=== PATIENT | male | born 1955 | race African-American/Black ===

== ENCOUNTER 2020-10-28 18:05 | Inpatient (IN) | payer OTHER, SELFPAY ==
[2020-10-28 18:32] LABS: Absolute Lymphocytes (CBC) 1.6 K/uL (0.7-4.9); Basophils % 0.9 % (0-1.3); Hematocrit 38.6 % (39.6-49.0); Lymphocytes % 17.8 % (15.3-44.8); MPV 8.3 fL (7.6-11.3); RBC Red Blood Cell Count 4.16 M/uL (4.33-5.43)
[2020-10-28 18:33] LABS: Protime INR 1.08
[2020-10-28] MEDS ORDERED: MAGNESIUM SULFATE 1 gm IVPB 1 GM/100 ML BAG IV ONE (18:36)
[2020-10-28] MEDS ORDERED: NA CHLORIDE 0.9% 1,000 ML ONE (18:36)
[2020-10-28 18:44] LABS: ALT/SGPT 106 U/L (12-78); Alkaline Phosphatase 58 U/L (45-117); BUN Blood Urea Nitrogen 14 mg/dL (7-18); Bicarbonate 26 mmol/L (21-32); Bilirubin Direct < 0.1 mg/dL (0-0.2); Bilirubin Total 0.7 mg/dL (0.2-1.0); Glucose Level 92 mg/dL (74-106); Lipase 80 U/L (73-393); Protein, Total 8.8 g/dL (6.4-8.2); Sodium Level 137 mmol/L (136-145); Troponin (Emerg Dept Use Only) 0.02 ng/mL (0.0-0.045)
[2020-10-28 18:45] LABS: Potassium 3.9 mmol/L (3.5-5.1)
[2020-10-28 18:47] LABS: AST/SGOT 406 U/L (15-37)
[2020-10-28] MEDS ORDERED: METOPROLOL TAR 25 MG TAB ONE (18:55)
--- NOTE | 2020-10-28 19:16 | RAD REPORT ---
EXAM DESCRIPTION: CT - Abdomen Pelvis W Contrast - 10/28/2020 7:00 pm CLINICAL HISTORY: LLQ abd pain COMPARISON: No comparisons TECHNIQUE: Biphasic, helical CT imaging of the abdomen and pelvis was performed following 100 ml non -ionic IV contrast. No oral contrast administered. All CT scans are performed using dose optimization technique as appropriate and may include automated exposure control or mA/KV adjustment according to patient size. FINDINGS: No suspicious findings in the lung bases. The liver, pancreas, gallbladder and biliary tree show no suspicious findings. Spleen is abnormal. There is a wedge-shaped area of diminished attenuation and absent enhancement th at extends from the anterior superior aspect to the posteroinferior aspect neck configuration typical for splenic infarction. Remaining splenic tissue shows normal enhancement with no focal mass lesion. No splenic artery thrombus identifiable. Patient shows only mild for age atherosclerotic calcificati on in the aorta. No mesenteric or renal artery atherosclerotic calcifications seen. Symmetric renal function is seen with no hydronephrosis or suspicious renal mass. No pyelonephritis o r acute parenchymal process. Urinary bladder is only partially filled. No bladder calculi. Base the b ladder near the prostate gland appears thickened. This could be artifact of incomplete distention. Fo llow-up outpatient ultrasound could be obtained with a bladder fully filled. No adrenal abnormalities . Prostate gland is prominent. No dilated bowel loops or bowel wall thickening. No free air, free fluid or inflammatory stranding. No hernia, mass or bulky lymphadenopathy. No suspicious bony findings. IMPRESSION: A wedge-shaped area of absent or diminished enhancement in the spleen extends from the a nterior superior margin to the posteroinferior margin, an appearance typical for acute to subacute sp lenic infarction. No hemorrhagic component. Remaining splenic parenchyma enhances normally. No splenic artery thrombus identifiable. Base the bladder near the prostate gland appears thickened but may be an artifact of incomplete diste ntion. Follow-up outpatient bladder sonography could be performed with urinary bladder fully distende d.
--- NOTE | 2020-10-28 19:16 | RAD REPORT ---
EXAM DESCRIPTION: RAD - Chest Single View - 10/28/2020 6:40 pm CLINICAL HISTORY: PALPITATIONS COMPARISON: None TECHNIQUE: AP portable chest image was obtained 10/28/2020 6:40 pm . FINDINGS: Scarring or linear atelectasis changes present in the left base. No mass or consolidation suspected. Heart and vasculature are normal. No measurable pleural effusion and no pneumothorax. No a cute bony abnormality seen. No acute aortic findings suspected. IMPRESSION: Scarring and/or atelectasis changes at each lung base. No acute finding.
--- NOTE | 2020-10-28 19:58 | EDPHYS ---
Physician Documentation [facility] Name: Cory Mcclure Jr Age: 65 yrs Sex: Male : 1955 Arrival Date: 10/28/2020 Time: 18:07 Bed 2 Private MD: ED Physician Javi Munoz HPI: 10/28 18:16 This 65 yrs old Black Male presents to ER via Unassigned with complaints of LLQ abd rn pain. 18:16 The patient presents with abdominal pain in the left lower quadrant. Onset: The rn symptoms/episode began/occurred 3 day(s) ago. The symptoms do not radiate. Associated signs and symptoms: Pertinent positives: anorexia, nausea, Pertinent negatives: blood in stools, chest pain, constipation, diarrhea, dysuria, fever, shortness of breath, testicular pain. The symptoms are described as sharp. Modifying factors: The symptoms are alleviated by remaining still, the symptoms are aggravated by movement, touching the area. Severity of pain: At its worst the pain was moderate in the emergency department the pain is unchanged. The patient has not experienced similar symptoms in the past. The patient has not recently seen a physician. Historical: - Allergies: 18:48 No Known Allergies; tr6 - Home Meds: 18:48 None [Active]; tr6 - PMHx: 18:48 None; tr6 - Immunization history:: Adult Immunizations unknown. - Social history:: Smoking status: Patient reports the use of cigarette tobacco products, smokes one pack cigarettes per day. Patient uses alcohol, admits to "couple of beers" a day. on weekends. street drugs, marijuana. - Family history:: not pertinent. - Hospitalizations: : No recent hospitalization is reported. ROS: 18:16 Constitutional: Negative for fever, chills, and weight loss, Eyes: Negative for injury, rn pain, redness, and discharge, Neck: Negative for injury, pain, and swelling, Cardiovascular: Negative for chest pain, palpitations, and edema, Respiratory: Negative for shortness of breath, cough, wheezing, and pleuritic chest pain, Abdomen/GI: Negative for vomiting, diarrhea, and constipation, Back: Negative for injury and pain, : Negative for injury, bleeding, discharge, and swelling, MS/Extremity: Negative for injury and deformity, Skin: Negative for injury, rash, and discoloration, Neuro: Negative for headache, weakness, numbness, tingling, and seizure. Exam: 18:16 Constitutional: Thin male, no acute distress Head/Face: Normocephalic, atraumatic. rn Eyes: Periorbital areas with no swelling, redness, or edema. ENT: dry MM Cardiovascular: Tachycardic, regular Respiratory: Mild tachypnea, no retractions Abdomen/GI: soft, + tender LLQ with guarding, no rebound, no masses Skin: Warm, dry MS/ Extremity: Pulses equal, no cyanosis. Neuro: Awake and alert, GCS 15, oriented to person, place, time, and situation. Cranial nerves II-XII grossly intact. Motor strength 5/5 in all extremities. Sensory grossly intact. Vital Signs: 18:15 BP 112 / 78; Pulse 162; Resp 18; Temp 98.3(O); Pulse Ox 99% on R/A; tr6 18:33 BP 116 / 80; Pulse 103; Resp 18; Pulse Ox 99% on R/A; Pain 0/10; tr6 20:02 BP 134 / 92; Pulse 86; Resp 16 S; Pulse Ox 99% on R/A; ad5 21:01 BP 128 / 84; Pulse 85; Resp 16 S; Pulse Ox 99% on R/A; ad5 21:52 BP 115 / 81; Pulse 89; Resp 16 S; Pulse Ox 99% on R/A; ad5 MDM: 18:07 Patient medically screened. rn 18:22 ED course: Pt with episodes that appears to be either SVT or Aflutter with buried rn waves, HR in 150s, goes back to sinus tachycardia after a few minutes. Pt denies sob/palpitations/chest pain. . 19:02 Transition of care: After a detail discussion of the patient's case, care is rn transferred to James Jacobo MD. 19:56 Differential diagnosis: appendicitis, gastritis, Hepatitis, Irritable bowel syndrome. ma2 Data reviewed: vital signs, nurses notes. Counseling: I had a detailed discussion with the patient and/or guardian regarding: the historical points, exam findings, and any diagnostic results supporting the discharge/admit diagnosis, the presence of at least one elevated blood pressure reading (>120/80) during this emergency department visit, the need for outpatient follow up. Response to treatment: the patient's symptoms have markedly improved after treatment. 10/28 18:09 Order name: Basic Metabolic Panel 10/28 18:09 Order name: CBC with Diff 10/28 18:09 Order name: Hepatic Function 10/28 18:09 Order name: Lipase 10/28 18:09 Order name: Urine Microscopic Only 10/28 18:09 Order name: Troponin (emerg Dept Use Only) 10/28 18:10 Order name: Basic Metabolic Panel [facility] 10/28 18:10 Order name: CBC with Automated Diff; Complete Time: 18:41 [facility] 10/28 18:16 Order name: PT-INR; Complete Time: 18:41 10/28 18:16 Order name: Ptt, Activated; Complete Time: 18:41 10/28 20:13 Order name: COVID-19 : Document "Date of Symptom Onset" if Symptomatic. [facility] 10/28 18:09 Order name: IV Saline Lock; Complete Time: 18:23 10/28 18:09 Order name: Labs collected and sent; Complete Time: 18:23 10/28 18:09 Order name: CT Abd/Pelvis - IV Contrast Only; Complete Time: 19:29 10/28 18:09 Order name: EKG; Complete Time: 18:10 10/28 18:09 Order name: XRAY Chest (1 view); Complete Time: 19:29 10/28 20:24 Order name: ESR [facility] 10/28 20:24 Order name: CRP [facility] 10/28 20:24 Order name: Blood Culture Adult (2) [facility] 10/28 20:25 Order name: Sedimentation Rate, [place] [facility] 10/28 20:26 Order name: UDS [facility] 10/28 20:59 Order name: C-Reactive Protein [facility] 10/28 21:31 Order name: SARS-COV-2 RT PCR [facility] 10/28 18:09 Order name: EKG - Nurse/Tech; Complete Time: 18:23 rn Administered Medications: 18:23 Drug: NS 0.9% 1000 ml Route: IV; Rate: 1000 ml; Site: left antecubital; tr6 18:23 Drug: Magnesium Sulfate 1 grams Route: IVPB; Infused Over: 1 hrs; Site: left tr6 antecubital; 19:30 Follow up: IV Status: Completed infusion jm8 18:42 Drug: Metoprolol 25 mg Route: PO; tr6 20:03 Follow up: Response: No adverse reaction ad5 20:21 Drug: Lovenox (enoxaparin) 80 mg Route: Sub-Q; Site: left lower abdomen; ad5 21:02 Follow up: Response: No adverse reaction ad5 Disposition: 10/28/20 19:58 Hospitalization ordered by Artie Chnadra for Inpatient Admission. Preliminary diagnosis are Infarction of spleen, Tachycardia, unspecified, Unspecified abdominal pain. - Bed requested for Telemetry/MedSurg (Inpatient). - Status is Inpatient Admission. jm8 - Condition is Stable. - Problem is new. - Symptoms are unchanged. Signatures: Dispatcher [employer] EDTN Kim Toribio RN RN Javi Munoz MD MD rn Attema, Lee, HERPETOLOGY TEACHER-C HERPETOLOGY TEACHER-Cla1 James Jacobo MD MD mi2 Everett Craig RN RN jm8 Kathy Gorman RN RN tr6 Noel Velasco ad5 Corrections: (The following items were deleted from the chart) 20:27 20:13 [facility] 19:58 Hospitalization Ordered by Artie Chandra DO for Inpatient Admission. Preliminary diagnosis is Infarction of spleen; Tachycardia, unspecified; Unspecified abdominal pain. Bed requested for Telemetry/MedSurg (Inpatient). Status is Inpatient Admission. Condition is Stable. Problem is new. Symptoms are unchanged. mi2 23:05 21:43 10/28/2020 19:58 Hospitalization Ordered by Artie Chandra DO for Inpatient [facility] Admission. Preliminary diagnosis is Infarction of spleen; Tachycardia, unspecified; Unspecified abdominal pain. Bed requested for Telemetry/MedSurg (Inpatient). Status is Inpatient Admission. Condition is Stable. Problem is new. Symptoms are unchanged. dw
--- NOTE | 2020-10-28 19:58 | ER ---
Nurse's Notes [facility] Name: Cory Mcclure Jr Age: 65 yrs Sex: Male : 1955 Arrival Date: 10/28/2020 Time: 18:07 Bed 2 Private MD: Diagnosis: Infarction of spleen;Tachycardia, unspecified;Unspecified abdominal pain Presentation: 10/28 18:25 Chief complaint: EMS states: pt brought to ED for left lower quadrant pain/left hip tr6 pain since Tuesday. pt found to have HR of 150s. Coronavirus screen: At this time, unable to obtain information related to travel outside the [place] Ebola Screen: Patient negative for fever greater than or equal to 101.5 degrees Fahrenheit, and additional compatible Ebola Virus Disease symptoms Patient denies exposure to infectious person. Patient denies travel to an Ebola-affected area in the 21 days before illness onset. Initial Sepsis Screen: Does the patient meet any 2 criteria? HR > 90 bpm. Does the patient have a suspected source of infection? No. Patient's initial sepsis screen is negative. Risk Assessment: Do you want to hurt yourself or someone else? Patient reports no desire to harm self or others. Onset of symptoms was October 26, 2020. 18:25 Method Of Arrival: EMS: [facility] tr6 18:25 Acuity: ANITA 2 tr6 Triage Assessment: 18:25 General: Appears in no apparent distress. comfortable, slender, Behavior is calm, tr6 cooperative, appropriate for age. Pain: Complains of pain in LLQ/ left hip pain. EENT: No deficits noted. Neuro: No deficits noted. Cardiovascular: Denies chest pain, lightheadedness, nausea, palpitations, shortness of breath, vomiting, Rhythm is pt alternates from NSR to SVT as high as 160s. Respiratory: No deficits noted. Denies cough, shortness of breath labored breathing, pain with respiration, pain with cough, pain with movement. GI: No deficits noted. Abdomen is flat, non-distended, Abd is soft and non tender. : No deficits noted. Denies burning with urination, inability to void, pain. Derm: No deficits noted. Musculoskeletal: No deficits noted. Historical: - Allergies: 18:48 No Known Allergies; tr6 - Home Meds: 18:48 None [Active]; tr6 - PMHx: 18:48 None; tr6 - Immunization history:: Adult Immunizations unknown. - Social history:: Smoking status: Patient reports the use of cigarette tobacco products, smokes one pack cigarettes per day. Patient uses alcohol, admits to "couple of beers" a day. on weekends. street drugs, marijuana. - Family history:: not pertinent. - Hospitalizations: : No recent hospitalization is reported. Screenin:34 Abuse screen: Denies threats or abuse. Denies injuries from another. Nutritional tr6 screening: No deficits noted. Tuberculosis screening: No symptoms or risk factors identified. Fall Risk None identified. Assessment: 18:30 Reassessment: see triage assessment. tr6 18:46 Reassessment: pt states that the pain began on Tuesday when he was lifting a heavy bag tr6 of garbage. pt states the pain increases when he turns a certain way. 18:52 Reassessment: pt transported to CT via stretcher. tr6 19:49 Reassessment: Patient and/or family updated on plan of care and expected duration. Pain ad5 level reassessed. Patient is alert, oriented x 3, equal unlabored respirations, skin warm/dry/pink. Pt resting comfortably in stretcher, resp with ease. Denies new or worsening c/o. Reports pain to LLQ improved. NAD noted, will continue to monitor. Patient states feeling better. 21:01 Reassessment: Patient appears in no apparent distress at this time. No changes from ad5 previously documented assessment. Patient and/or family updated on plan of care and expected duration. Pain level reassessed. Patient is alert, oriented x 3, equal unlabored respirations, skin warm/dry/pink. 21:52 Reassessment: Patient appears in no apparent distress at this time. No changes from ad5 previously documented assessment. Patient and/or family updated on plan of care and expected duration. Pain level reassessed. Patient is alert, oriented x 3, equal unlabored respirations, skin warm/dry/pink. 22:07 Reassessment: Pt report to receiving RNCierra. Questions/concerns addressed. NAD ad5 noted upon transfer of care. Vital Signs: 18:15 BP 112 / 78; Pulse 162; Resp 18; Temp 98.3(O); Pulse Ox 99% on R/A; tr6 18:33 BP 116 / 80; Pulse 103; Resp 18; Pulse Ox 99% on R/A; Pain 0/10; tr6 20:02 BP 134 / 92; Pulse 86; Resp 16 S; Pulse Ox 99% on R/A; ad5 21:01 BP 128 / 84; Pulse 85; Resp 16 S; Pulse Ox 99% on R/A; ad5 21:52 BP 115 / 81; Pulse 89; Resp 16 S; Pulse Ox 99% on R/A; ad5 Vitals: 18:15 Cardiac Rhythm Assessment Sinus tach SVT Other pt asymptomatic. pt states he does not tr6 feel his heart racing. ED Course: 18:07 Patient arrived in ED. rn 18:07 Javi Munoz MD is Attending Physician. rn 18:23 Kathy Gorman RN is Primary Nurse. tr6 18:27 Triage completed. tr6 18:30 No apparent distress. tr6 18:30 Inserted saline lock: 20 gauge in right antecubital area, using aseptic technique. tr6 Blood collected. 18:31 Maintain EMS IV. Dressing intact. Good blood return noted. Site clean \\T\\ dry. Gauge \\T\\ tr 6 site: left AC 20. 18:34 Patient has correct armband on for positive identification. Placed in gown. Bed in low tr6 position. Call light in reach. Side rails up X2. data processing mechanic on. Pulse ox on. NIBP on. Door closed. Noise minimized. Visitors limited. Lights dimmed. Warm blanket given. 18:38 XRAY Chest (1 view) In Process Unspecified. EDMS 18:44 No provider procedures requiring assistance completed. tr6 18:44 Patient placed in an exam room, on a stretcher, on wash plant operator, on pulse oximetry. tr6 19:00 CT Abd/Pelvis - IV Contrast Only In Process Unspecified. EDMS 19:16 Primary Nurse role handed off by Kathy Gorman, ROSA mw2 19:46 Noel Velasco is Primary Nurse. ad5 19:58 Artie Chandra DO is Hospitalizing Provider. ma2 20:21 COVID-19 : Document "Date of Symptom Onset" if Symptomatic. Sent. ad5 22:07 Patient admitted, IV remains in place. ad5 Administered Medications: 18:23 Drug: NS 0.9% 1000 ml Route: IV; Rate: 1000 ml; Site: left antecubital; tr6 18:23 Drug: Magnesium Sulfate 1 grams Route: IVPB; Infused Over: 1 hrs; Site: left tr6 antecubital; 19:30 Follow up: IV Status: Completed infusion jm8 18:42 Drug: Metoprolol 25 mg Route: PO; tr6 20:03 Follow up: Response: No adverse reaction ad5 20:21 Drug: Lovenox (enoxaparin) 80 mg Route: Sub-Q; Site: left lower abdomen; ad5 21:02 Follow up: Response: No adverse reaction ad5 Outcome: 19:58 Decision to Hospitalize by Provider. ma2 22:06 Admitted to Med/surg accompanied by tech, via stretcher, with chart. ad5 22:06 Condition: stable 22:06 Instructed on the need for admit, Demonstrated understanding of instructions. 23:05 Patient left the ED. jm8 Signatures: Dispatcher [employer] EDMS Javi Munoz MD MD rn Alzahri, Mohammad, MD MD ca2 Ralph Palacios 2 Everett Craig RN RN 8 Kathy Gorman RN RN tr6 Noel Velasco ad5 Corrections: (The following items were deleted from the chart) 20:27 20:21 CORONAVIRUS drawn and sent. ad5 EDMS
[2020-10-28] MEDS ORDERED: ENOXAPARIN 80 MG/0.8 ML SQ ONE (20:27)
--- NOTE | 2020-10-28 20:57 | P.HP ---
Certification for Inpatient Patient admitted to: Inpatient With expected LOS: >2 Midnights Patient will require the following post-hospital care: None Practitioner: I am a practitioner with admitting privileges, knowledge of patient current condition, hospital course, and medical plan of care. Services: Services provided to patient in accordance with Admission requirements found in Title 42 Section 412.3 of the Code of Federal Regulations Patient History Date of Service: 10/28/20 Reason for admission: Splenic infarction History of Present Illness: 65-year-old male with history of alcohol abuse presents emergency department for left-sided abdominal pain and tachycardia. Patient reports ongoing abdominal pain since Tuesday. Labs in the emergency department remarkable for hemoglobin 12.9 hematocrit 38.6 80 S. T4 0 6 ALT 106 troponin 0.02 patient was initially tachycardic with a rate around 160 appeared to be SVT, patient was given 25 of Lopressor p.o. and has been rate controlled since that time. Chest x-ray unremarkable, CT abdomen pelvis demonstrates a wedge- shaped area of abscess or diminished enhancement in the spleen extending from the anterior superior margin to the posterior inferior margin within appearance typical for acute to subacute splenic infarction. No hemorrhagic component or splenic artery thrombus is identifiable. Patient denies any IV drug use were recent dental infection/problem, does report drinking approximately 8-10 beers per day for a number of years, last beer was on Tuesday afternoon. ED provider wishes to admit for further evaluation and management. - Past Medical/Surgical History -: Alcohol abuse -: none Psychosocial/ Personal History: Unemployed, lives with a friend - Family History Mother -: Cancer - Social History Smoking Status: Never smoker Alcohol use: Yes CD- Drugs: No Caffeine use: Yes Place of Residence: Home Review of Systems 10-point ROS is otherwise unremarkable Gastrointestinal: Nausea, Abdominal Pain Physical Examination - Physical Exam General: Alert, In no apparent distress, Oriented x3 HEENT: Atraumatic, PERRLA, Mucous membr. moist/pink, EOMI, Sclerae nonicteric Neck: Supple, 2+ carotid pulse no bruit, No LAD, Without JVD or thyroid abnormality Respiratory: Clear to auscultation bilaterally, Normal air movement Cardiovascular: Regular rate/rhythm, Normal S1 S2 Gastrointestinal: Normal bowel sounds, Tenderness (Left-sided abdominal tenderness noted) Musculoskeletal: No tenderness Integumentary: No rashes Neurological: Normal gait, Normal speech, Normal strength at 5/5 x4 extr, Normal tone, Normal affect - Studies Laboratory Data (last 24 hrs) 10/28/20 18:10: PT 12.4, INR 1.08, APTT 27.7 10/28/20 18:10: WBC 8.90, Hgb 12.9 L, Hct 38.6 L, Plt Count 285 10/28/20 18:10: Sodium 137, Potassium 3.9, BUN 14, Creatinine 1.09, Glucose 92, Total Bilirubin 0.7, AST 406 H*, ALT 106 H, Alkaline Phosphatase 58, Lipase 80 Assessment and Plan - Plan Assessment SVT, splenic infarction ETOH abuse Plan SVT, splenic infarction: Will monitor on tele, patient given metoprolol 25 mg p.o. in the emergency department, will continue this medication. Given new a rrhythmia and splenic infarction endocarditis is a consideration, will obtain blood cultures, CRP, ESR, echocardiogram. No audible significant murmur at this time, no additional lesions to suggest endocarditis. Patient denies any IV drug use, UDS pending, dentition is overall poor but no significant infection present. Cardiology consulted. Will continue with full-dose Lovenox for splenic infarction of unknown etiology. ETOH abuse: Patient reports drinking 8-10 beers per day for the last few years, last drink was on Tuesday the in the afternoon. Will monitor with alcohol withdrawal assessments provide p.r.n. medications. Discharge Plan: Home Plan to discharge in: 48 Hours - Advance Directives Does patient have a Living Will: No Does patient have a Durable POA for Healthcare: No - Code Status/Comfort Care Code Status Assessed: Yes (Full code) Critical Care: No Time Spent Managing Pts Care (In Minutes): 55
[2020-10-28 22:56] VITALS: BMI 22.4
[2020-10-28] MEDS ORDERED: HYDROCODONE/APAP 7.5/325 MG TAB PO PRN (22:57)
[2020-10-28] MEDS ORDERED: ONDANSETRON 4 MG/2 ML VIAL IV PRN (22:57)
[2020-10-28] MEDS: NA CHLORIDE 0.9% 1,000 ML IV SCH (23:39)
[2020-10-29] MEDS ORDERED: ENOXAPARIN 80 MG/0.8 ML SQ SCH
[2020-10-29 04:05] LABS: Absolute Lymphocytes (CBC) 1.5 K/uL (0.7-4.9); Basophils % 0.9 % (0-1.3); Hematocrit 36.4 % (39.6-49.0); Lymphocytes % 18.7 % (15.3-44.8); MPV 8.7 fL (7.6-11.3); RBC Red Blood Cell Count 3.92 M/uL (4.33-5.43)
[2020-10-29 04:30] LABS: ALT/SGPT 120 U/L (12-78); Albumin 2.7 g/dL (3.4-5.0); Alkaline Phosphatase 53 U/L (45-117); BUN Blood Urea Nitrogen 15 mg/dL (7-18); Bicarbonate 25 mmol/L (21-32); Bilirubin Total 0.6 mg/dL (0.2-1.0); Glucose Level 95 mg/dL (74-106); HDL Cholesterol 47 mg/dL (40-60); LDL Cholesterol, Calculated 72 (<130); Magnesium 2.3 mg/dL (1.8-2.4); Potassium 3.6 mmol/L (3.5-5.1); Protein, Total 7.9 g/dL (6.4-8.2); Sodium Level 137 mmol/L (136-145)
[2020-10-29 04:36] LABS: AST/SGOT 508 U/L (15-37)
[2020-10-29 06:40] LABS: Urine Appearance CLOUDY (Clear); Urine Blood 3+ (Negative); Urine Color DK YELLOW (Yellow); Urine Glucose NEGATIVE (Negative); Urine Protein 2+ (Negative); Urine Specific Gravity 1.025 (1.005-1.030)
[2020-10-29 06:45] LABS: Urine Bilirubin 1+ (Negative)
[2020-10-29 06:54] LABS: Urine RBC NONE SEEN /HPF (NONE SEEN)
[2020-10-29 06:55] LABS: Urine Amorphous Sediment 2+ /HPF (NONE SEEN); Urine Bacteria NONE SEEN /HPF (NONE SEEN)
[2020-10-29 06:58] LABS: Barbiturates NEGATIVE (NEGATIVE); Benzodiazepines NEGATIVE (NEGATIVE); Cocaine NEGATIVE (NEGATIVE); METHAMPHETAM NEGATIVE (NEGATIVE); Methadone NEGATIVE (NEGATIVE); Opiates NEGATIVE (NEGATIVE); Phencyclidine NEGATIVE (NEGATIVE); THC Cannibis POSITIVE (NEGATIVE)
[2020-10-29] MEDS ORDERED: KCL 20 MEQ/100 mL IVPB 20 MEQ/100 ML BAG IV SCH (07:30)
[2020-10-29] MEDS: METOPROLOL TAR 25 MG TAB PO SCH (09:51)
[2020-10-29] MEDS: ENOXAPARIN 80 MG/0.8 ML SQ SCH ×2 (09:51→20:41)
[2020-10-29] MEDS: NA CHLORIDE 0.9% 1,000 ML IV SCH ×2 (09:58→18:57)
--- NOTE | 2020-10-29 11:56 | RAD REPORT ---
EXAM DESCRIPTION: US - Liver Only - 10/29/2020 10:41 am CLINICAL HISTORY: Abdominal pain. SPlenic infarct, Elevated Liver func, Alcohol COMPARISON: No comparisons FINDINGS: Mild diffuse fatty liver. No focal liver lesions or intrahepatic biliary dilatation is see n. Vascular flow to the liver is normal. The gallbladder demonstrates no gallstones, pericholecystic fluid or gallbladder wall thickening. Co mmon bile duct is normal in caliber measuring 4 mm. The spleen is normal in size measuring 9.5 cm. Trace free fluid is suspected along the anterior ankit n the spleen. IMPRESSION: Mild fatty liver noted. Trace amount of fluid anterior to the spleen.
--- NOTE | 2020-10-29 11:58 | EKG ---
Test Date: 2020-10-28 Test Time: 18:15:26 Order Desk Caller: TTR MEASUREMENT RESULTS: Intervals: Rate: 100 VA: 168 QRSD: 82 QT: 334 QTc: 430 [place]: P: 76 VA: 168 QRS: 1 T: 73 INTERPRETIVE STATEMENTS: Normal sinus rhythm Inferior infarct, age undetermined Abnormal ECG Compared to ECG 10/28/2020 18:11:51 Sinus tachycardia no longer present Myocardial infarct finding still present Electronically Signed On 10-29-20 11:56:56 CDT by Mariusz Gunter
--- NOTE | 2020-10-29 11:58 | EKG ---
Test Date: 2020-10-28 Test Time: 18:11:51 Crisis Clinician: TTR MEASUREMENT RESULTS: Intervals: Rate: 163 ID: [id number] QRSD: 68 QT: 286 QTc: 470 [place]: P: ID: [id number] QRS: 18 T: 79 INTERPRETIVE STATEMENTS: Sinus tachycardia Inferior-posterior infarct, age undetermined Abnormal ECG No previous ECG available for comparison Electronically Signed On 10-29-20 11:56:58 CDT by Mariusz Gunter
--- NOTE | 2020-10-29 12:47 | ECHO ---
HEIGHT: 6 ft 3 in WEIGHT: 179 lb 6.4 oz DATE OF STUDY: 10/29/[address]: Juan Carlos Soto NP 2-DIMENSIONAL: YES M.MODE: YES DOPPLER: YES COLOR FLOW: YES TDS: PORTABLE: DEFINITY: BUBBLE STUDY: DIAGNOSIS: RULE OUT ENDOCARDITIS, SPLENTIC INFARCT CARDIAC HISTORY: CATHERIZATION: NO SURGERY: NO PROSTHETIC VALVE: NO PACEMAKER: NO MEASUREMENTS (cm) DIASTOLIC (NORMALS) SYSTOLIC (NORMALS) IVSd 1.0 (0.6-1.2) LA Diam 2.6 (1.9-4.0) LVEF 84% LVIDd 4.3 (3.5-5.7) LVIDs 2.0 (2.0-3.5) %FS 53% LVPWd 1.0 (0.6-1.2) Ao Diam 3.2 (2.0-3.7) 2 DIMENSIONAL ASSESSMENT: RIGHT ATRIUM: LEFT ATRIUM: RIGHT VENTRICLE: LEFT VENTRICLE: TRICUSPID VALVE: MITRAL VALVE: PULMONIC VALVE: AORTIC VALVE: PERICARDIAL EFFUSION: AORTIC ROOT: LEFT VENTRICULAR WALL MOTION: DOPPLER/COLOR FLOW: COMMENTS: NORMAL 2-DIMENSIONAL ECHOCARDIOGRAM. NO VEGETATION. NO EFFUSION. TECHNOLOGIST: ZAC CAR
--- NOTE | 2020-10-29 13:57 | P.PN ---
Subjective Date of Service: 10/29/20 Chief Complaint: Splenic infarction Subjective: Improving, Doing well Physical Examination - Vital Signs Temperature: 98.3 F Blood Pressure: 119/73 Pulse: 82 Respirations: 18 Pulse Ox (%): 98 - Studies Laboratory Data (last 24 hrs) 10/28/20 18:10: PT 12.4, INR 1.08, APTT 27.7 10/28/20 18:10: WBC 8.90, Hgb 12.9 L, Hct 38.6 L, Plt Count 285 10/28/20 18:10: Sodium 137, Potassium 3.9, BUN 14, Creatinine 1.09, Glucose 92, Total Bilirubin 0.7, AST 406 H*, ALT 106 H, Alkaline Phosphatase 58, Lipase 80 Assessment & Plan Discharge Plan: Home Plan to discharge in: 48 Hours Physician Review Additional Text: Physical Exam: GENERAL: The patient is a well-developed, well-nourished, in no apparent distress. Alert and oriented x3. VITAL SIGNS: Reviewed HEENT: Head is normocephalic and atraumatic. Extraocular muscles are intact. Pupils are equal, round, and reactive to light and accommodation. Nares appeared normal. Mouth is well hydrated and without lesions. Mucous membranes are moist. NECK: Supple. No carotid bruits. No lymphadenopathy or thyromegaly. LUNGS: Clear to auscultation. No crackles or wheezes are heard. HEART: Regular rate and rhythm, no appreciable gallops, rubs, murmurs or extra heart sounds ABDOMEN: Soft, nontender, and nondistended. Positive bowel sounds. No hepato splenomegaly was noted. EXTREMITIES: Without any cyanosis, clubbing, rash, lesions or peripheral edema. NEUROLOGIC: The patient is oriented to person, place and time. Strength and sensation are grossly intact. Face is symmetric. SKIN: Normal color, turgor and temperature. No ulcerations or rashes noted. Impression: SVT Splenic infarct etiology unknown ETOH abuse Elevated liver function likely related to alcohol abuse Plan SVT: Continue with metoprolol. Await echocardiogram. Blood cultures obtained. Will discuss with cardiology for further recommendation. Splenic infarct etiology unknown: We will obtain abdominal ultrasound to further evaluate. Echocardiogram also to be obtained. Continue Lovenox. Will discuss with cardiology for plan of care. ETOH abuse: Patient reports drinking 8-10 beers per day for the last few years, last drink was on Tuesday the in the afternoon. Will monitor with alcohol withdrawal assessments provide p.r.n. medications. Elevated liver function likely related to alcohol abuse: We will check liver ultrasound. Will send lab for HIV and hepatitis panel. Code Status: Full Code DVT prophylaxis: Lovenox Advanced Care Planning-30 minutes: Plan of care for the patient's discharge was discussed in detail with the patient. Patient plans to go home at discharge.. Time Spent Managing Pts Care (In Minutes): 55
[2020-10-29] MEDS ORDERED: METOPROLOL TARTRATE 5 MG/5 ML INJ IV STA (23:21)
[2020-10-29] MEDS ORDERED: METOPROLOL TARTRATE 5 MG/5 ML INJ IV ONE (23:43)
[2020-10-30] MEDS: METOPROLOL TAR 25 MG TAB PO SCH ×3 (05:00→20:41)
[2020-10-30] MEDS ORDERED: METOPROLOL TARTRATE 5 MG/5 ML INJ IV STA (05:31)
[2020-10-30 07:11] LABS: Absolute Lymphocytes (CBC) 1.4 K/uL (0.7-4.9); Basophils % 0.9 % (0-1.3); Hematocrit 32.8 % (39.6-49.0); Lymphocytes % 17.8 % (15.3-44.8); MPV 7.8 fL (7.6-11.3); RBC Red Blood Cell Count 3.56 M/uL (4.33-5.43)
[2020-10-30 07:45] LABS: ALT/SGPT 226 U/L (12-78); Albumin 2.5 g/dL (3.4-5.0); Alkaline Phosphatase 51 U/L (45-117); BUN Blood Urea Nitrogen 12 mg/dL (7-18); Bicarbonate 26 mmol/L (21-32); Bilirubin Total 0.7 mg/dL (0.2-1.0); Glucose Level 104 mg/dL (74-106); Magnesium 2.4 mg/dL (1.8-2.4); Potassium 3.9 mmol/L (3.5-5.1); Protein, Total 7.7 g/dL (6.4-8.2); Sodium Level 136 mmol/L (136-145)
[2020-10-30 07:49] LABS: AST/SGOT 1105 U/L (15-37)
[2020-10-30] MEDS: ENOXAPARIN 80 MG/0.8 ML SQ SCH ×2 (09:00→20:41)
[2020-10-30] MEDS: NA CHLORIDE 0.9% 1,000 ML IV SCH (11:10)
--- NOTE | 2020-10-30 12:23 | RAD REPORT ---
EXAM DESCRIPTION: CT - CT ANGIO ABD/PELVIS W CONTRAST - 10/30/2020 11:54 am CLINICAL HISTORY: Abdominal pain, splenic infarction. COMPARISON: None. TECHNIQUE: Dynamically enhanced 3 mm thick images of the abdomen and pelvis were obtained during adm inistration of approximately 150mL Isovue 370 IV contrast. Sagittal and coronal reconstruction images were generated and reviewed. All CT scans are performed using dose optimization technique as appropriate and may include automated exposure control or mA/KV adjustment according to patient size. FINDINGS: Small bilateral pleural effusions are present with atelectasis/ infiltrate both bases. The abdominal aorta is normal in caliber without dissection or aneurysm. Celiac axis SMA, both renal arteries and NARCISA are widely patent and normal. Wedge-shaped infarct in th e spleen is again seen. However, the visualized main splenic artery is normal. Additional solid organ finding of concern. No bowel obstruction, free fluid, abscess or free air. No fracture or aggressive marrow lesion. IMPRESSION: No significant arterial flow abnormality is seen of the abdominal aorta or visceral iza yobani.
--- NOTE | 2020-10-30 16:05 | P.PN ---
Subjective Date of Service: 10/30/20 Chief Complaint: Splenic infarction Subjective: Improving, Doing well Physical Examination - Vital Signs Temperature: 98.1 F Blood Pressure: 112/66 Pulse: 82 Respirations: 18 Pulse Ox (%): 98 Assessment & Plan Discharge Plan: Home Plan to discharge in: 48 Hours Physician Review Additional Text: Physical Exam: GENERAL: The patient is a well-developed, well-nourished, in no apparent distress. Alert and oriented x3. VITAL SIGNS: Reviewed HEENT: Head is normocephalic and atraumatic. Extraocular muscles are intact. Pupils are equal, round, and reactive to light and accommodation. Nares appeared normal. Mouth is well hydrated and without lesions. Mucous membranes are moist. NECK: Supple. No carotid bruits. No lymphadenopathy or thyromegaly. LUNGS: Clear to auscultation. No crackles or wheezes are heard. HEART: Regular rate and rhythm, no appreciable gallops, rubs, murmurs or extra heart sounds ABDOMEN: Soft, nontender, and nondistended. Positive bowel sounds. No hepat osplenomegaly was noted. EXTREMITIES: Without any cyanosis, clubbing, rash, lesions or peripheral edema. NEUROLOGIC: The patient is oriented to person, place and time. Strength and sensation are grossly intact. Face is symmetric. SKIN: Normal color, turgor and temperature. No ulcerations or rashes noted. Impression: SVT Splenic infarct etiology unknown ETOH abuse Elevated liver function likely related to alcohol abuse Plan SVT: Patient had another episode of SVT. Will increase Metoprolol to BID. Will discuss with Cardiology. Echo unremarkable. Splenic infarct etiology unknown: Repeat CT scan shows no arterial abnormality. Continue Lovenox. Will discuss with cardiology. ETOH abuse: Patient reports drinking 8-10 beers per day for the last few years, last drink was on Tuesday the in the afternoon. Will monitor with alcohol withdrawal assessments provide p.r.n. medications. Elevated liver function likely related to alcohol abuse: We will monitor liver function test. Hepatitis and HIV panel pending. Case discussed with GI. Await further recommendations. Code Status: Full Code DVT prophylaxis: Lovenox Advanced Care Planning-30 minutes: Plan of care for the patient's discharge was discussed in detail with the patient. Patient plans to go home at discharge.. Time Spent Managing Pts Care (In Minutes): 55
[2020-10-31] MEDS: NA CHLORIDE 0.9% 1,000 ML IV SCH (00:46)
[2020-10-31 07:52] LABS: ALT/SGPT 252 U/L (12-78); AST/SGOT 967 U/L (15-37); Albumin 2.3 g/dL (3.4-5.0); Alkaline Phosphatase 47 U/L (45-117); BUN Blood Urea Nitrogen 14 mg/dL (7-18); Bicarbonate 26 mmol/L (21-32); Bilirubin Total 0.5 mg/dL (0.2-1.0); Glucose Level 107 mg/dL (74-106); Potassium 3.7 mmol/L (3.5-5.1); Protein, Total 7.4 g/dL (6.4-8.2); Sodium Level 138 mmol/L (136-145)
[2020-10-31] MEDS: ENOXAPARIN 80 MG/0.8 ML SQ SCH (08:31)
[2020-10-31] MEDS: METOPROLOL TAR 25 MG TAB PO SCH (08:32)
[2020-10-31 08:37] VITALS: O2SAT 98
--- NOTE | 2020-10-31 10:37 | P.DS ---
Admission Date: 10/28/20 Discharge Date: 10/31/20 Primary Care Provider: none Disposition: ROUTINE DISCHARGE Discharge Condition: GOOD Reason for Admission: Splenic infarction Consultations: Cardiology-Dr. Gunter GI-Dr. Fagan Procedures: COVID: Negative CT Scan: COMPARISON: No comparisons TECHNIQUE: Biphasic, helical CT imaging of the abdomen and pelvis was performed following 100 ml non-ionic IV contrast. No oral contrast administered. All CT scans are performed using dose optimization technique as appropriate and may include automated exposure control or mA/KV adjustment according to patient size. FINDINGS: No suspicious findings in the lung bases. The liver, pancreas, gallbladder and biliary tree show no suspicious findings. Spleen is abnormal. There is a wedge-shaped area of diminished attenuation and absent enhancement that extends from the anterior superior aspect to the posteroinferior aspect neck configuration typical for splenic infarction. Remaining splenic tissue shows normal enhancement with no focal mass lesion. No splenic artery thrombus identifiable. Patient shows only mild for age atherosclerotic calcification in the aorta. No mesenteric or renal artery atherosclerotic calcifications seen. Symmetric renal function is seen with no hydronephrosis or suspicious renal mass. No pyelonephritis or acute parenchymal process. Urinary bladder is only partially filled. No bladder calculi. Base the bladder near the prostate gland appears thickened. This could be artifact of incomplete distention. Follow-up outpatient ultrasound could be obtained with a bladder fully filled. No adrenal abnormalities. Prostate gland is prominent. No dilated bowel loops or bowel wall thickening. No free air, free fluid or inflammatory stranding. No hernia, mass or bulky lymphadenopathy. No suspicious bony findings. IMPRESSION: A wedge-shaped area of absent or diminished enhancement in the spleen extends from the anterior superior margin to the posteroinferior margin, an appearance typical for acute to subacute splenic infarction. No hemorrhagic component. Remaining splenic parenchyma enhances normally. No splenic artery thrombus identifiable. Base the bladder near the prostate gland appears thickened but may be an artifact of incomplete distention. Follow-up outpatient bladder sonography could be performed with urinary bladder fully distended. ECHO: CARDIAC HISTORY: CATHERIZATION: NO SURGERY: NO PROSTHETIC VALVE: NO PACEMAKER: NO MEASUREMENTS (cm) DIASTOLIC (NORMALS) SYSTOLIC (NORMALS) IVSd 1.0 (0.6-1.2) LA Diam 2.6 (1.9-4.0) LVEF 84% LVIDd 4.3 (3.5-5.7) LVIDs 2.0 (2.0-3.5) %FS 53% LVPWd 1.0 (0.6-1.2) Ao Diam 3.2 (2.0-3.7) 2 DIMENSIONAL ASSESSMENT: RIGHT ATRIUM: LEFT ATRIUM: RIGHT VENTRICLE: LEFT VENTRICLE: TRICUSPID VALVE: MITRAL VALVE: PULMONIC VALVE: AORTIC VALVE: PERICARDIAL EFFUSION: AORTIC ROOT: LEFT VENTRICULAR WALL MOTION: DOPPLER/COLOR FLOW: COMMENTS: NORMAL 2-DIMENSIONAL ECHOCARDIOGRAM. NO VEGETATION. NO EFFUSION. CT Angio of Ab/Pelvis: FINDINGS: Small bilateral pleural effusions are present with atelectasis/ infiltrate both bases. The abdominal aorta is normal in caliber without dissection or aneurysm. Celiac axis SMA, both renal arteries and NARCISA are widely patent and normal. Wedge-shaped infarct in the spleen is again seen. However, the visualized main splenic artery is normal. Additional solid organ finding of concern. No bowel obstruction, free fluid, abscess or free air. No fracture or aggressive marrow lesion. IMPRESSION: No significant arterial flow abnormality is seen of the abdominal aorta or visceral arteries. Liver US: COMPARISON: No comparisons FINDINGS: Mild diffuse fatty liver. No focal liver lesions or intrahepatic biliary dilatation is seen. Vascular flow to the liver is normal. The gallbladder demonstrates no gallstones, pericholecystic fluid or gallbladder wall thickening. Common bile duct is normal in caliber measuring 4 mm. The spleen is normal in size measuring 9.5 cm. Trace free fluid is suspected along the anterior margin the spleen. IMPRESSION: Mild fatty liver noted. Trace amount of fluid anterior to the spleen. Medical Problem List: SVT, resolved Acute to subacute splenic infarct from the anterior superior margin to the p osterior inferior margin ETOH abuse Elevated liver function likely related to alcohol abuse THC use Brief History of Present Illness: 65-year-old male with history of alcohol abuse presents emergency department for left-sided abdominal pain and tachycardia. Patient reports ongoing abdominal pain since Tuesday. Labs in the emergency department remarkable for hemoglobin 12.9 hematocrit 38.6. AST and ALT were elevated. Troponin 0.02. Patient was initially tachycardic with rate in the 160s appearing to be SVT. Patient given Lopressor with improvement. CT scan revealed wedge-shaped area indicative of acute to subacute splenic infarct. Patient was admitted for further evaluation and treatment. Hospital Course: Patient presented with left lower quadrant abdominal pain. Patient found to have acute to subacute splenic infarct. CT scan showed infarct to the anterior superior margin to the posterior inferior margin. Patient was observed. Patient initially placed on anticoagulation therapy. Patient seen and evaluated by cardiology. Echocardiogram unremarkable. Pain improved. CT angiogram showe d no arterial thrombus or etiology. Etiology of infarct unknown. Patient stable at this time. At discharge cardiology recommends to continue aspirin 81 mg daily. Recommend follow-up with a PCP to establish care and follow-up this hospitalization. Patient plans to see in follow-up with Dr. Mandujano. Patient also had elevated heart rate suspicious for SVT. Patient was given Lopressor with improvement. Patient continued to have multiple episodes but resolved. At discharge patient will continue with metoprolol 12.5 mg 1 pill twice daily. Hold metoprolol if blood pressure less than 110 systolic or heart rate less than 60. Recommend follow-up with cardiology in 1 to 2 weeks to follow-up hospitalization and continue his care. Patient with elevated liver function. Patient with alcohol abuse. Alcohol cessation addressed in detail. Case discussed with GI. GI recommended CT scan to further evaluate. CT angiogram unremarkable. Liver function test slowly improving. HIV and hepatitis panel pending. At discharge continue to recommend alcohol cessation education. Will provide folic acid 1 mg daily and thiamine 100 mg daily. Recommend follow-up with PCP in 1 week to [place] hospitalization. Recommend to follow-up on HIV and hepatitis panel. Recommend to recheck labCBC, CMP in 1 week to monitor resolution. Recommend follow-up with GI as an outpatient to further monitor and address. THC use. Recommend to continue cessation education. Vital Signs/Physical Exam: Temp Pulse Resp BP Pulse Ox 97 F 81 16 112/74 98 10/31/20 08:00 10/31/20 08:00 10/31/20 08:00 10/31/20 08:00 10/31/20 08:00 General: Alert, In no apparent distress, Oriented x3, Cooperative HEENT: Atraumatic Neck: Supple Respiratory: Clear to auscultation bilaterally, Normal air movement Cardiovascular: Normal pulses, Regular rate/rhythm Gastrointestinal: Normal bowel sounds, No ascites, No tenderness, No masses, No rebound, No guarding Musculoskeletal: No erythema, No tenderness, No warmth Integumentary: No tenderness/swelling Neurological: Normal speech, Normal strength at 5/5 x4 extr, Normal tone, Normal affect Laboratory Data at Discharge: WBC 8.00 K/uL (4.3-10.9) 10/30/20 07:00 Hgb 11.5 g/dL (13.6-17.9) L 10/30/20 07:00 Hct 32.8 % (39.6-49.0) L 10/30/20 07:00 Plt Count 262 K/uL (152-406) 10/30/20 07:00 PT 12.4 SECONDS (9.5-12.5) 10/28/20 18:10 INR 1.08 10/28/20 18:10 APTT 27.7 SECONDS (24.3-36.9) 10/28/20 18:10 Sodium 138 mmol/L (136-145) 10/31/20 06:59 Potassium 3.7 mmol/L (3.5-5.1) 10/31/20 06:59 BUN 14 mg/dL (7-18) 10/31/20 06:59 Creatinine 0.98 mg/dL (0.55-1.3) 10/31/20 06:59 Glucose 107 mg/dL (74-106) H 10/31/20 06:59 Magnesium 2.4 mg/dL (1.8-2.4) 10/30/20 07:00 Total Bilirubin 0.5 mg/dL (0.2-1.0) 10/31/20 06:59 AST 967 U/L (15-37) H* D 10/31/20 06:59 ALT 252 U/L (12-78) H 10/31/20 06:59 Alkaline Phosphatase 47 U/L (45-117) 10/31/20 06:59 Triglycerides 130 mg/dL (<150) 10/29/20 02:53 Cholesterol 145 mg/dL (<200) 10/29/20 02:53 HDL Cholesterol 47 mg/dL (40-60) 10/29/20 02:53 Cholesterol/HDL Ratio 3.09 10/29/20 02:53 Lipase 80 U/L (73-393) 10/28/20 18:10 Home Medications: Aspirin [Aspirin EC 81 MG] 81 mg PO DAILY #90 tablet. 10/31/20 Folic Acid 1 mg PO DAILY #90 tablet 10/31/20 Metoprolol Tartrate [Lopressor*] 12.5 mg PO BID #60 tab 10/31/20 Thiamine HCl 100 mg PO DAILY #90 tablet 10/31/20 New Medications: Aspirin [Aspirin EC 81 MG] 81 mg PO DAILY #90 tablet. Folic Acid 1 mg PO DAILY #90 tablet Metoprolol Tartrate [Lopressor*] 12.5 mg PO BID #60 tab Thiamine HCl 100 mg PO DAILY #90 tablet Physician Discharge Instructions: Patient presented with left lower quadrant abdominal pain. Patient found to have acute to subacute splenic infarct. CT scan showed infarct to the anterior superior margin to the posterior inferior margin. Patient was observed. Patient initially placed on anticoagulation therapy. Patient seen and evaluated by cardiology. Echocardiogram unremarkable. Pain improved. CT angiogram showed no arterial thrombus or etiology. Etiology of infarct unknown. Patient stable at this time. At discharge cardiology recommends to continue aspirin 81 mg daily. Recommend follow-up with a PCP to establish care and follow-up this hospitalization. Patient plans to see in follow-up with Dr. Mandujano. Patient also had elevated heart rate suspicious for SVT. Patient was given Lopressor with improvement. Patient continued to have multiple episodes but resolved. At discharge patient will continue with metoprolol 12.5 mg 1 pill twice daily. Hold metoprolol if blood pressure less than 110 systolic or heart rate less than 60. Recommend follow-up with cardiology in 1 to 2 weeks to follow-up hospitalization and continue his care. Patient with elevated liver function. Patient with alcohol abuse. Alcohol cessation addressed in detail. Case discussed with GI. GI recommended CT scan to further evaluate. CT angiogram unremarkable. Liver function test slowly improving. HIV and hepatitis panel pending. At discharge continue to recommend alcohol cessation education. Will provide folic acid 1 mg daily and thiamine 100 mg daily. Recommend follow-up with PCP in 1 week to [place] hospitalization. Recommend to follow-up on HIV and hepatitis panel. Recommend to recheck labCBC, CMP in 1 week to monitor resolution. Recommend follow-up with GI as an outpatient to further monitor and address. THC use. Recommend to continue cessation education. Diet: AHA Activity: Ad juanita Followup: NONE,NONE [Primary Care Provider] - Time spent managing pt's care (in minutes): 55
[2020-10-31 11:30] LABS: HIV AG/AB 4TH GEN Non-reactive (Non-reactive)
[2020-10-31 12:07] VITALS: BP 112/70; TEMP 97.7
[2020-11-01] MEDS ORDERED: ASPIRIN EC 81 MG TAB PO SCH (09:00)
[2020-11-01 13:45] LABS: HBsAG Nonreactive (Nonreactive)
--- NOTE | 2020-11-03 10:40 | PN ---
Date of Progress Note: 10/30/2020 Mr. Mcclure had come in with splenic infarct as well as elevated liver function tests. We are suspicio us of possible atrial fibrillation; however, he had not shown any atrial fibrillation overnight. His echocardiogram was perfectly normal. He has elevated liver enzymes and a CT of the abdomen did not show any liver issues, just a splenic infarct. I still think he needs to be placed on anticoagulants for 3 to 6 months. I think it would be reasonable to have him do an event monitor as an outpatient as well. Ultrasound of the liver showed only fatty liver. I will sign off his case for now. RADHA/PILY Voice ID: [id number] Report ID: [id number]
--- NOTE | 2020-11-03 11:55 | CON ---
Date of Consultation: 10/29/2020 Reason For Consultation: Splenic infarct. History Of Present Illness: Mr. Mcclure is a 65-year-old black male with no past medical history, does not take any medication. He does not have any allergies. He came in with abdominal pain in the lef t lower quadrant. Has not had symptoms like this in the past. Abdominal ultrasound, liver ultrasoun d, abdominal and pelvis CT scan showed that he had splenic infarct. He denied any atrial fibrillatio n history. Denied any palpitation. Denied any chest pain, nausea, vomiting, diaphoresis, PND, ortho pnea, pedal edema, palpitations, or syncope. By the time I saw him, echocardiogram was done showing no vegetation, no thrombus, and normal ejection fraction. Review of Systems: Negative. Social History: Negative. Family History: Noncontributory. Physical Examination: Vital Signs: When I saw him; his vital signs were stable. He was afebrile. HEENT: Negative. Neck: Supple with no bruit. Chest: Clear to auscultation and percussion. Cardiac: Revealed a regular rhythm and rate. No murmurs, gallops, or rubs. Abdomen: Benign. Extremities: Revealed no clubbing, cyanosis, or edema. Diagnostic Data: Diagnostic data of importance were mentioned earlier. Also, his AST was 1105. His ALT was 226. Chest x-ray was negative. Impression And Plan: Splenic infarct of unknown etiology. Atrial fibrillation must be ruled out nabila n the road, so we will keep him on telemetry. I think he needs to be on anticoagulants. He needs to be on metoprolol. He needs to have hepatitis profile sent. No further cardiac workup at this point . I will discuss the case further with Dr. Chandra. RADHA/PILY Voice ID: [id number] Report ID: [id number]
== END 2020-10-31 13:06 | disposition home or self-care (01) | DRG 815 ==
LOC: ER 18:05 → ERHOLD 20:26 → 4TH 22:05
PROVIDERS: ADMIT Family Medicine; ATTEND Family Medicine
DX: D73.5 Infarction of spleen (principal); I47.1 Supraventricular tachycardia; F10.10 Alcohol abuse, uncomplicated; K76.0 Fatty (change of) liver, not elsewhere classified; F17.210 Nicotine dependence, cigarettes, uncomplicated; R79.89 Other specified abnormal findings of blood chemistry; Z56.0 Unemployment, unspecified; Z79.82 Long term (current) use of aspirin; Z79.899 Other long term (current) drug therapy; Z20.822 Contact with and (suspected) exposure to COVID-19
CPT/HCPCS: 36415; 71045; 74174; 74177; 76705; 80048; 80053; 80061; 80074; 80076; 80307; 81001; 83690; 83735; 84439; 84443; 84484; 85025; 85610; 85652; 85730; 86140; 87040; 87086; 87088; 87389; 93005; 93306; 96365; 96372; 99285; J3475; J3480; J7030; Q9967; U0003

== ENCOUNTER 2020-12-09 19:24 | Emergency (ER) | payer SELFPAY ==
[2020-12-09 23:14] LABS: Absolute Lymphocytes (CBC) 1.8 K/uL (0.7-4.9); Basophils % 1.2 % (0-1.3); Hematocrit 37.1 % (39.6-49.0); Lymphocytes % 36.7 % (15.3-44.8); MPV 8.1 fL (7.6-11.3)
[2020-12-09 23:15] LABS: Protime INR 0.94
[2020-12-09 23:24] LABS: ALT/SGPT 37 U/L (12-78); AST/SGOT 60 U/L (15-37); Albumin 3.7 g/dL (3.4-5.0); Alkaline Phosphatase 68 U/L (45-117); BUN Blood Urea Nitrogen 15 mg/dL (7-18); Bicarbonate 26 mmol/L (21-32); Bilirubin Direct < 0.1 mg/dL (0-0.2); Bilirubin Total 0.3 mg/dL (0.2-1.0); Glucose Level 97 mg/dL (74-106); Protein, Total 9.2 g/dL (6.4-8.2); Sodium Level 136 mmol/L (136-145)
[2020-12-10 00:16] LABS: Blood Morphology Comment NOT SEEN (NOT SEEN); Platelet Estimate ADEQ
--- NOTE | 2020-12-10 00:59 | ER ---
Nurse's Notes [facility] Name: Cory Mcclure Jr Age: 65 yrs Sex: Male : 1955 Arrival Date: 12/09/2020 Time: 19:26 Bed 24 Private MD: Diagnosis: Hemorrhoids Presentation: 12/09 19:37 Chief complaint: Patient states: Pt states has hemorrhoids and noticed blood in bed; vg1 has been like this for a couple of days now. Coronavirus screen: Client denies travel out of the [place] in the last 14 days. Ebola Screen: Patient negative for fever greater than or equal to 101.5 degrees Fahrenheit, and additional compatible Ebola Virus Disease symptoms. Initial Sepsis Screen: Does the patient meet any 2 criteria? No. Patient's initial sepsis screen is negative. Does the patient have a suspected source of infection? No. Patient's initial sepsis screen is negative. Risk Assessment: Do you want to hurt yourself or someone else? Patient reports no desire to harm self or others. Onset of symptoms was December 07, 2020. 19:37 Method Of Arrival: Ambulatory vg1 19:37 Acuity: ANITA 3 vg1 Triage Assessment: 19:42 General: Appears in no apparent distress. uncomfortable, Behavior is calm, cooperative. vg1 Pain: Complains of pain in buttocks Pain currently is 8 out of 10 on a pain scale. Historical: - Allergies: 19:42 No Known Allergies; vg1 - Home Meds: 19:42 Aspirin Oral [Active]; Metoprolol Tartrate Oral [Active]; vg1 - PMHx: 19:42 Hypertensive disorder; vg1 - Immunization history:: Adult Immunizations up to date. - Social history:: Smoking status: Patient reports the use of cigarette tobacco products, smokes one-half pack cigarettes per day. Screenin:51 Abuse screen: Denies threats or abuse. Denies injuries from another. Nutritional ld1 screening: No deficits noted. Tuberculosis screening: No symptoms or risk factors identified. Fall Risk None identified. Assessment: 21:51 General: Appears in no apparent distress. uncomfortable, Behavior is calm, cooperative, ld1 appropriate for age. Pain: Complains of pain in gluteal cleft Pain does not radiate. Pain currently is 9 out of 10 on a pain scale. Quality of pain is described as Pain began 3 weeks Is continuous. Neuro: Level of Consciousness is awake, alert, obeys commands, Oriented to person, place, time, situation. Cardiovascular: Capillary refill < 3 seconds Patient's skin is warm and dry. Respiratory: Airway is patent Respiratory effort is even, unlabored, Respiratory pattern is regular, symmetrical. GI: Abdomen is flat, non-distended. : No signs and/or symptoms were reported regarding the genitourinary system. EENT: No signs and/or symptoms were reported regarding the EENT system. Derm: No signs and/or symptoms reported regarding the dermatologic system. Musculoskeletal: No signs and/or symptoms reported regarding the musculoskeletal system. 22:57 Reassessment: Patient appears in no apparent distress at this time. No changes from ld1 previously documented assessment. Patient and/or family updated on plan of care and expected duration. Pain level reassessed. Patient is alert, oriented x 3, equal unlabored respirations, skin warm/dry/pink. 23:44 Reassessment: Patient appears in no apparent distress at this time. No changes from ld1 previously documented assessment. Patient and/or family updated on plan of care and expected duration. Pain level reassessed. Patient is alert, oriented x 3, equal unlabored respirations, skin warm/dry/pink. 12/10 00:47 Reassessment: Patient appears in no apparent distress at this time. No changes from ad1 previously documented assessment. Patient and/or family updated on plan of care and expected duration. Pain level reassessed. Patient is alert, oriented x 3, equal unlabored respirations, skin warm/dry/pink. Vital Signs: 12/09 19:37 BP 106 / 94; Pulse 99; Resp 16; Temp 98.9; Pulse Ox 100% ; Weight 79.38 kg; Height 6 vg1 ft. 3 in. (190.50 cm); Pain 8/10; 22:57 BP 134 / 77; Pulse 86; Resp 18; Pulse Ox 98% on R/A; ld1 23:44 BP 123 / 83; Pulse 76; Resp 18; Pulse Ox 98% on R/A; ld1 12/10 00:47 BP 137 / 78; Pulse 92; Resp 18; Pulse Ox 97% ; ad1 12/09 19:37 Body Mass Index 21.87 (79.38 kg, 190.50 cm) vg1 ED Course: 12/09 19:26 Patient arrived in ED. ag3 19:42 Triage completed. vg1 19:42 Arm band placed on. vg1 21:23 Uriel Pittman MD is Attending Physician. 7 21:51 Tammy Abebe, RN is Primary Nurse. ld1 21:51 Patient has correct armband on for positive identification. ld1 12/10 01:24 No provider procedures requiring assistance completed. IV discontinued. ad1 Administered Medications: No medications were administered Outcome: 00:57 Discharge ordered by . mh7 01:24 Discharged to home ad1 01:24 Condition: good 01:24 Discharge instructions given to patient, Instructed on discharge instructions, follow up and referral plans. medication usage, Demonstrated understanding of instructions, follow-up care, medications, Prescriptions given X 3. 01:25 Patient left the ED. ad1 Signatures: Regina Curry RN RN ad1 Ellen Pruitt3 Lisa Angelo RN RN 1 Uriel Pittman MD MD [facility] Tammy Abebe, RN RN 1
--- NOTE | 2020-12-10 00:59 | EDPHYS ---
Physician Documentation [facility] Name: Cory Mcclure Jr Age: 65 yrs Sex: Male : 1955 Arrival Date: 12/09/2020 Time: 19:26 Bed 24 Private MD: ED Physician Uriel Pittman HPI: 12/09 23:30 This 65 yrs old Black Male presents to ER via Ambulatory with complaints of Hemorrhoids.mh7 23:30 The patient presents to the emergency department with bleeding from the rectum/anus, mh7 that is mild, hemorrhoids. Onset: The symptoms/episode began/occurred 2 week(s) ago. Context: the patient has a known history of hemorrhoids. Modifying factors: The symptoms are alleviated by nothing, The symptoms are aggravated by bowel movement, sitting position. Associate signs and symptoms: Pertinent negatives: abdominal pain, constipation, diarrhea, dysuria, fever, lower GI bleeding, vomiting. Historical: - Allergies: 19:42 No Known Allergies; vg1 - Home Meds: 19:42 Aspirin Oral [Active]; Metoprolol Tartrate Oral [Active]; vg1 - PMHx: 19:42 Hypertensive disorder; vg1 - Immunization history:: Adult Immunizations up to date. - Social history:: Smoking status: Patient reports the use of cigarette tobacco products, smokes one-half pack cigarettes per day. ROS: 23:30 Constitutional: Negative for fever, chills, and weight loss, Eyes: Negative for injury, mh7 pain, redness, and discharge, ENT: Negative for injury, pain, and discharge, Neck: Negative for injury, pain, and swelling, Cardiovascular: Negative for chest pain, palpitations, and edema, Respiratory: Negative for shortness of breath, cough, wheezing, and pleuritic chest pain, Abdomen/GI: Negative for abdominal pain, nausea, vomiting, diarrhea, and constipation, Back: Negative for injury and pain, : Negative for injury, bleeding, discharge, and swelling, MS/Extremity: Negative for injury and deformity, Skin: Negative for injury, rash, and discoloration, Neuro: Negative for headache, weakness, numbness, tingling, and seizure, Psych: Negative for depression, anxiety, suicide ideation, homicidal ideation, and hallucinations, Allergy/Immunology: Negative for hives, rash, and allergies, Endocrine: Negative for neck swelling, polydipsia, polyuria, polyphagia, and marked weight changes, Hematologic/Lymphatic: Negative for swollen nodes, abnormal bleeding, and unusual bruising. Exam: 23:30 Constitutional: This is a well developed, well nourished patient who is awake, alert, mh7 and in no acute distress. Head/Face: Normocephalic, atraumatic. Eyes: Pupils equal round and reactive to light, extra-ocular motions intact. Lids and lashes normal. Conjunctiva and sclera are non-icteric and not injected. Cornea within normal limits. Periorbital areas with no swelling, redness, or edema. Neck: Trachea midline, no thyromegaly or masses palpated, and no cervical lymphadenopathy. Supple, full range of motion without nuchal rigidity, or vertebral point tenderness. No Meningismus. Chest/axilla: Normal chest wall appearance and motion. Nontender with no deformity. No lesions are appreciated. Cardiovascular: Regular rate and rhythm with a normal S1 and S2. No gallops, murmurs, or rubs. Normal PMI, no JVD. No pulse deficits. Respiratory: Lungs have equal breath sounds bilaterally, clear to auscultation and percussion. No rales, rhonchi or wheezes noted. No increased work of breathing, no retractions or nasal flaring. Back: No spinal tenderness. No costovertebral tenderness. Full range of motion. Skin: Warm, dry with normal turgor. Normal color with no rashes, no lesions, and no evidence of cellulitis. MS/ Extremity: Pulses equal, no cyanosis. Neurovascular intact. Full, normal range of motion. Neuro: Awake and alert, GCS 15, oriented to person, place, time, and situation. Cranial nerves II-XII grossly intact. Motor strength 5/5 in all extremities. Sensory grossly intact. Cerebellar exam normal. Normal gait. Psych: Awake, alert, with orientation to person, place and time. Behavior, mood, and affect are within normal limits. 23:30 Abdomen/GI: Inspection: abdomen appears normal, Bowel sounds: normal, in all quadrants, Palpation: abdomen is soft and non-tender, in all quadrants, Rectal exam: rectal tone normal, Stool: brown, guaiac negative, hemorrhoid(s), external, with inflammation, without bleeding, without thrombosis, without pain, mass, is not appreciated, swelling, is not appreciated, tenderness, is not appreciated, fecal impaction, is not appreciated, the exam is chaperoned by the nurse, Indicators: McBurney's point is not tender, Bojorquez's sign is negative, Rovsing's sign is negative, Obturator sign is negative, Psoas sign is negative, Liver: no appreciated palpable abnormalities, Hernia: not appreciated. Vital Signs: 19:37 BP 106 / 94; Pulse 99; Resp 16; Temp 98.9; Pulse Ox 100% ; Weight 79.38 kg; Height 6 vg1 ft. 3 in. (190.50 cm); Pain 8/10; 22:57 BP 134 / 77; Pulse 86; Resp 18; Pulse Ox 98% on R/A; ld1 23:44 BP 123 / 83; Pulse 76; Resp 18; Pulse Ox 98% on R/A; ld1 12/10 00:47 BP 137 / 78; Pulse 92; Resp 18; Pulse Ox 97% ; ad1 12/09 19:37 Body Mass Index 21.87 (79.38 kg, 190.50 cm) vg1 MDM: 00:54 Differential diagnosis: hemorrhoids, fissure, abscess, pilonidal cyst, condyloma. Data [facility] reviewed: vital signs, nurses notes, lab test result(s), CBC, electrolytes, urinalysis. Counseling: I had a detailed discussion with the patient and/or guardian regarding: the historical points, exam findings, and any diagnostic results supporting the discharge/admit diagnosis, the presence of at least one elevated blood pressure reading (>120/80) during this emergency department visit, lab results, the need for outpatient follow up, a colorectal specialist, to return to the emergency department if symptoms worsen or persist or if there are any questions or concerns that arise at home. Response to treatment: the patient's symptoms have markedly improved after treatment. 00:57 Patient medically screened. [facility] 12/09 22:16 Order name: CBC with Diff [facility] 12/09 22:16 Order name: Basic Metabolic Panel [facility] 12/09 22:16 Order name: LFT's; Complete Time: 23:55 [facility] 12/09 22:16 Order name: Protime (+inr); Complete Time: 23:55 [facility] 12/09 22:16 Order name: Ptt, Activated; Complete Time: 23:55 7 12/09 22:16 Order name: CBC with Automated Diff; Complete Time: 00:47 EDMS 12/09 22:16 Order name: Saline Lock; Complete Time: 22:53 [facility] 12/09 22:16 Order name: Basic Metabolic Panel; Complete Time: 23:55 EDMS 12/09 23:17 Order name: Manual Differential; Complete Time: 00:47 EDMS Administered Medications: No medications were administered Disposition Summary: 12/10/20 00:57 Discharge Ordered Location: Home [facility] Problem: an ongoing problem [facility] Symptoms: have improved [facility] Condition: Stable [facility] Diagnosis - Hemorrhoids [facility] Followup: [facility] - With: Private Physician - When: 1 - 2 days - Reason: Worsening of condition, Recheck today's complaints, Continuance of care, Re-evaluation by your physician Discharge Instructions: - Discharge Summary Sheet [facility] - Hemorrhoids, [id number] [facility] Forms: - Medication Reconciliation Form [facility] - Thank You Letter [facility] - Antibiotic Education [facility] - Prescription Opioid Use [facility] Prescriptions: - tramadol 50 mg Oral tablet - take 1 tablet by ORAL route every 8 hours As needed as needed; 12 tablet; [facility] Refills: 0, Product Selection Permitted - Colace 100 mg Oral Tablet - take 1 tablet by ORAL route every 12 hours; 14 tablet; Refills: 0, Product [facility] Selection Permitted - Anusol-HC 25 mg Rectal Suppository - insert 1 suppository by RECTAL route every 12 hours As needed; 20 suppository; [facility] Refills: 0, Product Selection Permitted Signatures: Dispatcher [employer] Juan Carlos Urias, PERINATAL BREASTFEEDING ASSISTANT-C PERINATAL BREASTFEEDING ASSISTANT-Cla1 Lisa Angelo, RN RN vg1 Uriel Pittman MD MD [facility]
[2020-12-10 01:30] VITALS: TEMP 98.9
[2020-12-10 01:34] VITALS: BP 137/78; O2SAT 97
== END 2020-12-10 01:25 | disposition home or self-care (01) ==
LOC: ER 19:24
DX: K64.9 Unspecified hemorrhoids (principal); I10 Essential (primary) hypertension; F17.210 Nicotine dependence, cigarettes, uncomplicated; Z79.82 Long term (current) use of aspirin
CPT/HCPCS: 36415; 80048; 80076; 85025; 85610; 85730; 99282

== ENCOUNTER 2021-01-07 16:30 | Inpatient (IN) | payer SELFPAY ==
--- NOTE | 2021-01-07 17:33 | RAD REPORT ---
EXAM DESCRIPTION: RAD - Chest Single View - 01/07/2021 5:21 pm CLINICAL HISTORY: COUGH COMPARISON: Chest Single View dated 10/28/2020 FINDINGS: No evidence of edema or pneumonia. The heart size is within normal limits.No acute osseous abnormality. No significant pleural effusions or pneumothorax. IMPRESSION: No acute cardiopulmonary disease.
[2021-01-07 18:19] LABS: Protime INR 1.13
[2021-01-07] MEDS ORDERED: NA CHLORIDE 0.9% 1,000 ML ONE ×2 (18:36→20:17)
[2021-01-07 18:42] LABS: Albumin 2.8 g/dL (3.4-5.0); Bilirubin Direct 0.2 mg/dL (0-0.2); Bilirubin Total 0.4 mg/dL (0.2-1.0); Potassium 4.1 mmol/L (3.5-5.1); Protein, Total 8.4 g/dL (6.4-8.2); Troponin (Emerg Dept Use Only) 0.05 ng/mL (0.0-0.045)
[2021-01-07 18:45] LABS: Magnesium 1.3 mg/dL (1.8-2.4)
[2021-01-07 18:47] LABS: Absolute Lymphocytes (CBC) 0.4 K/uL (0.7-4.9); Basophils % 0.2 % (0-1.3); Hematocrit 31.9 % (39.6-49.0); Lymphocytes % 2.3 % (15.3-44.8); MPV 7.8 fL (7.6-11.3); RBC Red Blood Cell Count 3.57 M/uL (4.33-5.43)
--- NOTE | 2021-01-07 19:30 | EDPHYS ---
Physician Documentation [facility] Name: Cory Mcclure Jr Age: 65 yrs Sex: Male : 1955 Arrival Date: 01/07/2021 Time: 16:35 Bed 28 Private MD: ED Physician Rich Brown HPI: 01/07 19:24 This 65 yrs old Black Male presents to ER via EMS with complaints of General Weakness. joselyn 19:24 weakness, low pressure , aspirin and lopressor. Onset: The symptoms/episode joselyn began/occurred today, yesterday. Severity of symptoms: At their worst the symptoms were moderate in the emergency department the symptoms are unchanged. The patient has not experienced similar symptoms in the past. Historical: - Allergies: 16:41 No Known Allergies; ph - Home Meds: 16:41 Aspirin Oral [Active]; Metoprolol Tartrate Oral [Active]; ph - PMHx: 16:41 Hypertensive disorder; ph - Immunization history:: Client reports having NOT received the Covid vaccine. - Social history:: Smoking status: Patient reports the use of cigarette tobacco products, 1 pack per week. ROS: 19:25 Constitutional: Negative for fever, chills, and weight loss, Eyes: Negative for injury, joselyn pain, redness, and discharge, ENT: Negative for injury, pain, and discharge, Neck: Negative for injury, pain, and swelling, Cardiovascular: Negative for chest pain, palpitations, and edema, Respiratory: Negative for shortness of breath, cough, wheezing, and pleuritic chest pain, Abdomen/GI: Negative for abdominal pain, nausea, vomiting, diarrhea, and constipation, Back: Negative for injury and pain, : Negative for injury, bleeding, discharge, and swelling, MS/Extremity: Negative for injury and deformity, Skin: Negative for injury, rash, and discoloration, Psych: Negative for depression, anxiety, suicide ideation, homicidal ideation, and hallucinations, Allergy/Immunology: Negative for hives, rash, and allergies, Endocrine: Negative for neck swelling, polydipsia, polyuria, polyphagia, and marked weight changes, Hematologic/Lymphatic: Negative for swollen nodes, abnormal bleeding, and unusual bruising. 19:25 Neuro: Positive for dizziness, weakness. Exam: 19:25 Constitutional: This is a well developed, well nourished patient who is awake, alert, joselyn and in no acute distress. Head/Face: Normocephalic, atraumatic. Eyes: Pupils equal round and reactive to light, extra-ocular motions intact. Lids and lashes normal. Conjunctiva and sclera are non-icteric and not injected. Cornea within normal limits. Periorbital areas with no swelling, redness, or edema. ENT: Nares patent. No nasal discharge, no septal abnormalities noted. Tympanic membranes are normal and external auditory canals are clear. Oropharynx with no redness, swelling, or masses, exudates, or evidence of obstruction, uvula midline. Mucous membranes moist. Neck: Trachea midline, no thyromegaly or masses palpated, and no cervical lymphadenopathy. Supple, full range of motion without nuchal rigidity, or vertebral point tenderness. No Meningismus. Chest/axilla: Normal chest wall appearance and motion. Nontender with no deformity. No lesions are appreciated. Cardiovascular: Regular rate and rhythm with a normal S1 and S2. No gallops, murmurs, or rubs. Normal PMI, no JVD. No pulse deficits. Respiratory: Lungs have equal breath sounds bilaterally, clear to auscultation and percussion. No rales, rhonchi or wheezes noted. No increased work of breathing, no retractions or nasal flaring. Back: No spinal tenderness. No costovertebral tenderness. Full range of motion. Male : Normal genitalia with no discharge or lesions. Skin: Warm, dry with normal turgor. Normal color with no rashes, no lesions, and no evidence of cellulitis. MS/ Extremity: Pulses equal, no cyanosis. Neurovascular intact. Full, normal range of motion. Neuro: Awake and alert, GCS 15, oriented to person, place, time, and situation. Cranial nerves II-XII grossly intact. Motor strength 5/5 in all extremities. Sensory grossly intact. Cerebellar exam normal. Normal gait. Psych: Awake, alert, with orientation to person, place and time. Behavior, mood, and affect are within normal limits. 19:25 ECG was reviewed by the Attending Physician. 19:25 Abdomen/GI: Rectal exam: Prostate: normal, rectal tone normal, Stool: guaiac negative, hemorrhoid(s), external, with associated bleeding, mass, is not appreciated, swelling, is not appreciated, tenderness, is not appreciated, Liver: no appreciated palpable abnormalities, Hernia: not appreciated. Vital Signs: 16:36 BP 130 / 95; Pulse 102; Resp 20; Temp 99.2; Pulse Ox 100% on R/A; Weight 88.45 kg; ph Height 6 ft. 1 in. (185.42 cm); 17:00 BP 90 / 62; Pulse 101; Resp 18; Pulse Ox 100% on R/A; ph 17:30 BP 80 / 60; Pulse 100; Resp 18; Pulse Ox 100% on R/A; ph 18:00 BP 82 / 58; Pulse 98; Resp 16; Pulse Ox 100% on R/A; ph 20:48 BP 102 / 54; Pulse 105; Resp 18; Pulse Ox 100% ; ea 21:54 BP 95 / 63; Pulse 106; Resp 18; Pulse Ox 100% on R/A; ea 16:36 Body Mass Index 25.73 (88.45 kg, 185.42 cm) ph MDM: 16:47 Patient medically screened. joselyn 19:30 Differential diagnosis: Anemia asthma, pneumonia, pulmonary edema, Pulmonary Embolism joselyn reactive airway disease, Sepsis Unstable Angina. Antibiotic administration: merrem. Differential Diagnosis altered mental status, sepsis. The patient's Wells Deep Vein Thrombosis Score was calculated as follows: Total Score: 0-2 Pts- Low Risk. The patient's pulmonary embolism risk score was calculated as follows: Total Score: 0-2 points. This patient was found to be at low risk for a pulmonary embolism by using the Well's assessment criteria. Immunization status: Influenza vaccine: Data reviewed: vital signs, nurses notes, lab test result(s), EKG, radiologic studies, CT scan, plain films. Data interpreted: mid level business analyst: rate is 98 beats/min, rhythm is regular, Pulse oximetry: on room air is 100 %. Test interpretation: by ED physician or midlevel provider: ECG, plain radiologic studies. Counseling: I had a detailed discussion with the patient and/or guardian regarding: the historical points, exam findings, and any diagnostic results supporting the discharge/admit diagnosis, lab results, radiology results, the need for further work-up and treatment in the hospital. 01/07 16:51 Order name: Basic Metabolic Panel [facility] 01/07 16:51 Order name: CBC with Diff [facility] 01/07 16:51 Order name: LFT's [facility] 01/07 16:51 Order name: Magnesium [facility] 01/07 16:51 Order name: NT PRO-BNP [facility] 01/07 16:51 Order name: PT-INR [facility] 01/07 16:51 Order name: Troponin (emerg Dept Use Only); Complete Time: 19:18 [facility] 01/07 16:51 Order name: Lipase; Complete Time: 19:18 [facility] 01/07 16:51 Order name: Blood Culture Adult (2) [facility] 01/07 16:51 Order name: Urine Culture [facility] 01/07 16:51 Order name: Procalcitonin; Complete Time: 19:18 [facility] 01/07 16:51 Order name: Lactate; Complete Time: 19:18 [facility] 01/07 16:51 Order name: Flu; Complete Time: 19:18 [facility] 01/07 16:51 Order name: Basic Metabolic Panel; Complete Time: 19:18 [facility] 01/07 16:51 Order name: CBC with Automated Diff; Complete Time: 20:22 [facility] 01/07 16:51 Order name: Liver (Hepatic) Function; Complete Time: 19:18 [facility] 01/07 16:51 Order name: Magnesium; Complete Time: 19:18 [facility] 01/07 16:51 Order name: NT PRO-BNP; Complete Time: 19:18 [facility] 01/07 16:51 Order name: Protime (+INR); Complete Time: 18:29 [facility] 01/07 20:01 Order name: SARS-COV-2 RT PCR; Complete Time: 20:09 [facility] 01/07 20:21 Order name: CBC Smear Scan; Complete Time: 20:22 [facility] 01/08 00:46 Order name: Lactate Sepsis 2 HR Follow-up [facility] 01/08 06:09 Order name: Lactate [facility] 01/08 06:11 Order name: Comprehensive Metabolic Panel [facility] 01/08 06:11 Order name: Uric Acid [facility] 01/08 06:11 Order name: Creatine Phosphokinase [facility] 01/08 06:11 Order name: Lipid Profile [facility] 01/08 06:11 Order name: T4 Free [facility] 01/08 06:11 Order name: Magnesium [facility] 01/07 16:51 Order name: XRAY Chest (1 view); Complete Time: 18:29 [facility] 01/07 19:20 Order name: CT Chest Abdomen Pelvis W/O Contrast; Complete Time: 20:09 joselyn 01/07 20:09 Order name: US Abdomen Limited: eval spleelic lesion; Complete Time: 22:15 la1 / 06:11 Order name: Thyroid Stimulating Hormone ED[facility] 08/ 06:15 Order name: CBC with Automated Diff [facility] 08/ 06:31 Order name: Troponin I [facility] 08/ 09:40 Order name: Lactate Sepsis 2 HR Follow-up EDMS 08/ 09:52 Order name: US; Complete Time: 19:24 [facility] 08/ 10:23 Order name: Manual Differential [facility] 01/09 05:38 Order name: CBC with Automated Diff ED[facility] 08/ 06:29 Order name: Comprehensive Metabolic Panel [facility] 01/09 06:29 Order name: Renal Panel EDMS / 06:29 Order name: Creatine Phosphokinase EDMS / 06:29 Order name: Magnesium EDMS 08/ 06:29 Order name: Transferrin Sat/Iron Binding EDMS 08/ 06:29 Order name: Ferritin EDMS 08/ 06:29 Order name: Folic Acid, (Folate) EDMS / 06:29 Order name: Vitamin B12 Level EDMS 01/09 06:48 Order name: PTH Intact EDMS 08/ 09:34 Order name: ABG Arterial Blood Gas EDMS / 13:03 Order name: Ur Protein EDMS / 14:02 Order name: Urinalysis W/Microscopic EDMS / 14:41 Order name: Cortisol EDMS / 17:31 Order name: Vancomycin Level Trough EDMS / 16:51 Order name: EKG; Complete Time: 16:52 [facility] 01/07 16:51 Order name: Cardiac monitoring; Complete Time: 18:14 joselyn 01/07 16:51 Order name: EKG - Nurse/Tech; Complete Time: 18:14 joselyn 01/07 16:51 Order name: IV Saline Lock; Complete Time: 18:14 joselyn 01/07 16:51 Order name: Labs collected and sent; Complete Time: 18:14 joselyn 01/07 16:51 Order name: O2 Per Protocol; Complete Time: 18:14 joselyn 01/07 16:51 Order name: O2 Sat Monitoring; Complete Time: 18:14 joselyn 01/07 19:23 Order name: Ram: viscus lidocaine; Complete Time: 21:47 [facility] 01/07 20:18 Order name: Misc. Order: Please make sure pt recieves full 30cc/kg IVF Bolus for severe la1 sepsis; Complete Time: 21:47 EC:25 Rate is 97 beats/min. Rhythm is regular. QRS [place] is Normal. HI interval is normal. QRS joselyn interval is normal. QT interval is normal. No Q waves. T waves are Normal. No ST changes noted. Clinical impression: NSR w/ Non-specific ST/T Changes and No evidence of ischemia. Interpreted by me. Reviewed by me. Administered Medications: 18:29 Drug: NS 0.9% 1000 ml Route: IV; Rate: 1 bolus; Site: left forearm; ph 19:32 Follow up: Response: No adverse reaction; IV Status: Completed infusion ea 20:00 Drug: Pepcid (famotidine) 20 mg Route: IVP; Site: left antecubital; ea 21:47 Follow up: Response: No adverse reaction ea 20:00 Drug: Meropenem 1 grams Route: IV; Rate: per protocol; Site: left antecubital; ea 21:00 Follow up: Response: No adverse reaction; IV Status: Completed infusion; IV Intake: ea 100ml 20:00 Drug: NS 0.9% 500 ml Route: IV; Rate: bolus; Site: left antecubital; ea 23:09 Follow up: IV Status: Completed infusion jb4 20:00 Drug: NS 0.9% 1000 ml Route: IV; Rate: 125 ml/hr; Site: left antecubital; ea 23:08 Follow up: IV Status: Completed infusion jb4 20:09 Drug: Tylenol 650 mg Route: PO; ea 21:47 Follow up: Response: No adverse reaction ea 20: Drug: NS 0.9% 1000 ml Route: IV; Rate: 1 bolus; Site: left antecubital; ea 21:47 Follow up: Response: No adverse reaction; IV Status: Completed infusion; IV Intake: ea 1000ml 21:20 Drug: vancoMYCIN 1 grams Route: IVPB; Infused Over: 2 hrs; Site: left antecubital; ea 23:08 Follow up: IV Status: Completed infusion jb4 21:54 Drug: fentaNYL (PF) 25 mcg Route: IVP; Site: left antecubital; ea 23:09 Follow up: Response: No adverse reaction; Pain is unchanged, physician notified jb4 23:54 Drug: Magnesium Sulfate 2 grams Route: IVPB; Infused Over: 2 hrs; Site: left bs2 antecubital; 01/08 00:42 Follow up: IV Intake: 50ml ms4 00:44 Follow up: Response: No adverse reaction ms4 Disposition Summary: 01/07/21 22:15 Hospitalization Ordered Hospitalization Status: Inpatient Admission(01/07/21 22:15) la1 Provider: Artie Chandra(01/07/21 22:15) la1 Condition: Fair(01/07/21 22:15) la1 Problem: new(01/07/21 22:15) la1 Symptoms: have improved(01/07/21 22:15) la1 Bed/Room Type: Standard(01/07/21 22:15) la1 Location: Telemetry/MedSurg (Inpatient)(01/09/21 19:53) cg Room Assignment: [facility](01/09/21 19:53) cg Diagnosis - Severe sepsis without septic shock la1 - Acute kidney failure, unspecified(01/07/21 22:15) la1 - Suspected splenic abscess la1 Forms: - Medication Reconciliation Form la1 - SBAR form la1 Signatures: Dispatcher [employer] EDMS Rich Brown MD MD cha Attema, Lee, MARKET DEVELOPMENT SPECIALIST-C MARKET DEVELOPMENT SPECIALIST-Cla1 Airam Devi, RN RN Hina Reyes RN RN cg Deanne Reid RN Brit Almanza ea, RN RN bs2 Skyler Parsons RN jb4 Kimberly Teixeira RN ms4 Corrections: (The following items were deleted from the chart) 01/07 18:35 16:51 CORONAVIRUS+MR.LAB.BRZ ordered. EDKS EDMS 20:17 19:29 Inpatient Admission joselyn la1 20:17 19:29 Artie Chandra joselyn la1 20:17 19:29 Telemetry/MedSurg (Inpatient) joselyn la1 20:17 19:29 Fair joselyn la1 20:17 19:29 new joselyn la1 20:17 19:29 have improved joselyn la1 20:17 19:29 Standard joselyn la1 20:17 19:29 joselyn la1 20:17 19:29 Acute kidney failure, unspecified joselyn la1 20:17 19:29 Dehydration joselyn la1 20:17 19:29 Weakness joselyn la1 :17 19:29 Hypotension, unspecified joselyn la1 01/08 00:16 01/07 22:15 Intensive Care Unit la cg 01/08 00:16 01/07 22:15 la1 01/09 19:53 [id number] 00:16 [facility] ER HOLD cg cg 01/09 19:53 01/08 00:16 ERHOLD- cg
--- NOTE | 2021-01-07 19:30 | ER ---
Nurse's Notes [facility] Name: Cory Mcclure Jr Age: 65 yrs Sex: Male : 1955 Arrival Date: 01/07/2021 Time: 16:35 Bed 28 Private MD: Diagnosis: Severe sepsis without septic shock;Acute kidney failure, unspecified;Suspected splenic abscess Presentation: 01/07 16:36 Chief complaint: EMS states: Pt from home, reports not feeling well for a few days, ph initial BP 50/30, IV initiated and 500 NS bolus given, BP improved to 80/50, pt c/o weakness, chills, fever, nausea, pt states that he took metoprolol this morning. Coronavirus screen: Client denies travel out of the [place] in the last 14 days. chills, diarrhea, fatigue, nausea, Client presents with at least one sign or symptom that may indicate coronavirus-19. Standard/surgical mask placed on the client. Provider contacted for isolation considerations. Ebola Screen: No symptoms or risks identified at this time. Initial Sepsis Screen: Does the patient meet any 2 criteria? No. Patient's initial sepsis screen is negative. Does the patient have a suspected source of infection? No. Patient's initial sepsis screen is negative. Risk Assessment: Do you want to hurt yourself or someone else? Patient reports no desire to harm self or others. Onset of symptoms was January 07, 2021. 16:36 Method Of Arrival: EMS: [facility] 16:36 Acuity: ANITA 2 ph Historical: - Allergies: 16:41 No Known Allergies; ph - Home Meds: 16:41 Aspirin Oral [Active]; Metoprolol Tartrate Oral [Active]; ph - PMHx: 16:41 Hypertensive disorder; ph - Immunization history:: Client reports having NOT received the Covid vaccine. - Social history:: Smoking status: Patient reports the use of cigarette tobacco products, 1 pack per week. Screenin:42 Abuse screen: Denies threats or abuse. Denies injuries from another. Nutritional ph screening: No deficits noted. Tuberculosis screening: No symptoms or risk factors identified. Fall Risk None identified. Assessment: 18:32 General: Appears in no apparent distress. comfortable, slender, well groomed, Behavior ph is calm, cooperative, appropriate for age, Reports chills for fever for 1-2 days. Pain: Denies pain. Neuro: Level of Consciousness is awake, alert, obeys commands, Oriented to person, place, time, situation, Reports weakness. Cardiovascular: Reports fatigue, lightheadedness, nausea, Denies chest pain, shortness of breath, Capillary refill < 3 seconds in bilateral fingers Patient's skin is warm and dry. Rhythm is sinus rhythm. Respiratory: Airway is patent Respiratory effort is even, unlabored, Respiratory pattern is regular, symmetrical, Denies cough, shortness of breath. GI: Abdomen is flat, non-distended, Reports diarrhea, nausea. : No signs and/or symptoms were reported regarding the genitourinary system. Derm: Skin is intact, Skin is pink, warm \T\ dry. Musculoskeletal: Circulation, motion, and sensation intact. Range of motion: intact in all extremities. 19:00 General: Appears uncomfortable, Behavior is appropriate for age. Pain: Complains of ea pain in abdomen. Neuro: Level of Consciousness is awake, alert, obeys commands, Oriented to person, place, time. Cardiovascular: Patient's skin is warm and dry. Respiratory: Airway is patent Respiratory effort is even, unlabored, Respiratory pattern is regular, symmetrical. Derm: Skin is normal, Skin temperature is warm. 21:56 Reassessment: Patient and/or family updated on plan of care and expected duration. Pain ea level reassessed. Patient is alert, oriented x 3, equal unlabored respirations, skin warm/dry/pink. Vital Signs: 16:36 BP 130 / 95; Pulse 102; Resp 20; Temp 99.2; Pulse Ox 100% on R/A; Weight 88.45 kg; ph Height 6 ft. 1 in. (185.42 cm); 17:00 BP 90 / 62; Pulse 101; Resp 18; Pulse Ox 100% on R/A; ph 17:30 BP 80 / 60; Pulse 100; Resp 18; Pulse Ox 100% on R/A; ph 18:00 BP 82 / 58; Pulse 98; Resp 16; Pulse Ox 100% on R/A; ph 20:48 BP 102 / 54; Pulse 105; Resp 18; Pulse Ox 100% ; ea 21:54 BP 95 / 63; Pulse 106; Resp 18; Pulse Ox 100% on R/A; ea 16:36 Body Mass Index 25.73 (88.45 kg, 185.42 cm) ph Vitals: 18:00 Cardiac Rhythm Assessment Sinus rhythm. ph ED Course: 16:35 Patient arrived in ED. ph 16:41 Triage completed. ph 16:42 Arm band placed on Patient placed in an exam room, on a stretcher, on pulse oximetry. ph 16:43 Patient has correct armband on for positive identification. Bed in low position. Call ph light in reach. Side rails up X 1. Pulse ox on. NIBP on. 16:47 Rich Brown MD is Attending Physician. joselyn 17:08 Brittany Mancuso, RN is Primary Nurse. ss 17:21 XRAY Chest (1 view) In Process Unspecified. EDMS 17:55 No provider procedures requiring assistance completed. EKG done, by ED staff, reviewed ph by Rich Brown MD. Maintain EMS IV. Dressing intact. Good blood return noted. Site clean \T\ dry. Gauge \T\ site: 20 LFA. IV is patent, with fluids infusing freely, with good blood return, Flushed left forearm with 5 ml normal saline. 18:35 Primary Nurse role handed off by Brittany Mancuso, ROSA ph 18:35 Airam Devi, ROSA is Primary Nurse. ph 19:11 Primary Nurse role handed off by Airam Devi RN ss 19:28 Artie Chandra DO is Hospitalizing Provider. joselyn 19:45 CT Chest Abdomen Pelvis W/O Contrast In Process Unspecified. EDMS 19:51 Deanne Reid, ROSA is Primary Nurse. ea 20:00 Ram cath inserted, using sterile technique, 18 Fr., by nc, balloon inflated, to ea gravity drainage. 20:22 initiated a transfer with Meme Jonny from [facility]. mw2 20:42 all [facility] denied due to capacity. mw2 20:42 initiated a transfer with Ruth from [facility]. mw2 20:55 US Abdomen Limited: eval spleelic lesion In Process Unspecified. EDMS 21:21 all [facility] denied due to capacity. mw2 21:22 initiated a transfer with Alexys from [facility] Transfer [place]. mw2 21:27 All [facility] denied due to capacity. mw2 21:31 initiated a transfer with Coby from [facility] Transfer [facility]. mw2 21:40 All [facility] campuses denied due to capacity. mw2 21:46 Patient admitted, IV remains in place. ea 22:12 Artie Chandra DO is Hospitalizing Provider. la1 23:09 Basic Metabolic Panel Sent. jb4 23: CBC with Diff Sent. jb4 23:09 LFT's Sent. jb4 23:09 Magnesium Sent. jb4 23:09 NT PRO-BNP Sent. jb4 23:09 PT-INR Sent. jb4 Administered Medications: 18:29 Drug: NS 0.9% 1000 ml Route: IV; Rate: 1 bolus; Site: left forearm; ph 19:32 Follow up: Response: No adverse reaction; IV Status: Completed infusion ea 20:00 Drug: Pepcid (famotidine) 20 mg Route: IVP; Site: left antecubital; ea 21:47 Follow up: Response: No adverse reaction ea 20:00 Drug: Meropenem 1 grams Route: IV; Rate: per protocol; Site: left antecubital; ea 21:00 Follow up: Response: No adverse reaction; IV Status: Completed infusion; IV Intake: ea 100ml 20:00 Drug: NS 0.9% 500 ml Route: IV; Rate: bolus; Site: left antecubital; ea 23:09 Follow up: IV Status: Completed infusion jb4 20:00 Drug: NS 0.9% 1000 ml Route: IV; Rate: 125 ml/hr; Site: left antecubital; ea 23:08 Follow up: IV Status: Completed infusion jb4 20:09 Drug: Tylenol 650 mg Route: PO; ea 21:47 Follow up: Response: No adverse reaction ea 20:09 Drug: NS 0.9% 1000 ml Route: IV; Rate: 1 bolus; Site: left antecubital; ea 21:47 Follow up: Response: No adverse reaction; IV Status: Completed infusion; IV Intake: ea 1000ml 21:20 Drug: vancoMYCIN 1 grams Route: IVPB; Infused Over: 2 hrs; Site: left antecubital; ea 23:08 Follow up: IV Status: Completed infusion jb4 21:54 Drug: fentaNYL (PF) 25 mcg Route: IVP; Site: left antecubital; ea 23:09 Follow up: Response: No adverse reaction; Pain is unchanged, physician notified jb4 23:54 Drug: Magnesium Sulfate 2 grams Route: IVPB; Infused Over: 2 hrs; Site: left bs2 antecubital; 01/08 00:42 Follow up: IV Intake: 50ml ms4 00:44 Follow up: Response: No adverse reaction ms4 Intake: 01/07 21:00 IV: 100ml; Total: 100ml. ea 21:47 IV: 1000ml; Total: 1100ml. ea 01/08 00:42 IV: 50ml; Total: 1150ml. ms4 Outcome: 01/07 19:29 Decision to Hospitalize by Provider. joselyn 20:48 Instructed on the need for admit, Demonstrated understanding of instructions. ea 22:15 Decision to Hospitalize by Provider. la1 01/09 22:18 Patient left the ED. ca1 Signatures: Dispatcher [employer] EDMS Rich Brown MD MD cha Smirch, Shelby, RN RN ss Juan Carlos Soto, PONY CYLINDER PRESS OPERATOR-C PONY CYLINDER PRESS OPERATOR-Cla1 Airam Devi RN Skyler Ford ph RN RN jb4 Deanne Reid RN RN ea [place], [facility] Rhea Rubi RN RN ca1 Brit Mcclure RN RN bs2 Kimberly Teixeira RN RN ms4
--- NOTE | 2021-01-07 20:00 | RAD REPORT ---
EXAM DESCRIPTION: CT - Chest Abd Pelvis Wo Con - 01/07/2021 7:45 pm CLINICAL HISTORY: Chest and abdomen pain. Abdominal distention;Cough COMPARISON: No comparisonsCT ANGIO ABD/PELVIS W CONTRAST dated 10/30/2020 TECHNIQUE: Approximately 100 mL nonionic IV contrast was administered to the patient. All CT scans are performed using dose optimization technique as appropriate and may include automated exposure control or mA/KV adjustment according to patient size. FINDINGS: The lungs are clear.No pleural or pericardial effusion.No intrathoracic adenopathy.Circumf erential thickening of the esophagus may reflect esophagitis. The liver, adrenal glands, pancreas, and gallbladder are within normal limits. There is a new low-den sity lesion in the spleen measuring 5.8 centimeters. On the prior CT, there was an area of splenic in farct. No bowel obstruction, free air, free fluid or abscess. No pathologic lymphadenopathy in the abdomen o r pelvis. No worrisome osseous finding. IMPRESSION: No acute findings within the chest, abdomen, or pelvis. . 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 The sterility of this fluid is indeterminate by CT.
[2021-01-07] MEDS ORDERED: Meropenem 1000 MG/VIAL IV ONE (20:16)
[2021-01-07] MEDS ORDERED: FAMOTIDINE 20 MG/2 ML VIAL IV ONE (20:17)
[2021-01-07] MEDS ORDERED: NA CHLORIDE 0.9% 200 ML ONE (20:17)
[2021-01-07] MEDS ORDERED: ACETAMINOPHEN 325 MG TABLET ONE (20:17)
[2021-01-07 20:21] LABS: Blood Morphology Comment NOT SEEN (NOT SEEN); Platelet Estimate ADEQ; White Blood Cell Scan OK (OK)
[2021-01-07] MEDS ORDERED: LIDOCAINE VISCOUS 2% SOLN 15 ML UDC ONE (20:35)
[2021-01-07] MEDS ORDERED: VANCOMYCIN 1 GM/VIAL ONE (21:19)
[2021-01-07] MEDS ORDERED: NA CHLORIDE 0.9% 250 ML ONE (21:19)
--- NOTE | 2021-01-07 21:54 | RAD REPORT ---
EXAM DESCRIPTION: US - Abdomen Exam Limited - 01/07/2021 8:55 pm CLINICAL HISTORY: ABD PAIN COMPARISON: CT ANGIO ABD/PELVIS W CONTRAST dated 10/30/2020; Abdomen Pelvis W Contrast dated 021 FINDINGS: Two intra splenic masses are present, the largest measuring 5.6 centimeters. The smaller l esion measures 3.3 centimeters. Both are hypoechoic. No definite flow is present within either collec tion. IMPRESSION: Two splenic collections identified without demonstrable vascular flow that could represe nt subacute hematomas but which are of indeterminate sterility.
[2021-01-07] MEDS ORDERED: FENTANYL CITR 100 MCG/2 ML ONE ×2 (22:11→23:36)
[2021-01-07] MEDS ORDERED: VANCOMYCIN/NS 1 gm 1 GM/250 ML BAG IVPB SCH (23:05)
[2021-01-07] MEDS ORDERED: D5 0.45 NS 1,000 ML IV SCH (23:05)
[2021-01-07] MEDS ORDERED: ONDANSETRON 4 MG/2 ML VIAL IV PRN (23:05)
[2021-01-07] MEDS: FENTANYL CITR 100 MCG/2 ML IV PRN (23:20)
[2021-01-07] MEDS ORDERED: VANCOMYCIN 500 MG in NA CHLORIDE 0.9% 100 ML IVPB ONE (23:30)
[2021-01-07] MEDS ORDERED: Magnesium Sulfate 2gm IVPB 2 G/50 ML BAG IV ONE (23:36)
[2021-01-07] MEDS ORDERED: D5 0.45 NS 1,000 ML IV ONE (23:39)
--- NOTE | 2021-01-07 23:48 | P.HP ---
Certification for Inpatient Patient admitted to: Inpatient With expected LOS: >2 Midnights Patient will require the following post-hospital care: None Practitioner: I am a practitioner with admitting privileges, knowledge of patient current condition, hospital course, and medical plan of care. 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 Patient was hypotensive with blood pressure in the 80s systolic in the emergency department. Further evaluation revealed labs significant for white blood cell count 18,000 hemoglobin 10.8 had a crit 31.9 CO2 18 BUN 43 creatinine 4.43 GFR 16 magnesium 1.3 lactic acid 3.6 procalcitonin greater than 200 BNP 3997 troponin [address] demonstrates new splenic lesion/collection likely sequela of prior splenic infarct stability of the fluid is intermediate by CT. Case was discussed with radiologist given the clinical setting of severe sepsis it is possible that this is an abscess. Ultrasound was also obtained which cannot differentiate between hematoma/abscess. Case was discussed with general surgery, recommendation for transfer for IR/CT-guided percutaneous drainage was made, transfer was attempted to tertiary centers in [place] area but declined due to capacity. Patient was started on Merrem/vank, will be admitted to the ICU. Patient received 30 cc/kg fluid bolus in the emergency department, patient's blood pressure currently around 100 systolic. Will admit for further evaluation and management. Patient with severe sepsis without septic shock at this time. Allergies No Known Allergies Allergy (Verified 10/28/20 22:57) Home Medications: Aspirin [Aspirin EC 81 MG] 81 mg PO DAILY #90 tablet. 10/31/20 Folic Acid 1 mg PO DAILY #90 tablet 10/31/20 Metoprolol Tartrate [Lopressor*] 12.5 mg PO BID #60 tab 10/31/20 Thiamine HCl 100 mg PO DAILY #90 tablet 10/31/20 - Past Medical/Surgical History Diabetic: No -: Alcohol abuse -: Splenic infarction -: Hypertension -: THC abuse -: right ankle sx Psychosocial/ Personal History: Unemployed, lives with a friend - Family History Mother -: Cancer - Social History Smoking Status: Former smoker Alcohol use: Yes CD- Drugs: No Caffeine use: Yes Place of Residence: Home Review of Systems 10-point ROS is otherwise unremarkable General: Fever, Weakness, Malaise Gastrointestinal: Nausea, Abdominal Pain Physical Examination - Physical Exam General: Alert, In no apparent distress, Oriented x3 HEENT: Atraumatic, PERRLA, Mucous membr. moist/pink, EOMI, Sclerae nonicteric Neck: Supple, 2+ carotid pulse no bruit, No LAD, Without JVD or thyroid abnormality Respiratory: Clear to auscultation bilaterally, Normal air movement Cardiovascular: Regular rate/rhythm, Normal S1 S2 Gastrointestinal: Normal bowel sounds, Non-distended, No rebound, No guarding, Tenderness (Mild left-sided abdominal tenderness on exam) Musculoskeletal: No contractures, No tenderness Integumentary: No rashes Neurological: Normal speech, Normal strength at 5/5 x4 extr, Normal tone, Normal affect - Studies Laboratory Data (last 24 hrs) 01/07/21 17:55: PT 13.0 H, INR 1.13 01/07/21 17:55: WBC 18.00 H, Hgb 10.8 L, Hct 31.9 L, Plt Count 206 01/07/21 17:55: Sodium 139, Potassium 4.1, BUN 43 H, Creatinine 4.43 H, Glucose 98, Magnesium 1.3 L* D, Total Bilirubin 0.4, AST 98 H, ALT 82 H, Alkaline Phosphatase 122 H, Lipase 35 L Microbiology Data (last 24 hrs): 01/07/21 18:20 Nasopharnyx Influenza Type A Antigen Screen - Final 01/07/21 18:20 Nasopharnyx Influenza Type B Antigen Screen - Final Assessment and Plan - Plan Assessment: Severe sepsis without septic shockunknown etiology, possibly 2/2 splenic abscess with history of splenic infarction Acute renal failure secondary to above Hypomagnesemia Hypertension currently with hypotension Plan: Severe sepsis without septic shockunknown etiology, possibly 2/2 splenic abscess with history of splenic infarction: Continue with IV vancomycin/meropenem, infectious disease/general surgery consulted. Radiology unable to differentiate completely between hematoma versus abscess, no other source of infection has been identified at this time. Patient has received 30 cc/kg fluid bolus, blood pressure around 100 systolic, patient may require vasopressor therapy. Admit to ICU for further management. Appreciate further input from general surgery/infectious disease. Acute renal failure secondary to above: Nephrology consulted continue with IV fluids, renal ultrasound, additional labs. Appreciate further input from nephrology. Hypomagnesemia: Given magnesium replacement in the emergency department recheck with morning lab. Hypertension currently with hypotension: Hold blood pressure medications at this time. DVT PPX: SCDs Code status: Full Discharge Plan: Home Plan to discharge in: Greater than 2 days - Advance Directives Does patient have a Living Will: No Does patient have a Durable POA for Healthcare: Yes - Code Status/Comfort Care Code Status Assessed: Yes (Full code) Critical Care: No Time Spent Managing Pts Care (In Minutes): 55
[2021-01-08] MEDS ORDERED: FENTANYL CITR 100 MCG/2 ML ONE ×4 (02:44→18:43)
[2021-01-08] MEDS ORDERED: VANCOMYCIN 1 GM/VIAL ONE ×2 (02:47→21:18)
[2021-01-08] MEDS ORDERED: NA CHLORIDE 0.9% 100 ML ONE ×2 (02:49→21:18)
[2021-01-08] MEDS: FENTANYL CITR 100 MCG/2 ML IV PRN ×4 (03:00→18:26)
--- NOTE | 2021-01-08 05:32 | P.INFCA ---
Sepsis Focused Assessment - Focused Assessment Complete? Sepsis Focused Assessment Completed?: Yes - Sepsis Screen Result Severe Sepsis: Positive Septic Shock: Negative - Evaluation Current stage of sepsis: Severe sepsis - Vital Signs Reviewed: Yes Temperature: 97.8 F Heart rate: 110 Blood Pressure: 108/69 Respiratory Rate: 21 O2 Sat by Pulse Oximetry: 97 - Examination Date exam was performed: 01/08/21 Time exam was performed: 02:00 Heart: Regular rate/rhythm Lungs: Clear bilaterally Peripheral pulses: 3+ Normal Peripheral pulse location: Radial Capillary refill: <2 Seconds Skin examination: Normal turgor
[2021-01-08 05:52] LABS: Absolute Lymphocytes (CBC) 0.9 K/uL (0.7-4.9); Basophils % 0.2 % (0-1.3); Hematocrit 31.2 % (39.6-49.0); Lymphocytes % 3.5 % (15.3-44.8); MPV 8.1 fL (7.6-11.3); RBC Red Blood Cell Count 3.53 M/uL (4.33-5.43)
[2021-01-08 06:10] LABS: Albumin 2.6 g/dL (3.4-5.0); Bilirubin Total 0.3 mg/dL (0.2-1.0); Magnesium 1.7 mg/dL (1.8-2.4); Potassium 4.2 mmol/L (3.5-5.1); Protein, Total 7.9 g/dL (6.4-8.2); Uric Acid 8.9 mg/dL (3.5-7.2)
[2021-01-08 06:11] LABS: Thyroid Stimulating Hormone 4.39 uIU/mL (0.360-3.740)
--- NOTE | 2021-01-08 06:26 | P.PN ---
Subjective Date of Service: 01/08/21 Chief Complaint: Severe sepsis Subjective: Other (BP still low. Pain still present.) Physical Examination - Vital Signs Temperature: 97.8 F Blood Pressure: 108/69 Pulse: 110 Respirations: 21 Pulse Ox (%): 97 - Studies Laboratory Data (last 24 hrs) 01/07/21 17:55: PT 13.0 H, INR 1.13 01/07/21 17:55: WBC 18.00 H, Hgb 10.8 L, Hct 31.9 L, Plt Count 206 01/07/21 17:55: Sodium 139, Potassium 4.1, BUN 43 H, Creatinine 4.43 H, Glucose 98, Magnesium 1.3 L* D, Total Bilirubin 0.4, AST 98 H, ALT 82 H, Alkaline Phosphatase 122 H, Lipase 35 L Microbiology Data (last 24 hrs): 01/07/21 18:20 Nasopharnyx Influenza Type A Antigen Screen - Final 01/07/21 18:20 Nasopharnyx Influenza Type B Antigen Screen - Final Assessment & Plan Discharge Plan: Home Plan to discharge in: Greater than 2 days Physician Review Additional Text: COVID: Negative CT scan: COMPARISON: No comparisonsCT ANGIO ABD/PELVIS W CONTRAST dated 10/30/2020 TECHNIQUE: Approximately 100 mL nonionic IV contrast was administered to the patient. All CT scans are performed using dose optimization technique as appropriate and may include automated exposure control or mA/KV adjustment according to patient size. FINDINGS: The lungs are clear.No pleural or pericardial effusion.No intrathoracic adenopathy.Circumferential thickening of the esophagus may reflect esophagitis. The liver, adrenal glands, pancreas, and gallbladder are within normal limits. There is a new low-density lesion in the spleen measuring 5.8 centimeters. On the prior CT, there was an area of splenic infarct. No bowel obstruction, free air, free fluid or abscess. No pathologic lymphade nopathy in the abdomen or pelvis. No worrisome osseous finding. IMPRESSION: No acute findings within the chest, abdomen, or pelvis. . 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 The sterility of this fluid is indeterminate by CT. ABUS: COMPARISON: CT ANGIO ABD/PELVIS W CONTRAST dated 10/30/2020; Abdomen Pelvis W Contrast dated 10/28/2020 FINDINGS: Two intra splenic masses are present, the largest measuring 5.6 centimeters. The smaller lesion measures 3.3 centimeters. Both are hypoechoic. No definite flow is present within either collection. IMPRESSION: Two splenic collections identified without demonstrable vascular flow that could represent subacute hematomas but which are of indeterminate sterility. Physical exam: General: Alert, In no apparent distress, Oriented x3 HEENT: Atraumatic, PERRLA, Mucous membr. moist/pink, EOMI, Sclerae nonicteric Neck: Supple, 2+ carotid pulse no bruit, No LAD, Without JVD or thyroid abnormality Respiratory: Clear to auscultation bilaterally, Normal air movement Cardiovascular: Regular rate/rhythm, Normal S1 S2 Gastrointestinal: Normal bowel sounds, Non-distended, No rebound, No guarding, Tenderness (Mild left-sided abdominal tenderness on exam) Musculoskeletal: No contractures, No tenderness Integumentary: No rashes Neurological: Normal speech, Normal strength at 5/5 x4 extr, Normal tone, Normal affect Impression: Severe sepsis without septic shockunknown etiology, possibly 2/2 splenic abscess with history of splenic infarction Acute renal failure secondary to above Hypomagnesemia Hypertension currently with hypotension Plan: Severe sepsis without septic shockunknown etiology, possibly 2/2 splenic abscess with history of splenic infarction: Patient given IV fluid bolus this morning. Increase fluid intake noted. IV fluids adjusted. Case discussed with nephrology. Nephrology to add bicarbonate as well. Case discussed with surgery. Possible intervention needed. Continue to monitor patient closely. Await recommendations by infectious disease. Patient may require intervention if he continues to decline. Acute renal failure secondary to above: Continue with nephrology recommendations Hypomagnesemia: Given magnesium replacement in the emergency department recheck with morning lab. Hypertension currently with hypotension: Hold blood pressure medications at this time. DVT PPX: SCDs Code status: Full Discharge Plan: Home Time Spent Managing Pts Care (In Minutes): 55
[2021-01-08] MEDS ORDERED: D5 0.45 NS 1,000 ML IV SCH (06:58)
[2021-01-08] MEDS ORDERED: NA CHLORIDE 0.9% 500 ML IV ONE (06:58)
[2021-01-08 08:36] VITALS: BMI 25.7
[2021-01-08] MEDS ORDERED: D5 0.45 NS 1,000 ML IV ONE (08:49)
[2021-01-08] MEDS ORDERED: NA CHLORIDE 0.9% 500 ML ONE (08:49)
[2021-01-08] MEDS ORDERED: Meropenem 500 MG/100 ML BAG IV SCH (09:00)
--- NOTE | 2021-01-08 09:52 | RAD REPORT ---
EXAM DESCRIPTION: US - Renal Ultrasound-Complete - 01/08/2021 7:38 am CLINICAL HISTORY: ARF Flank pain COMPARISON: Abdomen Exam Limited dated 01/07/2021 FINDINGS: Both kidneys are mildly echogenic. The right kidney measures 11.9 x 6.3 x 4.7 cm. No hydronephrosis, focal mass or perinephric fluid. The left kidney measures 11.8 x 6.1 x 4.9 cm. No hydronephrosis, focal mass or perinephric fluid. The urinary bladder is incompletely distended without gross abnormality seen. Ram catheter is in pl rony. IMPRESSION: Mildly echogenic kidneys are seen bilaterally compatible with underlying medical renal d isease.
[2021-01-08] MEDS ORDERED: NA CHLORIDE 0.9% 1,000 ML IV ONE ×2 (10:01→12:37)
[2021-01-08] MEDS ORDERED: NA CHLORIDE 0.9% 1,000 ML ONE ×3 (10:10→21:18)
[2021-01-08 10:19] LABS: Blood Morphology Comment NOT SEEN (NOT SEEN); Platelet Estimate ADEQ
[2021-01-08] MEDS: Meropenem 500 MG/100 ML BAG IV SCH ×2 (10:30→21:00)
--- NOTE | 2021-01-08 10:47 | P.CNS ---
Date of Consult: 01/08/21 Chief Complaint: Severe sepsis History of Present Illness: Patient is a 65-year-old male with a past medical history of hypertension, and splenic infarct which occurred 2-3 months ago after sustaining a mechanical fall at home who presented to the emergency department due to left-sided abdominal pain and hypotension. In the ED patient's systolic blood pressure was in the 80s. [place] [address], hemoglobin 10.8, BUN 43, creatinine 4.43, GFR 16, lactic acid 3.6, procalcitonin greater than 200, BNP 3 997. COVID screening was negative. CT abdomen pelvis and abdominal ultrasound performed on 01/07 showed splenic lesions with fluid collection, concerning for hematoma versus abscess formation. Dr. Maurice consulted. Blood and urine cultures pending. Patient received a single dose of vancomycin in the emergency department, and is currently on meropenem. Patient denies nausea, vomiting, diarrhea, shortness breath, chest pain. Patient reports left-sided abdominal pain. Patient currently NPO awaiting surgery consultation. Allergies No Known Allergies Allergy (Verified 10/28/20 22:57) Home Medications: Aspirin [Aspirin EC 81 MG] 81 mg PO DAILY #90 tablet. 10/31/20 Folic Acid 1 mg PO DAILY #90 tablet 10/31/20 Metoprolol Tartrate [Lopressor*] 12.5 mg PO BID #60 tab 10/31/20 Thiamine HCl 100 mg PO DAILY #90 tablet 10/31/20 - Past Medical/Surgical History Diabetic: No -: Alcohol abuse -: Splenic infarction -: Hypertension -: THC abuse -: right ankle sx Psychosocial/ Personal History: Unemployed, lives with a friend - Family History Mother Medical History: Cancer - Social History Smoking Status: Current every day smoker Alcohol use: Yes CD- Drugs: No Caffeine use: Yes Place of Residence: Home Review of Systems 10-point ROS is otherwise unremarkable Physical Examination Temp Pulse Resp BP Pulse Ox 98.7 F 101 H 24 H 87/63 L 96 01/08/21 08:00 01/08/21 09:33 01/08/21 09:50 01/08/21 09:33 01/08/21 09:50 General: Alert, In no apparent distress, Oriented x3 HEENT: Atraumatic, Normocephalic Neck: Supple, 2+ carotid pulse no bruit Respiratory: Clear to auscultation bilaterally, Normal air movement, Diminished Cardiovascular: No edema, Normal pulses, Regular rate/rhythm Capillary refill: <2 Seconds Gastrointestinal: Normal bowel sounds, Non-distended Musculoskeletal: No clubbing, No swelling, No contractures, No erythema Integumentary: No rashes, No breakdown Neurological: Normal gait, Normal speech Laboratory Data (last 24 hrs) 01/07/21 17:55: PT 13.0 H, INR 1.13 01/07/21 17:55: WBC 18.00 H, Hgb 10.8 L, Hct 31.9 L, Plt Count 206 01/07/21 17:55: Sodium 139, Potassium 4.1, BUN 43 H, Creatinine 4.43 H, Glucose 98, Magnesium 1.3 L* D, Total Bilirubin 0.4, AST 98 H, ALT 82 H, Alkaline Phosphatase 122 H, Lipase 35 L Conclusions/Impression: Antibiotics: Received a single dose of vancomycin in the ED -meropenem Start:01/07 stop: -- Doxycycline Start: 01/08 sop: -- Assessment: -sepsis likely secondary to his splenic abscess versus hematoma -renal insufficiency -anemia -protein caloric malnutrition Plan: -Blood and urine cultures pending. CT abdomen and pelvis performed on 01/07 showed splenic lesion with fluid collection, unspecified if hematoma versus abscess formation. Chest x-ray showed no acute cardiopulmonary disease. Skin exam negative. Source of infection likely possible splenic abscess, no other source of infection identified. Patient received a single dose of vancomycin in the ED, and now on meropenem. Increase in leukocytosis noted on today's labs. Afebrile. IV doxycycline added to antibiotic regimen. -Dr. Maurice on case, patient NPO awaiting surgery consultation -medical management per primary team -continue monitor CBC and BMP -continue monitor for signs infection Plan of care discussed with Dr. Whipple Thank you for consultation.
[2021-01-08] MEDS: NA CHLORIDE 0.9% 1,000 ML IV SCH ×2 (13:00→23:00)
--- NOTE | 2021-01-08 13:03 | CON ---
Date of Consultation: 01/08/2021 Reason For Consultation: Elevated BUN and creatinine. History Of Present Illness: This is a pleasant 65-year-old gentleman with significant past medical history of hypertension, splenic infarction, the patient came to the hospital complaining from abdominal pain, found to have in shock with acute kidney injury, creatinine 4.4. For that reason, we have been consulted. The patient denied taking any nonsteroidal, no IV contrast. Primary workup showed questionable of collection in the spleen, questionable between residual of the infarction/abscess. The patient was started on fluid resuscitation. Primary workup did not show any obstructive uropathy. The patient had CT abdomen and pelvis without contrast. The patient had CT with contrast back in October. The patient's home medication did not include any ERIKA inhibitor or ARB. No nonsteroidal. Past Medical History: Includes hypertension. Past medical history includes alcohol abuse, splenic infarction, hypertension, THC abuse. Home Medications: Include; 1. Aspirin. 2. Folic acid. 3. Metoprolol. 4. Thiamin. Allergies: NO KNOWN DRUGS ALLERGY. Past Surgical History: Includes ankle surgery. Family History: Positive for cancer. Social History: Ex-smoker, drug user, alcohol user. Review of Systems: Head and Neck: No red eye. No ear pain. GI: No nausea, no vomiting. Abdominal pain : No polyuria. Has occasional hematuria. Investment Strategist: Not applicable. Respiratory: No shortness of breath. Cardiovascular: No chest pain. Endocrine: No polydipsia. Skin: No rash. Neuro: No neuropathy. Musculoskeletal: Low back pain. Physical Examination: General: When I saw the patient, the patient lying in bed. Vital Signs: Blood pressure 87/63, pulse of 101, afebrile. Chest: Clear to auscultation. Heart: S1, S2. Regular. Abdomen: Soft. Tenderness on the left upper quadrant. No guarding or rebound. Dullness on the suprapubic area. The patient has Ram. Extremities: No edema. Neurological: Alert, oriented x3. No focal. Laboratory Data: WBC 24.2, H and H 10.5/31.2, platelet 218. Sodium 140, potassium 4.2, bicarb 17, chloride 112, BUN 47, creatinine 4.2, GFR of 17, calcium 7.6, uric acid 8.9, magnesium 1.7. TSH 4.3. Reviewing the record for the patient back in December; hemoglobin 12.7, creatinine 1 with GFR of 87. Renal ultrasound, 11.9/11.8, echogenic. Assessment And Plan: 1. Acute kidney injury secondary to prerenal, poor perfusion, ATN, superimposed with toxic ATN, secondary to sepsis. Nonoliguric, no hyperkalemia, mild acidosis. The patient still looks to me on the dry side. I am going to go ahead and bolus the patient with another liter of normal saline and we will maintain the patient on IV fluid. 2. Obstructive uropathy has been ruled out. 3. Given the presence of proteinuria and splenic infarction with anemia, I am going to rule out any hypercoagulopathy including light chain disease. I am going to send for serum protein electrophoresis. 4. Acidosis, non-anion gap metabolic acidosis secondary to renal failure. We will start oral bicarb. 5. Hypertension with the presence of low blood pressure. Hold all blood pressure medications. 6. Septic shock. Continue current antibiotic. We will follow up with primary and ID. Thank you Dr. Chandra for allowing us to participate in the care of your patient. Time spent discussing with the patient, examining the patient [id number], explaining pathology of the disease, placing orders, discussing the case with family and discussing the case with other endless steamer tender including hospitalist and nurse is 75 minutes. time spend exam the patient face to face placing order , reviewing data , discussed the case with nursing staff, other team care including ugo 65 min SAMINA Voice ID: [id number] Report ID: [id number]
[2021-01-08] MEDS: DOXYCYCLINE 100 MG in NA CHLORIDE 0.9% 100 ML IVPB SCH (21:00)
[2021-01-08] MEDS: SODIUM BICARB 325 MG TAB PO SCH (21:00)
[2021-01-08] MEDS ORDERED: Meropenem 1000 MG/VIAL IV ONE (21:17)
[2021-01-08] MEDS ORDERED: NA CHLORIDE 0.9% 250 ML ONE (21:18)
[2021-01-09] MEDS ORDERED: NA CHLORIDE 0.9% 1,000 ML ONE ×2 (02:06→11:01)
[2021-01-09] MEDS ORDERED: BENZONATATE 100 MG CAP PO ONE (02:06)
[2021-01-09] MEDS ORDERED: METHYLPREDNISOLONE 125 MG INJ ONE (02:06)
[2021-01-09] MEDS ORDERED: ONDANSETRON 4 MG/2 ML VIAL ONE (02:06)
[2021-01-09 05:19] LABS: Absolute Lymphocytes (CBC) 1.3 K/uL (0.7-4.9); Basophils % 0.4 % (0-1.3); Lymphocytes % 6.4 % (15.3-44.8); MPV 8.2 fL (7.6-11.3); RBC Red Blood Cell Count 2.84 M/uL (4.33-5.43)
[2021-01-09 06:10] LABS: Albumin 2.2 g/dL (3.4-5.0); Bilirubin Total 0.3 mg/dL (0.2-1.0); Ferritin 1257.6 ng/mL (26-388); Folic Acid, (Folate) 14.3 ng/mL (3.1-17.5); Magnesium 1.6 mg/dL (1.8-2.4); Phosphorus 3.1 mg/dL (2.5-4.9); Potassium 3.5 mmol/L (3.5-5.1); Protein, Total 7.2 g/dL (6.4-8.2)
--- NOTE | 2021-01-09 06:27 | P.PN ---
Subjective Date of Service: 01/09/21 Chief Complaint: Severe sepsis he denies having any urinary complaints. Physical Examination - Vital Signs Temperature: 98.9 F Blood Pressure: 109/77 Pulse: 96 Respirations: 17 Pulse Ox (%): 97 - Physical Exam General: In no apparent distress HEENT: Atraumatic, Normocephalic Neck: Supple, JVD not distended Respiratory: Normal air movement Cardiovascular: No rubs, No murmurs Gastrointestinal: Soft and benign, Non-distended Musculoskeletal: No swelling Integumentary: No warmth Neurological: Normal speech, Normal tone Urinary: Other (no bladder distention) External genitalia: Deferred Rectal: Deferred Assessment And Plan - Plan # [place] secondary to prerenal, poor perfusion, ATN, superimposed with toxic ATN, secondary to sepsis improving Baseline serum creatinine 1.0 as of 12/19/2020 [place] by mouth fluid intake Monitor renal panel # ? Severe sepsis, ? Splenic abscess/mass Has relative hypotension History of significant blunt trauma on left rib cage area due to fall in October 2020 No history of hematologic disease, no history of pancreatitis TTE in October 2020 was negative for infective endocarditis BNP significantly elevated at 4000;troponin negative; chest x-ray unremarkable Ferritin elevated at 1300 but may just be acute phase reaction Chest on CT scan is unremarkable without evidence of pulmonary hypertension or interstitial lung disease empiric antibiotics blood cultures +Serum protein gap, +mild urine protein gap, f/u workup for plasma cell dyscrasia - SPEP, K:L SFLC, serum ISE, random UPEP # Relative hypotension 8 AM serum cortisol normal level Follow-up 8 AM ACTH level # Hypocalcemia Mild, corrected serum calcium 8.6, serum intact PTH elevated to 68 Follow-up 25 hydroxyvitamin D level monitor, correct hypomagnesemia prn # Hypomagnesemia Mild Monitor for now # Non-gap metabolic acidosis + mild respi alkalosis ABG pH on 01/09 wnl No need for bicarbonate repletion/therapy
--- NOTE | 2021-01-09 06:29 | P.PN ---
Subjective Date of Service: 01/09/21 Chief Complaint: Severe sepsis Subjective: Improving Physical Examination - Vital Signs Temperature: 98.9 F Blood Pressure: 109/77 Pulse: 96 Respirations: 17 Pulse Ox (%): 97 Assessment & Plan Discharge Plan: Home Plan to discharge in: Greater than 2 days Physician Review Additional Text: COVID: Negative CT scan: COMPARISON: No comparisonsCT ANGIO ABD/PELVIS W CONTRAST dated 10/30/2020 TECHNIQUE: Approximately 100 mL nonionic IV contrast was administered to the patient. All CT scans are performed using dose optimization technique as appropriate and may include automated exposure control or mA/KV adjustment according to patient size. FINDINGS: The lungs are clear.No pleural or pericardial effusion.No intrathoracic adenopathy.Circumferential thickening of the esophagus may reflect esophagitis. The liver, adrenal glands, pancreas, and gallbladder are within normal limits. There is a new low-density lesion in the spleen measuring 5.8 centimeters. On the prior CT, there was an area of splenic infarct. No bowel obstruction, free air, free fluid or abscess. No pathologic lymphadenopathy in the abdomen or pelvis. No worrisome osseous finding. IMPRESSION: No acute findings within the chest, abdomen, or pelvis. . 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 The sterility of this fluid is indeterminate by CT. ABUS: COMPARISON: CT ANGIO ABD/PELVIS W CONTRAST dated 10/30/2020; Abdomen Pelvis W Contrast dated 10/28/2020 FINDINGS: Two intra splenic masses are present, the largest measuring 5.6 centimeters. The smaller lesion measures 3.3 centimeters. Both are hypoechoic. No definite flow is present within either collection. IMPRESSION: Two splenic collections identified without demonstrable vascular flow that could represent subacute hematomas but which are of indeterminate sterility. Physical exam: General: Alert, In no apparent distress, Oriented x3 HEENT: Atraumatic, PERRLA, Mucous membr. moist/pink, EOMI, Sclerae nonicteric Neck: Supple, 2+ carotid pulse no bruit, No LAD, Without JVD or thyroid abnormality Respiratory: Clear to auscultation bilaterally, Normal air movement Cardiovascular: Regular rate/rhythm, Normal S1 S2 Gastrointestinal: Normal bowel sounds, Non-distended, No rebound, No guarding, Tenderness (Mild left-sided abdominal tenderness on exam) Musculoskeletal: No contractures, No tenderness Integumentary: No rashes Neurological: Normal speech, Normal strength at 5/5 x4 extr, Normal tone, Normal affect Impression: Severe sepsis without septic shockunknown etiology, possibly 2/2 splenic abscess with history of splenic infarction Acute renal failure secondary to above Hypomagnesemia Hypertension currently with hypotension Plan: Severe sepsis without septic shockunknown etiology, possibly 2/2 splenic abscess with history of splenic infarction: Will adjust IV fluids. Case discussed with nephrology. Patient with suspected protein gap. Patient may have underlying plasma cell dysplasia. Await further lab. Nephrology to order CT scan of the chest. Patient on bicarbonate. Will discuss with surgery. Likely no need for surgical intervention. Patient may not have underlying abscess. Antibiotics adjusted by infectious disease. Will discuss with infectious disease as well. Acute renal failure secondary to above: Continue with nephrology recommendations Hypomagnesemia: Given magnesium replacement in the emergency department recheck with morning lab. Hypertension currently with hypotension: Hold blood pressure medications at this time. DVT PPX: SCDs Code status: Full Discharge Plan: Home Time Spent Managing Pts Care (In Minutes): 55
[2021-01-09] MEDS: SODIUM BICARB 325 MG TAB PO SCH ×2 (09:00→21:45)
[2021-01-09 09:32] LABS: Arterial Blood Carboxyhemoglob 1.1 % (0-1.5); Blood Gas Oxyhemoglobin 94.5 % (94-97); Blood O2 Saturation 96.7 % (92-98.5)
[2021-01-09] MEDS: FENTANYL CITR 100 MCG/2 ML IV PRN (10:39)
[2021-01-09] MEDS: Meropenem 500 MG/100 ML BAG IV SCH ×2 (10:39→23:00)
[2021-01-09] MEDS: NA CHLORIDE 0.9% 1,000 ML IV SCH (10:40)
[2021-01-09] MEDS: DOXYCYCLINE 100 MG in NA CHLORIDE 0.9% 100 ML IVPB SCH ×2 (10:40→21:40)
[2021-01-09] MEDS ORDERED: FENTANYL CITR 100 MCG/2 ML ONE (11:01)
--- NOTE | 2021-01-09 12:31 | P.PN ---
Subjective Date of Service: 01/09/21 Chief Complaint: Severe sepsis Patient seen examined at bedside. Remains NPO. Review of Systems 10-point ROS is otherwise unremarkable Physical Examination - Vital Signs Temperature: 98.9 F Blood Pressure: 109/77 Pulse: 96 Respirations: 17 Pulse Ox (%): 97 Assessment And Plan - Plan Physical Exam: General: Alert, In no apparent distress, Oriented x3 HEENT: Atraumatic, Normocephalic Neck: Supple, 2+ carotid pulse no bruit Respiratory: Clear to auscultation bilaterally, Normal air movement, Diminished Cardiovascular: No edema, Normal pulses, Regular rate/rhythm Capillary refill: <2 Seconds Gastrointestinal: Normal bowel sounds, Non-distended Musculoskeletal: No clubbing, No swelling, No contractures, No erythema Integumentary: No rashes, No breakdown Neurological: Normal gait, Normal speech Laboratory Data (last 24 hrs) 01/07/21 17:55: PT 13.0 H, INR 1.13 01/07/21 17:55: WBC 18.00 H, Hgb 10.8 L, Hct 31.9 L, Plt Count 206 01/07/21 17:55: Sodium 139, Potassium 4.1, BUN 43 H, Creatinine 4.43 H, Glucose 98, Magnesium 1.3 L* D, Total Bilirubin 0.4, AST 98 H, ALT 82 H, Alkaline Phosphatase 122 H, Lipase 35 L Conclusions/Impression: Antibiotics: Received a single dose of vancomycin in the ED -meropenem Start:01/07 stop: -- Doxycycline Start: 01/08 sop: -- Assessment: -sepsis likely secondary to his splenic abscess versus hematoma -renal insufficiency -anemia -protein caloric malnutrition Plan: -Blood cultures: No growth @24 hr. Urine culture showed no growth. CT abdomen and pelvis performed on 01/07 showed splenic lesion with fluid collection, unspecified if hematoma versus abscess formation. Chest x-ray showed no acute cardiopulmonary disease. Skin exam negative. Source of infection likely possible splenic abscess, no other source of infection identified. Patient received a single dose of vancomycin in the ED, and now on meropenem. Increase in leukocytosis noted on today's labs. Afebrile. IV doxycycline added to antibiotic regimen. -Dr. Maurice on case, patient NPO awaiting surgery consultation -medical management per primary team -continue monitor CBC and BMP -continue monitor for signs infection Plan of care discussed with Dr. Whipple Thank you for consultation. Physician Review Additional Text: COVID: Negative CT scan: COMPARISON: No comparisonsCT ANGIO ABD/PELVIS W CONTRAST dated 10/30/2020 TECHNIQUE: Approximately 100 mL nonionic IV contrast was administered to the patient. All CT scans are performed using dose optimization technique as appropriate and may include automated exposure control or mA/KV adjustment according to patient size. FINDINGS: The lungs are clear.No pleural or pericardial effusion.No intrathoracic adenopathy.Circumferential thickening of the esophagus may reflect esophagitis. The liver, adrenal glands, pancreas, and gallbladder are within normal limits. There is a new low-density lesion in the spleen measuring 5.8 centimeters. On the prior CT, there was an area of splenic infarct. No bowel obstruction, free air, free fluid or abscess. No pathologic lymphadenopathy in the abdomen or pelvis. No worrisome osseous finding. IMPRESSION: No acute findings within the chest, abdomen, or pelvis. . 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 The sterility of this fluid is indeterminate by CT. ABUS: COMPARISON: CT ANGIO ABD/PELVIS W CONTRAST dated 10/30/2020; Abdomen Pelvis W Contrast dated 10/28/2020 FINDINGS: Two intra splenic masses are present, the largest measuring 5.6 centimeters. The smaller lesion measures 3.3 centimeters. Both are hypoechoic. No definite flow is present within either collection. IMPRESSION: Two splenic collections identified without demonstrable vascular flow that could represent subacute hematomas but which are of indeterminate sterility. Physical exam: General: Alert, In no apparent distress, Oriented x3 HEENT: Atraumatic, PERRLA, Mucous membr. moist/pink, EOMI, Sclerae nonicteric Neck: Supple, 2+ carotid pulse no bruit, No LAD, Without JVD or thyroid abnormality Respiratory: Clear to auscultation bilaterally, Normal air movement Cardiovascular: Regular rate/rhythm, Normal S1 S2 Gastrointestinal: Normal bowel sounds, Non-distended, No rebound, No guarding, Tenderness (Mild left-sided abdominal tenderness on exam) Musculoskeletal: No contractures, No tenderness Integumentary: No rashes Neurological: Normal speech, Normal strength at 5/5 x4 extr, Normal tone, Normal affect Impression: Severe sepsis without septic shockunknown etiology, possibly 2/2 splenic abscess with history of splenic infarction Acute renal failure secondary to above Hypomagnesemia Hypertension currently with hypotension Plan: Severe sepsis without septic shockunknown etiology, possibly 2/2 splenic abscess with history of splenic infarction: Patient given IV fluid bolus this morning. Increase fluid intake noted. IV fluids adjusted. Case discussed with nephrology. Nephrology to add bicarbonate as well. Case discussed with surgery. Possible intervention needed. Continue to monitor patient closely. Await recommendations by infectious disease. Patient may require intervention if he continues to decline. Acute renal failure secondary to above: Continue with nephrology recommendations Hypomagnesemia: Given magnesium replacement in the emergency department recheck with morning lab. Hypertension currently with hypotension: Hold blood pressure medications at this time. DVT PPX: SCDs Code status: Full Discharge Plan: Home
[2021-01-09 13:00] LABS: Urine Appearance TURBID (Clear); Urine Bilirubin NEGATIVE (Negative); Urine Blood 3+ (Negative); Urine Color YELLOW (Yellow); Urine Glucose NEGATIVE (Negative); Urine Protein TRACE (Negative); Urine Urobilinogen 0.2 mg/dL (0.2-1.0); Urine pH 5.5 (5.0-7.0)
[2021-01-09 13:03] LABS: Urine Protein/Creatinine Ratio 0.98 ratio (<0.15)
[2021-01-09 14:16] LABS: Urine Amorphous Sediment 3+ /HPF (NONE SEEN); Urine Bacteria >50 /HPF (NONE SEEN); Urine Coarse Granular Casts 0-5 /LPF (NONE SEEN); Urine RBC <5 /HPF (NONE SEEN)
--- NOTE | 2021-01-09 17:09 | CON ---
Date of Consultation: 01/08/2021 This patient was seen in the ER on 01/08/2021. Reason For Service: Splenic infarction. History Of Present Illness: This is a case of a 65-year-old patient. Since October of this year, he has been having problems with the spleen. When he came in October of 2020, he had a CAT scan done at that [facility] and they noticed to have a wedge shaped area of absent or diminished enhancement of the spleen that extends from the superior margin to the posterior inferior margin and at that moment has the remigio earance of subacute splenic infarction. Now, several months later, the patient came to the ER with l eukocytosis. They have been trying to find etiology of what looked like sepsis and once again, they did a CAT scan of the abdomen and they saw the findings on the spleen. Surgical consult was obtained for evaluation and options. The patient also come this time with some urinary proper problems. Fou nd to have some acute kidney injury present. The renal doctor is working on the present hypercoagulo silviano disease. The patient is awake, alert. He says he has some pain in the abdomen, although he west s no peritonitis. He does not remember any fall or any trauma, although he believe that when he came here in October the first time, he was told he has a splenic laceration from a fall that happened at rafiq t moment, but not at this time. He denies any dysuria, hematuria, hematochezia, melena. Denies any recent traveling out of the country. Denies any family member sick at home. Medication: Aspirin, folic acid, metoprolol, thiamine. Medical History: Includes alcohol abuse, hypertension, splenic infarction. Past Surgical History: Include ankle surgery. Family History: Include mother with cancer. He does not remember exactly which one. Social Habits: Once again, he drinks alcohol and smoked in the past. Review of Systems: See H and P. Ten points otherwise unremarkable. History Of Present Illness: GENERAL: The patient is awake, alert, in no distress. Oriented x3. HEENT: Pupils are equal, reactive, anicteric. Neck: Supple. Chest: Clear. Abdomen: Soft and depressible. No guarding or rebound. No peritoneal signs. Mild right-sided tend erness with no peritonitis. Laboratory Data: Blood work; WBC count of 24, coming from 18. Hemoglobin of 10.5, platelets of 218. INR is 1.13, GFR 30, creatinine is 2.6. CAT scan of abdomen and pelvis, we reviewed this CAT scan from October and also from now on January 07. The CAT scan was interpreted by Dr. Burden as no acute findin g within the chest, abdomen, and pelvis. New splenic lesion collection, likely the sequela of spleni c infarct in the past, but they cannot determine the stability of his fluid because it is just a CAT scan. They don't see any free fluid, any abscess in any other place and once again, they are not vonnie e about this fluid collection. This is could be just a sequela of the previous infarct. Assessment: A 65-year-old patient with a diagnosis of sepsis of unknown etiology. The patient has i nfarct of the spleen in the past. It has been treated conservatively. He has no peritonitis at this moment. He has been on antibiotics for the treatment of sepsis. Looking at the entire body, we are looking for a source of it. The spleen has this affects of infarction before, the etiology of that is unknown. That fluid collection, there may be a sequela of the previous infarct. No rupture at th is time. We understand and he understand that if clinically he deteriorated, there is sometimes renee cation for splenectomy, though most of the time it is not the case. He understands the benefits, alt ernatives, and risks of that. Obviously, he does not want to go for that option if possible unless o bviously the area of rupture or clinically he gets worse, so we are going to follow the patient with you and see how clinically he develops in the next few days. JOSE/PILY Voice ID: [id number] Report ID: [id number]
[2021-01-09] MEDS: D5 0.45 NS 1,000 ML IV SCH (18:23)
[2021-01-09] MEDS ORDERED: D5 0.45 NS 1,000 ML IV ONE (18:45)
--- NOTE | 2021-01-09 19:39 | PN ---
Diagnosis: History of a splenic infarction. Subjective: The patient feels better. Objective: Chest: Clear. Abdomen: Soft and depressible. No guarding or rebound. Vital Signs: Afebrile. Blood Work: WBC count down to 19 from 24. Plan: Continue antibiotics per ID. No peritonitis at this moment. We will follow the patient with you. JOSE/PILY Voice ID: [id number] Report ID: [id number]
[2021-01-09] MEDS ORDERED: Meropenem 500 MG VIAL IV ONE (22:16)
[2021-01-09] MEDS ORDERED: NA CHLORIDE 0.9% 100 ML ONE (22:16)
[2021-01-10] MEDS: D5 0.45 NS 1,000 ML IV SCH ×2 (03:00→04:52)
--- NOTE | 2021-01-10 06:00 | P.PN ---
Subjective Date of Service: 01/10/21 Chief Complaint: Severe sepsis Subjective: Improving (Patient desires to eat. No significant abdominal pain. No significant nausea or vomiting.) Physical Examination - Vital Signs Temperature: 98.8 F Blood Pressure: 112/65 Pulse: 97 Respirations: 26 Pulse Ox (%): 98 Assessment & Plan Discharge Plan: Home Plan to discharge in: Greater than 2 days Physician Review Additional Text: COVID: Negative CT scan: COMPARISON: No comparisonsCT ANGIO ABD/PELVIS W CONTRAST dated 10/30/2020 TECHNIQUE: Approximately 100 mL nonionic IV contrast was administered to the patient. All CT scans are performed using dose optimization technique as appropriate and may include automated exposure control or mA/KV adjustment according to patient size. FINDINGS: The lungs are clear.No pleural or pericardial effusion.No intrathoracic adenopathy.Circumferential thickening of the esophagus may reflect esophagitis. The liver, adrenal glands, pancreas, and gallbladder are within normal limits. There is a new low-density lesion in the spleen measuring 5.8 centimeters. On the prior CT, there was an area of splenic infarct. No bowel obstruction, free air, free fluid or abscess. No pathologic lymphadenopathy in the abdomen or pelvis. No worrisome osseous finding. IMPRESSION: No acute findings within the chest, abdomen, or pelvis. . 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 The sterility of this fluid is indeterminate by CT. ABUS: COMPARISON: CT ANGIO ABD/PELVIS W CONTRAST dated 10/30/2020; Abdomen Pelvis W Contrast dated 10/28/2020 FINDINGS: Two intra splenic masses are present, the largest measuring 5.6 centimeters. The smaller lesion measures 3.3 centimeters. Both are hypoechoic. No definite flow is present within either collection. IMPRESSION: Two splenic collections identified without demonstrable vascular flow that could represent subacute hematomas but which are of indeterminate sterility. Physical exam: General: Alert, In no apparent distress, Oriented x3 HEENT: Atraumatic, PERRLA, Mucous membr. moist/pink, EOMI, Sclerae nonicteric Neck: Supple, 2+ carotid pulse no bruit, No LAD, Without JVD or thyroid abnormality Respiratory: Clear to auscultation bilaterally, Normal air movement Cardiovascular: Regular rate/rhythm, Normal S1 S2 Gastrointestinal: Normal bowel sounds, Non-distended, No rebound, No guarding, no significant abdominal tenderness Musculoskeletal: No contractures, No tenderness Integumentary: No rashes Neurological: Normal speech, Normal strength at 5/5 x4 extr, Normal tone, Normal affect Impression: Severe sepsis without septic shockunknown etiology, possibly 2/2 splenic abscess/pseudocyst with history of splenic infarction with CT scan showing new low-density lesion in the spleen measuring 5.8 cm Acute renal failure secondary to above Hypomagnesemia Hypertension currently with hypotension Plan: Severe sepsis without septic shockunknown etiology, possibly 2/2 splenic abscess/pseudocyst with history of splenic infarction with CT scan showing new low-density lesion in the spleen measuring 5.8 cm: We will adjust fluids to D5W. Patient on bicarbonate orally continue IV meropenem and doxycycline. Continue to replace electrolytes. Etiology of sepsis unknown but may be related to splenic abscess. New low-density lesion in the spleen measuring 5.8 cm may be related to infected pseudocyst. Need to consider aspiration versus drainage with placement of percutaneous tube. After speaking to surgery this may be difficult. Will discuss with radiology about the possibility of aspiration versus drainage. Need to consider the risk and benefit for this. If this is not an abscess and hematoma this may present some difficulty. Other consideration is underlying plasma cell dysplasia. Nephrology currently working up abnormality. Continue to monitor closely. Continue antibiotic therapy as suggested by infectious disease. Surgery plans to start a full liquid diet. Continue to monitor closely. Acute renal failure secondary to above: Continue with nephrology recommendations. Continue with IV fluids. IV fluids adjusted today. Hypomagnesemia: Continue to monitor. Replacement protocol in place. Hypertension currently with hypotension: Hold blood pressure medications at this time. DVT PPX: SCDs Code status: Full Discharge Plan: Home Time Spent Managing Pts Care (In Minutes): 55
[2021-01-10 06:11] LABS: Absolute Lymphocytes (CBC) 1.2 K/uL (0.7-4.9); Basophils % 0.4 % (0-1.3); Lymphocytes % 7.8 % (15.3-44.8); MPV 8.1 fL (7.6-11.3); RBC Red Blood Cell Count 3.45 M/uL (4.33-5.43)
--- NOTE | 2021-01-10 06:25 | P.PN ---
Subjective Date of Service: 01/10/21 Chief Complaint: Severe sepsis He denies having any urinary complaints. He denies having abdominal pain. Physical Examination - Vital Signs Temperature: 98.8 F Blood Pressure: 112/65 Pulse: 97 Respirations: 26 Pulse Ox (%): 98 - Physical Exam General: In no apparent distress HEENT: Atraumatic, Normocephalic Neck: Supple, JVD not distended Respiratory: Normal air movement Cardiovascular: No rubs, No murmurs Gastrointestinal: Soft and benign, Non-distended Musculoskeletal: No clubbing Integumentary: No warmth Neurological: Normal speech, Normal tone Urinary: Other (No bladder distention) External genitalia: Deferred Rectal: Deferred Assessment And Plan - Plan # [place] secondary to prerenal, poor perfusion, ATN, superimposed with toxic ATN, secondary to sepsis Improving, serum creatinine down to 1.7 today Baseline serum creatinine 1.0 as of 12/19/2020 Has mild proteinuria, random UPCR 1 g [place] by mouth fluid intake Monitor renal panel # ? Severe sepsis, ? Splenic abscess/mass History of significant blunt trauma on left rib cage area due to fall in October 2020 his blood pressure significantly improved and his leukocytosis significantly decreased with antibiotics. Therefore, the splenic mass may possibly be an infected splenic pseudocyst, which can occur uncommonly after splenic infarct He will need to undergo percutaneous drainage of the splenic ? infected psseudocyst No history of hematologic disease, no history of pancreatitis TTE in October 2020 was negative for infective endocarditis BNP significantly elevated at 4000;troponin negative; chest x-ray unremarkable Ferritin elevated at 1300 but may just be acute phase reaction Chest on CT scan is unremarkable without evidence of pulmonary hypertension or interstitial lung disease empiric antibiotics F/u blood cultures +Serum protein gap, +mild urine protein gap, f/u workup for plasma cell dyscrasia - SPEP, K:L SFLC, serum ISE, random UPEP # Relative hypotension Likely secondary to sepsis as above 8 AM serum cortisol normal level Follow-up 8 AM ACTH level # Hypokalemia Replete per protocol # Hypocalcemia Mild, corrected serum calcium 8.6, serum intact PTH elevated at 268 Follow-up 25 hydroxyvitamin D level Monitor, correct hypomagnesemia prn # Hypomagnesemia Replete per protocol # Non-gap metabolic acidosis + mild respi alkalosis ABG pH on 01/09 wnl No need for bicarbonate repletion/therapy
[2021-01-10 06:33] LABS: Albumin 2.2 g/dL (3.4-5.0); Bilirubin Total 0.4 mg/dL (0.2-1.0); Phosphorus 3.1 mg/dL (2.5-4.9); Protein, Total 7.4 g/dL (6.4-8.2)
[2021-01-10 06:35] LABS: Magnesium 1.2 mg/dL (1.8-2.4)
[2021-01-10] MEDS ORDERED: Magnesium Sulfate 2gm IVPB 2 G/50 ML BAG IV ONE (06:39)
[2021-01-10] MEDS: Meropenem 500 MG/100 ML BAG IV SCH ×3 (09:00→20:20)
[2021-01-10] MEDS: DOXYCYCLINE 100 MG in NA CHLORIDE 0.9% 100 ML IVPB SCH ×3 (09:00→20:20)
[2021-01-10] MEDS ORDERED: D5W 1,000 ML IV SCH ×2 (09:00→11:00)
[2021-01-10] MEDS: SODIUM BICARB 325 MG TAB PO SCH ×2 (10:17→20:20)
[2021-01-10] MEDS: KCL 20 MEQ/100 mL IVPB 20 MEQ/100 ML BAG IV SCH ×3 (10:17→12:07)
--- NOTE | 2021-01-10 17:56 | PN ---
Date of Progress Note: 01/10/2021 Diagnoses: Sepsis, splenic ischemia. Subjective: The patient is doing better. No nausea, no vomiting. Abdomen is softer. Physical Examination: Abdomen: Soft and depressible. No guarding or rebound. Laboratory Data: WBC count is decreased, and the patient is afebrile. Plan: Continue medical treatment. We will follow the patient with you. JOSE/PILY Voice ID: [id number] Report ID: [id number]
[2021-01-10] MEDS ORDERED: MAGNESIUM SULFATE 1 gm IVPB 1 GM/100 ML BAG IV ONE (18:00)
[2021-01-10] MEDS ORDERED: POTASSIUM CL SA 10 MEQ TAB PO ONE (21:23)
--- NOTE | 2021-01-11 05:59 | P.PN ---
Subjective Date of Service: 01/11/21 Chief Complaint: Severe sepsis Subjective: Improving, Doing well Physical Examination - Vital Signs Temperature: 98.7 F Blood Pressure: 119/79 Pulse: 100 Respirations: 16 Pulse Ox (%): 99 Assessment & Plan Discharge Plan: Home Plan to discharge in: 72 Hours Physician Review Additional Text: COVID: Negative CT scan: COMPARISON: No comparisonsCT ANGIO ABD/PELVIS W CONTRAST dated 10/30/2020 TECHNIQUE: Approximately 100 mL nonionic IV contrast was administered to the patient. All CT scans are performed using dose optimization technique as appropriate and may include automated exposure control or mA/KV adjustment according to patient size. FINDINGS: The lungs are clear.No pleural or pericardial effusion.No intrathoracic adenopathy.Circumferential thickening of the esophagus may reflect esophagitis. The liver, adrenal glands, pancreas, and gallbladder are within normal limits. There is a new low-density lesion in the spleen measuring 5.8 centimeters. On the prior CT, there was an area of splenic infarct. No bowel obstruction, free air, free fluid or abscess. No pathologic lymphadenopathy in the abdomen or pelvis. No worrisome osseous finding. IMPRESSION: No acute findings within the chest, abdomen, or pelvis. . 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 The sterility of this fluid is indeterminate by CT. ABUS: COMPARISON: CT ANGIO ABD/PELVIS W CONTRAST dated 10/30/2020; Abdomen Pelvis W Contrast dated 10/28/2020 FINDINGS: Two intra splenic masses are present, the largest measuring 5.6 centimeters. The smaller lesion measures 3.3 centimeters. Both are hypoechoic. No definite flow is present within either collection. IMPRESSION: Two splenic collections identified without demonstrable vascular flow that could represent subacute hematomas but which are of indeterminate sterility. Physical exam: General: Alert, In no apparent distress, Oriented x3 HEENT: Atraumatic, PERRLA, Mucous membr. moist/pink, EOMI, Sclerae nonicteric Neck: Supple, 2+ carotid pulse no bruit, No LAD, Without JVD or thyroid abnormality Respiratory: Clear to auscultation bilaterally, Normal air movement Cardiovascular: Regular rate/rhythm, Normal S1 S2 Gastrointestinal: Normal bowel sounds, Non-distended, No rebound, No guarding, no significant abdominal tenderness Musculoskeletal: No contractures, No tenderness Integumentary: No rashes Neurological: Normal speech, Normal strength at 5/5 x4 extr, Normal tone, Normal affect Impression: Severe sepsis without septic shockunknown etiology, possibly 2/2 splenic abscess/pseudocyst with history of splenic infarction with CT scan showing new low-density lesion in the spleen measuring 5.8 cm Acute renal failure secondary to above Hypomagnesemia Hypertension currently with hypotension Plan: Severe sepsis without septic shockunknown etiology, possibly 2/2 splenic abscess/pseudocyst with history of splenic infarction with CT scan showing new low-density lesion in the spleen measuring 5.8 cm: Patient tolerating full liquid diet. No significant abdominal pain. Continue IV antibiotic therapy meropenem and doxycycline. Continue with IV fluids. Etiology of sepsis unknown but may be related to splenic abscess. New low-density lesion in the spleen measuring 5.8 cm may be related to infected pseudocyst. Need to consider aspiration versus drainage with placement of percutaneous tube. After speaking to surgery this may be difficult. As this area may be hematoma versus abscess. Need to determine risk-benefit ratio. Will discuss with radiology about the possibility of aspiration versus drainage. If this is not an abscess and hematoma this may present some difficulty. Blood work-up continues. Evaluation for by nephrology being pursued. Continue to monitor closely. Continue antibiotic therapy as suggested by infectious disease. Await recommendations by radiology. Will discuss with nephrology and surgery today. Anticipate continued improvement. I will turn the service over to the hospitalist team tomorrow. I will go plan of care with him. Acute renal failure secondary to above: Continue with nephrology recommendations. IV fluids to be adjusted by nephrology Hypomagnesemia: Continue to monitor. Replacement protocol in place. Hypertension currently with hypotension: Hold blood pressure medications at this time. DVT PPX: SCDs Code status: Full Discharge Plan: Home Time Spent Managing Pts Care (In Minutes): 55
[2021-01-11 06:52] LABS: Absolute Lymphocytes (CBC) 1.8 K/uL (0.7-4.9); Basophils % 0.6 % (0-1.3); Hematocrit 31.6 % (39.6-49.0); Lymphocytes % 14.8 % (15.3-44.8); MPV 8.5 fL (7.6-11.3); RBC Red Blood Cell Count 3.63 M/uL (4.33-5.43)
[2021-01-11 06:58] LABS: Albumin 2.3 g/dL (3.4-5.0); Bilirubin Total 0.6 mg/dL (0.2-1.0); Magnesium 1.6 mg/dL (1.8-2.4); Phosphorus 2.5 mg/dL (2.5-4.9); Potassium 3.7 mmol/L (3.5-5.1); Protein, Total 7.7 g/dL (6.4-8.2)
--- NOTE | 2021-01-11 07:04 | P.PN ---
Subjective Date of Service: 01/11/21 Chief Complaint: Severe sepsis He denies having any urinary complaints. He denies having abdominal pain or SOB. Physical Examination - Vital Signs Temperature: 98.7 F Blood Pressure: 119/79 Pulse: 100 Respirations: 16 Pulse Ox (%): 99 - Physical Exam General: In no apparent distress HEENT: Atraumatic, Normocephalic Neck: Supple, JVD not distended Respiratory: Normal air movement Cardiovascular: No rubs, No murmurs Gastrointestinal: Soft and benign Musculoskeletal: No clubbing Integumentary: No warmth Neurological: Normal speech, Normal tone Urinary: Other (no bladder distention) External genitalia: Deferred Rectal: Deferred Assessment And Plan - Plan # [place] secondary to prerenal, poor perfusion, ATN, superimposed with toxic ATN, s econdary to sepsis Improving, serum creatinine down to 1.5 today Baseline serum creatinine 1.0 as of 12/19/2020 Has mild proteinuria, random UPCR 1g [place] po fluid intake Monitor renal panel # ? Severe sepsis, ? Splenic abscess/infected pseudocyst History of significant blunt trauma on left rib cage area due to fall in October 2020 His blood pressures are significantly improved and his leukocytosis is significantly decreased with antibiotics. Therefore, the splenic mass may possibly be an infected splenic pseudocyst, which can occur uncommonly after splenic infarct, vs hematoma BCx NGTD Recommend percutaneous drainage of ? infected splenic pseudocyst, vs stopping abx now & see if he develops SIRS again No history of hematologic disease, no history of pancreatitis TTE in October 2020 was negative for infective endocarditis BNP significantly elevated at 4000; troponin negative; chest x-ray unremarkable Ferritin elevated at 1300 but may just be acute phase reaction Chest on CT scan is unremarkable without evidence of pulmonary hypertension or interstitial lung disease empiric antibiotics +Serum protein gap, +mild urine protein gap, r/o plasma cell dyscrasia - f/u SPEP, K:L SFLC, serum SHRAON, random UPEP # Relative hypotension Likely secondary to sepsis as above 8 AM serum cortisol normal level Follow-up 8 AM ACTH level # Hypernatremia Serum sodium 146 Weight 72.7 kg Total body water 36.3 L Free water deficit 1.5 L plus ongoing free water losses Ordered D5 water IV gtt 1.5 L total Encouraged to increase by mouth fluid intake # Hypokalemia Improved Monitor/replete prn # Hypocalcemia Improved Corrected serum calcium 9.1 Serum intact PTH elevated at 268 25OHD level low at 22 Start D3 2000 IU po daily Monitor, correct hypomagnesemia prn F/u 1,25 OH2D level # Hypomagnesemia Improved Monitor/replete prn # Non-gap metabolic acidosis + mild respi alkalosis ABG pH on 01/09 wnl Improved Monitor
[2021-01-11] MEDS ORDERED: POTASSIUM CL SA 10 MEQ TAB PO ONE (08:00)
[2021-01-11] MEDS ORDERED: MAGNESIUM SULFATE 1 gm IVPB 1 GM/100 ML BAG IV ONE (08:00)
--- NOTE | 2021-01-11 08:02 | EKG ---
Test Date: 2021-01-09 Test Time: 23:14:42 Hospice Patient Care Secretary: SREG MEASUREMENT RESULTS: Intervals: Rate: 97 [place]: 172 QRSD: 80 QT: 368 QTc: 467 [place]: P: 64 [place]: 172 QRS: 5 T: 63 INTERPRETIVE STATEMENTS: Sinus rhythm with premature atrial complexes Otherwise normal ECG Compared to ECG 01/07/2021 18:19:56 Atrial premature complex(es) now present Electronically Signed On 01-11-21 08:00:30 CDT by Mariusz Gunter
[2021-01-11] MEDS: ACETAMINOPHEN 500 MG TAB PO PRN (09:15)
[2021-01-11] MEDS: SODIUM BICARB 325 MG TAB PO SCH ×3 (09:18→21:51)
[2021-01-11] MEDS: Meropenem 500 MG/100 ML BAG IV SCH ×2 (09:18→21:50)
[2021-01-11] MEDS: D5W 1,000 ML IV SCH ×3 (09:18→22:53)
[2021-01-11] MEDS: DOXYCYCLINE 100 MG in NA CHLORIDE 0.9% 100 ML IVPB SCH ×2 (09:19→21:50)
[2021-01-11] MEDS: FENTANYL CITR 100 MCG/2 ML IV PRN (18:21)
[2021-01-12] MEDS: FENTANYL CITR 100 MCG/2 ML IV PRN (04:35)
[2021-01-12 06:42] LABS: Albumin 2.3 g/dL (3.4-5.0); Magnesium 1.5 mg/dL (1.8-2.4); Phosphorus 2.9 mg/dL (2.5-4.9); Potassium 3.3 mmol/L (3.5-5.1)
[2021-01-12] MEDS: VITAMIN D 1000 UNIT TAB PO SCH ×2 (09:00→10:34)
[2021-01-12] MEDS ORDERED: POTASSIUM CL SA 10 MEQ TAB PO ONE (09:00)
[2021-01-12] MEDS: SODIUM BICARB 325 MG TAB PO SCH ×3 (09:00→22:24)
[2021-01-12] MEDS ORDERED: Magnesium Sulfate 2gm IVPB 2 G/50 ML BAG IV ONE (10:00)
--- NOTE | 2021-01-12 10:26 | P.PN ---
Subjective Date of Service: 01/12/21 Chief Complaint: Severe sepsis Patient seen examined at bedside. Doing well with no acute complaints, on clear liquid diet advancing. Tolerating antibiotics well. WBC down trending. Review of Systems 10-point ROS is otherwise unremarkable Physical Examination - Vital Signs Temperature: 100.2 F Blood Pressure: 105/69 Pulse: 97 Respirations: 16 Pulse Ox (%): 96 - Studies Microbiology 01/07/21 18:15 Blood - Blood Aerobic Blood Culture - Preliminary No growth in 24 hours. 01/07/21 18:15 Blood - Blood Anaerobic Blood Culture - Preliminary No growth in 24 hours. 01/07/21 17:55 Blood - Blood Aerobic Blood Culture - Preliminary No growth in 24 hours. 01/07/21 17:55 Blood - Blood Anaerobic Blood Culture - Preliminary No growth in 24 hours. 01/07/21 18:20 Nasopharnyx Influenza Type A Antigen Screen - Final 01/07/21 18:20 Nasopharnyx Influenza Type B Antigen Screen - Final Assessment And Plan - Plan Physical Exam: General: Alert, In no apparent distress, Oriented x3 HEENT: Atraumatic, Normocephalic Neck: Supple, 2+ carotid pulse no bruit Respiratory: Clear to auscultation bilaterally, Normal air movement, Diminished Cardiovascular: No edema, Normal pulses, Regular rate/rhythm Capillary refill: <2 Seconds Gastrointestinal: Normal bowel sounds, Non-distended Musculoskeletal: No clubbing, No swelling, No contractures, No erythema Integumentary: No rashes, No breakdown Neurological: Normal gait, Normal speech Laboratory Data (last 24 hrs) 01/07/21 17:55: PT 13.0 H, INR 1.13 01/07/21 17:55: WBC 18.00 H, Hgb 10.8 L, Hct 31.9 L, Plt Count 206 01/07/21 17:55: Sodium 139, Potassium 4.1, BUN 43 H, Creatinine 4.43 H, Glucose 98, Magnesium 1.3 L* D, Total Bilirubin 0.4, AST 98 H, ALT 82 H, Alkaline Phosphatase 122 H, Lipase 35 L Conclusions/Impression: Antibiotics: Received a single dose of vancomycin in the ED -meropenem Start:01/07 stop: -- Doxycycline Start: 01/08 sop: -- Assessment: -sepsis likely secondary to his splenic abscess versus hematoma -renal insufficiency -anemia -protein caloric malnutrition Plan: -Blood cultures: No growth @24 hr. Urine culture showed no growth. CT abdomen and pelvis performed on 01/07 showed splenic lesion with fluid collection, unspecified if hematoma versus abscess formation vs infected pseudocyst. Chest x-ray showed no acute cardiopulmonary disease. Skin exam negative. Source of infection likely possible splenic abscess, no other source of infection identified. Patient received a single dose of vancomycin in the ED, and now on meropenem. Increase in leukocytosis noted on today's labs. Afebrile. IV doxycycline added to antibiotic regimen. -Dr. Maurice on case, patient NPO awaiting surgery consultation -medical management per primary team -continue monitor CBC and BMP -continue monitor for signs infection Plan of care discussed with Dr. Whipple Thank you for consultation.
[2021-01-12] MEDS: Meropenem 500 MG/100 ML BAG IV SCH ×2 (10:34→21:42)
[2021-01-12] MEDS: DOXYCYCLINE 100 MG in NA CHLORIDE 0.9% 100 ML IVPB SCH ×2 (10:35→22:23)
--- NOTE | 2021-01-12 14:18 | ECHO ---
HEIGHT: 6 ft 1 in WEIGHT: 160 lb 0 oz DATE OF STUDY: 01/12/[address]: Artie Chandra DO 2-DIMENSIONAL: YES M.MODE: YES DOPPLER: YES COLOR FLOW: YES TDS: NO PORTABLE: NO DEFINITY: NO BUBBLE STUDY: NO DIAGNOSIS: CARDIAC HISTORY: CATHERIZATION: SURGERY: PROSTHETIC VALVE: PACEMAKER: MEASUREMENTS (cm) DIASTOLIC (NORMALS) SYSTOLIC (NORMALS) IVSd 1.0 (0.6-1.2) LA Diam 2.8 (1.9-4.0) LVEF 60% LVIDd 4.1 (3.5-5.7) LVIDs 2.8 (2.0-3.5) %FS 32% LVPWd 1.2 (0.6-1.2) Ao Diam 3.3 (2.0-3.7) 2 DIMENSIONAL ASSESSMENT: RIGHT ATRIUM: NORMAL LEFT ATRIUM: NORMAL RIGHT VENTRICLE: NORMAL LEFT VENTRICLE: NORMAL TRICUSPID VALVE: MITRAL VALVE: PULMONIC VALVE: NORMAL AORTIC VALVE: NORMAL PERICARDIAL EFFUSION: NONE AORTIC ROOT: NORMAL LEFT VENTRICULAR WALL MOTION: NORMAL DOPPLER/COLOR FLOW: SEE BELOW COMMENTS: NORMAL LEFT VENTRICULAR EJECTION FRACTION 55-60%. NORMAL WALL MOTION ABNORMALITY. MILD MITRAL AND TRICUSPID REGURGITATION. RIGHT VENTRICULAR SYSTOLIC PRESSURE OF 35-40 mmHg. TECHNOLOGIST: Stephania CHEATHAM
[2021-01-12] MEDS: POTASSIUM CL 40 MEQ in NA CHLORIDE 0.9% 500 ML IV SCH ×2 (14:47→14:51)
[2021-01-12] MEDS: ACETAMINOPHEN 500 MG TAB PO PRN (14:51)
[2021-01-12] MEDS ORDERED: LABETALOL 20 MG/4ML SYRINGE IV PRN (17:14)
--- NOTE | 2021-01-12 17:19 | P.PN ---
Subjective Date of Service: 01/12/21 Chief Complaint: Severe sepsis Subjective: No new changes, Improving <Ang Pretty - Last Filed: 01/12/21 17:16> Date of Service: 01/17/21 <James Zhong - Last Filed: 01/17/21 06:28> Review of Systems General: Fever, Weakness Eyes: Unremarkable ENT: Unremarkable Respiratory: Unremarkable Cardiovascular: Unremarkable Gastrointestinal: Unremarkable Genitourinary: Unremarkable Musculoskeletal: Unremarkable Integumentary: Unremarkable Neurological: Unremarkable <Ang Pretty - Last Filed: 01/12/21 17:16> Physical Examination - Vital Signs Temperature: 100.6 F Blood Pressure: 126/71 Pulse: 91 Respirations: 18 Pulse Ox (%): 95 - Physical Exam General: Alert, In no apparent distress, Oriented x3 HEENT: Atraumatic, PERRLA, EOMI Neck: Supple, JVD not distended Respiratory: Clear to auscultation bilaterally, Normal air movement Cardiovascular: No edema, Regular rate/rhythm, Normal S1 S2 Capillary refill: <2 Seconds Gastrointestinal: Normal bowel sounds, No tenderness Musculoskeletal: No clubbing, No tenderness Integumentary: No rashes Neurological: Normal speech, Normal tone, Normal affect Lymphatics: No axilla or inguinal lymphadenopathy External genitalia: Deferred Rectal: Deferred <Ang Pretty - Last Filed: 01/12/21 17:16> Assessment And Plan - Plan --Severe sepsis without septic shockunknown etiology, possibly 2/2 splenic abscess/pseudocyst with history of splenic infarction with CT scan showing new low-density lesion in the spleen measuring 5.8 cm: Patient tolerating full liqui d diet. No significant abdominal pain. Continue IV antibiotic therapy meropenem and doxycycline. Continue with IV fluids. Etiology of sepsis unknown but may be related to splenic abscess. New low-density lesion in the spleen measuring 5.8 cm may be related to infected pseudocyst. Need to consider aspiration versus drainage with placement of percutaneous tube. After speaking to surgery this may be difficult. As this area may be hematoma versus abscess. Need to determine risk-benefit ratio. Radiology and surgeon on board. Continue to monitor closely. Continue antibiotic therapy as suggested by infectious disease. Await recommendations by radiology Acute renal failure secondary to above: Continue with nephrology recommendations. IV fluids to be adjusted by nephrology --Leukocytosis. Levels trending down. Continue antibiotics --Hypomagnesemia: Continue to monitor. Replacement protocol in place. --Hypertension. Stable. Labetalol prn DVT PPX: SCDs Code status: Full Discharge Plan: Home Discharge Plan: Home Plan to discharge in: 48 Hours - Code Status/Comfort Care Code Status Assessed: Yes Code Status: Full Code Physician Review: Patient Assessed, Agree with Above Assessment and Plan Critical Care: No <StewartsherylPillojuliannabor Sheryl - Last Filed: 01/12/21 17:16> - Current Problems (Diagnosis) (1) Splenic lesion Current Visit: Yes Status: Acute (2) Left upper quadrant abdominal tenderness Current Visit: Yes Status: Acute (3) Alcohol abuse Current Visit: Yes Status: Acute (4) Hypertension Current Visit: Yes Status: Acute (5) History of cannabis abuse Current Visit: Yes Status: Acute <James Zhong - Last Filed: 01/17/21 06:28> Date of Service: 01/12/21 Subjective Agree with plan of care as mentioned above Review of Systems 10-point ROS is otherwise unremarkable Physical Examination - Vital Signs Reviewed - Physical Exam General: Alert, In no apparent distress, Oriented x3 Respiratory: Diminished Cardiovascular: Regular rate/rhythm, Normal S1 S2, No murmurs Gastrointestinal: Normal bowel sounds, Soft and benign, Non-distended, No tenderness Musculoskeletal: No clubbing, No swelling, No tenderness Neurological: Sensation intact, Cranial nerves 3-12 intact Assessment & Plan - Problems (Diagnosis) (1) Splenic lesion Current Visit: Yes Status: Acute (2) Left upper quadrant abdominal tenderness Current Visit: Yes Status: Acute (3) Alcohol abuse Current Visit: Yes Status: Acute (4) Hypertension Current Visit: Yes Status: Acute (5) History of cannabis abuse Current Visit: Yes Status: Acute - Plan Continue with plan of care as mentioned below: 1. Continue with gentle hydration 2. Continue with antibiotic therapy 3. Interventional Radiology this place splenic catheter in a.m. 4. Monitor labs and H&H and CBC closely 5. Strict blood pressure control 6. GI and DVT prophylaxis <James Zhong - Last Filed: 01/17/21 06:28>
[2021-01-12] MEDS ORDERED: MAGNESIUM SULFATE 1 gm IVPB 1 GM/100 ML BAG IV ONE ×2 (21:00→22:00)
--- NOTE | 2021-01-12 22:58 | PN ---
Date of Progress Note: 01/12/2021 Subjective: The patient was admitted to the hospital for severe sepsis. He was found to have acute kidney injury secondary to prerenal azotemia and nonoliguric ATN secondary to renal hypoperfusion in setting of septic shock. The patient developed superimposed acute tubular necrosis as a complication of sepsis. Serum creatinine level has gradually improved. Baseline creatinine level back in 2020 i n December was 1. The patient has mild proteinuria, less than 1 g. Review of Systems: Denies PND or orthopnea. Physical Examination: Lungs: Clear to auscultation bilaterally. Heart: S1, S2. Abdomen: Soft, benign. Extremities: No edema. Impression And Plan: 1.Acute kidney injury secondary to septic shock with complicated renal hypoperfusion due to sepsis. Continue to advance p.o. fluid intake and plan IV fluid as needed. 2.Severe sepsis. The patient was found to have splenic abscess and infected pseudocyst. Continue a ntibiotics. Monitor blood pressure. Adjust medication for adequate blood pressure control. The pat ient may need to follow up with Infectious Disease and he will require additional radiology imaging f or possible splenic abscess. 3.Hypotension. Blood pressure is trending down. The patient has history of sepsis. Continue to mo nitor cortisol level in a.m. 4.Hypernatremia. Continue p.o. hydration and the patient was started on IV D5W. 5.Hypokalemia, improved. Monitor magnesium. 6.Hypocalcemia. Calcium corrected is 9.1 and PTH was elevated, although 25-hydroxy vitamin D level was low. The patient has secondary hyperparathyroidism. Monitor and correct hypomagnesemia as well, which may be contributory to elevated intact PTH. Continue replacement for vitamin D deficiency. 7.Hypomagnesemia. Monitor magnesium and continue replacement. EB/MODL Voice ID: [id number] Report ID: [id number]
[2021-01-13 03:29] LABS: HBsAG Nonreactive (Nonreactive)
[2021-01-13] MEDS: SODIUM BICARB 325 MG TAB PO SCH (09:00)
[2021-01-13] MEDS: VITAMIN D 1000 UNIT TAB PO SCH (09:00)
[2021-01-13] MEDS: Meropenem 500 MG/100 ML BAG IV SCH ×2 (09:19→22:05)
[2021-01-13] MEDS: DOXYCYCLINE 100 MG in NA CHLORIDE 0.9% 100 ML IVPB SCH ×2 (09:19→22:06)
[2021-01-13 09:50] LABS: Hematocrit 31.9 % (39.6-49.0); MPV 8.4 fL (7.6-11.3)
[2021-01-13 09:56] LABS: Albumin 2.1 g/dL (3.4-5.0); Magnesium 1.7 mg/dL (1.8-2.4); Phosphorus 3.3 mg/dL (2.5-4.9); Potassium 3.7 mmol/L (3.5-5.1)
[2021-01-13 10:17] LABS: Blood Morphology Comment NOT SEEN (NOT SEEN); Platelet Estimate ADEQ
[2021-01-13 10:23] LABS: Protime INR 1.32
[2021-01-13] MEDS ORDERED: KCL 20 MEQ/100 mL IVPB 20 MEQ/100 ML BAG IV SCH (11:00)
[2021-01-13] MEDS ORDERED: MAGNESIUM SULFATE 1 gm IVPB 1 GM/100 ML BAG IV ONE (11:00)
--- NOTE | 2021-01-13 11:08 | P.PN ---
Subjective Date of Service: 01/13/21 Chief Complaint: Severe sepsis Patient seen examined at bedside. WBC continues to downtrend, patient is still having significant tenderness to his left flank. Review of Systems 10-point ROS is otherwise unremarkable Physical Examination - Vital Signs Temperature: 98.8 F Blood Pressure: 103/62 Pulse: 94 Respirations: 17 Pulse Ox (%): 95 - Studies Laboratory Last Values WBC 18.00 K/uL (4.3-10.9) H 01/07/21 17:55 RBC 3.57 M/uL (4.33-5.43) L 01/07/21 17:55 Hgb 10.8 g/dL (13.6-17.9) L 01/07/21 17:55 Hct 31.9 % (39.6-49.0) L 01/07/21 17:55 MCV 89.5 fL (80-100) 01/07/21 17:55 MCH 30.2 pg (27.0-35.0) 01/07/21 17:55 MCHC 33.7 g/dL (32.0-36.0) 01/07/21 17:55 RDW 14.8 % (12.1-15.2) 01/07/21 17:55 Plt Count 206 K/uL (152-406) 01/07/21 17:55 MPV 7.8 fL (7.6-11.3) 01/07/21 17:55 Neutrophils % 96.0 % (41.7-73.7) H 01/07/21 17:55 Lymphocytes % 2.3 % (15.3-44.8) L 01/07/21 17:55 Monocytes % 1.5 % (3.3-12.3) L 01/07/21 17:55 Eosinophils % 0.0 % (0-4.4) 01/07/21 17:55 Basophils % 0.2 % (0-1.3) 01/07/21 17:55 Absolute Neutrophils 17.2 K/uL (1.8-8.0) H 01/07/21 17:55 Absolute Lymphocytes 0.4 K/uL (0.7-4.9) L 01/07/21 17:55 Absolute Monocytes 0.3 K/uL (0.1-1.3) 01/07/21 17:55 Absolute Eosinophils 0.0 K/uL (0-0.5) 01/07/21 17:55 Absolute Basophils 0.0 K/uL (0-0.5) 01/07/21 17:55 Platelet Estimate Adeq 01/07/21 17:55 Morphology Comment Not seen (NOT SEEN) 01/07/21 17:55 PT 13.0 SECONDS (9.5-12.5) H 01/07/21 17:55 INR 1.13 01/07/21 17:55 Sodium 139 mmol/L (136-145) 01/07/21 17:55 Potassium 4.1 mmol/L (3.5-5.1) 01/07/21 17:55 Chloride 109 mmol/L (98-107) H 01/07/21 17:55 Carbon Dioxide 18 mmol/L (21-32) L 01/07/21 17:55 BUN 43 mg/dL (7-18) H 01/07/21 17:55 Creatinine 4.43 mg/dL (0.55-1.3) H 01/07/21 17:55 Estimated GFR 16 mL/min (=/>90) L 01/07/21 17:55 Glucose 98 mg/dL (74-106) 01/07/21 17:55 Lactic Acid 3.6 mmol/L (0.4-2.0) H 01/07/21 17:55 Calcium 8.3 mg/dL (8.5-10.1) L 01/07/21 17:55 Magnesium 1.3 mg/dL (1.8-2.4) L* D 01/07/21 17:55 Total Bilirubin 0.4 mg/dL (0.2-1.0) 01/07/21 17:55 Direct Bilirubin 0.2 mg/dL (0-0.2) 01/07/21 17:55 AST 98 U/L (15-37) H 01/07/21 17:55 ALT 82 U/L (12-78) H 01/07/21 17:55 Alkaline Phosphatase 122 U/L (45-117) H 01/07/21 17:55 Rapid Troponin I 0.05 ng/mL (0.0-0.045) H 01/07/21 17:55 NT-Pro-B Natriuret Pep 3997 pg/mL (<125) H 01/07/21 17:55 Serum Total Protein 8.4 g/dL (6.4-8.2) H 01/07/21 17:55 Albumin 2.8 g/dL (3.4-5.0) L 01/07/21 17:55 Globulin 5.6 g/dL (2.3-3.5) H 01/07/21 17:55 Albumin/Globulin Ratio 0.5 (1.1-1.8) L 01/07/21 17:55 Lipase 35 U/L (73-393) L 01/07/21 17:55 Procalcitonin > 200.00 ng/mL (<0.050) H 01/07/21 17:55 SARS-CoV-2 RNA (RT-PCR) Negative (NEGATIVE) 01/07/21 18:20 Smear Scan Ok (OK) 01/07/21 17:55 Microbiology Data (last 24 hrs): 01/07/21 18:15 Blood - Blood Aerobic Blood Culture - Final No growth in 5 days. 01/07/21 18:15 Blood - Blood Anaerobic Blood Culture - Final No growth in 5 days. 01/07/21 17:55 Blood - Blood Aerobic Blood Culture - Final No growth in 5 days. 01/07/21 17:55 Blood - Blood Anaerobic Blood Culture - Final No growth in 5 days. Assessment And Plan - Plan Physical Exam: General: Alert, In no apparent distress, Oriented x3 HEENT: Atraumatic, Normocephalic Neck: Supple, 2+ carotid pulse no bruit Respiratory: Clear to auscultation bilaterally, Normal air movement, Diminished Cardiovascular: No edema, Normal pulses, Regular rate/rhythm Capillary refill: <2 Seconds Gastrointestinal: Normal bowel sounds, Non-distended Musculoskeletal: No clubbing, No swelling, No contractures, No erythema Integumentary: No rashes, No breakdown Neurological: Normal gait, Normal speech Laboratory Data (last 24 hrs) 01/07/21 17:55: PT 13.0 H, INR 1.13 01/07/21 17:55: WBC 18.00 H, Hgb 10.8 L, Hct 31.9 L, Plt Count 206 01/07/21 17:55: Sodium 139, Potassium 4.1, BUN 43 H, Creatinine 4.43 H, Glucose 98, Magnesium 1.3 L* D, Total Bilirubin 0.4, AST 98 H, ALT 82 H, Alkaline Phosphatase 122 H, Lipase 35 L Conclusions/Impression: Antibiotics: Received a single dose of vancomycin in the ED -meropenem Start:01/07 stop: 01/14 Doxycycline Start: 01/08 sop: 01/15 Assessment: -sepsis likely secondary to his splenic abscess versus hematoma -renal insufficiency -anemia -protein caloric malnutrition Plan: -Blood cultures: No growth @24 hr. Urine culture showed no growth. CT abdomen and pelvis performed on 01/07 showed splenic lesion with fluid collection, unspecified if hematoma versus abscess formation vs infected pseudocyst. Chest x-ray showed no acute cardiopulmonary disease. Skin exam negative. Source of infection likely possible splenic abscess, no other source of infection identified. Patient received a single dose of vancomycin in the ED, and now on meropenem and doxycycline. After completing 7 day course of dual IV antibiotic therapy will deescalate based off of clinical condition. Afebrile. -Dr. Maurice on case. Patient may need drain placement. -medical management per primary team -continue monitor CBC and BMP -continue monitor for signs infection Plan of care discussed with Dr. Whipple Thank you for consultation. Physician Review: Patient Assessed, Agree with Above Assessment and Plan
[2021-01-13] MEDS ORDERED: ACETAMINOPHEN 500 MG TAB PO ONE (12:56)
[2021-01-13] MEDS ORDERED: NA CHLORIDE 0.9% 1,000 ML IV ONE (12:56)
[2021-01-13] MEDS ORDERED: DIGOXIN 0.25 MG/ML AMP IV ONE (12:57)
[2021-01-13 13:20] LABS: Scleroderma Antibody (Scl-70) <1.0
[2021-01-13] MEDS ORDERED: NA CHLORIDE 0.9% 500 ML IV ONE (15:09)
[2021-01-13] MEDS ORDERED: METOPROLOL TARTRATE 5 MG/5 ML INJ IV STA (15:09)
--- NOTE | 2021-01-13 15:26 | PN ---
Date of Progress Note: 01/11/2021 Subjective: The patient was admitted with acute kidney injury, multifactorial, secondary to poor per fusion, ATN, toxic ATN secondary to sepsis. The patient's after hydration and treating the infection kidney function has been improved significantly. Currently, creatinine down to 1, GFR of 88. The p atient feeling very well. Physical Examination: Vital Signs: When I saw the patient; blood pressure 98/53, T-max 101.3. Chest: Clear to auscultation. Heart: S1, S2. Regular. Abdomen: Soft, nontender. Extremity: No edema. Laboratory Data: WBC 11.9, H and H 31.9. Sodium 138, potassium 3.7, bicarb 26, BUN 11, creatinin e 1, GFR of 88, calcium 8.3, phosphorus 3.3, magnesium 1.7. Assessment And Plan: 1.Acute kidney injury secondary to prerenal poor perfusion, ATN, toxic ATN secondary to sepsis, wallace cristine, resolved. We will keep holding any IV fluid for the time being. 2.Hypertension, currently hypotension. Keep holding all blood pressure medications. 3.Acidosis, resolved. I am going to go ahead and discontinue sodium bicarb. 4.Urosepsis. Continue current antibiotic. 5.Septic shock secondary to urosepsis as above. 6.Hypomagnesemia. We will supplement. Time spent examining the patient, [id number], placing orders, discussing the case with the family and the patient by bedside, and discussing with other consulting including hospitalist 45 minutes. JORGE/PILY Voice ID: [id number] Report ID: [id number]
[2021-01-13] MEDS: FENTANYL CITR 100 MCG/2 ML IV PRN (22:04)
[2021-01-14 00:26] LABS: Hepatitis C Virus RNA (PCR)log <1.18 log IU/mL
[2021-01-14] MEDS ORDERED: NA CHLORIDE 0.9% 1,000 ML IV ONE (01:29)
[2021-01-14] MEDS ORDERED: ACETAMINOPHEN 500 MG TAB PO ONE (01:32)
[2021-01-14] MEDS ORDERED: NA CHLORIDE 0.9% 1,000 ML ONE (01:50)
[2021-01-14] MEDS ORDERED: ACETAMINOPHEN 500 MG TAB ONE (01:58)
[2021-01-14] MEDS ORDERED: NA CHLORIDE 0.9% 500 ML IV ONE (03:00)
[2021-01-14] MEDS ORDERED: NA CHLORIDE 0.9% 500 ML ONE (03:15)
[2021-01-14] MEDS ORDERED: DIGOXIN 0.25 MG/ML AMP IV ONE (03:35)
[2021-01-14] MEDS ORDERED: DIGOXIN 0.25 MG/ML AMP ONE (03:59)
[2021-01-14 05:11] LABS: Albumin, (SPE) 2.5 g/dL (3.8-4.8); Alpha-1-Globulins 0.5 g/dL (0.2-0.3); Alpha-2-Globulins 1.1 g/dL (0.5-0.9); Gamma Globulins 1.6 g/dL (0.8-1.7); INTERPRETATION REPORT
[2021-01-14] MEDS ORDERED: FENTANYL CITR 100 MCG/2 ML IV ONE (05:18)
[2021-01-14 07:05] LABS: Absolute Lymphocytes (CBC) 1.6 K/uL (0.7-4.9); Basophils % 0.6 % (0-1.3); Hematocrit 30.3 % (39.6-49.0); Lymphocytes % 14.8 % (15.3-44.8); MPV 8.4 fL (7.6-11.3); RBC Red Blood Cell Count 3.51 M/uL (4.33-5.43)
[2021-01-14 07:10] LABS: ALT/SGPT 36 U/L (12-78); AST/SGOT 27 U/L (15-37); Albumin 1.9 g/dL (3.4-5.0); Alkaline Phosphatase 94 U/L (45-117); BUN Blood Urea Nitrogen 11 mg/dL (7-18); Bicarbonate 25 mmol/L (21-32); Bilirubin Total 0.5 mg/dL (0.2-1.0); Glucose Level 94 mg/dL (74-106); Potassium 3.7 mmol/L (3.5-5.1); Protein, Total 7.1 g/dL (6.4-8.2); Sodium Level 139 mmol/L (136-145)
--- NOTE | 2021-01-14 07:31 | EKG ---
Test Date: 2021-01-14 Test Time: 01:06:07 College And Career Counselor: EMILE MEASUREMENT RESULTS: Intervals: Rate: 158 MT: 144 QRSD: 64 QT: 258 QTc: 418 [place]: P: MT: 144 QRS: 6 T: 40 INTERPRETIVE STATEMENTS: Sinus tachycardia Cannot rule out Inferior infarct, age undetermined Abnormal ECG Compared to ECG 01/13/2021 14:27:54 Atrial fibrillation no longer present Myocardial infarct finding still present Electronically Signed On 01-14-21 07:30:55 CDT by Mariusz Gunter
--- NOTE | 2021-01-14 07:31 | EKG ---
Test Date: 2021-01-14 Test Time: 03:29:12 Dance Entertainer: EMILE MEASUREMENT RESULTS: Intervals: Rate: 140 [place]: QRSD: 80 QT: 300 QTc: 458 [place]: P: [place]: QRS: 6 T: 49 INTERPRETIVE STATEMENTS: Atrial fibrillation with rapid ventricular response Abnormal ECG Compared to ECG 01/14/2021 01:06:07 Sinus tachycardia no longer present Myocardial infarct finding no longer present Electronically Signed On 01-14-21 07:30:03 CDT by Mariusz Gunter
--- NOTE | 2021-01-14 07:33 | EKG ---
Test Date: 2021-01-13 Test Time: 14:27:54 Mining And Quarrying Machinery Repairer: TAHMINA MEASUREMENT RESULTS: Intervals: Rate: 141 [place]: QRSD: 70 QT: 312 QTc: 477 [place]: P: [place]: QRS: -3 T: 21 INTERPRETIVE STATEMENTS: Atrial fibrillation with rapid ventricular response Possible Inferior infarct, age undetermined Abnormal ECG Compared to ECG 01/09/2021 23:14:42 Myocardial infarct finding now present Sinus rhythm no longer present Atrial premature complex(es) no longer present Electronically Signed On 01-14-21 07:31:09 CDT by Mariusz Gunter
[2021-01-14] MEDS ORDERED: NALOXONE 0.4 MG/ML VIAL ONE (09:02)
[2021-01-14] MEDS ORDERED: FENTANYL CITR 100 MCG/2 ML ONE (09:02)
[2021-01-14] MEDS ORDERED: MIDAZOLAM HCL 2 MG/2 ML INJ ONE (09:02)
[2021-01-14] MEDS ORDERED: POTASSIUM CL SA 10 MEQ TAB PO ONE (09:29)
[2021-01-14] MEDS: VITAMIN D 1000 UNIT TAB PO SCH (10:12)
[2021-01-14] MEDS: Meropenem 500 MG/100 ML BAG IV SCH ×2 (10:13→20:50)
[2021-01-14] MEDS: DOXYCYCLINE 100 MG in NA CHLORIDE 0.9% 100 ML IVPB SCH ×2 (10:13→20:51)
--- NOTE | 2021-01-14 13:34 | RAD REPORT ---
EXAM DESCRIPTION: CT - Aspiration Guidance - 01/14/2021 10:02 am CLINICAL HISTORY: splenic hematoma vs. abscess COMPARISON: No comparisons FINDINGS: Informed consent was obtained. The patient was placed in the supine position. Next, CT sca n was performed of the chest again demonstrating the fluid collection at the spleen which have increa sed in size. The patient was prepped and draped in sterile fashion. A time-out was performed. The sub jacent extensor 19 were administered for local anesthesia. An 8.5 Tajik pigtail drainage catheter wa s trocar into the collection. The catheter was deployed. Approximately 120 cc of purulent foul-smelli ng material was aspirated. A sample was sent to lab for Gram stain and culture. The catheter was zohaib ched to a bulb suction drain. The patient tolerated procedure well. No immediate complications IMPRESSION: Technically successful CT-guided placement of a drainage catheter into a splenic fluid c ollection favored to represent an abscess. A sample was sent to the lab for analysis.
--- NOTE | 2021-01-14 13:48 | P.PN ---
Subjective Date of Service: 01/14/21 Chief Complaint: Severe sepsis Patient seen examined at bedside, status post splenic drain placed in this morning. Procedure went well with no complications. Patient states pain to the left side has improved. WBC within normal range, afebrile. Collection of fluid sent off to the lab. Review of Systems 10-point ROS is otherwise unremarkable Physical Examination - Vital Signs Temperature: 99.6 F Blood Pressure: 117/62 Pulse: 96 Respirations: 20 Pulse Ox (%): 95 - Studies Laboratory Last Values WBC 18.00 K/uL (4.3-10.9) H 01/07/21 17:55 RBC 3.57 M/uL (4.33-5.43) L 01/07/21 17:55 Hgb 10.8 g/dL (13.6-17.9) L 01/07/21 17:55 Hct 31.9 % (39.6-49.0) L 01/07/21 17:55 MCV 89.5 fL (80-100) 01/07/21 17:55 MCH 30.2 pg (27.0-35.0) 01/07/21 17:55 MCHC 33.7 g/dL (32.0-36.0) 01/07/21 17:55 RDW 14.8 % (12.1-15.2) 01/07/21 17:55 Plt Count 206 K/uL (152-406) 01/07/21 17:55 MPV 7.8 fL (7.6-11.3) 01/07/21 17:55 Neutrophils % 96.0 % (41.7-73.7) H 01/07/21 17:55 Lymphocytes % 2.3 % (15.3-44.8) L 01/07/21 17:55 Monocytes % 1.5 % (3.3-12.3) L 01/07/21 17:55 Eosinophils % 0.0 % (0-4.4) 01/07/21 17:55 Basophils % 0.2 % (0-1.3) 01/07/21 17:55 Absolute Neutrophils 17.2 K/uL (1.8-8.0) H 01/07/21 17:55 Absolute Lymphocytes 0.4 K/uL (0.7-4.9) L 01/07/21 17:55 Absolute Monocytes 0.3 K/uL (0.1-1.3) 01/07/21 17:55 Absolute Eosinophils 0.0 K/uL (0-0.5) 01/07/21 17:55 Absolute Basophils 0.0 K/uL (0-0.5) 01/07/21 17:55 Platelet Estimate Adeq 01/07/21 17:55 Morphology Comment Not seen (NOT SEEN) 01/07/21 17:55 PT 13.0 SECONDS (9.5-12.5) H 01/07/21 17:55 INR 1.13 01/07/21 17:55 Sodium 139 mmol/L (136-145) 01/07/21 17:55 Potassium 4.1 mmol/L (3.5-5.1) 01/07/21 17:55 Chloride 109 mmol/L (98-107) H 01/07/21 17:55 Carbon Dioxide 18 mmol/L (21-32) L 01/07/21 17:55 BUN 43 mg/dL (7-18) H 01/07/21 17:55 Creatinine 4.43 mg/dL (0.55-1.3) H 01/07/21 17:55 Estimated GFR 16 mL/min (=/>90) L 01/07/21 17:55 Glucose 98 mg/dL (74-106) 01/07/21 17:55 Lactic Acid 3.6 mmol/L (0.4-2.0) H 01/07/21 17:55 Calcium 8.3 mg/dL (8.5-10.1) L 01/07/21 17:55 Magnesium 1.3 mg/dL (1.8-2.4) L* D 01/07/21 17:55 Total Bilirubin 0.4 mg/dL (0.2-1.0) 01/07/21 17:55 Direct Bilirubin 0.2 mg/dL (0-0.2) 01/07/21 17:55 AST 98 U/L (15-37) H 01/07/21 17:55 ALT 82 U/L (12-78) H 01/07/21 17:55 Alkaline Phosphatase 122 U/L (45-117) H 01/07/21 17:55 Rapid Troponin I 0.05 ng/mL (0.0-0.045) H 01/07/21 17:55 NT-Pro-B Natriuret Pep 3997 pg/mL (<125) H 01/07/21 17:55 Serum Total Protein 8.4 g/dL (6.4-8.2) H 01/07/21 17:55 Albumin 2.8 g/dL (3.4-5.0) L 01/07/21 17:55 Globulin 5.6 g/dL (2.3-3.5) H 01/07/21 17:55 Albumin/Globulin Ratio 0.5 (1.1-1.8) L 01/07/21 17:55 Lipase 35 U/L (73-393) L 01/07/21 17:55 Procalcitonin > 200.00 ng/mL (<0.050) H 01/07/21 17:55 SARS-CoV-2 RNA (RT-PCR) Negative (NEGATIVE) 01/07/21 18:20 Smear Scan Ok (OK) 01/07/21 17:55 Assessment And Plan - Plan Physical Exam: General: Alert, In no apparent distress, Oriented x3 HEENT: Atraumatic, Normocephalic Neck: Supple, 2+ carotid pulse no bruit Respiratory: Clear to auscultation bilaterally, Normal air movement, Diminished Cardiovascular: No edema, Normal pulses, Regular rate/rhythm Capillary refill: <2 Seconds Gastrointestinal: Normal bowel sounds, Non-distended Musculoskeletal: No clubbing, No swelling, No contractures, No erythema Integumentary: No rashes, No breakdown Neurological: Normal gait, Normal speech Laboratory Data (last 24 hrs) 01/07/21 17:55: PT 13.0 H, INR 1.13 01/07/21 17:55: WBC 18.00 H, Hgb 10.8 L, Hct 31.9 L, Plt Count 206 01/07/21 17:55: Sodium 139, Potassium 4.1, BUN 43 H, Creatinine 4.43 H, Glucose 98, Magnesium 1.3 L* D, Total Bilirubin 0.4, AST 98 H, ALT 82 H, Alkaline Phosphatase 122 H, Lipase 35 L Conclusions/Impression: Antibiotics: Received a single dose of vancomycin in the ED -meropenem Start:01/07 stop: 01/14 Doxycycline Start: 01/08 stop: 01/15 antibiotics continued, awaiting results from splenic fluid collection culture. Assessment: -sepsis likely secondary to his splenic abscess versus hematoma -renal insufficiency -anemia -protein caloric malnutrition Plan: -Blood cultures: No growth @24 hr. Urine culture showed no growth. CT abdomen and pelvis performed on 01/07 showed splenic lesion with fluid collection, unspecified if hematoma versus abscess formation vs infected pseudocyst. Splenic and drainage catheter was placed on 01/14, fluid collected was sent to lab. Patient received a single dose of vancomycin in the ED, and now on meropenem and doxycycline. Tailor antibiotics based off of splenic fluid collection sent to lab. -medical management per primary team -continue monitor CBC and BMP -continue monitor for signs infection Plan of care discussed with Dr. Whipple Thank you for consultation. Physician Review: Patient Assessed, Agree with Above Assessment and Plan
--- NOTE | 2021-01-14 14:36 | PN ---
Date of Progress Note: 01/14/2021 Subjective: The patient was admitted with septic shock secondary to questionable spleen abscess afte r infarction. The patient had acute kidney injury secondary to poor perfusion, ATN, toxic ATN, recov ered, resolved. It was complicated with acidosis, which resolved. The patient today was planned for a CT-guided aspiration of the spleen collection. Physical Examination: Vital Signs: Blood pressure 116/67, pulse of 91, afebrile. The patient had good urine output of 260 0. Chest: Clear to auscultation. Heart: S1, S2. Regular. Abdomen: Soft, nontender. Extremity: No edema. Neuro: Alert, no focality. Laboratory Data: WBC 10.9, H and H 10.6/30.3, platelets 252. Sodium 139, potassium 3.7, bicarb 25, BUN 11, creatinine 0.9, calcium 8.2, albumin 1.9, corrected calcium is 9.8. Current Medications: The patient on, include: 1.Doxycycline. 2.Meropenem. 3.Digoxin. 4.Metoprolol. 5.Zofran. 6.Fentanyl. Assessment And Plan: 1.Acute kidney injury secondary to prerenal/toxic acute tubular necrosis, recovered, resolved. Disc ontinue IV fluid. 2.Acidosis secondary to renal failure and sepsis resolved status post discontinued bicarb. Bicarb l evel is still stable. We will keep holding. 3.Hypertension, controlled, optimal. 4.Hypokalemia, hypomagnesemia. We will supplement. 5.Splenic collection. Plan for aspiration today. We will follow up. SAMINA Voice ID: [id number] Report ID: [id number]
[2021-01-14] MEDS ORDERED: MAGNESIUM SULFATE 1 gm IVPB 1 GM/100 ML BAG IV ONE (22:00)
--- NOTE | 2021-01-15 03:21 | P.PN ---
Subjective Date of Service: 01/13/21 Patient clinically doing well. Having some mild tenderness but otherwise no new complaints. Review of Systems 10-point ROS is otherwise unremarkable Physical Examination - Vital Signs Temperature: 99.2 F Blood Pressure: 117/69 Pulse: 91 Respirations: 18 Pulse Ox (%): 95 - Physical Exam General: Alert, In no apparent distress, Oriented x3 Respiratory: Diminished Cardiovascular: Regular rate/rhythm, Normal S1 S2, No murmurs Gastrointestinal: Normal bowel sounds, Soft and benign, Non-distended, No tenderness Musculoskeletal: No clubbing, No swelling, No tenderness Neurological: Sensation intact, Cranial nerves 3-12 intact - Studies Medications List Reviewed: Yes Assessment & Plan - Problems (Diagnosis) (1) Splenic lesion Current Visit: Yes Status: Acute (2) Left upper quadrant abdominal tenderness Current Visit: Yes Status: Acute (3) Alcohol abuse Current Visit: Yes Status: Acute (4) Hypertension Current Visit: Yes Status: Acute (5) History of cannabis abuse Current Visit: Yes Status: Acute - Plan Plan: 1. Continue with IV fluids 2. Continue with antibiotic therapy 3. Interventional Radiology consultation for splenic lesion drainage 4. Monitor labs and H&H and CBC closely 5. Strict blood pressure control 6. GI and DVT prophylaxis Discharge Plan: Home Plan to discharge in: Greater than 2 days - Advance Directives Does patient have a Living Will: No Does patient have a Durable POA for Healthcare: No - Code Status/Comfort Care Code Status: Full Code Physician Review: Patient Assessed, Agree with Above Assessment and Plan Critical Care: No Time Spent Managing PTS Care (In Minutes): 35
--- NOTE | 2021-01-15 03:23 | P.PN ---
Date of Service: 01/14/21 Subjective Patient is doing well with no new complaints. Patient was seen by Radiology and drain placed in splenic lesion. Review of Systems 10-point ROS is otherwise unremarkable Physical Examination - Vital Signs Reviewed - Physical Exam General: Alert, In no apparent distress, Oriented x3 Respiratory: Diminished Cardiovascular: Regular rate/rhythm, Normal S1 S2, No murmurs Gastrointestinal: Normal bowel sounds, Soft and benign, Non-distended, No tenderness Musculoskeletal: No clubbing, No swelling, No tenderness Neurological: Sensation intact, Cranial nerves 3-12 intact Assessment & Plan - Problems (Diagnosis) (1) Splenic lesion Current Visit: Yes Status: Acute (2) Left upper quadrant abdominal tenderness Current Visit: Yes Status: Acute (3) Alcohol abuse Current Visit: Yes Status: Acute (4) Hypertension Current Visit: Yes Status: Acute (5) History of cannabis abuse Current Visit: Yes Status: Acute - Plan Plan: 1. Continue with gentle hydration 2. Continue with antibiotic therapy 3. Interventional Radiology consultation for splenic lesion drainage 4. Monitor labs and H&H and CBC closely 5. Strict blood pressure control 6. GI and DVT prophylaxis
[2021-01-15 06:35] LABS: BUN Blood Urea Nitrogen 11 mg/dL (7-18); Bicarbonate 24 mmol/L (21-32); Glucose Level 90 mg/dL (74-106); Magnesium 1.7 mg/dL (1.8-2.4); Potassium 3.7 mmol/L (3.5-5.1); Sodium Level 138 mmol/L (136-145)
[2021-01-15] MEDS ORDERED: POTASSIUM CL SA 10 MEQ TAB PO ONE ×2 (09:00→12:25)
[2021-01-15] MEDS ORDERED: MAGNESIUM SULFATE 1 gm IVPB 1 GM/100 ML BAG IV ONE ×2 (09:00→12:25)
[2021-01-15] MEDS: VITAMIN D 1000 UNIT TAB PO SCH (09:00)
[2021-01-15] MEDS: DOXYCYCLINE 100 MG in NA CHLORIDE 0.9% 100 ML IVPB SCH ×2 (09:00→21:17)
--- NOTE | 2021-01-15 10:24 | P.PN ---
Subjective Date of Service: 01/15/21 Chief Complaint: Severe sepsis Patient seen examined at bedside, states he is feeling warm and has intermittent sweating. Temperature slightly elevated at 99.4. Continue broad-spectrum antibiotics. The escalates win splenic fluid collection the culture comes back and temperature decreases. Review of Systems 10-point ROS is otherwise unremarkable Physical Examination - Vital Signs Temperature: 99.4 F Blood Pressure: 118/65 Pulse: 83 Respirations: 14 Pulse Ox (%): 95 - Studies Laboratory Last Values WBC 18.00 K/uL (4.3-10.9) H 01/07/21 17:55 RBC 3.57 M/uL (4.33-5.43) L 01/07/21 17:55 Hgb 10.8 g/dL (13.6-17.9) L 01/07/21 17:55 Hct 31.9 % (39.6-49.0) L 01/07/21 17:55 MCV 89.5 fL (80-100) 01/07/21 17:55 MCH 30.2 pg (27.0-35.0) 01/07/21 17:55 MCHC 33.7 g/dL (32.0-36.0) 01/07/21 17:55 RDW 14.8 % (12.1-15.2) 01/07/21 17:55 Plt Count 206 K/uL (152-406) 01/07/21 17:55 MPV 7.8 fL (7.6-11.3) 01/07/21 17:55 Neutrophils % 96.0 % (41.7-73.7) H 01/07/21 17:55 Lymphocytes % 2.3 % (15.3-44.8) L 01/07/21 17:55 Monocytes % 1.5 % (3.3-12.3) L 01/07/21 17:55 Eosinophils % 0.0 % (0-4.4) 01/07/21 17:55 Basophils % 0.2 % (0-1.3) 01/07/21 17:55 Absolute Neutrophils 17.2 K/uL (1.8-8.0) H 01/07/21 17:55 Absolute Lymphocytes 0.4 K/uL (0.7-4.9) L 01/07/21 17:55 Absolute Monocytes 0.3 K/uL (0.1-1.3) 01/07/21 17:55 Absolute Eosinophils 0.0 K/uL (0-0.5) 01/07/21 17:55 Absolute Basophils 0.0 K/uL (0-0.5) 01/07/21 17:55 Platelet Estimate Adeq 01/07/21 17:55 Morphology Comment Not seen (NOT SEEN) 01/07/21 17:55 PT 13.0 SECONDS (9.5-12.5) H 01/07/21 17:55 INR 1.13 01/07/21 17:55 Sodium 139 mmol/L (136-145) 01/07/21 17:55 Potassium 4.1 mmol/L (3.5-5.1) 01/07/21 17:55 Chloride 109 mmol/L (98-107) H 01/07/21 17:55 Carbon Dioxide 18 mmol/L (21-32) L 01/07/21 17:55 BUN 43 mg/dL (7-18) H 01/07/21 17:55 Creatinine 4.43 mg/dL (0.55-1.3) H 01/07/21 17:55 Estimated GFR 16 mL/min (=/>90) L 01/07/21 17:55 Glucose 98 mg/dL (74-106) 01/07/21 17:55 Lactic Acid 3.6 mmol/L (0.4-2.0) H 01/07/21 17:55 Calcium 8.3 mg/dL (8.5-10.1) L 01/07/21 17:55 Magnesium 1.3 mg/dL (1.8-2.4) L* D 01/07/21 17:55 Total Bilirubin 0.4 mg/dL (0.2-1.0) 01/07/21 17:55 Direct Bilirubin 0.2 mg/dL (0-0.2) 01/07/21 17:55 AST 98 U/L (15-37) H 01/07/21 17:55 ALT 82 U/L (12-78) H 01/07/21 17:55 Alkaline Phosphatase 122 U/L (45-117) H 01/07/21 17:55 Rapid Troponin I 0.05 ng/mL (0.0-0.045) H 01/07/21 17:55 NT-Pro-B Natriuret Pep 3997 pg/mL (<125) H 01/07/21 17:55 Serum Total Protein 8.4 g/dL (6.4-8.2) H 01/07/21 17:55 Albumin 2.8 g/dL (3.4-5.0) L 01/07/21 17:55 Globulin 5.6 g/dL (2.3-3.5) H 01/07/21 17:55 Albumin/Globulin Ratio 0.5 (1.1-1.8) L 01/07/21 17:55 Lipase 35 U/L (73-393) L 01/07/21 17:55 Procalcitonin > 200.00 ng/mL (<0.050) H 01/07/21 17:55 SARS-CoV-2 RNA (RT-PCR) Negative (NEGATIVE) 01/07/21 18:20 Smear Scan Ok (OK) 01/07/21 17:55 Medications List Reviewed: Yes Assessment And Plan - Plan Physical Exam: General: Alert, In no apparent distress, Oriented x3 HEENT: Atraumatic, Normocephalic Neck: Supple, 2+ carotid pulse no bruit Respiratory: Clear to auscultation bilaterally, Normal air movement, Diminished Cardiovascular: No edema, Normal pulses, Regular rate/rhythm Capillary refill: <2 Seconds Gastrointestinal: Normal bowel sounds, Non-distended Musculoskeletal: No clubbing, No swelling, No contractures, No erythema Integumentary: No rashes, No breakdown Neurological: Normal gait, Normal speech Laboratory Data (last 24 hrs) 01/07/21 17:55: PT 13.0 H, INR 1.13 01/07/21 17:55: WBC 18.00 H, Hgb 10.8 L, Hct 31.9 L, Plt Count 206 01/07/21 17:55: Sodium 139, Potassium 4.1, BUN 43 H, Creatinine 4.43 H, Glucose 98, Magnesium 1.3 L* D, Total Bilirubin 0.4, AST 98 H, ALT 82 H, Alkaline Phosphatase 122 H, Lipase 35 L Conclusions/Impression: Antibiotics: Received a single dose of vancomycin in the ED -meropenem Start:01/07 stop: 01/14 Doxycycline Start: 01/08 stop: 01/15 antibiotics continued, awaiting results from splenic fluid collection culture. Assessment: -sepsis likely secondary to his splenic abscess versus hematoma -renal insufficiency -anemia -protein caloric malnutrition Plan: -Blood cultures: No growth @24 hr. Urine culture showed no growth. CT abdomen and pelvis performed on 01/07 showed splenic lesion with fluid collection, unspecified if hematoma versus abscess formation vs infected pseudocyst. Splenic and drainage catheter was placed on 01/14, fluid collected was sent to lab. Patient received a single dose of vancomycin in the ED, and now on meropenem and doxycycline. Tailor antibiotics based off of splenic fluid collection sent to lab. -medical management per primary team -continue monitor CBC and BMP -continue monitor for signs infection Plan of care discussed with Dr. Whipple Thank you for consultation. Physician Review: Patient Assessed, Agree with Above Assessment and Plan
[2021-01-15] MEDS: Meropenem 1 GM/100 ML BAG IV SCH ×2 (12:30→21:14)
[2021-01-15] MEDS: Meropenem 500 MG/100 ML BAG IV SCH (13:30)
[2021-01-15] MEDS: ACETAMINOPHEN 500 MG TAB PO PRN (13:33)
--- NOTE | 2021-01-15 17:10 | PN ---
Date of Progress Note: 01/15/2021 Subjective: The patient was admitted with abdominal pain, found to have splenic collection after pre vious infarction. The patient is status post drainage by IR yesterday, tolerated. Physical Examination: Vital Signs: When I saw the patient; blood pressure 118/65, pulse of 83, afebrile. Chest: Clear to auscultation. Heart: S1, S2. Regular. Abdomen: Soft, nontender. Drainage on the left upper quadrant, serosanguineous. No guarding or navjot ound. Extremities: No edema. Neuro: Alert. No focality. Laboratory Data: WBC 10.9, H and H 10.6/30.3. Sodium 138, potassium 3.7, bicarb 24, BUN 11, creatin ine 0.8, magnesium 1.7. Current Medications: The patient on include doxycycline, meropenem, labetalol, Tylenol. Assessment And Plan: 1.Acute kidney injury secondary to toxic ATN, poor perfusion, ATN, has been recovered, resolved. 2.Hypokalemia, hypomagnesemia. We will supplement. 3.Splenic collection, status post drainage. Continue current antibiotic. Follow up with Surgery. Follow up with ID. Given the improvement in the kidney function, I am going to go ahead and increase the meropenem. JORGE/PILY Voice ID: [id number] Report ID: [id number]
[2021-01-16] MEDS: VITAMIN D 1000 UNIT TAB PO SCH (09:00)
[2021-01-16] MEDS: DOXYCYCLINE 100 MG in NA CHLORIDE 0.9% 100 ML IVPB SCH ×2 (09:00→20:55)
[2021-01-16] MEDS: Meropenem 1 GM/100 ML BAG IV SCH ×2 (09:00→20:53)
[2021-01-16 09:19] LABS: BUN Blood Urea Nitrogen 12 mg/dL (7-18); Bicarbonate 28 mmol/L (21-32); Glucose Level 128 mg/dL (74-106); Magnesium 1.7 mg/dL (1.8-2.4); Potassium 3.7 mmol/L (3.5-5.1); Sodium Level 137 mmol/L (136-145)
--- NOTE | 2021-01-16 10:56 | P.PN ---
Date of Service: 01/15/21 Subjective Patient is improving with no new complaints. Clinical symptoms continued to improve. Review of Systems 10-point ROS is otherwise unremarkable Physical Examination - Vital Signs Reviewed - Physical Exam General: Alert, In no apparent distress, Oriented x3 Respiratory: Diminished Cardiovascular: Regular rate/rhythm, Normal S1 S2, No murmurs Gastrointestinal: Normal bowel sounds, Soft and benign, Non-distended, No tenderness Musculoskeletal: No clubbing, No swelling, No tenderness Neurological: Sensation intact, Cranial nerves 3-12 intact Assessment & Plan - Problems (Diagnosis) (1) Splenic lesion Current Visit: Yes Status: Acute (2) Left upper quadrant abdominal tenderness Current Visit: Yes Status: Acute (3) Alcohol abuse Current Visit: Yes Status: Acute (4) Hypertension Current Visit: Yes Status: Acute (5) History of cannabis abuse Current Visit: Yes Status: Acute - Plan Continue with plan of care as mentioned below: 1. Continue with gentle hydration 2. Continue with antibiotic therapy 3. Interventional Radiology consultation for splenic lesion drainage completed; will remove the catheter in a.m. 4. Monitor labs and H&H and CBC closely 5. Strict blood pressure control 6. GI and DVT prophylaxis
--- NOTE | 2021-01-16 11:52 | P.PN ---
Subjective Date of Service: 01/16/21 Chief Complaint: Severe sepsis Patient seen examined at bedside, doing well no acute complaints. Afebrile. Splenic drain with minimal output. Recommend removing after less than 5 cc of drainage within a 24 hr time frame. Continue IV antibiotics for duration of hospital stay in [place] switched to oral antibiotics. Important that The patient follow up outpatient with primary care. Review of Systems 10-point ROS is otherwise unremarkable Physical Examination - Vital Signs Temperature: 98.5 F Blood Pressure: 111/61 Pulse: 83 Respirations: 18 Pulse Ox (%): 98 - Studies Laboratory Last Values WBC 18.00 K/uL (4.3-10.9) H 01/07/21 17:55 RBC 3.57 M/uL (4.33-5.43) L 01/07/21 17:55 Hgb 10.8 g/dL (13.6-17.9) L 01/07/21 17:55 Hct 31.9 % (39.6-49.0) L 01/07/21 17:55 MCV 89.5 fL (80-100) 01/07/21 17:55 MCH 30.2 pg (27.0-35.0) 01/07/21 17:55 MCHC 33.7 g/dL (32.0-36.0) 01/07/21 17:55 RDW 14.8 % (12.1-15.2) 01/07/21 17:55 Plt Count 206 K/uL (152-406) 01/07/21 17:55 MPV 7.8 fL (7.6-11.3) 01/07/21 17:55 Neutrophils % 96.0 % (41.7-73.7) H 01/07/21 17:55 Lymphocytes % 2.3 % (15.3-44.8) L 01/07/21 17:55 Monocytes % 1.5 % (3.3-12.3) L 01/07/21 17:55 Eosinophils % 0.0 % (0-4.4) 01/07/21 17:55 Basophils % 0.2 % (0-1.3) 01/07/21 17:55 Absolute Neutrophils 17.2 K/uL (1.8-8.0) H 01/07/21 17:55 Absolute Lymphocytes 0.4 K/uL (0.7-4.9) L 01/07/21 17:55 Absolute Monocytes 0.3 K/uL (0.1-1.3) 01/07/21 17:55 Absolute Eosinophils 0.0 K/uL (0-0.5) 01/07/21 17:55 Absolute Basophils 0.0 K/uL (0-0.5) 01/07/21 17:55 Platelet Estimate Adeq 01/07/21 17:55 Morphology Comment Not seen (NOT SEEN) 01/07/21 17:55 PT 13.0 SECONDS (9.5-12.5) H 01/07/21 17:55 INR 1.13 01/07/21 17:55 Sodium 139 mmol/L (136-145) 01/07/21 17:55 Potassium 4.1 mmol/L (3.5-5.1) 01/07/21 17:55 Chloride 109 mmol/L (98-107) H 01/07/21 17:55 Carbon Dioxide 18 mmol/L (21-32) L 01/07/21 17:55 BUN 43 mg/dL (7-18) H 01/07/21 17:55 Creatinine 4.43 mg/dL (0.55-1.3) H 01/07/21 17:55 Estimated GFR 16 mL/min (=/>90) L 01/07/21 17:55 Glucose 98 mg/dL (74-106) 01/07/21 17:55 Lactic Acid 3.6 mmol/L (0.4-2.0) H 01/07/21 17:55 Calcium 8.3 mg/dL (8.5-10.1) L 01/07/21 17:55 Magnesium 1.3 mg/dL (1.8-2.4) L* D 01/07/21 17:55 Total Bilirubin 0.4 mg/dL (0.2-1.0) 01/07/21 17:55 Direct Bilirubin 0.2 mg/dL (0-0.2) 01/07/21 17:55 AST 98 U/L (15-37) H 01/07/21 17:55 ALT 82 U/L (12-78) H 01/07/21 17:55 Alkaline Phosphatase 122 U/L (45-117) H 01/07/21 17:55 Rapid Troponin I 0.05 ng/mL (0.0-0.045) H 01/07/21 17:55 NT-Pro-B Natriuret Pep 3997 pg/mL (<125) H 01/07/21 17:55 Serum Total Protein 8.4 g/dL (6.4-8.2) H 01/07/21 17:55 Albumin 2.8 g/dL (3.4-5.0) L 01/07/21 17:55 Globulin 5.6 g/dL (2.3-3.5) H 01/07/21 17:55 Albumin/Globulin Ratio 0.5 (1.1-1.8) L 01/07/21 17:55 Lipase 35 U/L (73-393) L 01/07/21 17:55 Procalcitonin > 200.00 ng/mL (<0.050) H 01/07/21 17:55 SARS-CoV-2 RNA (RT-PCR) Negative (NEGATIVE) 01/07/21 18:20 Smear Scan Ok (OK) 01/07/21 17:55 Medications List Reviewed: Yes Assessment And Plan - Plan Physical Exam: General: Alert, In no apparent distress, Oriented x3 HEENT: Atraumatic, Normocephalic Neck: Supple, 2+ carotid pulse no bruit Respiratory: Clear to auscultation bilaterally, Normal air movement, Diminished Cardiovascular: No edema, Normal pulses, Regular rate/rhythm Capillary refill: <2 Seconds Gastrointestinal: Normal bowel sounds, Non-distended Musculoskeletal: No clubbing, No swelling, No contractures, No erythema Integumentary: No rashes, No breakdown Neurological: Normal gait, Normal speech Laboratory Data (last 24 hrs) 01/07/21 17:55: PT 13.0 H, INR 1.13 01/07/21 17:55: WBC 18.00 H, Hgb 10.8 L, Hct 31.9 L, Plt Count 206 01/07/21 17:55: Sodium 139, Potassium 4.1, BUN 43 H, Creatinine 4.43 H, Glucose 98, Magnesium 1.3 L* D, Total Bilirubin 0.4, AST 98 H, ALT 82 H, Alkaline Phosphatase 122 H, Lipase 35 L Conclusions/Impression: Antibiotics: Received a single dose of vancomycin in the ED -meropenem Start:01/07 stop: 01/14 Doxycycline Start: 01/08 stop: 01/15 antibiotics continued, awaiting results from splenic fluid collection culture. Assessment: -sepsis likely secondary to his splenic abscess versus hematoma -renal insufficiency -anemia -protein caloric malnutrition Plan: -Blood cultures: No growth @24 hr. Urine culture showed no growth. CT abdomen and pelvis performed on 01/07 showed splenic lesion with fluid collection, unspecified if hematoma versus abscess formation vs infected pseudocyst. Splenic and drainage catheter was placed on 01/14, fluid collected was sent to lab--no malignant cells identified. Patient received a single dose of vancomycin in the ED, annormally med cells identified.d now on meropenem and doxycycline. Continue IV antibiotics for duration of stay, for discharge since and patient home on oral Augmentin for 5 days. -medical management per primary team -continue monitor CBC and BMP -continue monitor for signs infection Plan of care discussed with Dr. Whipple Thank you for consultation. Physician Review: Patient Assessed, Agree with Above Assessment and Plan
--- NOTE | 2021-01-17 02:15 | PN ---
Date of Progress Note: 01/16/2021 Chief Complaint: Acute kidney injury. Subjective: The patient has nonoliguric urine output. The patient was admitted to the hospital for abdominal pain. 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 The patient underw ent IR procedure and . Physical Examination: Lungs: Clear to auscultation bilaterally. Heart: S1, S2. Abdomen: Soft, benign. Extremities: No edema. Impression And Plan: 1.Acute kidney injury hypoperfusion. Continue to monitor fluid balance and continue IV f luids as needed. The patient . 2.Hypokalemia, hypomagnesemia. Monitor electrolytes panel and continue replacement. 3. and monitor renal function. SCOTT/MODL Voice ID: [id number] Report ID: [id number]
--- NOTE | 2021-01-17 06:31 | P.PN ---
Date of Service: 01/16/21 Subjective Patient doing well with no new complaints. Minimal drainage from the splenic catheter. Once less than 10 cc then will remove it. Review of Systems 10-point ROS is otherwise unremarkable Physical Examination - Vital Signs Reviewed - Physical Exam General: Alert, In no apparent distress, Oriented x3 Respiratory: Diminished Cardiovascular: Regular rate/rhythm, Normal S1 S2, No murmurs Gastrointestinal: Normal bowel sounds, Soft and benign, Non-distended, No tenderness Musculoskeletal: No clubbing, No swelling, No tenderness Neurological: Sensation intact, Cranial nerves 3-12 intact Assessment & Plan - Problems (Diagnosis) (1) Splenic lesion Current Visit: Yes Status: Acute (2) Left upper quadrant abdominal tenderness Current Visit: Yes Status: Acute (3) Alcohol abuse Current Visit: Yes Status: Acute (4) Hypertension Current Visit: Yes Status: Acute (5) History of cannabis abuse Current Visit: Yes Status: Acute - Plan Continue with plan of care as mentioned below: 1. Diet as tolerated 2. Continue with antibiotic therapy 3. Plan to remove splenic catheter in a.m.. Spoke with Radiology and they state once it is less than 5 cc then we can possibly remove it 4. Monitor labs and H&H and CBC closely 5. Strict blood pressure control 6. GI and DVT prophylaxis
[2021-01-17] MEDS: DOXYCYCLINE 100 MG in NA CHLORIDE 0.9% 100 ML IVPB SCH ×2 (07:58→21:08)
[2021-01-17] MEDS: Meropenem 1 GM/100 ML BAG IV SCH ×2 (07:58→21:05)
[2021-01-17] MEDS: VITAMIN D 1000 UNIT TAB PO SCH (07:58)
--- NOTE | 2021-01-17 10:04 | P.PN ---
Subjective Date of Service: 01/17/21 Chief Complaint: Severe sepsis Subjective: No new changes (denies any abdominal pain Tolerating po well - still high NALINI drain output last pm =25cc, none in pouch this am) Physical Examination - Vital Signs Temperature: 98.0 F Blood Pressure: 99/58 Pulse: 73 Respirations: 17 Pulse Ox (%): 94 - Physical Exam General: Alert, In no apparent distress, Oriented x3 HEENT: Atraumatic, Normocephalic, PERRLA Neck: Supple, 2+ carotid pulse no bruit, JVD not distended Respiratory: Clear to auscultation bilaterally, Normal air movement Cardiovascular: No edema, Normal pulses, Regular rate/rhythm, Normal S1 S2 Gastrointestinal: Normal bowel sounds, Soft and benign, Non-distended, Other (NALINI drain left quadrant ) Neurological: Normal gait, Normal speech, Normal strength at 5/5 x4 extr, Normal tone - Studies Medications List Reviewed: Yes Assessment And Plan Plan to discharge in: 24 Hours - Code Status/Comfort Care Code Status Assessed: Yes Physician Review: Patient Assessed, Agree with Above Assessment and Plan Physician Review Additional Text: COVID: Negative Problems (Diagnosis) (1) Splenic lesion Current Visit: Yes Status: Acute (2) Left upper quadrant abdominal tenderness Current Visit: Yes Status: Acute (3) Alcohol abuse Current Visit: Yes Status: Acute (4) Hypertension Current Visit: Yes Status: Acute (5) History of cannabis abuse Current Visit: Yes Status: Acute 6 acute kidney injury 7 hypomagnesemia - Plan -Continue antibiotics with meropenem and doxycycline Can DC gentle IV fluid now since borderline low blood pressure 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
[2021-01-17 11:02] LABS: Absolute Lymphocytes (CBC) 1.3 K/uL (0.7-4.9); Hematocrit 28.2 % (39.6-49.0); Lymphocytes % 20.4 % (15.3-44.8); MPV 7.9 fL (7.6-11.3)
[2021-01-17 11:33] LABS: BUN Blood Urea Nitrogen 10 mg/dL (7-18); Bicarbonate 31 mmol/L (21-32); Glucose Level 109 mg/dL (74-106); Magnesium 1.8 mg/dL (1.8-2.4); Potassium 3.8 mmol/L (3.5-5.1); Sodium Level 136 mmol/L (136-145)
--- NOTE | 2021-01-17 20:42 | PN ---
Date of Progress Note: 01/17/2021 Chief Complaint: Acute kidney injury, nonoliguric. History Of Present Illness: Urine output has improved. Renal function stabilized at baseline. The patient was found to have splenic abscess due to previous infection and is undergoing treatment with antibiotics. He had IR procedure for incision and drainage. Review of Systems: Denies fever or chills. Physical Examination: Lungs: Clear to auscultation bilaterally. Heart: S1, S2. Abdomen: Soft, benign. Extremities: No edema. Impression And Plan: 1.Acute kidney injury secondary to renal hypoperfusion, acute tubular necrosis. The patient continue d IV fluids. Continue p.o. hydration. Monitor electrolytes. 2.Hypokalemia, hypomagnesemia. Magnesium level is improving gradually. Monitor magnesium level and adjust treatment with supplementation. 3.Hypertension. Blood pressure controlled. Continue current treatment. SCOTT/PILY Voice ID: [id number] Report ID: [id number]
--- NOTE | 2021-01-18 05:58 | P.PN ---
Subjective Date of Service: 01/18/21 Subjective: Other (patient resting well. last NALINI drainage 25 cc. denies pain. no new complaints . tolerating IV meds.) <Rhona Prescott - Last Filed: 01/18/21 09:01> Date of Service: 01/18/21 Chief Complaint: Severe sepsis Subjective: Other <Artie Chandra - Last Filed: 01/18/21 15:38> Physical Examination - Vital Signs Temperature: 97.5 F Blood Pressure: 94/65 Pulse: 83 Respirations: 19 Pulse Ox (%): 96 - Studies Medications List Reviewed: Yes <Artie Chandra - Last Filed: 01/18/21 15:38> Assessment & Plan Discharge Plan: Other (SNF) Plan to discharge in: 48 Hours Physician Review Additional Text: COVID: Negative CT scan: COMPARISON: No comparisonsCT ANGIO ABD/PELVIS W CONTRAST dated 10/30/2020 TECHNIQUE: Approximately 100 mL nonionic IV contrast was administered to the patient. All CT scans are performed using dose optimization technique as appropriate and may include automated exposure control or mA/KV adjustment according to patient size. FINDINGS: The lungs are clear.No pleural or pericardial effusion.No intrathoracic adenopathy.Circumferential thickening of the esophagus may reflect esophagitis. The liver, adrenal glands, pancreas, and gallbladder are within normal limits. There is a new low-density lesion in the spleen measuring 5.8 centimeters. On the prior CT, there was an area of splenic infarct. No bowel obstruction, free air, free fluid or abscess. No pathologic lymphadenopathy in the abdomen or pelvis. No worrisome osseous finding. IMPRESSION: No acute findings within the chest, abdomen, or pelvis. . 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 The sterility of this fluid is indeterminate by CT. ABUS: COMPARISON: CT ANGIO ABD/PELVIS W CONTRAST dated 10/30/2020; Abdomen Pelvis W Contrast dated 10/28/2020 FINDINGS: Two intra splenic masses are present, the largest measuring 5.6 centimeters. The smaller lesion measures 3.3 centimeters. Both are hypoechoic. No definite flow is present within either collection. IMPRESSION: Two splenic collections identified without demonstrable vascular flow that could represent subacute hematomas but which are of indeterminate sterility. CT Guided Procedure: CLINICAL HISTORY: splenic hematoma vs. abscess COMPARISON: No comparisons FINDINGS: Informed consent was obtained. The patient was placed in the supine position. Next, CT scan was performed of the chest again demonstrating the fluid collection at the spleen which have increased in size. The patient was prepped and draped in sterile fashion. A time-out was performed. The subjacent extensor 19 were administered for local anesthesia. An 8.5 Polish pigtail drainage catheter was trocar into the collection. The catheter was deployed. Approximately 120 cc of purulent foul-smelling material was aspirated. A sample was sent to lab for Gram stain and culture. The catheter was attached to a bulb suction drain. The patient tolerated procedure well. No immediate complications IMPRESSION: Technically successful CT-guided placement of a drainage catheter into a splenic fluid collection favored to represent an abscess. A sample was sent to the lab for analysis. Pathology: DIAGNOSIS Splenic abscess drainage fluid, cytology: - No malignant cells identified - Acute and chronic inflammatory cells Physical exam: General: Alert, In no apparent distress, Oriented x3 HEENT: Atraumatic, PERRLA, Mucous membr. moist/pink, EOMI, Sclerae nonicteric Neck: Supple, 2+ carotid pulse no bruit, No LAD, Without JVD or thyroid abnormality Respiratory: Clear to auscultation bilaterally, Normal air movement Cardiovascular: Regular rate/rhythm, Normal S1 S2 Gastrointestinal: Normal bowel sounds, Non-distended, No rebound, No guarding, no significant abdominal tenderness Musculoskeletal: No contractures, No tenderness Integumentary: No rashes Neurological: Normal speech, Normal strength at 5/5 x4 extr, Normal tone, Normal affect Impression: Severe sepsis without septic shockunknown etiology, possibly 2/2 splenic abscess/pseudocyst with history of splenic infarction with CT scan showing new low-density lesion in the spleen measuring 5.8 cm Acute renal failure secondary to above Hypomagnesemia Hypertension currently with hypotension Plan: Severe sepsis without septic shockunknown etiology, possibly 2/2 splenic abscess/pseudocyst with history of splenic infarction with CT scan showing new low-density lesion in the spleen measuring 5.8 cm: NALINI tube in place. Patient overall stable. Case discussed with surgery. Will increase diet to regular. Patient can be possibly discharged home once NALINI tube output is less than 5 cc. If so then the NALINI tube can be removed and discharged home with oral antibiotic therapy. Other option is to discuss with surgery about the possibility of possible discharge tomorrow and have surgery follow-up on NALINI tube. Await recommendations with surgery. Continue antibiotic therapy. Pathology shows no malignant cells. Anticipate possible discharge in the next 48 hours. Acute renal failure secondary to above: Continue with nephrology recommendations. IV fluids to be adjusted by nephrology Hypomagnesemia: Continue to monitor. Replacement protocol in place. Hypertension currently with hypotension: Hold blood pressure medications at this time. DVT PPX: SCDs Code status: Full Discharge Plan: Home Time Spent Managing Pts Care (In Minutes): 55 <Artie Chandra - Last Filed: 01/18/21 15:38>
[2021-01-18] MEDS: VITAMIN D 1000 UNIT TAB PO SCH (07:48)
[2021-01-18] MEDS: Meropenem 1 GM/100 ML BAG IV SCH ×2 (07:49→22:42)
[2021-01-18] MEDS: DOXYCYCLINE 100 MG in NA CHLORIDE 0.9% 100 ML IVPB SCH ×2 (08:55→22:43)
--- NOTE | 2021-01-18 20:19 | PN ---
Date of Progress Note: 01/18/2021 Chief Complaint: Acute kidney injury. History Of Present Illness: The patient underwent IV fluids to prevent renal hypoperfusion. Previou sly, he was found to have acute kidney injury secondary to sepsis and hypovolemia. The patient was f ound to have splenic abscess and is on antibiotics. He underwent incision and drainage procedure don e by Interventional Radiology. Review of Systems: Denies PND or orthopnea. Denies fever or chills. Physical Examination: Lungs: Clear to auscultation bilaterally. Heart: S1 and S2. Abdomen: Soft, benign. Extremities: No edema. Impression And Plan: 1.Acute kidney injury secondary to acute tubular necrosis. The patient will continue p.o. hydration . Monitor electrolytes. Monitor blood pressure. Adjust medication to prevent hypotensive episode. 2.Hypokalemia, hypomagnesemia. Magnesium level is improving. The patient received treatment with s upplementation. 3.Hypertension. Blood pressure controlled. Hold blood pressure medication if systolic blood pressu re is below 110. SCOTT/PILY Voice ID: [id number] Report ID: [id number]
[2021-01-18] MEDS: MIDODRINE HCL 5 MG TABLET PO SCH (22:42)
[2021-01-19 05:58] LABS: Albumin 2.3 g/dL (3.4-5.0); BUN Blood Urea Nitrogen 14 mg/dL (7-18); Bicarbonate 31 mmol/L (21-32); Glucose Level 102 mg/dL (74-106); Phosphorus 3.4 mg/dL (2.5-4.9); Sodium Level 136 mmol/L (136-145)
--- NOTE | 2021-01-19 06:06 | P.DS ---
Admission Date: 01/07/21 Discharge Date: 01/19/21 Disposition: ROUTINE DISCHARGE Discharge Condition: GOOD Reason for Admission: Severe sepsis Consultations: Surgery-Dr. Garduno Radiology-Dr. Burden Nephrology-Dr. Beach Infectious disease-Dr. Broderick Procedures: COVID: Negative CT scan: COMPARISON: No comparisonsCT ANGIO ABD/PELVIS W CONTRAST dated 10/30/2020 TECHNIQUE: Approximately 100 mL nonionic IV contrast was administered to the patient. All CT scans are performed using dose optimization technique as appropriate and may include automated exposure control or mA/KV adjustment according to patient size. FINDINGS: The lungs are clear.No pleural or pericardial effusion.No intrathoracic adenopathy.Circumferential thickening of the esophagus may reflect esophagitis. The liver, adrenal glands, pancreas, and gallbladder are within normal limits. There is a new low-density lesion in the spleen measuring 5.8 centimeters. On the prior CT, there was an area of splenic infarct. No bowel obstruction, free air, free fluid or abscess. No pathologic lymphadenopathy in the abdomen or pelvis. No worrisome osseous finding. IMPRESSION: No acute findings within the chest, abdomen, or pelvis. . 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 The sterility of this fluid is indeterminate by CT. ABUS: COMPARISON: CT ANGIO ABD/PELVIS W CONTRAST dated 10/30/2020; Abdomen Pelvis W Contrast dated 10/28/2020 FINDINGS: Two intra splenic masses are present, the largest measuring 5.6 centimeters. The smaller lesion measures 3.3 centimeters. Both are hypoechoic. No definite flow is present within either collection. IMPRESSION: Two splenic collections identified without demonstrable vascular f low that could represent subacute hematomas but which are of indeterminate sterility. CT Guided Procedure: CLINICAL HISTORY: splenic hematoma vs. abscess COMPARISON: No comparisons FINDINGS: Informed consent was obtained. The patient was placed in the supine position. Next, CT scan was performed of the chest again demonstrating the fluid collection at the spleen which have increased in size. The patient was prepped and draped in sterile fashion. A time-out was performed. The subjacent extensor 19 were administered for local anesthesia. An 8.5 Tajik pigtail drainage catheter was trocar into the collection. The catheter was deployed. Approximately 120 cc of purulent foul-smelling material was aspirated. A sample was sent to lab for Gram stain and culture. The catheter was attached to a bulb suction drain. The patient tolerated procedure well. No immediate complications IMPRESSION: Technically successful CT-guided placement of a drainage catheter into a splenic fluid collection favored to represent an abscess. A sample was sent to the lab for analysis. 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 Patient was hypotensive with blood pressure in the 80s systolic in the emergency department. Further evaluation revealed labs significant for white blood cell count 18,000 hemoglobin 10.8 had a crit 31.9 CO2 18 BUN 43 creatinine 4.43 GFR 16 magnesium 1.3 lactic acid 3.6 procalcitonin greater than 200 BNP 3997 troponin [address] demonstrates new splenic lesion/collection likely sequela of prior splenic infarct stability of the fluid is intermediate by CT. Case was discussed with radiologist given the clinical setting of severe sepsis it is possible that this is an abscess. Ultrasound was also obtained which cannot differentiate between hematoma/abscess. Case was discussed with general surgery, recommendation for transfer for IR/CT-guided percutaneous drainage was made, transfer was attempted to tertiary centers in [place] area but declined due to capacity. Patient was started on Merrem/vank, will be admitted to the ICU. Patient received 30 cc/kg fluid bolus in the emergency department, patient's blood pressure currently around 100 systolic. Will admit for further evaluation and management. Patient with severe sepsis without septic shock at this time. Hospital Course: Plan: Severe sepsis without septic shockunknown etiology, possibly 2/2 splenic abscess/pseudocyst with history of splenic infarction with CT scan showing new low-density lesion in the spleen measuring 5.8 cm: NALINI tube in place. Patient overall stable. Case discussed with surgery. Will increase diet to regular. Patient can be possibly discharged home once NALINI tube output is less than 5 cc. If so then the NALINI tube can be removed and discharged home with oral antibiotic therapy. Other option is to discuss with surgery about the possibility of possible discharge tomorrow and have surgery follow-up on NALINI tube. Await recommendations with surgery. Continue antibiotic therapy. Pathology shows no malignant cells. Anticipate possible discharge in the next 48 hours. Acute renal failure secondary to above: Continue with nephrology recommenda tions. IV fluids to be adjusted by nephrology Hypomagnesemia: Continue to monitor. Replacement protocol in place. Hypertension currently with hypotension: Hold blood pressure medications at this time. DVT PPX: SCDs Code status: Full Discharge Plan: Home Time Spent Managing Pts Care (In Minutes): 55 <Artie Chandra - Last Filed: 01/18/21 15:38> Additional CC's: Vital Signs/Physical Exam: Temp Pulse Resp BP Pulse Ox 98.2 F 89 18 110/69 97 01/19/21 00:00 01/19/21 00:00 01/19/21 00:00 01/19/21 00:00 01/19/21 00:00 Laboratory Data at Discharge: WBC 6.40 K/uL (4.3-10.9) D 01/17/21 10:37 Hgb 9.7 g/dL (13.6-17.9) L 01/17/21 10:37 Hct 28.2 % (39.6-49.0) L 01/17/21 10:37 Plt Count 350 K/uL (152-406) D 01/17/21 10:37 PT 15.2 SECONDS (9.5-12.5) H 01/13/21 10:06 INR 1.32 01/13/21 10:06 APTT 32.5 SECONDS (24.3-36.9) 01/13/21 10:06 Sodium 136 mmol/L (136-145) 01/19/21 05:21 Potassium 4.0 mmol/L (3.5-5.1) 01/19/21 05:21 BUN 14 mg/dL (7-18) 01/19/21 05:21 Creatinine 0.84 mg/dL (0.55-1.3) 01/19/21 05:21 Glucose 102 mg/dL (74-106) 01/19/21 05:21 Uric Acid 8.9 mg/dL (3.5-7.2) H 01/08/21 05:30 Phosphorus 3.4 mg/dL (2.5-4.9) 01/19/21 05:21 Magnesium 1.8 mg/dL (1.8-2.4) 01/17/21 10:37 Total Bilirubin Cancelled 01/17/21 06:28 AST Cancelled 01/17/21 06:28 ALT Cancelled 01/17/21 06:28 Alkaline Phosphatase Cancelled 01/17/21 06:28 Troponin I < 0.02 ng/mL (0.0-0.045) 01/08/21 05:30 Triglycerides 278 mg/dL (<150) H 01/08/21 05:30 Cholesterol 117 mg/dL (<200) 01/08/21 05:30 HDL Cholesterol 30 mg/dL (40-60) L 01/08/21 05:30 Cholesterol/HDL Ratio 3.90 01/08/21 05:30 Lipase 35 U/L (73-393) L 01/07/21 17:55 Home Medications: Aspirin [Aspirin EC 81 MG] 81 mg PO DAILY #90 tablet. 10/31/20 Folic Acid 1 mg PO DAILY #90 tablet 10/31/20 Metoprolol Tartrate [Lopressor*] 12.5 mg PO BID #60 tab 10/31/20 Thiamine HCl 100 mg PO DAILY #90 tablet 10/31/20 Followup: NONE,NONE [Primary Care Provider] -
[2021-01-19] MEDS: DOXYCYCLINE 100 MG in NA CHLORIDE 0.9% 100 ML IVPB SCH ×2 (09:00→21:38)
[2021-01-19] MEDS: MIDODRINE HCL 5 MG TABLET PO SCH ×3 (10:23→20:37)
[2021-01-19] MEDS: VITAMIN D 1000 UNIT TAB PO SCH (10:24)
[2021-01-19] MEDS: Meropenem 1 GM/100 ML BAG IV SCH ×2 (10:28→20:38)
--- NOTE | 2021-01-19 13:57 | P.PN ---
Subjective Date of Service: 01/19/21 Primary Care Provider: none Chief Complaint: Severe sepsis Subjective: Other (She reports improvement. Still with poor conditioning. Patient tolerating diet.) Physical Examination - Vital Signs Temperature: 97.7 F Blood Pressure: 111/71 Pulse: 83 Respirations: 16 Pulse Ox (%): 95 - Studies Medications List Reviewed: Yes Assessment & Plan Discharge Plan: Other (Inpatient rehab) Plan to discharge in: 48 Hours Physician Review Additional Text: COVID: Negative CT scan: COMPARISON: No comparisonsCT ANGIO ABD/PELVIS W CONTRAST dated 10/30/2020 TECHNIQUE: Approximately 100 mL nonionic IV contrast was administered to the patient. All CT scans are performed using dose optimization technique as appropriate and may include automated exposure control or mA/KV adjustment according to patient size. FINDINGS: The lungs are clear.No pleural or pericardial effusion.No intrathoracic adenopathy.Circumferential thickening of the esophagus may reflect esophagitis. The liver, adrenal glands, pancreas, and gallbladder are within normal limits. There is a new low-density lesion in the spleen measuring 5.8 centimeters. On the prior CT, there was an area of splenic infarct. No bowel obstruction, free air, free fluid or abscess. No pathologic lymphadenopathy in the abdomen or pelvis. No worrisome osseous finding. IMPRESSION: No acute findings within the chest, abdomen, or pelvis. . 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 The sterility of this fluid is indeterminate by CT. ABUS: COMPARISON: CT ANGIO ABD/PELVIS W CONTRAST dated 10/30/2020; Abdomen Pelvis W Contrast dated 10/28/2020 FINDINGS: Two intra splenic masses are present, the largest measuring 5.6 centimeters. The smaller lesion measures 3.3 centimeters. Both are hypoechoic. No definite flow is present within either collection. IMPRESSION: Two splenic collections identified without demonstrable vascular flow that could represent subacute hematomas but which are of indeterminate sterility. CT Guided Procedure: CLINICAL HISTORY: splenic hematoma vs. abscess COMPARISON: No comparisons FINDINGS: Informed consent was obtained. The patient was placed in the supine position. Next, CT scan was performed of the chest again demonstrating the fluid collection at the spleen which have increased in size. The patient was prepped and draped in sterile fashion. A time-out was performed. The subjacent extensor 19 were administered for local anesthesia. An 8.5 Azeri pigtail drainage catheter was trocar into the collection. The catheter was deployed. Approximately 120 cc of purulent foul-smelling material was aspirated. A sample was sent to lab for Gram stain and culture. The catheter was attached to a bulb suction drain. The patient tolerated procedure well. No immediate complications IMPRESSION: Technically successful CT-guided placement of a drainage catheter into a splenic fluid collection favored to represent an abscess. A sample was sent to the lab for analysis. Pathology: DIAGNOSIS Splenic abscess drainage fluid, cytology: - No malignant cells identified - Acute and chronic inflammatory cells Physical exam: General: Alert, In no apparent distress, Oriented x3 HEENT: Atraumatic, PERRLA, Mucous membr. moist/pink, EOMI, Sclerae nonicteric Neck: Supple, 2+ carotid pulse no bruit, No LAD, Without JVD or thyroid abnormality Respiratory: Clear to auscultation bilaterally, Normal air movement Cardiovascular: Regular rate/rhythm, Normal S1 S2 Gastrointestinal: Normal bowel sounds, Non-distended, No rebound, No guarding, no significant abdominal tenderness Musculoskeletal: No contractures, No tenderness Integumentary: No rashes Neurological: Normal speech, Normal strength at 5/5 x4 extr, Normal tone, Normal affect Impression: Severe sepsis without septic shockunknown etiology, possibly 2/2 splenic abscess/pseudocyst with history of splenic infarction with CT scan showing new low-density lesion in the spleen measuring 5.[address]-guided placement of drainage catheter into the splenic fluid collection Acute renal failure secondary to above Hypomagnesemia Hypertension currently with Ortho hypotension Plan: Severe sepsis without septic shockunknown etiology, possibly 2/2 splenic abscess/pseudocyst with history of splenic infarction with CT scan showing new low-density lesion in the spleen measuring 5.[address]-guided placement of drainage catheter into the splenic fluid collection: Drainage catheter in place. Less than 5 cc of fluid noted. Case discussed with surgery. Surgery will evaluate patient for possible removal of drainage catheter tomorrow. Physical therapy worked with patient. Patient still with poor conditioning. Will recommend inpatient rehab if the patient is able to be approved. Will discuss with social work specialist. Continue to monitor closely. Patient remains on IV doxycycline 100 mg IV twice daily and meropenem 1000 mg 1 pill twice daily. So far cultures negative. Infectious disease recommended Augmentin at discharge for 5 days. Acute renal failure secondary to above: Renal function back to baseline and stable. Hypomagnesemia: Continue to monitor. Replacement protocol in place. Hypertension currently with Ortho hypotension: Patient off blood pressure medicationmetoprolol. Patient remains on midodrine. Will increase midodrine to 3 times a day. DVT PPX: SCDs Code status: Full Discharge Plan: Home versus inpatient rehab Time Spent Managing Pts Care (In Minutes): 55
--- NOTE | 2021-01-19 14:20 | PN ---
Subjective: The patient is lying in bed. No new complaints. Objective: Vital Signs: Temperature 97, pulse 78, respiration 18, blood pressure 99/61. Lungs: Clear to auscultation. Heart: S1, S2. Regular. Abdomen: Soft, nontender. Bowel sounds present. Extremity: No edema. NALINI drain in place. Laboratory Data: Shows WBC 6.4, hemoglobin 9.7, platelets are 350. Chemistry shows sodium 136, pota ssium 4, chloride 102, bicarb 31, BUN 14, creatinine 0.8, glucose 102. Micro data, cultures are no g rowth from blood and from urine and nasopharynx. Assessment And Plan: Splenic abscess with sepsis, renal insufficiency, anemia, protein-calorie malno urishment. The patient to be discharged. Continue current antibiotic and follow up with surgical te am. We will follow the patient as needed. NF/MODL Voice ID: [id number] Report ID: [id number]
[2021-01-19] MEDS: SIMETHICONE 80 MG TAB PO SCH (20:36)
--- NOTE | 2021-01-20 02:30 | PN ---
Date of Progress Note: 01/19/2021 Chief Complaint: Acute kidney injury. Subjective: Renal function has stabilized and improved. Patient had borderline hypotension and rece ived IV fluids. He developed acute tubular necrosis due to hypovolemia and sepsis. He was found to have splenic abscess and is on antibiotic. He underwent a procedure with interventional radiologist for incision and drainage. Review of Systems: Denies fever, chills. Physical Examination: Lungs: Clear to auscultation bilaterally. Heart: S1, S2. Abdomen: Soft, benign. Extremities: No edema. Impression And Plan: Acute kidney injury. Renal function improved. Avoid nephrotoxic medication. Continue hydration. Patient is tolerating p.o. intake. Monitor electrolytes. Hypokalemia, hypomagn esemia, resolved. The patient received IV magnesium replacement and potassium replacements. Hyperte nsion, hold blood pressure medication if systolic blood pressure is below 110. EB/MODL Voice ID: [id number] Report ID: [id number]
[2021-01-20 05:42] LABS: Absolute Lymphocytes (CBC) 1.8 K/uL (0.7-4.9); Basophils % 1.7 % (0-1.3); Hematocrit 28.9 % (39.6-49.0); Lymphocytes % 21.8 % (15.3-44.8); MPV 7.4 fL (7.6-11.3); RBC Red Blood Cell Count 3.38 M/uL (4.33-5.43)
--- NOTE | 2021-01-20 05:58 | P.PN ---
Subjective Date of Service: 01/20/21 Primary Care Provider: none Chief Complaint: Severe sepsis Subjective: Other (Patient reports improvement. Still feeling weak.) Physical Examination - Vital Signs Temperature: 97.3 F Blood Pressure: 107/65 Pulse: 83 Respirations: 18 Pulse Ox (%): 96 - Studies Medications List Reviewed: Yes Assessment & Plan Discharge Plan: Other (Inpatient rehab versus home) Plan to discharge in: 48 Hours Physician Review Additional Text: COVID: Negative CT scan: COMPARISON: No comparisonsCT ANGIO ABD/PELVIS W CONTRAST dated 10/30/2020 TECHNIQUE: Approximately 100 mL nonionic IV contrast was administered to the patient. All CT scans are performed using dose optimization technique as appropriate and may include automated exposure control or mA/KV adjustment according to patient size. FINDINGS: The lungs are clear.No pleural or pericardial effusion.No intrathoracic adenopathy.Circumferential thickening of the esophagus may reflect esophagitis. The liver, adrenal glands, pancreas, and gallbladder are within normal limits. There is a new low-density lesion in the spleen measuring 5.8 centimeters. On the prior CT, there was an area of splenic infarct. No bowel obstruction, free air, free fluid or abscess. No pathologic lymphadenopathy in the abdomen or pelvis. No worrisome osseous finding. IMPRESSION: No acute findings within the chest, abdomen, or pelvis. . 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 The sterility of this fluid is indeterminate by CT. ABUS: COMPARISON: CT ANGIO ABD/PELVIS W CONTRAST dated 10/30/2020; Abdomen Pelvis W Contrast dated 10/28/2020 FINDINGS: Two intra splenic masses are present, the largest measuring 5.6 centimeters. The smaller lesion measures 3.3 centimeters. Both are hypoechoic. No definite flow is present within either collection. IMPRESSION: Two splenic collections identified without demonstrable vascular flow that could represent subacute hematomas but which are of indeterminate sterility. CT Guided Procedure: CLINICAL HISTORY: splenic hematoma vs. abscess COMPARISON: No comparisons FINDINGS: Informed consent was obtained. The patient was placed in the supine position. Next, CT scan was performed of the chest again demonstrating the fluid collection at the spleen which have increased in size. The patient was prepped and draped in sterile fashion. A time-out was performed. The subjacent extensor 19 were administered for local anesthesia. An 8.5 Greenlandic pigtail drainage catheter was trocar into the collection. The catheter was deployed. Approximately 120 cc of purulent foul-smelling material was aspirated. A sample was sent to lab for Gram stain and culture. The catheter was attached to a bulb suction drain. The patient tolerated procedure well. No immediate complications IMPRESSION: Technically successful CT-guided placement of a drainage catheter into a splenic fluid collection favored to represent an abscess. A sample was sent to the lab for analysis. Pathology: DIAGNOSIS Splenic abscess drainage fluid, cytology: - No malignant cells identified - Acute and chronic inflammatory cells Physical exam: General: Alert, In no apparent distress, Oriented x3 HEENT: Atraumatic, PERRLA, Mucous membr. moist/pink, EOMI, Sclerae nonicteric Neck: Supple, 2+ carotid pulse no bruit, No LAD, Without JVD or thyroid abnormality Respiratory: Clear to auscultation bilaterally, Normal air movement Cardiovascular: Regular rate/rhythm, Normal S1 S2 Gastrointestinal: Normal bowel sounds, Non-distended, No rebound, No guarding, no significant abdominal tenderness. Drainage catheter in place. Musculoskeletal: No contractures, No tenderness Integumentary: No rashes Neurological: Normal speech, Normal strength at 5/5 x4 extr, Normal tone, Normal affect Impression: Severe sepsis without septic shockunknown etiology, possibly 2/2 splenic abscess/pseudocyst with history of splenic infarction with CT scan showing new low-density lesion in the spleen measuring 5.[address]-guided placement of drainage catheter into the splenic fluid collection Acute renal failure secondary to above Hypomagnesemia Hypertension currently with Ortho hypotension Plan: Severe sepsis without septic shockunknown etiology, possibly 2/2 splenic abscess/pseudocyst with history of splenic infarction with CT scan showing new low-density lesion in the spleen measuring 5.[address]-guided placement of drainage catheter into the splenic fluid collection: Drainage catheter in place. Less than 5 cc of fluid noted again within the past 24 hours. Case discussed with surgery. Surgery will evaluate patient for possible removal of drainage catheter today. Physical therapy worked with patient. Patient still with poor conditioning. Will recommend inpatient rehab if the patient is able to be approved. Will discuss with social work specialist. Continue to monitor closely. Patient remains on IV doxycycline 100 mg IV twice daily and meropenem 1000 mg 1 pill twice daily. So far cultures negative. Infectious disease recommended Augmentin at discharge for 5 days. Acute renal failure secondary to above: Renal function back to baseline and stable. Hypomagnesemia: Continue to monitor. Replacement protocol in place. Hypertension currently with Ortho hypotension: Blood pressure still low. Patient remains off blood pressure medicationmetoprolol. Patient remains on midodrine. Will increase midodrine to 5 mg 3 times a day to maintain blood pressure. DVT PPX: SCDs Code status: Full Discharge Plan: Home versus inpatient rehab Time Spent Managing Pts Care (In Minutes): 55
[2021-01-20 05:59] LABS: BUN Blood Urea Nitrogen 15 mg/dL (7-18); Bicarbonate 30 mmol/L (21-32); Glucose Level 98 mg/dL (74-106); Magnesium 1.7 mg/dL (1.8-2.4); Potassium 3.8 mmol/L (3.5-5.1); Sodium Level 136 mmol/L (136-145)
--- NOTE | 2021-01-20 10:01 | P.PN ---
Subjective Date of Service: 01/20/21 Primary Care Provider: none Chief Complaint: Severe sepsis Subjective: No new changes He denies having any urinary complaints. He denies having abdominal pain. Physical Examination - Vital Signs Temperature: 98.6 F Blood Pressure: 98/61 Pulse: 82 Respirations: 16 Pulse Ox (%): 16 - Physical Exam General: In no apparent distress HEENT: Atraumatic, Normocephalic Neck: Supple, JVD not distended Respiratory: Normal air movement Cardiovascular: No rubs, No murmurs Gastrointestinal: Soft and benign Musculoskeletal: No clubbing Integumentary: No warmth Neurological: Normal tone Urinary: Other (no bladder distention) - Studies Medications List Reviewed: Yes Assessment And Plan - Plan # [place] secondary to prerenal, poor perfusion, ATN, superimposed with toxic ATN, secondary to sepsis Resolved Baseline serum creatinine 1.0 as of 12/19/2020, today at 0.9 Has mild proteinuria, random UPCR 1g [place] po fluid intake Monitor renal panel # ? Severe sepsis, ? Splenic abscess/infected pseudocyst History of significant blunt trauma on left rib cage area due to fall in October 2020 Splenic mass may possibly be an infected splenic pseudocyst, which can occur uncommonly after splenic infarct, vs hematoma; status post percutaneous drain placement on 01/14; pending drain removal per Surgery service No history of hematologic disease, no history of pancreatitis TTE in October 2020 was negative for infective endocarditis BNP significantly elevated at 4000; troponin negative; chest x-ray unremarkable Ferritin elevated at 1300 but may just be acute phase reaction Chest on CT scan is unremarkable without evidence of pulmonary hypertension or interstitial lung disease On antibiotics per ID service +Serum protein gap, +mild urine protein gap, paraprotein workup showed slightly elevated kappa and lambda serum free light chains, as well as +RIANNA, but otherwise unremarkable # Relative hypotension Likely secondary to sepsis as above 8 AM serum cortisol & ACTH wnl - adrenal insufficiency unlikely Continue midodrine, titrate/taper as able # Hypokalemia Improved Monitor/replete prn # Hypocalcemia Improved Corrected serum calcium 9.1 Serum intact PTH elevated at 268 25OHD level low at 22 Start D3 2000 IU po daily Monitor, correct hypomagnesemia prn F/u 1,25 OH2D level # Hypomagnesemia Monitor/replete prn # Hypercalcemia Corrected serum calcium level 10.5 Monitor # Debility PT/OT # Dispo Rehab placement ongoing Physician Review: Patient Assessed, Agree with Above Assessment and Plan
[2021-01-20] MEDS: SIMETHICONE 80 MG TAB PO SCH ×3 (10:03→21:12)
[2021-01-20] MEDS: MIDODRINE HCL 5 MG TABLET PO SCH ×3 (10:04→21:13)
[2021-01-20] MEDS: VITAMIN D 1000 UNIT TAB PO SCH (10:05)
[2021-01-20] MEDS: Meropenem 1 GM/100 ML BAG IV SCH ×2 (10:07→21:14)
[2021-01-20] MEDS: DOXYCYCLINE 100 MG in NA CHLORIDE 0.9% 100 ML IVPB SCH ×2 (10:07→22:05)
--- NOTE | 2021-01-21 06:00 | P.PN ---
Subjective Date of Service: 01/21/21 Primary Care Provider: none Chief Complaint: Severe sepsis Subjective: Other (Patient reports improvement. Patient tolerating diet.) Physical Examination - Vital Signs Temperature: 98.9 F Blood Pressure: 93/55 Pulse: 85 Respirations: 17 Pulse Ox (%): 95 - Studies Medications List Reviewed: Yes Assessment & Plan Discharge Plan: Other (Inpatient rehab) Plan to discharge in: 48 Hours Physician Review Additional Text: COVID: Negative CT scan: COMPARISON: No comparisonsCT ANGIO ABD/PELVIS W CONTRAST dated 10/30/2020 TECHNIQUE: Approximately 100 mL nonionic IV contrast was administered to the patient. All CT scans are performed using dose optimization technique as appropriate and may include automated exposure control or mA/KV adjustment according to patient size. FINDINGS: The lungs are clear.No pleural or pericardial effusion.No intrathoracic adenopathy.Circumferential thickening of the esophagus may reflect esophagitis. The liver, adrenal glands, pancreas, and gallbladder are within normal limits. There is a new low-density lesion in the spleen measuring 5.8 centimeters. On the prior CT, there was an area of splenic infarct. No bowel obstruction, free air, free fluid or abscess. No pathologic lymphadenopathy in the abdomen or pelvis. No worrisome osseous finding. IMPRESSION: No acute findings within the chest, abdomen, or pelvis. . 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 The sterility of this fluid is indeterminate by CT. ABUS: COMPARISON: CT ANGIO ABD/PELVIS W CONTRAST dated 10/30/2020; Abdomen Pelvis W Contrast dated 10/28/2020 FINDINGS: Two intra splenic masses are present, the largest measuring 5.6 centimeters. The smaller lesion measures 3.3 centimeters. Both are hypoechoic. No definite flow is present within either collection. IMPRESSION: Two splenic collections identified without demonstrable vascular flow that could represent subacute hematomas but which are of indeterminate sterility. CT Guided Procedure: CLINICAL HISTORY: splenic hematoma vs. abscess COMPARISON: No comparisons FINDINGS: Informed consent was obtained. The patient was placed in the supine position. Next, CT scan was performed of the chest again demonstrating the fluid collection at the spleen which have increased in size. The patient was prepped and draped in sterile fashion. A time-out was performed. The subjacent extensor 19 were administered for local anesthesia. An 8.5 [place] pigtail drainage catheter was trocar into the collection. The catheter was deployed. Approximately 120 cc of purulent foul-smelling material was aspirated. A sample was sent to lab for Gram stain and culture. The catheter was attached to a bulb suction drain. The patient tolerated procedure well. No immediate complications IMPRESSION: Technically successful CT-guided placement of a drainage catheter into a splenic fluid collection favored to represent an abscess. A sample was sent to the lab for analysis. Pathology: DIAGNOSIS Splenic abscess drainage fluid, cytology: - No malignant cells identified - Acute and chronic inflammatory cells Physical exam: General: Alert, In no apparent distress, Oriented x3 HEENT: Atraumatic, PERRLA, Mucous membr. 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 Drainage still noted. Case discussed with surgery yester day. Await further recommendation. Spoke with infectious disease today. So far cultures negative. IV antibiotic therapy will be discontinued. We will continue with Augmentin for now to see how he responds to oral medication. Recheck CT scan of the abdomen and pelvis with contrast to further evaluate spleen. Continue with physical therapy. Case discussed with nephrology. Renal function back to baseline. We will monitor this closely. Patient remains with low blood pressure. Will increase midodrine. Await approval for inpatient rehab. If this is not approved patient will likely need to go home at discharge. Acute renal failure secondary to above: Renal function back to baseline and stable. Hypomagnesemia: Continue to monitor. Replacement protocol in place. Hypertension currently with Ortho hypotension: Patient off blood pressure medicationmetoprolol. Patient remains on midodrine. Will increase midodrine. DVT PPX: SCDs Code status: Full Discharge Plan: Home versus inpatient rehab Time Spent Managing Pts Care (In Minutes): 55
[2021-01-21] MEDS: ACETAMINOPHEN 500 MG TAB PO PRN (06:56)
[2021-01-21 07:45] LABS: BUN Blood Urea Nitrogen 17 mg/dL (7-18); Bicarbonate 29 mmol/L (21-32); Glucose Level 94 mg/dL (74-106); Magnesium 1.7 mg/dL (1.8-2.4); Phosphorus 3.7 mg/dL (2.5-4.9); Sodium Level 136 mmol/L (136-145)
[2021-01-21 07:57] LABS: Absolute Lymphocytes (CBC) 1.8 K/uL (0.7-4.9); Hematocrit 29.3 % (39.6-49.0); Lymphocytes % 24.7 % (15.3-44.8); MPV 7.9 fL (7.6-11.3); RBC Red Blood Cell Count 3.46 M/uL (4.33-5.43)
[2021-01-21] MEDS: DOXYCYCLINE 100 MG in NA CHLORIDE 0.9% 100 ML IVPB SCH (09:00)
[2021-01-21] MEDS: Meropenem 1 GM/100 ML BAG IV SCH (09:00)
[2021-01-21] MEDS: SIMETHICONE 80 MG TAB PO SCH ×3 (09:23→20:24)
[2021-01-21] MEDS: MIDODRINE HCL 5 MG TABLET PO SCH ×3 (09:24→20:24)
[2021-01-21] MEDS: VITAMIN D 1000 UNIT TAB PO SCH (09:24)
--- NOTE | 2021-01-21 10:37 | P.PN ---
Subjective Date of Service: 01/21/21 Primary Care Provider: none Chief Complaint: Severe sepsis Patient seen examined at bedside, doing well no acute complaints. Chronic drain draining serosanguineous fluid. Will discontinue IV doxycycline and meropenem and switch patient to oral Augmentin. Review of Systems 10-point ROS is otherwise unremarkable Physical Examination - Vital Signs Temperature: 97.3 F Blood Pressure: 90/53 Pulse: 82 Respirations: 17 Pulse Ox (%): 98 - Studies Laboratory Last Values WBC 18.00 K/uL (4.3-10.9) H 01/07/21 17:55 RBC 3.57 M/uL (4.33-5.43) L 01/07/21 17:55 Hgb 10.8 g/dL (13.6-17.9) L 01/07/21 17:55 Hct 31.9 % (39.6-49.0) L 01/07/21 17:55 MCV 89.5 fL (80-100) 01/07/21 17:55 MCH 30.2 pg (27.0-35.0) 01/07/21 17:55 MCHC 33.7 g/dL (32.0-36.0) 01/07/21 17:55 RDW 14.8 % (12.1-15.2) 01/07/21 17:55 Plt Count 206 K/uL (152-406) 01/07/21 17:55 MPV 7.8 fL (7.6-11.3) 01/07/21 17:55 Neutrophils % 96.0 % (41.7-73.7) H 01/07/21 17:55 Lymphocytes % 2.3 % (15.3-44.8) L 01/07/21 17:55 Monocytes % 1.5 % (3.3-12.3) L 01/07/21 17:55 Eosinophils % 0.0 % (0-4.4) 01/07/21 17:55 Basophils % 0.2 % (0-1.3) 01/07/21 17:55 Absolute Neutrophils 17.2 K/uL (1.8-8.0) H 01/07/21 17:55 Absolute Lymphocytes 0.4 K/uL (0.7-4.9) L 01/07/21 17:55 Absolute Monocytes 0.3 K/uL (0.1-1.3) 01/07/21 17:55 Absolute Eosinophils 0.0 K/uL (0-0.5) 01/07/21 17:55 Absolute Basophils 0.0 K/uL (0-0.5) 01/07/21 17:55 Platelet Estimate Adeq 01/07/21 17:55 Morphology Comment Not seen (NOT SEEN) 01/07/21 17:55 PT 13.0 SECONDS (9.5-12.5) H 01/07/21 17:55 INR 1.13 01/07/21 17:55 Sodium 139 mmol/L (136-145) 01/07/21 17:55 Potassium 4.1 mmol/L (3.5-5.1) 01/07/21 17:55 Chloride 109 mmol/L (98-107) H 01/07/21 17:55 Carbon Dioxide 18 mmol/L (21-32) L 01/07/21 17:55 BUN 43 mg/dL (7-18) H 01/07/21 17:55 Creatinine 4.43 mg/dL (0.55-1.3) H 01/07/21 17:55 Estimated GFR 16 mL/min (=/>90) L 01/07/21 17:55 Glucose 98 mg/dL (74-106) 01/07/21 17:55 Lactic Acid 3.6 mmol/L (0.4-2.0) H 01/07/21 17:55 Calcium 8.3 mg/dL (8.5-10.1) L 01/07/21 17:55 Magnesium 1.3 mg/dL (1.8-2.4) L* D 01/07/21 17:55 Total Bilirubin 0.4 mg/dL (0.2-1.0) 01/07/21 17:55 Direct Bilirubin 0.2 mg/dL (0-0.2) 01/07/21 17:55 AST 98 U/L (15-37) H 01/07/21 17:55 ALT 82 U/L (12-78) H 01/07/21 17:55 Alkaline Phosphatase 122 U/L (45-117) H 01/07/21 17:55 Rapid Troponin I 0.05 ng/mL (0.0-0.045) H 01/07/21 17:55 NT-Pro-B Natriuret Pep 3997 pg/mL (<125) H 01/07/21 17:55 Serum Total Protein 8.4 g/dL (6.4-8.2) H 01/07/21 17:55 Albumin 2.8 g/dL (3.4-5.0) L 01/07/21 17:55 Globulin 5.6 g/dL (2.3-3.5) H 01/07/21 17:55 Albumin/Globulin Ratio 0.5 (1.1-1.8) L 01/07/21 17:55 Lipase 35 U/L (73-393) L 01/07/21 17:55 Procalcitonin > 200.00 ng/mL (<0.050) H 01/07/21 17:55 SARS-CoV-2 RNA (RT-PCR) Negative (NEGATIVE) 01/07/21 18:20 Smear Scan Ok (OK) 01/07/21 17:55 Medications List Reviewed: Yes Assessment And Plan - Plan Physical Exam: General: Alert, In no apparent distress, Oriented x3 HEENT: Atraumatic, Normocephalic Neck: Supple, 2+ carotid pulse no bruit Respiratory: Clear to auscultation bilaterally, Normal air movement, Diminished Cardiovascular: No edema, Normal pulses, Regular rate/rhythm Capillary refill: <2 Seconds Gastrointestinal: Normal bowel sounds, Non-distended Musculoskeletal: No clubbing, No swelling, No contractures, No erythema Integumentary: No rashes, No breakdown Neurological: Normal gait, Normal speech Conclusions/Impression: Antibiotics: Received a single dose of vancomycin in the ED Augmentin start: 01/21 stop: -- meropenem Start:01/07 stop: 01/21 Doxycycline Start: 01/08 stop: 01/21 antibiotics continued, awaiting results from splenic fluid collection culture. Assessment: -sepsis likely secondary to his splenic abscess versus hematoma -renal insufficiency -anemia -protein caloric malnutrition Plan: -Blood cultures: No growth @24 hr. Urine culture showed no growth. CT abdomen and pelvis performed on 01/07 showed splenic lesion with fluid collection, unspecified if hematoma versus abscess formation vs infected pseudocyst. Splenic and drainage catheter was placed on 01/14, fluid collected was sent to lab--no malignant cells identified. Repeat CT with contrast pending. Patient received a single dose of vancomycin in the ED, was on meropenem from 01/07 through 01/21 and doxycycline from 01/08 through 01/21. Patient switched to oral Augmentin on 01/21 recommend continuing for duration of hospital stay. -medical management per primary team -continue monitor CBC and BMP -continue monitor for signs infection Plan of care discussed with Dr. Whipple Thank you for consultation. Physician Review: Patient Assessed, Agree with Above Assessment and Plan
[2021-01-21] MEDS ORDERED: NA CHLORIDE 0.9% 1,000 ML IV ONE (11:25)
[2021-01-21] MEDS ORDERED: Magnesium Sulfate 2gm IVPB 2 G/50 ML BAG IV ONE (11:26)
--- NOTE | 2021-01-21 13:59 | RAD REPORT ---
EXAM DESCRIPTION: CT - Abdomen Pelvis W Contrast - 01/21/2021 1:31 pm CLINICAL HISTORY: Follow up Splenic abscess COMPARISON: Abdomen Pelvis W Contrast dated 10/28/2020; CT ANGIO ABD/PELVIS W CONTRAST dated 021; Chest Abd Pelvis Wo Con dated 01/07/2021; Aspiration Guidance dated 01/14/2021 TECHNIQUE: Biphasic, helical CT imaging of the abdomen and pelvis was performed following 100 ml non -ionic IV contrast. No oral contrast administered. All CT scans are performed using dose optimization technique as appropriate and may include automated exposure control or mA/KV adjustment according to patient size. FINDINGS: Trace amount of fluid and atelectasis are present in the posterior gutter on the right. Le ft hemidiaphragm elevation is present. Lung parenchymal opacification is probably chronic atelectasis . There is adjacent small pleural effusion on the left which is probably loculated. There is no air w ithin the pleural fluid. No specific findings that would indicate subsequently detailed drainage cath eter traversed the lateral pleural recess or there is direct extension through the diaphragm into the lung base. No specific CT findings for empyema. The liver and pancreas show no suspicious finding. No gallbladder or biliary tree abnormality. Prior imaging showed a bilobed abnormal fluid collection within and/or adjacent to the spleen. Percu taneous drainage catheter was placed January 14 in remains in position. The superior aspect of the kings richelle collection which may be in the spleen measures 3 x 2 cm on the current examination, previously 5 .5 cm January 14. The more inferior aspect of the bilobed collection is 3.5 by 2.0 cm compared to appr oximately 8 x 5 cm. No new abnormal fluid collection within the peritoneal or retroperitoneal spaces. Symmetric renal function is seen with no hydronephrosis or suspicious renal mass. No pyelonephritis o r acute parenchymal process. No bladder wall thickening or mass. Minimal air within the lumen of the bladder could be from catheterization procedure. No adrenal abnormalities. Moderate stool volume is present in the colon. No acute GI process seen. No free air or pneumatosis. No hernia, mass or bulky lymphadenopathy. No suspicious bony findings. IMPRESSION: The splenic/perisplenic bilobed abscess or abnormal fluid collection has substantially r educed in size. Small quantity of fluid remains. Drainage catheter remains in place. The uninvolved splenic parenchyma enhances normally. No new splenic finding. No abscess or other abnormal fluid collection elsewhere in the peritoneal or retroperitoneal spaces. Patient has a probably loculated fluid collection in the posterior gutter on the left with partial at electasis of the left lower lobe. No specific CT findings that would indicate empyema. No specific fi nding to indicate that the drainage catheter traversed the lateral pleural recess.
--- NOTE | 2021-01-21 14:21 | PN ---
Date of Progress Note: 01/21/2021 Subjective: The patient was admitted with acute kidney injury secondary to prerenal. The patient's after hydration kidney function has been normalized. The patient had low blood pressure with positiv e orthostatic. The patient was started on midodrine. Physical Examination: Vital Signs: Blood pressure 93/55, pulse of 85, afebrile. The patient had still good urine output o f 2600. Chest: Clear to auscultation. Heart: S1, S2. Regular. Abdomen: Soft, nontender. Extremity: No edema. Neurological: Alert. No focality. According to the patient, the patient does not have any dizzines s. Laboratory Data: WBC 7.3, H and H 10.2/29.3. Sodium 136, potassium 4, bicarb 29, BUN 17, creatinine 0.8, calcium 9.3, phosphorus 3.7, magnesium 1.7. Current Medications: The patient on include Augmentin, midodrine 10 t.i.d., simethicone, cholecalcif belle. Assessment And Plan: 1.Acute kidney injury secondary to prerenal, recovered, resolved. 2.Hypotension with orthostatic, possible dehydration. I am going to bolus the patient with another liter of normal saline today. Continue midodrine. Consider stocking socks. Hold all blood pressure medications. 3.Acidosis secondary to renal failure, has been resolved. 4.Hypokalemia, resolved. 5.Hypomagnesemia. We will supplement. 6.Splenic collection, status post drainage. The patient was switched to Augmentin today. We will f jose antonio up with ID. JORGE/PILY Voice ID: [id number] Report ID: [id number]
[2021-01-21] MEDS: AMOX/K CLAV 875 MG TAB PO SCH (20:24)
--- NOTE | 2021-01-22 06:08 | P.PN ---
Subjective Date of Service: 01/22/21 Primary Care Provider: none Chief Complaint: Severe sepsis Subjective: Other (Patient still reports fatigue. Currently stable at this time. No significant abdominal pain, nausea or vomiting.) Physical Examination - Vital Signs Temperature: 97.8 F Blood Pressure: 99/58 Pulse: 77 Respirations: 17 Pulse Ox (%): 95 - Studies Medications List Reviewed: Yes Assessment & Plan Discharge Plan: Other (Inpatient rehab) Plan to discharge in: 24 Hours Physician Review Additional Text: COVID: Negative CT scan: COMPARISON: No comparisonsCT ANGIO ABD/PELVIS W CONTRAST dated 10/30/2020 TECHNIQUE: Approximately 100 mL nonionic IV contrast was administered to the patient. All CT scans are performed using dose optimization technique as appropriate and may include automated exposure control or mA/KV adjustment according to patient size. FINDINGS: The lungs are clear.No pleural or pericardial effusion.No intrathoracic adenopathy.Circumferential thickening of the esophagus may reflect esophagitis. The liver, adrenal glands, pancreas, and gallbladder are within normal limits. There is a new low-density lesion in the spleen measuring 5.8 centimeters. On the prior CT, there was an area of splenic infarct. No bowel obstruction, free air, free fluid or abscess. No pathologic lymphadenop athy in the abdomen or pelvis. No worrisome osseous finding. IMPRESSION: No acute findings within the chest, abdomen, or pelvis. . 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 The sterility of this fluid is indeterminate by CT. ABUS: COMPARISON: CT ANGIO ABD/PELVIS W CONTRAST dated 10/30/2020; Abdomen Pelvis W Contrast dated 10/28/2020 FINDINGS: Two intra splenic masses are present, the largest measuring 5.6 centimeters. The smaller lesion measures 3.3 centimeters. Both are hypoechoic. No definite flow is present within either collection. IMPRESSION: Two splenic collections identified without demonstrable vascular flow that could represent subacute hematomas but which are of indeterminate sterility. CT Guided Procedure: CLINICAL HISTORY: splenic hematoma vs. abscess COMPARISON: No comparisons FINDINGS: Informed consent was obtained. The patient was placed in the supine position. Next, CT scan was performed of the chest again demonstrating the fluid collection at the spleen which have increased in size. The patient was prepped and draped in sterile fashion. A time-out was performed. The subjacent extensor 19 were administered for local anesthesia. An 8.5 Urdu pigtail drainage catheter was trocar into the collection. The catheter was deployed. Approximately 120 cc of purulent foul-smelling material was aspirated. A sample was sent to lab for Gram stain and culture. The catheter was attached to a bulb suction drain. The patient tolerated procedure well. No immediate complications IMPRESSION: Technically successful CT-guided placement of a drainage catheter into a splenic fluid collection favored to represent an abscess. A sample was sent to the lab for analysis. Pathology: DIAGNOSIS Splenic abscess drainage fluid, cytology: - No malignant cells identified - Acute and chronic inflammatory cells Follow up CT scan: COMPARISON: Abdomen Pelvis W Contrast dated 10/28/2020; CT ANGIO ABD/PELVIS W CONTRAST dated 10/30/2020; Chest Abd Pelvis Wo Con dated 01/07/2021; Aspiration Guidance dated 01/14/2021 TECHNIQUE: Biphasic, helical CT imaging of the abdomen and pelvis was performed following 100 ml non-ionic IV contrast. No oral contrast administered. All CT scans are performed using dose optimization technique as appropriate and may include automated exposure control or mA/KV adjustment according to patient size. FINDINGS: Trace amount of fluid and atelectasis are present in the posterior gutter on the right. Left hemidiaphragm elevation is present. Lung parenchymal opacification is probably chronic atelectasis. There is adjacent small pleural effusion on the left which is probably loculated. There is no air within the pleural fluid. No specific findings that would indicate subsequently detailed drainage catheter traversed the lateral pleural recess or there is direct extension through the diaphragm into the lung base. No specific CT findings for empyema. The liver and pancreas show no suspicious finding. No gallbladder or biliary tree abnormality. Prior imaging showed a bilobed abnormal fluid collection within and/or adjacent to the spleen. Percutaneous drainage catheter was placed January 14 in remains in position. The superior aspect of the bilobed collection which may be in the spleen measures 3 x 2 cm on the current examination, previously 5.5 cm January 14. The more inferior aspect of the bilobed collection is 3.5 by 2.0 cm compared to approximately 8 x 5 cm. No new abnormal fluid collection within the peritoneal or retroperitoneal spaces. Symmetric renal function is seen with no hydronephrosis or suspicious renal mass. No pyelonephritis or acute parenchymal process. No bladder wall thickening or mass. Minimal air within the lumen of the bladder could be from catheterization procedure. No adrenal abnormalities. Moderate stool volume is present in the colon. No acute GI process seen. No free air or pneumatosis. No hernia, mass or bulky lymphadenopathy. No suspicious bony findings. IMPRESSION: The splenic/perisplenic bilobed abscess or abnormal fluid collection has substantially reduced in size. Small quantity of fluid remains. Drainage catheter remains in place. The uninvolved splenic parenchyma enhances normally. No new splenic finding. No abscess or other abnormal fluid collection elsewhere in the peritoneal or retroperitoneal spaces. Patient has a probably loculated fluid collection in the posterior gutter on the left with partial atelectasis of the left lower lobe. No specific CT findings that would indicate empyema. No specific finding to indicate that the drainage catheter traversed the lateral pleural recess. Physical exam: General: Alert, In no apparent distress, Oriented x3 HEENT: Atraumatic, PERRLA, Mucous membr. moist/pink, EOMI, Sclerae nonicteric Neck: Supple, 2+ carotid pulse no bruit, No LAD, Without JVD or thyroid a bnormality Respiratory: Clear to auscultation bilaterally, Normal air movement Cardiovascular: Regular rate/rhythm, Normal S1 S2 Gastrointestinal: Normal bowel sounds, Non-distended, No rebound, No guarding, no significant abdominal tenderness Musculoskeletal: No contractures, No tenderness Integumentary: No rashes Neurological: Normal speech, Normal strength at 5/5 x4 extr, Normal tone, Normal affect Impression: Severe sepsis without septic shockunknown etiology, possibly 2/2 splenic abscess/pseudocyst with history of splenic infarction with CT scan showing new low-density lesion in the spleen measuring 5.[address]-guided placement of drainage catheter into the splenic fluid collection Acute renal failure secondary to above Hypomagnesemia Hypertension currently with Ortho hypotension Plan: Severe sepsis without septic shockunknown etiology, possibly 2/2 splenic abscess/pseudocyst with history of splenic infarction with CT scan showing new low-density lesion in the spleen measuring 5.[address]-guided placement of drainage catheter into the splenic fluid collection: Over the last several days drainage output has been 5 mL, 5 mL, 15 mL. Waiting to see what he put out over the last [address] scan shows improvement in splenic abscess. Suspected loculated fluid collection in the posterior gutter of the left lung with partial atelectasis noted. CT shows no evidence of empyema. No specific finding to indicate that the drainage catheter traversed the lateral pleural recess as noted by radiology. Case discussed in detail with infectious disease yesterday. Infectious disease discontinued IV antibiotic therapy and switched over to Augmentin oral. Case discussed with surgery yesterday as well. Await further recommendations from surgery. Case discussed with nephrology yesterday. Blood pressure remains low. Midodrine was increased yesterday. We will give IV fluid bolus again today. Will check orthostatics. Will recheck procalcitonin. Will discuss with team of physicians for plan of care. Continue physical therapy. Awaiting approval for inpatient rehab but the patient needs still needs to continue to participate in order for final approval. Acute renal failure secondary to above: Renal function back to baseline and stab le. Hypomagnesemia: Continue to monitor. Replacement protocol in place. Hypertension currently with Ortho hypotension: Blood pressure remains low. Will give fluid bolus this morning. Will check orthostatics. Home medication of metoprolol discontinued. Continue with midodrine which has been increased over the last 24 hours. Will discuss with nephrology for further recommendations. DVT PPX: SCDs Code status: Full Discharge Plan: Home versus inpatient rehab Time Spent Managing Pts Care (In Minutes): 55
[2021-01-22] MEDS: SIMETHICONE 80 MG TAB PO SCH ×3 (09:23→20:49)
[2021-01-22] MEDS: MIDODRINE HCL 5 MG TABLET PO SCH ×3 (09:23→20:49)
[2021-01-22] MEDS: VITAMIN D 1000 UNIT TAB PO SCH (09:23)
[2021-01-22] MEDS: AMOX/K CLAV 875 MG TAB PO SCH ×2 (09:23→20:49)
[2021-01-22] MEDS ORDERED: NA CHLORIDE 0.9% 500 ML IV ONE (10:16)
[2021-01-22 11:12] LABS: Absolute Lymphocytes (CBC) 1.7 K/uL (0.7-4.9); Basophils % 0.4 % (0-1.3); Hematocrit 28.2 % (39.6-49.0); Lymphocytes % 23.9 % (15.3-44.8); MPV 7.2 fL (7.6-11.3); RBC Red Blood Cell Count 3.32 M/uL (4.33-5.43)
[2021-01-22 12:04] LABS: BUN Blood Urea Nitrogen 14 mg/dL (7-18); Bicarbonate 29 mmol/L (21-32); Glucose Level 112 mg/dL (74-106); Magnesium 1.9 mg/dL (1.8-2.4); Potassium 3.9 mmol/L (3.5-5.1); Sodium Level 135 mmol/L (136-145)
[2021-01-22] MEDS ORDERED: NA CHLORIDE 0.9% 1,000 ML IV ONE (12:13)
[2021-01-22] MEDS ORDERED: MAGNESIUM SULFATE 1 gm IVPB 1 GM/100 ML BAG IV ONE (12:13)
--- NOTE | 2021-01-22 12:13 | P.PN ---
Subjective Date of Service: 01/22/21 Primary Care Provider: none Chief Complaint: Severe sepsis Patient seen examined at bedside, doing well. Repeat CT abdomen pelvis with contrast showed small fluid quant T remaining around spleen. Has improved significantly. Patient tolerating oral antibiotics well. WBC within normal range, afebrile. Review of Systems 10-point ROS is otherwise unremarkable Physical Examination - Vital Signs Temperature: 99.1 F Blood Pressure: 107/59 Pulse: 81 Respirations: 16 Pulse Ox (%): 98 - Studies Laboratory Last Values WBC 18.00 K/uL (4.3-10.9) H 01/07/21 17:55 RBC 3.57 M/uL (4.33-5.43) L 01/07/21 17:55 Hgb 10.8 g/dL (13.6-17.9) L 01/07/21 17:55 Hct 31.9 % (39.6-49.0) L 01/07/21 17:55 MCV 89.5 fL (80-100) 01/07/21 17:55 MCH 30.2 pg (27.0-35.0) 01/07/21 17:55 MCHC 33.7 g/dL (32.0-36.0) 01/07/21 17:55 RDW 14.8 % (12.1-15.2) 01/07/21 17:55 Plt Count 206 K/uL (152-406) 01/07/21 17:55 MPV 7.8 fL (7.6-11.3) 01/07/21 17:55 Neutrophils % 96.0 % (41.7-73.7) H 01/07/21 17:55 Lymphocytes % 2.3 % (15.3-44.8) L 01/07/21 17:55 Monocytes % 1.5 % (3.3-12.3) L 01/07/21 17:55 Eosinophils % 0.0 % (0-4.4) 01/07/21 17:55 Basophils % 0.2 % (0-1.3) 01/07/21 17:55 Absolute Neutrophils 17.2 K/uL (1.8-8.0) H 01/07/21 17:55 Absolute Lymphocytes 0.4 K/uL (0.7-4.9) L 01/07/21 17:55 Absolute Monocytes 0.3 K/uL (0.1-1.3) 01/07/21 17:55 Absolute Eosinophils 0.0 K/uL (0-0.5) 01/07/21 17:55 Absolute Basophils 0.0 K/uL (0-0.5) 01/07/21 17:55 Platelet Estimate Adeq 01/07/21 17:55 Morphology Comment Not seen (NOT SEEN) 01/07/21 17:55 PT 13.0 SECONDS (9.5-12.5) H 01/07/21 17:55 INR 1.13 01/07/21 17:55 Sodium 139 mmol/L (136-145) 01/07/21 17:55 Potassium 4.1 mmol/L (3.5-5.1) 01/07/21 17:55 Chloride 109 mmol/L (98-107) H 01/07/21 17:55 Carbon Dioxide 18 mmol/L (21-32) L 01/07/21 17:55 BUN 43 mg/dL (7-18) H 01/07/21 17:55 Creatinine 4.43 mg/dL (0.55-1.3) H 01/07/21 17:55 Estimated GFR 16 mL/min (=/>90) L 01/07/21 17:55 Glucose 98 mg/dL (74-106) 01/07/21 17:55 Lactic Acid 3.6 mmol/L (0.4-2.0) H 01/07/21 17:55 Calcium 8.3 mg/dL (8.5-10.1) L 01/07/21 17:55 Magnesium 1.3 mg/dL (1.8-2.4) L* D 01/07/21 17:55 Total Bilirubin 0.4 mg/dL (0.2-1.0) 01/07/21 17:55 Direct Bilirubin 0.2 mg/dL (0-0.2) 01/07/21 17:55 AST 98 U/L (15-37) H 01/07/21 17:55 ALT 82 U/L (12-78) H 01/07/21 17:55 Alkaline Phosphatase 122 U/L (45-117) H 01/07/21 17:55 Rapid Troponin I 0.05 ng/mL (0.0-0.045) H 01/07/21 17:55 NT-Pro-B Natriuret Pep 3997 pg/mL (<125) H 01/07/21 17:55 Serum Total Protein 8.4 g/dL (6.4-8.2) H 01/07/21 17:55 Albumin 2.8 g/dL (3.4-5.0) L 01/07/21 17:55 Globulin 5.6 g/dL (2.3-3.5) H 01/07/21 17:55 Albumin/Globulin Ratio 0.5 (1.1-1.8) L 01/07/21 17:55 Lipase 35 U/L (73-393) L 01/07/21 17:55 Procalcitonin > 200.00 ng/mL (<0.050) H 01/07/21 17:55 SARS-CoV-2 RNA (RT-PCR) Negative (NEGATIVE) 01/07/21 18:20 Smear Scan Ok (OK) 01/07/21 17:55 Medications List Reviewed: Yes Assessment And Plan - Plan Physical Exam: General: Alert, In no apparent distress, Oriented x3 HEENT: Atraumatic, Normocephalic Neck: Supple, 2+ carotid pulse no bruit Respiratory: Clear to auscultation bilaterally, Normal air movement, Diminished Cardiovascular: No edema, Normal pulses, Regular rate/rhythm Capillary refill: <2 Seconds Gastrointestinal: Normal bowel sounds, Non-distended Musculoskeletal: No clubbing, No swelling, No contractures, No erythema Integumentary: No rashes, No breakdown Neurological: Normal gait, Normal speech Conclusions/Impression: Antibiotics: Received a single dose of vancomycin in the ED Augmentin start: 01/21 stop: -- meropenem Start:01/07 stop: 01/21 Doxycycline Start: 01/08 stop: 01/21 antibiotics continued, awaiting results from splenic fluid collection culture. Assessment: -sepsis likely secondary to his splenic abscess versus hematoma -renal insufficiency -anemia -protein caloric malnutrition Plan: -Blood cultures: No growth @24 hr. Urine culture showed no growth. CT abdomen and pelvis performed on 01/07 showed splenic lesion with fluid collection, unspecified if hematoma versus abscess formation vs infected pseudocyst. Splenic and drainage catheter was placed on 01/14, fluid collected was sent to lab--no malignant cells identified. Repeat CT with contrast: Shows only small fluid quantity remaining, significant improvement since last CT. Patient received a single dose of vancomycin in the ED, was on meropenem from 01/07 through 01/21 and doxycycline from 01/08 through 01/21. Patient switched to oral Augmentin on 01/21 recommend continuing for duration of hospital stay. -medical management per primary team -continue monitor CBC and BMP -continue monitor for signs infection Plan of care discussed with Dr. Whipple Thank you for consultation. Physician Review: Patient Assessed, Agree with Above Assessment and Plan
--- NOTE | 2021-01-22 15:12 | PN ---
Date of Progress Note: 01/22/2021 Subjective: The patient was admitted with acute kidney injury secondary to prerenal and dehydration. The patient with septic shock secondary to spleen abscess. The patient also had hypokalemia and hy pomagnesemia with hyponatremia. The patient was treated. The patient developed orthostatic hypotens ion. The patient was placed on midodrine, has been stable. The patient denied any dizziness. Physical Examination: Vital Signs: Blood pressure 107/59, pulse of 81, afebrile. The patient had good urine output of 2 L . Chest: Clear to auscultation. Heart: S1, S2. Regular. Abdomen: Soft, nontender. Extremities: No edema. Neurologic: Alert. No focality. Laboratory Data: WBC 7.1, H and H 9.6/28.2. Sodium 135, potassium 3.9, bicarb 29, BUN 14, creatinin e 0.8, calcium of 9, magnesium of 1.9. Assessment And Plan: 1.Acute kidney injury secondary to toxic ATN, poor perfusion, ATN, recovered, resolved. 2.Hypertension, currently hypotension. I am going to give the patient another bolus of normal salin e. Continue midodrine. The patient is asymptomatic. 3.Hyponatremia secondary to depletional. Corrected. 4.Hypomagnesemia. We will supplement. 5.Spleen infarction with collection, status post treatment. Currently, the patient is on oral Augme ntin, afebrile. The patient will follow up with ID. The patient cleared from the Renal standpoint for discharge planning. JORGE/PILY Voice ID: [id number] Report ID: [id number]
[2021-01-23] MEDS ORDERED: SIMETHICONE 80 MG TAB PO ONE (03:10)
[2021-01-23] MEDS: ACETAMINOPHEN 500 MG TAB PO PRN ×2 (05:35→22:30)
--- NOTE | 2021-01-23 06:06 | P.PN ---
Subjective Date of Service: 01/23/21 Primary Care Provider: none Chief Complaint: Severe sepsis Subjective: Doing well (Patient reports improvement. Blood pressure still low but overall stable.) Physical Examination - Vital Signs Temperature: 97.9 F Blood Pressure: 106/56 Pulse: 77 Respirations: 17 Pulse Ox (%): 95 - Studies Medications List Reviewed: Yes Assessment & Plan Discharge Plan: Other (Inpatient rehab) Plan to discharge in: 48 Hours Physician Review Additional Text: COVID: Negative CT scan: COMPARISON: No comparisonsCT ANGIO ABD/PELVIS W CONTRAST dated 10/30/2020 TECHNIQUE: Approximately 100 mL nonionic IV contrast was administered to the patient. All CT scans are performed using dose optimization technique as appropriate and may include automated exposure control or mA/KV adjustment according to patient size. FINDINGS: The lungs are clear.No pleural or pericardial effusion.No intrathoracic adenopathy.Circumferential thickening of the esophagus may reflect esophagitis. The liver, adrenal glands, pancreas, and gallbladder are within normal limits. There is a new low-density lesion in the spleen measuring 5.8 centimeters. On the prior CT, there was an area of splenic infarct. No bowel obstruction, free air, free fluid or abscess. No pathologic lymphadenopathy in the abdomen or pelvis. No worrisome osseous finding. IMPRESSION: No acute findings within the chest, abdomen, or pelvis. . 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 The sterility of this fluid is indeterminate by CT. ABUS: COMPARISON: CT ANGIO ABD/PELVIS W CONTRAST dated 10/30/2020; Abdomen Pelvis W Contrast dated 10/28/2020 FINDINGS: Two intra splenic masses are present, the largest measuring 5.6 centimeters. The smaller lesion measures 3.3 centimeters. Both are hypoechoic. No definite flow is present within either collection. IMPRESSION: Two splenic collections identified without demonstrable vascular flow that could represent subacute hematomas but which are of indeterminate sterility. CT Guided Procedure: CLINICAL HISTORY: splenic hematoma vs. abscess COMPARISON: No comparisons FINDINGS: Informed consent was obtained. The patient was placed in the supine position. Next, CT scan was performed of the chest again demonstrating the fluid collection at the spleen which have increased in size. The patient was prepped and draped in sterile fashion. A time-out was performed. The subjacent extensor 19 were administered for local anesthesia. An 8.5 Kinyarwanda pigtail drainage catheter was trocar into the collection. The catheter was deployed. Approximately 120 cc of purulent foul-smelling material was aspirated. A sample was sent to lab for Gram stain and culture. The catheter was attached to a bulb suction drain. The patient tolerated procedure well. No immediate complications IMPRESSION: Technically successful CT-guided placement of a drainage catheter into a splenic fluid collection favored to represent an abscess. A sample was sent to the lab for analysis. Pathology: DIAGNOSIS Splenic abscess drainage fluid, cytology: - No malignant cells identified - Acute and chronic inflammatory cells Follow up CT scan: COMPARISON: Abdomen Pelvis W Contrast dated 10/28/2020; CT ANGIO ABD/PELVIS W CONTRAST dated 10/30/2020; Chest Abd Pelvis Wo Con dated 01/07/2021; Aspiration Guidance dated 01/14/2021 TECHNIQUE: Biphasic, helical CT imaging of the abdomen and pelvis was performed following 100 ml non-ionic IV contrast. No oral contrast administered. All CT scans are performed using dose optimization technique as appropriate and may include automated exposure control or mA/KV adjustment according to patient size. FINDINGS: Trace amount of fluid and atelectasis are present in the posterior gutter on the right. Left hemidiaphragm elevation is present. Lung parenchymal opacification is probably chronic atelectasis. There is adjacent small pleural effusion on the left which is probably loculated. There is no air within the pleural fluid. No specific findings that would indicate subsequently detailed drainage catheter traversed the lateral pleural recess or there is direct extension through the diaphragm into the lung base. No specific CT findings for empyema. The liver and pancreas show no suspicious finding. No gallbladder or biliary tree abnormality. Prior imaging showed a bilobed abnormal fluid collection within and/or adjacent to the spleen. Percutaneous drainage catheter was placed January 14 in remains in position. The superior aspect of the bilobed collection which may be in the spleen measures 3 x 2 cm on the current examination, previously 5.5 cm January 14. The more inferior aspect of the bilobed collection is 3.5 by 2.0 cm compared to approximately 8 x 5 cm. No new abnormal fluid collection within the peritoneal or retroperitoneal spaces. Symmetric renal function is seen with no hydronephrosis or suspicious renal mass. No pyelonephritis or acute parenchymal process. No bladder wall thickening or mass. Minimal air within the lumen of the bladder could be from catheterization procedure. No adrenal abnormalities. Moderate stool volume is present in the colon. No acute GI process seen. No free air or pneumatosis. No hernia, mass or bulky lymphadenopathy. No suspicious bony findings. IMPRESSION: The splenic/perisplenic bilobed abscess or abnormal fluid collection has substantially reduced in size. Small quantity of fluid remains. Drainage catheter remains in place. The uninvolved splenic parenchyma enhances normally. No new splenic finding. No abscess or other abnormal fluid collection elsewhere in the peritoneal or retroperitoneal spaces. Patient has a probably loculated fluid collection in the posterior gutter on the left with partial atelectasis of the left lower lobe. No specific CT findings that would indicate empyema. No specific finding to indicate that the drainage catheter traversed the lateral pleural recess. Physical exam: General: Alert, In no apparent distress, Oriented x3 HEENT: Atraumatic, PERRLA, Mucous membr. moist/pink, EOMI, Sclerae nonicteric Neck: Supple, 2+ carotid pulse no bruit, No LAD, Without JVD or thyroid abnormality Respiratory: Clear to auscultation bilaterally, Normal air movement Cardiovascular: Regular rate/rhythm, Normal S1 S2 Gastrointestinal: Normal bowel sounds, Non-distended, No rebound, No guarding, no significant abdominal tenderness, drainage catheter removed yesterday. Musculoskeletal: No contractures, No tenderness Integumentary: No rashes Neurological: Normal speech, Normal strength at 5/5 x4 extr, Normal tone, Normal affect Impression: Severe sepsis without septic shockunknown etiology, possibly 2/2 splenic abscess/pseudocyst with history of splenic infarction with CT scan showing new low-density lesion in the spleen measuring 5.[address]-guided placement of drainage catheter into the splenic fluid collection Acute renal failure secondary to above Hypomagnesemia Hypertension currently with Ortho hypotension Plan: Severe sepsis without septic shockunknown etiology, possibly 2/2 splenic abscess/pseudocyst with history of splenic infarction with CT scan showing new low-density lesion in the spleen measuring 5.[address]-guided placement of drainage catheter into the splenic fluid collection: Drainage ca theter removed yesterday. This was recommended by surgery. Case discussed in detail with nephrology. Patient remains with hypotension. Will increase midodrine. Hypotension etiology still unknown. Need to consider amyloidosis. Nephrology discussed case with surgery. Surgery to perform abdominal fat pad biopsy with special stains to confirm. Nephrology to order other lab to further evaluate. Patient remains on Augmentin. Patient remains afebrile. Can discontinue Augmentin at discharge. Once the blood pressure is stable then will consider inpatient rehab discharge. Patient to continue to work with physical therapy at this time. Patient still not clinically ready for discharge. I will turn to service over to the hospitalist team tomorrow. I will go plan of care with him. Acute renal failure secondary to above: Renal function back to baseline and stable. Hypomagnesemia: Continue to monitor. Replacement protocol in place. Hypertension currently with Ortho hypotension: Blood pressure remains low. Case discussed at length with nephrology. Will increase midodrine to 15 mg 1 pill 3 times a day. Monitor orthostatics. Nephrology evaluating for amyloidosis. Once blood pressure stable then will consider transfer to inpatient rehab DVT PPX: SCDs Code status: Full Discharge Plan: Inpatient rehab once medically cleared. Time Spent Managing Pts Care (In Minutes): 55
--- NOTE | 2021-01-23 06:22 | P.PN ---
Subjective Date of Service: 01/23/21 Primary Care Provider: none Chief Complaint: Severe sepsis He denies having any urinary complaints. He denies having abdominal pain or shortness of breath. Physical Examination - Vital Signs Temperature: 97.9 F Blood Pressure: 106/56 Pulse: 77 Respirations: 17 Pulse Ox (%): 95 - Physical Exam General: In no apparent distress HEENT: Atraumatic, Normocephalic Neck: Supple, JVD not distended Respiratory: Clear to auscultation bilaterally Cardiovascular: No edema, No rubs, No murmurs Gastrointestinal: Normal bowel sounds, Soft and benign Musculoskeletal: No clubbing Integumentary: No warmth Neurological: Normal speech, Normal tone Urinary: Other (no bladder distention) External genitalia: Deferred Rectal: Deferred - Studies Medications List Reviewed: Yes Assessment And Plan - Plan # [place] secondary to prerenal, poor perfusion, ATN, superimposed with toxic ATN, secondary to sepsis Resolved Baseline serum creatinine 1.0 as of 12/19/2020, today at 0.8 Has mild proteinuria, random UPCR 1g Flushing po fluid intake Monitor renal panel # ? Severe sepsis, ? Splenic abscess/infected pseudocyst History of significant blunt trauma on left rib cage area due to fall in October 2020 Splenic mass may possibly be an infected splenic pseudocyst, which can occur uncommonly after splenic infarct, vs hematoma; status post percutaneous drain placement on 01/14, removed on 01/23 On abx via Augmentin per ID service No history of hematologic disease, no history of pancreatitis TTE in October 2020 was negative for infective endocarditis BNP significantly elevated at 4000; troponin negative; chest x-ray unremarkable Ferritin elevated at 1300 but may just be acute phase reaction Chest on CT scan is unremarkable without evidence of pulmonary hypertension or interstitial lung disease On antibiotics per ID service +Serum protein gap, +mild urine protein gap, paraprotein workup showed slightly elevated kappa and lambda serum free light chains, as well as +RIANNA, see below # Persistent hypotension, suspect autonomic neuropathy/failure from infiltrative dse, possible AL/primary Amyloidosis, 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) TTE unremarkable No evidence of pulmonary hypertension on CT and chest CT Recent CT with contrast on 01/07/2021 showed no evidence of hepatic outflow obstruction to explain his hypotension He has 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 but 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 8 AM serum cortisol & ACTH wnl - adrenal insufficiency unlikely TSH only slightly elevated He has serum protein gap as well as mild urine protein gap; he has low level positivity of his serum free light chains (< 500) + high level albuminuria (> 5 mg/dL)--> DDx include AL amyloidosis & LCDD He has multiple electrolyte depletions including hypokalemia, hypomagnesemia, and hypocalcemia, as well as vitamin D deficiency which is suggestive of poor GI tract absorption, which is also concerning for amyloidosis or LCDD causing GI involvement RIANNA positive, negative HIV screen, serum B12 level within normal limits F/u HbA1c, SS-A, SS-B, RPR, anti-TTG Abs Proceed with pursuing a tissue diagnosis. Discussed w/ Dr. Chandra & Dr. Garduno & Dr. Blackman. He is scheduled to undergo an abdominal fat pad biopsy on 01/24 c/o Surgery service Dr. Garduno. I discussed today with Dr. Garduno & pathologist Dr. Blackman to stain tissue sample with [place] red and Thioflavin T. Tissue sample will be sent out to [facility] at the [facility]. If abdominal fat pad biopsy is negative, we will need to pursue other tissue sampling. I would recommend to do a bone marrow biopsy next. If bone marrow is also negative for amyloid and light chains, next option would include upper and lower GI endoscopy with biopsies for possible GI tract involvement w/ amyloid or LCDD, as well as a kidney biopsy. Would also consider a tissue sample from the splenic lesion. Nothing by mouth after midnight tonight Continue midodrine maximum dose 15 mg by mouth 3 times a day Monitor orthostatic vitals. If he is orthostatic, he will benefit from bilateral thigh-high graduated compression stockings, with at least 20-30 mmHg ankle pressure, to mitigate orthostasis. # Hypokalemia Improved Monitor/replete prn # Hypocalcemia Improved Serum intact PTH elevated at 268 25OHD level low at 22 Cont D3 2000 IU po daily Monitor, correct hypomagnesemia prn # Hypomagnesemia Received IV magnesium with the patient today Monitor/replete prn # Alkalosis Monitor # Debility PT/OT # Dispo Rehab placement ongoing Physician Review: Patient Assessed, Agree with Above Assessment and Plan
[2021-01-23] MEDS ORDERED: POTASSIUM CL SA 10 MEQ TAB PO ONE (09:00)
[2021-01-23] MEDS: AMOX/K CLAV 875 MG TAB PO SCH ×2 (09:04→20:51)
[2021-01-23] MEDS: MIDODRINE HCL 5 MG TABLET PO SCH ×3 (09:04→20:51)
[2021-01-23] MEDS: SIMETHICONE 80 MG TAB PO SCH ×3 (09:05→20:51)
[2021-01-23] MEDS: VITAMIN D 1000 UNIT TAB PO SCH (09:05)
[2021-01-23 10:17] LABS: BUN Blood Urea Nitrogen 13 mg/dL (7-18); Bicarbonate 29 mmol/L (21-32); Glucose Level 125 mg/dL (74-106); Magnesium 1.7 mg/dL (1.8-2.4); Potassium 4.2 mmol/L (3.5-5.1); Sodium Level 136 mmol/L (136-145)
[2021-01-23] MEDS ORDERED: MAGNESIUM SULFATE 1 gm IVPB 1 GM/100 ML BAG IV ONE (10:21)
[2021-01-23] MEDS ORDERED: MAGNESIUM CHLORIDE 64 MG TAB PO SCH (10:45)
--- NOTE | 2021-01-23 11:01 | P.PN ---
Subjective Date of Service: 01/23/21 Primary Care Provider: none Chief Complaint: Severe sepsis Patient seen examined at bedside, doing well. The drain removed this an, patient spite slight fever however was recorded via temporal temperature and not oral. The patient has been afebrile since. Review of Systems 10-point ROS is otherwise unremarkable Physical Examination - Vital Signs Temperature: 98.5 F Blood Pressure: 97/55 Pulse: 84 Respirations: 18 Pulse Ox (%): 95 - Studies Laboratory Last Values WBC 18.00 K/uL (4.3-10.9) H 01/07/21 17:55 RBC 3.57 M/uL (4.33-5.43) L 01/07/21 17:55 Hgb 10.8 g/dL (13.6-17.9) L 01/07/21 17:55 Hct 31.9 % (39.6-49.0) L 01/07/21 17:55 MCV 89.5 fL (80-100) 01/07/21 17:55 MCH 30.2 pg (27.0-35.0) 01/07/21 17:55 MCHC 33.7 g/dL (32.0-36.0) 01/07/21 17:55 RDW 14.8 % (12.1-15.2) 01/07/21 17:55 Plt Count 206 K/uL (152-406) 01/07/21 17:55 MPV 7.8 fL (7.6-11.3) 01/07/21 17:55 Neutrophils % 96.0 % (41.7-73.7) H 01/07/21 17:55 Lymphocytes % 2.3 % (15.3-44.8) L 01/07/21 17:55 Monocytes % 1.5 % (3.3-12.3) L 01/07/21 17:55 Eosinophils % 0.0 % (0-4.4) 01/07/21 17:55 Basophils % 0.2 % (0-1.3) 01/07/21 17:55 Absolute Neutrophils 17.2 K/uL (1.8-8.0) H 01/07/21 17:55 Absolute Lymphocytes 0.4 K/uL (0.7-4.9) L 01/07/21 17:55 Absolute Monocytes 0.3 K/uL (0.1-1.3) 01/07/21 17:55 Absolute Eosinophils 0.0 K/uL (0-0.5) 01/07/21 17:55 Absolute Basophils 0.0 K/uL (0-0.5) 01/07/21 17:55 Platelet Estimate Adeq 01/07/21 17:55 Morphology Comment Not seen (NOT SEEN) 01/07/21 17:55 PT 13.0 SECONDS (9.5-12.5) H 01/07/21 17:55 INR 1.13 01/07/21 17:55 Sodium 139 mmol/L (136-145) 01/07/21 17:55 Potassium 4.1 mmol/L (3.5-5.1) 01/07/21 17:55 Chloride 109 mmol/L (98-107) H 01/07/21 17:55 Carbon Dioxide 18 mmol/L (21-32) L 01/07/21 17:55 BUN 43 mg/dL (7-18) H 01/07/21 17:55 Creatinine 4.43 mg/dL (0.55-1.3) H 01/07/21 17:55 Estimated GFR 16 mL/min (=/>90) L 01/07/21 17:55 Glucose 98 mg/dL (74-106) 01/07/21 17:55 Lactic Acid 3.6 mmol/L (0.4-2.0) H 01/07/21 17:55 Calcium 8.3 mg/dL (8.5-10.1) L 01/07/21 17:55 Magnesium 1.3 mg/dL (1.8-2.4) L* D 01/07/21 17:55 Total Bilirubin 0.4 mg/dL (0.2-1.0) 01/07/21 17:55 Direct Bilirubin 0.2 mg/dL (0-0.2) 01/07/21 17:55 AST 98 U/L (15-37) H 01/07/21 17:55 ALT 82 U/L (12-78) H 01/07/21 17:55 Alkaline Phosphatase 122 U/L (45-117) H 01/07/21 17:55 Rapid Troponin I 0.05 ng/mL (0.0-0.045) H 01/07/21 17:55 NT-Pro-B Natriuret Pep 3997 pg/mL (<125) H 01/07/21 17:55 Serum Total Protein 8.4 g/dL (6.4-8.2) H 01/07/21 17:55 Albumin 2.8 g/dL (3.4-5.0) L 01/07/21 17:55 Globulin 5.6 g/dL (2.3-3.5) H 01/07/21 17:55 Albumin/Globulin Ratio 0.5 (1.1-1.8) L 01/07/21 17:55 Lipase 35 U/L (73-393) L 01/07/21 17:55 Procalcitonin > 200.00 ng/mL (<0.050) H 01/07/21 17:55 SARS-CoV-2 RNA (RT-PCR) Negative (NEGATIVE) 01/07/21 18:20 Smear Scan Ok (OK) 01/07/21 17:55 Medications List Reviewed: Yes Assessment And Plan - Plan Physical Exam: General: Alert, In no apparent distress, Oriented x3 HEENT: Atraumatic, Normocephalic Neck: Supple, 2+ carotid pulse no bruit Respiratory: Clear to auscultation bilaterally, Normal air movement, Diminished Cardiovascular: No edema, Normal pulses, Regular rate/rhythm Capillary refill: <2 Seconds Gastrointestinal: Normal bowel sounds, Non-distended Musculoskeletal: No clubbing, No swelling, No contractures, No erythema Integumentary: No rashes, No breakdown Neurological: Normal gait, Normal speech Conclusions/Impression: Antibiotics: Received a single dose of vancomycin in the ED Augmentin start: 01/21 stop: -- meropenem Start:01/07 stop: 01/21 Doxycycline Start: 01/08 stop: 01/21 antibiotics continued, awaiting results from splenic fluid collection culture. Assessment: -sepsis likely secondary to his splenic abscess versus hematoma -renal insufficiency -anemia -protein caloric malnutrition Plan: -Blood cultures: No growth @24 hr. Urine culture showed no growth. CT abdomen and pelvis performed on 01/07 showed splenic lesion with fluid collection, unspecified if hematoma versus abscess formation vs infected pseudocyst. Splenic and drainage catheter was placed on 01/14, fluid collected was sent to lab--no malignant cells identified. Drain removed on 01/23. Repeat CT with contrast: Shows only small fluid quantity remaining, significant improvement since last CT. Patient received a single dose of vancomycin in the ED, was on meropenem from 01/07 through 01/21 and doxycycline from 01/08 through 01/21. Patient switched to oral Augmentin on 01/21 recommend continuing for duration of hospital stay. -medical management per primary team -continue monitor CBC and BMP -continue monitor for signs infection Plan of care discussed with Dr. Whipple Thank you for consultation. Physician Review: Patient Assessed, Agree with Above Assessment and Plan
[2021-01-23 11:34] LABS: Absolute Lymphocytes (CBC) 1.9 K/uL (0.7-4.9); Basophils % 0.2 % (0-1.3); Hematocrit 28.4 % (39.6-49.0); Lymphocytes % 25.6 % (15.3-44.8); MPV 7.2 fL (7.6-11.3); RBC Red Blood Cell Count 3.34 M/uL (4.33-5.43)
[2021-01-23] MEDS: LIDOCAINE 4% PATCH TOP SCH (14:23)
[2021-01-24] MEDS ORDERED: Ringers Lactate 1,000 ML IV ONE (08:34)
[2021-01-24] MEDS ORDERED: CEFAZOLIN/SWI 1gm 1 GM/10 ML SYR ONE (08:56)
[2021-01-24] MEDS: LIDOCAINE 4% PATCH TOP SCH (09:00)
[2021-01-24] MEDS: MIDODRINE HCL 5 MG TABLET PO SCH ×3 (09:00→22:07)
[2021-01-24] MEDS: SIMETHICONE 80 MG TAB PO SCH ×3 (09:00→22:07)
[2021-01-24] MEDS: VITAMIN D 1000 UNIT TAB PO SCH (09:00)
[2021-01-24] MEDS: AMOX/K CLAV 875 MG TAB PO SCH ×2 (09:00→22:08)
[2021-01-24] MEDS ORDERED: FENTANYL CITR 100 MCG/2 ML ONE (09:33)
[2021-01-24] MEDS ORDERED: propofoL 200 MG/20 ML VIAL IV ONE (09:33)
[2021-01-24] MEDS: BUPIVACAINE 0.25% PF 10 ML VIAL ONE ×2 (09:38→09:45)
--- NOTE | 2021-01-24 10:06 | P.OP ---
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
[2021-01-24] MEDS ORDERED: HYDROCODONE/APAP 5/325 MG TAB PO PRN (10:17)
[2021-01-24] MEDS ORDERED: Mastisol Adhesive Liq ONE (10:18)
--- NOTE | 2021-01-24 11:17 | PREOPCON ---
Date of Consultation: 01/23/2021 Reason: The patient needs abdominal fat pad biopsy to rule out amyloidosis. History Of Present Illness: The patient is a 65-year-old gentleman who has been here for 17 days, ac tually came in with splenic abscess or hematoma, had a drainage procedure done. He was septic with h ypotension. His sepsis has improved but he remained hypotensive and he has proteinuria and he needs abdominal wall fat pad biopsy to rule out amyloidosis. He is awake, alert, no acute distress. No sore throat, runny nose, cough, headaches, or dizziness. No chest pain. Review of Systems: Otherwise unremarkable. Past Medical History: Significant for splenic infarction, alcohol abuse, hypertension, THC abuse. Past Surgical History: Right ankle surgery. Allergies: NO ALLERGIES. Social History: The patient used to smoke in the past. Currently does not drink alcohol. Has been counseled. Family History: Significant for unknown type of cancer in the mother. Physical Examination: Vital Signs: Systolic ranges from 93 to 101, and today on medication he is not tachycardic. Otherwi se, vitals are stable and he is afebrile. General: He is awake and alert. Head and Neck: No masses. Chest: Clear. Heart: S1, S2. Abdomen: Soft, nondistended, nontender. Positive bowel sounds. Extremities: Neurovascularly intact. Neuro: Nonfocal. Laboratory Data: Reviewed. Platelets are slightly high at 462. H and H 9.6 and 28.4, INR is 1.32. Chemistry reviewed, essentially unremarkable at this time. Procalcitonin 2 days ago was 0.2. Assessment: 65-year-old gentleman with multiple medical problems with persistent hypotension, protei n urea, rule out amyloidosis. Recommendations: We will go ahead and do an abdominal fat pad biopsy. The patient understands the r isks, benefits, and alternatives and agrees to procedure. Please note, that the case was discussed w maikol Chandra, Dr. Wynne and . /MODL Voice ID: [id number] Report ID: [id number]
[2021-01-24 11:53] LABS: Protime INR 1.21
[2021-01-24 12:02] LABS: BUN Blood Urea Nitrogen 13 mg/dL (7-18); Bicarbonate 30 mmol/L (21-32); Glucose Level 88 mg/dL (74-106); Magnesium 1.9 mg/dL (1.8-2.4); Potassium 3.5 mmol/L (3.5-5.1); Sodium Level 136 mmol/L (136-145)
--- NOTE | 2021-01-24 14:04 | P.PN ---
Subjective Date of Service: 01/24/21 Primary Care Provider: none Chief Complaint: Severe sepsis Subjective: Doing well (doing well. no new complaints today.) <Rhona Prescott - Last Filed: 01/24/21 14:12> Date of Service: 01/24/21 <James Zhong - Last Filed: 01/25/21 15:47> Physical Examination - Vital Signs Temperature: 98.2 F Blood Pressure: 115/69 Pulse: 75 Respirations: 20 Pulse Ox (%): 97 - Physical Exam General: Alert, In no apparent distress, Oriented x3 HEENT: Atraumatic, Normocephalic, PERRLA, Mucous membr. moist/pink, Sclerae nonicteric Neck: Supple, Without JVD or thyroid abnormality Respiratory: Clear to auscultation bilaterally, Normal air movement Cardiovascular: No edema, Normal pulses, Regular rate/rhythm Gastrointestinal: Normal bowel sounds, No ascites, No tenderness, No masses Musculoskeletal: No contractures Integumentary: No rashes, No ulcers Neurological: Normal gait, Normal speech, Normal strength at 5/5 x4 extr - Studies Medications List Reviewed: Yes <Rhona Prescott - Last Filed: 01/24/21 14:12> Assessment And Plan Discharge Plan: Home Plan to discharge in: 72 Hours Physician Review: Patient Assessed, Agree with Above Assessment and Plan Physician Review Additional Text: COVID: Negative CT scan: COMPARISON: No comparisonsCT ANGIO ABD/PELVIS W CONTRAST dated 10/30/2020 TECHNIQUE: Approximately 100 mL nonionic IV contrast was administered to the patient. All CT scans are performed using dose optimization technique as appropriate and may include automated exposure control or mA/KV adjustment according to patient size. FINDINGS: The lungs are clear.No pleural or pericardial effusion.No intrathoracic adenopathy.Circumferential thickening of the esophagus may reflect esophagitis. The liver, adrenal glands, pancreas, and gallbladder are within normal limits. There is a new low-density lesion in the spleen measuring 5.8 centimeters. On the prior CT, there was an area of splenic infarct. No bowel obstruction, free air, free fluid or abscess. No pathologic lymphadenopathy in the abdomen or pelvis. No worrisome osseous finding. IMPRESSION: No acute findings within the chest, abdomen, or pelvis. . 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 The sterility of this fluid is indeterminate by CT. ABUS: COMPARISON: CT ANGIO ABD/PELVIS W CONTRAST dated 10/30/2020; Abdomen Pelvis W Contrast dated 10/28/2020 FINDINGS: Two intra splenic masses are present, the largest measuring 5.6 centimeters. The smaller lesion measures 3.3 centimeters. Both are hypoechoic. No definite flow is present within either collection. IMPRESSION: Two splenic collections identified without demonstrable vascular flow that could represent subacute hematomas but which are of indeterminate sterility. CT Guided Procedure: CLINICAL HISTORY: splenic hematoma vs. abscess COMPARISON: No comparisons FINDINGS: Informed consent was obtained. The patient was placed in the supine position. Next, CT scan was performed of the chest again demonstrating the fluid collection at the spleen which have increased in size. The patient was prepped and draped in sterile fashion. A time-out was performed. The subjacent extensor 19 were administered for local anesthesia. An 8.5 Czech pigtail drainage catheter was trocar into the collection. The catheter was deployed. Approximately 120 cc of purulent foul-smelling material was aspirated. A sample was sent to lab for Gram stain and culture. The catheter was attached to a bulb suction drain. The patient tolerated procedure well. No immediate complications IMPRESSION: Technically successful CT-guided placement of a drainage catheter into a splenic fluid collection favored to represent an abscess. A sample was sent to the lab for analysis. Pathology: DIAGNOSIS Splenic abscess drainage fluid, cytology: - No malignant cells identified - Acute and chronic inflammatory cells Follow up CT scan: COMPARISON: Abdomen Pelvis W Contrast dated 10/28/2020; CT ANGIO ABD/PELVIS W CONTRAST dated 10/30/2020; Chest Abd Pelvis Wo Con dated 01/07/2021; Aspiration G uidance dated 01/14/2021 TECHNIQUE: Biphasic, helical CT imaging of the abdomen and pelvis was performed following 100 ml non-ionic IV contrast. No oral contrast administered. All CT scans are performed using dose optimization technique as appropriate and may include automated exposure control or mA/KV adjustment according to patient size. FINDINGS: Trace amount of fluid and atelectasis are present in the posterior gutter on the right. Left hemidiaphragm elevation is present. Lung parenchymal opacification is probably chronic atelectasis. There is adjacent small pleural effusion on the left which is probably loculated. There is no air within the pleural fluid. No specific findings that would indicate subsequently detailed drainage catheter traversed the lateral pleural recess or there is direct extension through the diaphragm into the lung base. No specific CT findings for empyema. The liver and pancreas show no suspicious finding. No gallbladder or biliary tree abnormality. Prior imaging showed a bilobed abnormal fluid collection within and/or adjacent to the spleen. Percutaneous drainage catheter was placed January 14 in remains in position. The superior aspect of the bilobed collection which may be in the spleen measures 3 x 2 cm on the current examination, previously 5.5 cm January 14. The more inferior aspect of the bilobed collection is 3.5 by 2.0 cm compared to approximately 8 x 5 cm. No new abnormal fluid collection within the peritoneal or retroperitoneal spaces. Symmetric renal function is seen with no hydronephrosis or suspicious renal mass. No pyelonephritis or acute parenchymal process. No bladder wall thickening or mass. Minimal air within the lumen of the bladder could be from catheterization procedure. No adrenal abnormalities. Moderate stool volume is present in the colon. No acute GI process seen. No free air or pneumatosis. No hernia, mass or bulky lymphadenopathy. No suspicious bony findings. IMPRESSION: The splenic/perisplenic bilobed abscess or abnormal fluid collection has substantially reduced in size. Small quantity of fluid remains. Drainage catheter remains in place. The uninvolved splenic parenchyma enhances normally. No new splenic finding. No abscess or other abnormal fluid collection elsewhere in the peritoneal or retroperitoneal spaces. Patient has a probably loculated fluid collection in the posterior gutter on the left with partial atelectasis of the left lower lobe. No specific CT findings that would indicate empyema. No specific finding to indicate that the drainage catheter traversed the lateral pleural recess. Physical exam: General: Alert, In no apparent distress, Oriented x3 HEENT: Atraumatic, PERRLA, Mucous membr. moist/pink, EOMI, Sclerae nonicteric Neck: Supple, 2+ carotid pulse no bruit, No LAD, Without JVD or thyroid abnormality Respiratory: Clear to auscultation bilaterally, Normal air movement Cardiovascular: Regular rate/rhythm, Normal S1 S2 Gastrointestinal: Normal bowel sounds, Non-distended, No rebound, No guarding, no significant abdominal tenderness, drainage catheter removed yesterday. Musculoskeletal: No contractures, No tenderness Integumentary: No rashes Neurological: Normal speech, Normal strength at 5/5 x4 extr, Normal tone, Normal affect Impression: Severe sepsis without septic shockunknown etiology, possibly 2/2 splenic abscess/pseudocyst with history of splenic infarction with CT scan showing new low-density lesion in the spleen measuring 5.[address]-guided placement of drainage catheter into the splenic fluid collection Acute renal failure secondary to above Hypomagnesemia Hypertension currently with Ortho hypotension Plan: Severe sepsis without septic shockunknown etiology, possibly 2/2 splenic abscess/pseudocyst with history of splenic infarction with CT scan showing new low-density lesion in the spleen measuring 5.[address]-guided placement of drainage catheter into the splenic fluid collection: Awaiting fat pad biopsy with special stains tomorrow to r/o amyloidosis. Continue midodrine per nephrology recommendation in view of hypotension. etiology still unknown. Nephrology to order other lab to further evaluate. Patient remains on Augmentin. Patient remains afebrile. Can discontinue Augmentin at discharge. Once the blood pressure is stable then will consider inpatient rehab discharge. Patient to continue to work with physical therapy at this time. Patient still not clinically ready for discharge. Acute renal failure secondary to above: Renal function back to baseline and stable. Hypomagnesemia: normalized. Continue to monitor. Replacement protocol in place. Hypertension currently with Ortho hypotension: Blood pressure remains low. Case discussed at length with nephrology. continue midodrine to 15 mg 1 pill 3 times a day. Monitor orthostatics. fatpad biopsy tomorrow to r/o amyloidosis. Once blood pressure stable then will consider transfer to inpatient rehab DVT PPX: SCDs Code status: Full Discharge Plan: Inpatient rehab once medically cleared. <Rhona Prescott - Last Filed: 01/24/21 14:12> - Current Problems (Diagnosis) (1) Splenic lesion Current Visit: Yes Status: Acute (2) Left upper quadrant abdominal tenderness Current Visit: Yes Status: Acute (3) Alcohol abuse Current Visit: Yes Status: Acute (4) Hypertension Current Visit: Yes Status: Acute (5) History of cannabis abuse Current Visit: Yes Status: Acute <James Zhong - Last Filed: 01/25/21 15:47> Date of Service: 01/24/21 Subjective Splenic catheter was removed. Review of Systems 10-point ROS is otherwise unremarkable Physical Examination - Vital Signs Reviewed - Physical Exam General: Alert, In no apparent distress, Oriented x3 Respiratory: Diminished Cardiovascular: Regular rate/rhythm, Normal S1 S2, No murmurs Gastrointestinal: Normal bowel sounds, Soft and benign, Non-distended, No tenderness Musculoskeletal: No clubbing, No swelling, No tenderness Neurological: Sensation intact, Cranial nerves 3-12 intact Assessment & Plan - Problems (Diagnosis) (1) Splenic lesion Current Visit: Yes Status: Acute (2) Left upper quadrant abdominal tenderness Current Visit: Yes Status: Acute (3) Alcohol abuse Current Visit: Yes Status: Acute (4) Hypertension Current Visit: Yes Status: Acute (5) History of cannabis abuse Current Visit: Yes Status: Acute - Plan Continue with plan of care as mentioned below: 1. Diet as tolerated 2. Continue with antibiotic therapy 3. Possible amyloidosis-biopsy of Tuesday 4. Monitor labs and H&H and CBC closely 5. Strict blood pressure control 6. GI and DVT prophylaxis <James Zhong - Last Filed: 01/25/21 15:47>
--- NOTE | 2021-01-24 15:17 | P.PN ---
Subjective Date of Service: 01/24/21 Primary Care Provider: none Chief Complaint: Severe sepsis Subjective denied fever, chills , nausea or vomiting Physical exam general: Awake and alert , NAD Neck; Supple, No elevated JVD chest CTAB, no rlaes or wheezes hear: RRR, normal S1,2 no murmur or rub Chest: CTAB, no rales or wheezes Abdomen: Soft , Nt Extremities No edema or ulcer # LEXA secondary to prerenal, poor perfusion, ATN, superimposed with toxic ATN, secondary to sepsis Resolved Baseline serum creatinine 1.0 as of 12/19/2020, today at 0.8 Has mild proteinuria, random UPCR 1g [place] po fluid intake Monitor renal panel # ? Severe sepsis, ? Splenic abscess/infected pseudocyst History of significant blunt trauma on left rib cage area due to fall in October 2020 On abx via Augmentin per ID service # Persistent hypotension, suspect autonomic neuropathy/failure from infiltrative dse, possible AL/primary Amyloidosis, 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) TTE unremarkable 8 AM serum cortisol & ACTH wnl - adrenal insufficiency unlikely TSH only slightly elevated Cont Midodrine # Hypokalemia Improved Monitor/replete prn # Hypocalcemia Improved Cont D3 2000 IU po daily Monitor, correct hypomagnesemia prn # Debility PT/OT Physical Examination - Vital Signs Temperature: 98.2 F Blood Pressure: 115/69 Pulse: 75 Respirations: 20 Pulse Ox (%): 97 - Studies Medications List Reviewed: Yes Assessment And Plan Physician Review: Patient Assessed, Agree with Above Assessment and Plan
--- NOTE | 2021-01-24 20:17 | OP ---
Date of Procedure: 01/24/2021 Surgeon: Aayush Garduno MD Biometrics Specialist: None. Preoperative Diagnosis: Hypertension, rule out amyloidosis. Postoperative Diagnosis: Hypertension, rule out amyloidosis. Procedure: Right paramedian abdominal fat pad biopsy. Estimated Blood Loss: Minimal. Specimens: Fat pad from the abdomen. Findings: Above. Anesthesia: General. Complications: None. Disposition: The patient tolerated the procedure in stable condition and taken to recovery in good g eneral condition. Procedure In Detail: The patient was brought to the OR and placed in spine position. General anesth esia was begun. The patient was prepped and draped in the usual sterile fashion. Then, Marcaine 0.5 % was infiltrated locally. A 15 blade was used to make a 3 cm incision and in the subcutaneous tissu e approximately a 3 x 3 cm area of subcutaneous fat excised, sent to Pathology as specimen. Wound ir rigated. Bleeding was controlled with cautery. A 3-0 chromic used to approximate the subcutaneous t issue and close the skin. Sterile dressing applied. Patient awakened and taken to Recovery in good general condition. /MODL Voice ID: [id number] Report ID: [id number]
[2021-01-25] MEDS: MIDODRINE HCL 5 MG TABLET PO SCH ×3 (09:49→21:28)
[2021-01-25] MEDS: LIDOCAINE 4% PATCH TOP SCH (09:50)
[2021-01-25] MEDS: SIMETHICONE 80 MG TAB PO SCH ×3 (09:50→21:28)
[2021-01-25] MEDS: VITAMIN D 1000 UNIT TAB PO SCH (09:51)
[2021-01-25] MEDS: AMOX/K CLAV 875 MG TAB PO SCH ×2 (09:51→21:29)
[2021-01-25 11:12] LABS: Basophils % 1.5 % (0-1.3); Hematocrit 27.3 % (39.6-49.0); Lymphocytes % 28.2 % (15.3-44.8); MPV 7.3 fL (7.6-11.3); RBC Red Blood Cell Count 3.25 M/uL (4.33-5.43)
[2021-01-25 11:41] LABS: ALT/SGPT 15 U/L (12-78); AST/SGOT 12 U/L (15-37); Albumin 2.4 g/dL (3.4-5.0); Alkaline Phosphatase 67 U/L (45-117); BUN Blood Urea Nitrogen 13 mg/dL (7-18); Bicarbonate 30 mmol/L (21-32); Bilirubin Total 0.3 mg/dL (0.2-1.0); Glucose Level 106 mg/dL (74-106); Magnesium 1.7 mg/dL (1.8-2.4); Potassium 3.7 mmol/L (3.5-5.1); Protein, Total 8.6 g/dL (6.4-8.2); Sodium Level 135 mmol/L (136-145)
--- NOTE | 2021-01-25 11:47 | P.PN ---
Subjective Date of Service: 01/25/21 Primary Care Provider: none Chief Complaint: Severe sepsis Subjective denied fever, chills , nausea or vomiting cr stable BP bordrline Physical exam general: Awake and alert , NAD Neck; Supple, No elevated JVD chest CTAB, no rlaes or wheezes hear: RRR, normal S1,2 no murmur or rub Chest: CTAB, no rales or wheezes Abdomen: Soft , Nt Extremities No edema or ulcer # LEXA secondary to prerenal, poor perfusion, ATN, superimposed with toxic ATN, secondary to sepsis Resolved Baseline serum creatinine 1.0 as of 12/19/2020, today at 0.8 Has mild proteinuria, random UPCR 1g [place] po fluid intake Monitor renal panel # Splenic abscess/infected pseudocyst History of significant blunt trauma on left rib cage area due to fall in October 2020 On abx via Augmentin per ID service # Persistent hypotension, suspect autonomic neuropathy/failure from infiltrative dse, possible AL/primary Amyloidosis, 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) TTE unremarkable 8 AM serum cortisol & ACTH wnl - adrenal insufficiency unlikely TSH only slightly elevated Cont Midodrine # Hypokalemia Improved Monitor/replete prn # Hypocalcemia Improved Cont D3 2000 IU po daily Monitor, correct hypomagnesemia prn # Debility PT/OT Physical Examination - Vital Signs Temperature: 98.9 F Blood Pressure: 93/60 Pulse: 80 Respirations: 18 Pulse Ox (%): 98 - Studies Medications List Reviewed: Yes Assessment And Plan Physician Review: Patient Assessed, Agree with Above Assessment and Plan
--- NOTE | 2021-01-25 12:47 | PN ---
Date of Progress Note: 01/25/2021 Subjective: The patient is awake, alert. No complaints. Objective: Vital Signs: Stable. He is a little hypotensive. He is afebrile. The pathology is pending. Abdominal wound dressing is clean, dry, and intact. Assessment: Status post fat pad biopsy. Recommendations: Medical management. Check Pathology. Reconsult Surgery p.r.n. Wound care orders were given. /MODL Voice ID: [id number] Report ID: [id number]
--- NOTE | 2021-01-25 15:48 | P.PN ---
Date of Service: 01/25/21 Subjective Patient doing well with no new complaints. NPO after midnight. Biopsy in the morning. Then transfer to inpatient rehab. Review of Systems 10-point ROS is otherwise unremarkable Physical Examination - Vital Signs Reviewed - Physical Exam General: Alert, In no apparent distress, Oriented x3 Respiratory: Diminished Cardiovascular: Regular rate/rhythm, Normal S1 S2, No murmurs Gastrointestinal: Normal bowel sounds, Soft and benign, Non-distended, No tenderness Musculoskeletal: No clubbing, No swelling, No tenderness Neurological: Sensation intact, Cranial nerves 3-12 intact Assessment & Plan - Problems (Diagnosis) (1) Splenic lesion Current Visit: Yes Status: Acute (2) Left upper quadrant abdominal tenderness Current Visit: Yes Status: Acute (3) Alcohol abuse Current Visit: Yes Status: Acute (4) Hypertension Current Visit: Yes Status: Acute (5) History of cannabis abuse Current Visit: Yes Status: Acute - Plan Continue with plan of care as mentioned below: 1. NPO after midnight and biopsy in the morning. Transfer to inpatient rehab after biopsies 2. Continue with antibiotic therapy 3. Possible amyloidosis-biopsy of Tuesday 4. Monitor labs and H&H and CBC closely 5. Strict blood pressure control 6. GI and DVT prophylaxis
[2021-01-25 19:33] VITALS: O2SAT 98
[2021-01-25] MEDS ORDERED: MAGNESIUM OXIDE 400 MG TAB PO ONE (21:00)
[2021-01-25] MEDS ORDERED: POTASSIUM CL SA 10 MEQ TAB PO ONE (21:00)
[2021-01-25] MEDS: ACETAMINOPHEN 500 MG TAB PO PRN (21:31)
[2021-01-26 00:35] LABS: RPR (Rapid Plasma Reagin) NON-REACT (NON-REACT)
[2021-01-26] MEDS: AMOX/K CLAV 875 MG TAB PO SCH (09:00)
--- NOTE | 2021-01-26 09:32 | P.PN ---
Subjective Date of Service: 01/26/21 Primary Care Provider: none Chief Complaint: Severe sepsis Patient seen examined at bedside, antibiotics DC. Afebrile, no leukocytosis-no clinical need for further antibiotic therapy. Patient denies N/V/D. Review of Systems 10-point ROS is otherwise unremarkable Physical Examination - Vital Signs Temperature: 97.5 F Blood Pressure: 105/58 Pulse: 67 Respirations: 16 Pulse Ox (%): 97 - Studies Laboratory Last Values WBC 18.00 K/uL (4.3-10.9) H 01/07/21 17:55 RBC 3.57 M/uL (4.33-5.43) L 01/07/21 17:55 Hgb 10.8 g/dL (13.6-17.9) L 01/07/21 17:55 Hct 31.9 % (39.6-49.0) L 01/07/21 17:55 MCV 89.5 fL (80-100) 01/07/21 17:55 MCH 30.2 pg (27.0-35.0) 01/07/21 17:55 MCHC 33.7 g/dL (32.0-36.0) 01/07/21 17:55 RDW 14.8 % (12.1-15.2) 01/07/21 17:55 Plt Count 206 K/uL (152-406) 01/07/21 17:55 MPV 7.8 fL (7.6-11.3) 01/07/21 17:55 Neutrophils % 96.0 % (41.7-73.7) H 01/07/21 17:55 Lymphocytes % 2.3 % (15.3-44.8) L 01/07/21 17:55 Monocytes % 1.5 % (3.3-12.3) L 01/07/21 17:55 Eosinophils % 0.0 % (0-4.4) 01/07/21 17:55 Basophils % 0.2 % (0-1.3) 01/07/21 17:55 Absolute Neutrophils 17.2 K/uL (1.8-8.0) H 01/07/21 17:55 Absolute Lymphocytes 0.4 K/uL (0.7-4.9) L 01/07/21 17:55 Absolute Monocytes 0.3 K/uL (0.1-1.3) 01/07/21 17:55 Absolute Eosinophils 0.0 K/uL (0-0.5) 01/07/21 17:55 Absolute Basophils 0.0 K/uL (0-0.5) 01/07/21 17:55 Platelet Estimate Adeq 01/07/21 17:55 Morphology Comment Not seen (NOT SEEN) 01/07/21 17:55 PT 13.0 SECONDS (9.5-12.5) H 01/07/21 17:55 INR 1.13 01/07/21 17:55 Sodium 139 mmol/L (136-145) 01/07/21 17:55 Potassium 4.1 mmol/L (3.5-5.1) 01/07/21 17:55 Chloride 109 mmol/L (98-107) H 01/07/21 17:55 Carbon Dioxide 18 mmol/L (21-32) L 01/07/21 17:55 BUN 43 mg/dL (7-18) H 01/07/21 17:55 Creatinine 4.43 mg/dL (0.55-1.3) H 01/07/21 17:55 Estimated GFR 16 mL/min (=/>90) L 01/07/21 17:55 Glucose 98 mg/dL (74-106) 01/07/21 17:55 Lactic Acid 3.6 mmol/L (0.4-2.0) H 01/07/21 17:55 Calcium 8.3 mg/dL (8.5-10.1) L 01/07/21 17:55 Magnesium 1.3 mg/dL (1.8-2.4) L* D 01/07/21 17:55 Total Bilirubin 0.4 mg/dL (0.2-1.0) 01/07/21 17:55 Direct Bilirubin 0.2 mg/dL (0-0.2) 01/07/21 17:55 AST 98 U/L (15-37) H 01/07/21 17:55 ALT 82 U/L (12-78) H 01/07/21 17:55 Alkaline Phosphatase 122 U/L (45-117) H 01/07/21 17:55 Rapid Troponin I 0.05 ng/mL (0.0-0.045) H 01/07/21 17:55 NT-Pro-B Natriuret Pep 3997 pg/mL (<125) H 01/07/21 17:55 Serum Total Protein 8.4 g/dL (6.4-8.2) H 01/07/21 17:55 Albumin 2.8 g/dL (3.4-5.0) L 01/07/21 17:55 Globulin 5.6 g/dL (2.3-3.5) H 01/07/21 17:55 Albumin/Globulin Ratio 0.5 (1.1-1.8) L 01/07/21 17:55 Lipase 35 U/L (73-393) L 01/07/21 17:55 Procalcitonin > 200.00 ng/mL (<0.050) H 01/07/21 17:55 SARS-CoV-2 RNA (RT-PCR) Negative (NEGATIVE) 01/07/21 18:20 Smear Scan Ok (OK) 01/07/21 17:55 Medications List Reviewed: Yes Assessment And Plan - Plan Physical Exam: General: Alert, In no apparent distress, Oriented x3 HEENT: Atraumatic, Normocephalic Neck: Supple, 2+ carotid pulse no bruit Respiratory: Clear to auscultation bilaterally, Normal air movement, Diminished Cardiovascular: No edema, Normal pulses, Regular rate/rhythm Capillary refill: <2 Seconds Gastrointestinal: Normal bowel sounds, Non-distended Musculoskeletal: No clubbing, No swelling, No contractures, No erythema Integumentary: No rashes, No breakdown Neurological: Normal gait, Normal speech Conclusions/Impression: Antibiotics: Received a single dose of vancomycin in the ED Augmentin start: 01/21 stop: 01/26 meropenem Start:01/07 stop: 01/21 Doxycycline Start: 01/08 stop: 01/21 Assessment: -sepsis likely secondary to his splenic abscess versus hematoma -renal insufficiency -anemia -protein caloric malnutrition Plan: -Blood cultures: No growth @24 hr. Urine culture showed no growth. CT abdomen and pelvis performed on 01/07 showed splenic lesion with fluid collection, unspecified if hematoma versus abscess formation vs infected pseudocyst. Splenic and drainage catheter was placed on 01/14, fluid collected was sent to lab--no malignant cells identified. Drain removed on 01/23. Repeat CT with contrast: Shows only small fluid quantity remaining, significant improvement since last CT. Patient received a single dose of vancomycin in the ED, was on meropenem from 01/07 through 01/21 and doxycycline from 01/08 through 01/21. Patient switched to oral Augmentin 5 day course completed. -awaiting resuts of fat pad biopsy--R/U amyloidosis -awaiting transfer to rehab facility -medical management per primary team -continue monitor CBC and BMP -continue monitor for signs infection Plan of care discussed with Dr. Whipple Thank you for consultation. Physician Review: Patient Assessed, Agree with Above Assessment and Plan
[2021-01-26] MEDS: SIMETHICONE 80 MG TAB PO SCH ×3 (10:15→21:30)
[2021-01-26] MEDS: VITAMIN D 1000 UNIT TAB PO SCH (10:15)
[2021-01-26] MEDS: MIDODRINE HCL 5 MG TABLET PO SCH ×3 (10:15→21:30)
[2021-01-26] MEDS: LIDOCAINE 4% PATCH TOP SCH (10:16)
[2021-01-26 17:59] LABS: BUN Blood Urea Nitrogen 12 mg/dL (7-18); Bicarbonate 28 mmol/L (21-32); Glucose Level 102 mg/dL (74-106); Magnesium 1.9 mg/dL (1.8-2.4); Potassium 4.1 mmol/L (3.5-5.1); Sodium Level 136 mmol/L (136-145)
[2021-01-27 08:36] VITALS: BP 97/57; TEMP 98.3
[2021-01-27 10:38] LABS: Absolute Lymphocytes (CBC) 1.8 K/uL (0.7-4.9); Basophils % 1.4 % (0-1.3); Hematocrit 28.4 % (39.6-49.0); Lymphocytes % 23.9 % (15.3-44.8); MPV 6.9 fL (7.6-11.3); RBC Red Blood Cell Count 3.38 M/uL (4.33-5.43)
[2021-01-27] MEDS: SIMETHICONE 80 MG TAB PO SCH (10:43)
[2021-01-27] MEDS: VITAMIN D 1000 UNIT TAB PO SCH (10:43)
[2021-01-27] MEDS: LIDOCAINE 4% PATCH TOP SCH (10:44)
[2021-01-27] MEDS: MIDODRINE HCL 5 MG TABLET PO SCH (10:48)
--- NOTE | 2021-01-27 10:54 | P.PN ---
Subjective Date of Service: 01/27/21 Primary Care Provider: none Chief Complaint: Severe sepsis Subjective: Improving Patient seen examined at bedside, repeat CBC ordered. Review of Systems 10-point ROS is otherwise unremarkable Physical Examination - Vital Signs Temperature: 98.3 F Blood Pressure: 97/57 Pulse: 78 Respirations: 19 Pulse Ox (%): 96 - Studies Laboratory Last Values WBC 18.00 K/uL (4.3-10.9) H 01/07/21 17:55 RBC 3.57 M/uL (4.33-5.43) L 01/07/21 17:55 Hgb 10.8 g/dL (13.6-17.9) L 01/07/21 17:55 Hct 31.9 % (39.6-49.0) L 01/07/21 17:55 MCV 89.5 fL (80-100) 01/07/21 17:55 MCH 30.2 pg (27.0-35.0) 01/07/21 17:55 MCHC 33.7 g/dL (32.0-36.0) 01/07/21 17:55 RDW 14.8 % (12.1-15.2) 01/07/21 17:55 Plt Count 206 K/uL (152-406) 01/07/21 17:55 MPV 7.8 fL (7.6-11.3) 01/07/21 17:55 Neutrophils % 96.0 % (41.7-73.7) H 01/07/21 17:55 Lymphocytes % 2.3 % (15.3-44.8) L 01/07/21 17:55 Monocytes % 1.5 % (3.3-12.3) L 01/07/21 17:55 Eosinophils % 0.0 % (0-4.4) 01/07/21 17:55 Basophils % 0.2 % (0-1.3) 01/07/21 17:55 Absolute Neutrophils 17.2 K/uL (1.8-8.0) H 01/07/21 17:55 Absolute Lymphocytes 0.4 K/uL (0.7-4.9) L 01/07/21 17:55 Absolute Monocytes 0.3 K/uL (0.1-1.3) 01/07/21 17:55 Absolute Eosinophils 0.0 K/uL (0-0.5) 01/07/21 17:55 Absolute Basophils 0.0 K/uL (0-0.5) 01/07/21 17:55 Platelet Estimate Adeq 01/07/21 17:55 Morphology Comment Not seen (NOT SEEN) 01/07/21 17:55 PT 13.0 SECONDS (9.5-12.5) H 01/07/21 17:55 INR 1.13 01/07/21 17:55 Sodium 139 mmol/L (136-145) 01/07/21 17:55 Potassium 4.1 mmol/L (3.5-5.1) 01/07/21 17:55 Chloride 109 mmol/L (98-107) H 01/07/21 17:55 Carbon Dioxide 18 mmol/L (21-32) L 01/07/21 17:55 BUN 43 mg/dL (7-18) H 01/07/21 17:55 Creatinine 4.43 mg/dL (0.55-1.3) H 01/07/21 17:55 Estimated GFR 16 mL/min (=/>90) L 01/07/21 17:55 Glucose 98 mg/dL (74-106) 01/07/21 17:55 Lactic Acid 3.6 mmol/L (0.4-2.0) H 01/07/21 17:55 Calcium 8.3 mg/dL (8.5-10.1) L 01/07/21 17:55 Magnesium 1.3 mg/dL (1.8-2.4) L* D 01/07/21 17:55 Total Bilirubin 0.4 mg/dL (0.2-1.0) 01/07/21 17:55 Direct Bilirubin 0.2 mg/dL (0-0.2) 01/07/21 17:55 AST 98 U/L (15-37) H 01/07/21 17:55 ALT 82 U/L (12-78) H 01/07/21 17:55 Alkaline Phosphatase 122 U/L (45-117) H 01/07/21 17:55 Rapid Troponin I 0.05 ng/mL (0.0-0.045) H 01/07/21 17:55 NT-Pro-B Natriuret Pep 3997 pg/mL (<125) H 01/07/21 17:55 Serum Total Protein 8.4 g/dL (6.4-8.2) H 01/07/21 17:55 Albumin 2.8 g/dL (3.4-5.0) L 01/07/21 17:55 Globulin 5.6 g/dL (2.3-3.5) H 01/07/21 17:55 Albumin/Globulin Ratio 0.5 (1.1-1.8) L 01/07/21 17:55 Lipase 35 U/L (73-393) L 01/07/21 17:55 Procalcitonin > 200.00 ng/mL (<0.050) H 01/07/21 17:55 SARS-CoV-2 RNA (RT-PCR) Negative (NEGATIVE) 01/07/21 18:20 Smear Scan Ok (OK) 01/07/21 17:55 Medications List Reviewed: Yes Assessment And Plan - Plan Physical Exam: General: Alert, In no apparent distress, Oriented x3 HEENT: Atraumatic, Normocephalic Neck: Supple, 2+ carotid pulse no bruit Respiratory: Clear to auscultation bilaterally, Normal air movement, Diminished Cardiovascular: No edema, Normal pulses, Regular rate/rhythm Capillary refill: <2 Seconds Gastrointestinal: Normal bowel sounds, Non-distended Musculoskeletal: No clubbing, No swelling, No contractures, No erythema Integumentary: No rashes, No breakdown Neurological: Normal gait, Normal speech Conclusions/Impression: Antibiotics: Received a single dose of vancomycin in the ED Augmentin start: 01/21 stop: 01/26 meropenem Start:01/07 stop: 01/21 Doxycycline Start: 01/08 stop: 01/21 Assessment: -sepsis likely secondary to his splenic abscess versus hematoma -renal insufficiency -anemia -protein caloric malnutrition Plan: -Blood cultures: No growth @24 hr. Urine culture showed no growth. CT abdomen and pelvis performed on 01/07 showed splenic lesion with fluid collection, unspecified if hematoma versus abscess formation vs infected pseudocyst. Splenic and drainage catheter was placed on 01/14, fluid collected was sent to lab--no malignant cells identified. Drain removed on 01/23. Repeat CT with contrast: Shows only small fluid quantity remaining, significant improvement since last CT. Patient received a single dose of vancomycin in the ED, was on m eropenem from 01/07 through 01/21 and doxycycline from 01/08 through 01/21. Patient switched to oral Augmentin 5 day course completed. -awaiting resuts of fat pad biopsy--R/U amyloidosis -awaiting transfer to rehab facility -medical management per primary team -continue monitor CBC and BMP -continue monitor for signs infection Plan of care discussed with Dr. Whipple Thank you for consultation. Physician Review: Patient Assessed, Agree with Above Assessment and Plan
--- NOTE | 2021-01-27 17:36 | PN ---
Date of Progress Note: 01/26/2021 Chief Complaint: Acute kidney injury. History Of Present Illness: The patient has history of ATN superimposed with volume depletion, renal hypoperfusion. Baseline creatinine was 1.0. Renal function has improved during this admission. Th e patient responded to IV fluids. The patient was found to have mild proteinuria . Review of Systems: The patient denies fever or chills. Physical Examination: Heart: S1, S2. Extremities: No edema. Impression And Plan: 1.Acute kidney injury. Continue adequate hydration. The patient is tolerating p.o. intake. IV flu ids on hold. The patient will continue to avoid nonsteroidal, anti-inflammatory medications. 2.Proteinuria of [id number] degree. workup outpatient. 3.The patient has persistent hypotension, suspected autonomic neuropathy and possible amyloidosis. The patient will need further workup. A.m. cortisol and ACTH were done and were within normal limits , which makes adrenal insufficient unlikely. TSH was slightly elevated. The patient will need to fo llow up with an rivet sticker and plan is to continue midodrine. 4.Hypokalemia, improved. 5.Hypocalcemia. The patient will continue vitamin D for vitamin deficiency. 6.Hypomagnesemia, was corrected. Continue to monitor magnesium level outpatient. The patient needs to follow up with Nephrology as an outpatient. SCOTT/MODL Voice ID: [id number] Report ID: [id number]
--- NOTE | 2021-01-27 17:52 | PN ---
Date of Progress Note: 01/27/2021 Subjective: The patient was admitted with acute kidney injury secondary to prerenal. The patient west d orthostatic hypotension secondary to dehydration. After midodrine and hydration, blood pressure st abilized. The patient had acidosis secondary to the renal failure, improved. Physical Examination: Vital Signs: Today when I saw the patient; blood pressure of 97/57, pulse of 78, afebrile. Chest: Clear to auscultation. Heart: S1, S2. Regular. Abdomen: Soft, nontender. Extremity: No edema. Neuro: Alert. No focality. Current Medications: Include cholecalciferol, midodrine 15 t.i.d., simethicone. Laboratory Data: H and H 9.7/28.4. Sodium 136, potassium 4.1, bicarb 28, BUN 12, creatinine 0.88, c alcium 9.7, magnesium 1.9. Assessment And Plan: 1.Acute kidney injury secondary to prerenal, recovered, resolved. 2.Hypophosphatemia, hyponatremia, hypomagnesemia, hypokalemia, status post supplement, resolved. 3.Hypotension, asymptomatic. Continue current dose of midodrine. We will follow up. The patient c learbrittany from the Renal standpoint for discharge planning. JORGE/PILY Voice ID: [id number] Report ID: [id number]
[2021-01-30 22:05] LABS: Tissue Transglutaminase IgA Ab 2 U/mL (<4)
--- NOTE | 2021-02-02 02:20 | P.PN ---
Date of Service: 01/26/21 Subjective Patient continues to improve with no new complaints. Biopsy is pending. Concern for amyloidosis. Review of Systems 10-point ROS is otherwise unremarkable Physical Examination - Vital Signs Reviewed - Physical Exam General: Alert, In no apparent distress, Oriented x3 Respiratory: Diminished Cardiovascular: Regular rate/rhythm, Normal S1 S2, No murmurs Gastrointestinal: Normal bowel sounds, Soft and benign, Non-distended, No tenderness Musculoskeletal: No clubbing, No swelling, No tenderness Neurological: Sensation intact, Cranial nerves 3-12 intact Assessment & Plan - Problems (Diagnosis) (1) Splenic lesion Current Visit: Yes Status: Acute (2) Left upper quadrant abdominal tenderness Current Visit: Yes Status: Acute (3) Alcohol abuse Current Visit: Yes Status: Acute (4) Hypertension Current Visit: Yes Status: Acute (5) History of cannabis abuse Current Visit: Yes Status: Acute - Plan Continue with plan of care as mentioned below: 1. Status post biopsy for Amyloidosis. Results are pending. 2. Continue with antibiotic therapy 3. Possible amyloidosis-biopsy done 4. Monitor labs and H&H and CBC closely 5. Strict blood pressure control 6. Continue with antibiotic therapy 7. GI and DVT prophylaxis
--- NOTE | 2021-02-02 02:23 | P.DS ---
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 Patient was hypotensive with blood pressure in the 80s systolic in the emergency department. Further evaluation revealed labs significant for white blood cell count 18,000 hemoglobin 10.8 had a crit 31.9 CO2 18 BUN 43 creatinine 4.43 GFR 16 magnesium 1.3 lactic acid 3.6 procalcitonin greater than 200 BNP 3997 troponin [address] demonstrates new splenic lesion/collection likely sequela of prior splenic infarct stability of the fluid is intermediate by CT. Case was discussed with radiologist given the clinical setting of severe sepsis it is possible that this is an abscess. Ultrasound was also obtained which cannot differentiate between hematoma/abscess. Case was discussed with general surgery, recommendation for transfer for IR/CT-guided percutaneous drainage was made, transfer was attempted to tertiary centers in [place] area but declined due to capacity. Patient was started on Merrem/vank, will be admitted to the ICU. Patient received 30 cc/kg fluid bolus in the emergency department, patient's blood pressure currently around 100 systolic. Will admit for further evaluation and management. Patient with severe sepsis without septic shock at this time. Hospital Course: Patient had splenic abscess catheter placed. Patient had drainage. Patient was treated with antibiotic therapy. Biopsies also done for amyloidosis. Patient with generalized weakness and will be going to inpatient rehab at discharge. Vital Signs/Physical Exam: Temp Pulse Resp BP Pulse Ox 98.3 F 78 19 97/57 L 96 01/27/21 10:53 01/27/21 10:53 01/27/21 10:53 01/27/21 10:53 01/27/21 10:53 General: Alert, In no apparent distress, Oriented x3 Laboratory Data at Discharge: WBC 7.60 K/uL (4.3-10.9) 01/27/21 10:18 Hgb 9.7 g/dL (13.6-17.9) L 01/27/21 10:18 Hct 28.4 % (39.6-49.0) L 01/27/21 10:18 Plt Count 451 K/uL (152-406) H 01/27/21 10:18 PT 13.9 SECONDS (9.5-12.5) H 01/24/21 11:02 INR 1.21 01/24/21 11:02 APTT 32.5 SECONDS (24.3-36.9) 01/13/21 10:06 Sodium 136 mmol/L (136-145) 01/26/21 17:23 Potassium 4.1 mmol/L (3.5-5.1) 01/26/21 17:23 BUN 12 mg/dL (7-18) 01/26/21 17:23 Creatinine 0.88 mg/dL (0.55-1.3) 01/26/21 17:23 Glucose 102 mg/dL (74-106) 01/26/21 17:23 Uric Acid 8.9 mg/dL (3.5-7.2) H 01/08/21 05:30 Phosphorus 4.5 mg/dL (2.5-4.9) 01/24/21 11:02 Magnesium 1.9 mg/dL (1.8-2.4) 01/26/21 17:23 Total Bilirubin 0.3 mg/dL (0.2-1.0) 01/25/21 10:26 AST 12 U/L (15-37) L 01/25/21 10:26 ALT 15 U/L (12-78) 01/25/21 10:26 Alkaline Phosphatase 67 U/L (45-117) 01/25/21 10:26 Troponin I < 0.02 ng/mL (0.0-0.045) 01/08/21 05:30 Triglycerides 278 mg/dL (<150) H 01/08/21 05:30 Cholesterol 117 mg/dL (<200) 01/08/21 05:30 HDL Cholesterol 30 mg/dL (40-60) L 01/08/21 05:30 Cholesterol/HDL Ratio 3.90 01/08/21 05:30 Lipase 35 U/L (73-393) L 01/07/21 17:55 Home Medications: Aspirin [Aspirin EC 81 MG] 81 mg PO DAILY #90 tablet. 10/31/20 Folic Acid 1 mg PO DAILY #90 tablet 10/31/20 Metoprolol Tartrate [Lopressor*] 12.5 mg PO BID #60 tab 10/31/20 Thiamine HCl 100 mg PO DAILY #90 tablet 10/31/20 Amox/Clavulanate [Augmentin 875-125 Tab] 1 each PO BID #10 tab 01/26/21 Cholecalciferol (Vitamin D3) [Vitamin D 1000 Iu Tab*] 2,000 unit PO DAILY #0 tab 01/26/21 Hydrocodone 5/APAP 325 [[place] 5/325*] 1 tab PO Q6H PRN #0 tab 01/26/21 Lidocaine 4% Patch [Lidoderm 5% Patch*] 1 patch TOP DAILY patch 01/26/21 Midodrine HCl [Proamatine*] 15 mg PO TID tab 01/26/21 New Medications: Amox/Clavulanate [Augmentin 875-125 Tab] 1 each PO BID #10 tab Physician Discharge Instructions: Transfer to inpatient rehab Diet: AHA Activity: Fall precautions Followup: NONE,NONE [Primary Care Provider] - Time spent managing pt's care (in minutes): 35
== END 2021-01-27 11:40 | DRG 871 ==
LOC: ER 16:30 → ERHOLD 22:03 → 2ND 01-09 21:58
PROVIDERS: ADMIT Family Medicine; ATTEND Hospitalist
PROC: 0T9B70Z Drainage of Bladder with Drainage Device, Via Natural or Artificial Opening (ICD-10-PCS; principal; 2021-01-07)
PROC: 0JB80ZX Excision of Abdomen Subcutaneous Tissue and Fascia, Open Approach, Diagnostic (ICD-10-PCS; 2021-01-24)
DX: A41.9 Sepsis, unspecified organism (principal); N17.0 Acute kidney failure with tubular necrosis; Z68.1 Body mass index [BMI] 19.9 or less, adult; E87.2 Acidosis; E87.3 Alkalosis; E87.0 Hyperosmolality and hypernatremia; E44.0 Moderate protein-calorie malnutrition; I10 Essential (primary) hypertension; R65.20 Severe sepsis without septic shock; F10.10 Alcohol abuse, uncomplicated; E83.42 Hypomagnesemia; F12.10 Cannabis abuse, uncomplicated; E83.51 Hypocalcemia; D64.9 Anemia, unspecified; D73.3 Abscess of spleen; D73.89 Other diseases of spleen; R53.81 Other malaise; E83.39 Other disorders of phosphorus metabolism; Z20.822 Contact with and (suspected) exposure to COVID-19; Z87.891 Personal history of nicotine dependence
CPT/HCPCS: 36415; 51702; 71045; 71250; 74176; 74177; 76705; 76770; 77012; 80048; 80053; 80061; 80069; 80076; 80202; 81001; 82024; 82306; 82533; 82550; 82570; 82607; 82728; 82746; 82805; 83036; 83516; 83520; 83540; 83605; 83690; 83735; 83880; 83970; 84100; 84132; 84145; 84156; 84165; 84439; 84443; 84466; 84484; 84550; 85025; 85610; 85730; 86021; 86038; 86160; 86225; 86235; 86317; 86334; 86592; 86704; 86706; 87040; 87086; 87088; 87340; 87522; 87804; 88108; 88305; 93005; 93306; 94010; 96361; 96365; 96366; 96367; 96375; 97110; 97116; 97161; 97530; 99285; J0690; J1160; J2185; J2250; J2310; J2405; J2704; J2930; J3010; J3370; J3475; J3480; J7030; J7040; J7050; J7120; J7799; Q9967; U0003

== ENCOUNTER 2021-01-26 12:25 | Inpatient (IN) | payer SELFPAY ==
--- NOTE | 2021-01-27 09:28 | R.PREADM ---
PRE-ADMISSION SCREENING FORM SCREENING DATE AND TIME 01/27/2021 08:26 (CDT) ANTICIPATED REHAB ADMISSION DATE 01/29/2021 REFERRING FACILITY [facility] REFERRAL DATE AND TIME 01/23/2021 08:26 (CDT) REFERRAL ROOM# 207 ACUTE ADMIT DATE 01/27/2021 Previous Rehabilitation(s): No. ACUTE MANAGER ROUTE/DC WIRING TECHNICIAN Zoe ATTENDING PHYSICIAN REFERRING PHYSICIAN Nomi Sanders REHAB FACILITY [facility] CLINICAL LIAISON Real Jacobs PHYSICIAN REVIEWER Dr. Matheus Ibarra M.D. MR# [id number] NAME SAMY CURRAN ADDRESS [address] [place] [address] PHONE [facility] [id number] DATE OF 1955 AGE 65 SSN# [id number] GENDER male MARITAL STATUS PREF. LANGUAGE (IF NON-KAZAKH) Fijian ADMIT FROM 02 - [facility] PRE-HOSPITAL LIVING SETTING 01 - Home (private home/apt. board/care, assisted living, retirement, transitional living) HOME TYPE AND DETAILS Type of home: single family house # of levels in the residence: 1 # of steps within the residence: 0 # of steps to enter the residence: [id number]_NUM PRE-HOSPITAL LIVING WITH Alone FAMILY SUPPORT No PRIMARY FAMILY CONTACT NAME NURA CURRAN PRIMARY FAMILY CONTACT PHONE PRIMARY FAMILY CONTACT RELATIONSHIP Sister PHONE PRIMARY FAMILY CONTACT ON ADM.? no IS PRIMARY FAMILY CONTACT AUTH. REP.? no 1ST EMERGENCY CONTACT NURA CURRAN 1ST CONTACT PHONE 1ST CONTACT RELATIONSHIP Sister PHONE 1ST CONTACT ON ADM. no IS 1ST CONTACT AUTH. REP.? no PHONE 2ND CONTACT ON ADM.? 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 No ANOTHER CONSTITUTION PARTY RESPONSIBLE? No PRIMARY REHAB/ACUTE DIAGNOSIS: SEVERE SEPSIS ONSET DATE 01/07/2021 REHAB IMPAIRMENT CATEGORY (ALBARO): 20 Miscellaneous (Misc) does NOT meet 60% rule PRIMARY DIAGNOSIS-RELATED SURGERIES: N/A SUMMARY OF ACUTE HOSPITALIZATION: Pt. is a 65 yo Right-handed male. On 01/07/2021 he was admitted to [facility] with diagnosis SEVERE SEPSIS. His impairment category is Medically Complex Conditions 17 - Infections (17.1). Pre-morbidly, Pt. was independent/mod-I in Safety Awareness, Social Cognition, Locomotion, Balance, a nd Transfers Control; and he had good Endurance, Communication, Sphincter Control, Self-Care, and Tra nsfers Control. Currently, he has deficits of Locomotion, Balance, Transfers Control, Sphincter Control, Endurance, a nd Safety Awareness. Pt. is now referred to [facility] for acute in-patient rehabilitation in order to maximize patient's functional independence in activities of daily living, strength, ROM, and mobi lity. Patient has realistic goal of being discharged at assistance level 7-Ind to reside at Home with Pt s elf. PAST MEDICAL HISTORY HYPERTENSION SPLENIC INFRACTION LEFT SIDE ABDOMINAL PAIN HYPOTENSION MEDICATION ALLERGIES: No Known Drug Allergies (NKDA) ENVIRONMENTAL ALLERGIES: - Substance Allergies None Known - Other Allergies None Known CODE STATUS: Full code WEIGHT/HEIGHT/BMI: WEIGHT 145 lbs HEIGHT 6' 1" BMI 19.1 DIET: - Diet Type Regular - Diet - Solid Texture Regular - Diet - Liquid Texture Regular - Tube Feed N/A REVIEW OF SYSTEMS: - Gen Alert and awake Lying in bed No apparent distress Oriented to: person, time, and place - Vital Signs Temperature: 97.5 F SBP/DBP: 105/58 Pulse: 67 Resp: 16 Vital signs stable, afebrile - CVS RRR VITAL SIGNS Temperature: 97.5 F SBP/DBP: 105/58 Pulse: 67 Resp: 16 Vital signs stable, afebrile MEDICATIONS/TREATMENT: Other- See attached MAR (Medication Administration Record). CURRENT SPHINCTER CONTROL: Pre-hospital bladder status: unspecified # of bladder accidents in the last 7 days prior to screenin Pre-hospital bowel status: unspecified # of bowel accidents in the last 7 days prior to screenin Last Bowel Movement Date: 01/27/2021 CURRENT LOCOMOTION STATUS: distance walked 6,3X2 feet WITH ROLLING WALKER DETAILED CURRENT FUNCTIONAL STATUS: - Bladder accident frequency: 7-Ind - No accidents in the past 7 days - Bowel accident frequency: 7-Ind - No accidents in the past 7 days - Walking score based on distance walked: 0(N/A) score based on distance walked: 1(<=50ft) - Wheelchair score based on distance traveled: 0(N/A) QI SCORES: - Self-Care A. Eating 03-Partial/moderate assistance B. Oral hygiene 03-Partial/moderate assistance C. Toileting hygiene 03-Partial/moderate assistance E. Shower/bathe self 03-Partial/moderate assistance F. Upper body dressing 03-Partial/moderate assistance G. Lower body dressing 03-Partial/moderate assistance H. Putting on/taking off footwear 88-Not attempted due to medical condition or safety concerns - Mobility A. Roll left and right 03-Partial/moderate assistance B. Sit to lying 03-Partial/moderate assistance C. Lying to sitting on side of bed 03-Partial/moderate assistance D. Sit to stand 03-Partial/moderate assistance E. Chair/hid-go-ypojv transfer 03-Partial/moderate assistance F. Toilet transfer 03-Partial/moderate assistance G. Car transfer 88-Not attempted due to medical condition or safety concerns I. Walk 10 feet 03-Partial/moderate assistance J. Walk 50 feet with two turns 88-Not attempted due to medical condition or safety concerns K. Walk 150 feet 88-Not attempted due to medical condition or safety concerns L. Walking 10 feet on uneven surfaces 88-Not attempted due to medical condition or safety concerns M. 1 step (curb) 88-Not attempted due to medical condition or safety concerns N. 4 steps 88-Not attempted due to medical condition or safety concerns O. 12 steps 88-Not attempted due to medical condition or safety concerns P. Picking up object 88-Not attempted due to medical condition or safety concerns R. Wheel 50 feet with two turns 88-Not attempted due to medical condition or safety concerns S. Wheel 150 feet 88-Not attempted due to medical condition or safety concerns - Bladder and Bowel Bladder continence Bowel continence - Endurance Fair - Balance Fair - Safety Awareness Fair CURRENT FUNC. DEFICITS: Self-Care, Mobility, Endurance, Balance, and Safety Awareness CURRENT / PREVIOUS ASSISTIVE DEVICES: Rolling Walker HISTORY OF FALLS. HAS THE PATIENT HAD TWO OR MORE FALLS IN THE PAST YEAR OR ANY FALL WITH INJURY IN T HE PAST YEAR?: No PRIOR SURGERY. DID THE PATIENT HAVE MAJOR SURGERY DURING THE 100 DAYS PRIOR TO ADMISSION?: No THERAPY NOTES FROM ACUTE CARE: Attached. SPECIAL NEEDS: - Safety Concerns Skin breakdown precautions needed due to skin breakdown risk PATIENT NEEDS ACTIVE AND ONGOING THERAPEUTIC INTERVENTION OF MULTIPLE THERAPY DISCIPLINES, INCLUDING: - Dietary and Nutrition Adequate Nutrition. Nutritional Education. Nutritional Supplements. - Occupational Therapy Cognitive Retraining. Visual Perceptual Training. - Speech Therapy Cognitive Training. Expressive Language Skills. Memory Strategies. Receptive Language Skills. Speech Intelligibility Training. PATIENT NEEDS CLOSE MEDICAL SUPERVISION BY A REHABILITATION PHYSICIAN FOR: Coordination of Treatment Team PATIENT REQUIRES 24X7 REHAB NURSING FOR MEDICAL AND FUNCTIONAL MGT. OF THE FOLLOWING DEFICITS: Disease Management Medication Management Patient/Family Education Providing Safe Environment PATIENT REQUIRES INTENSIVE, COORDINATED INTERDISCIPLINARY APPROACH TO REHAB: Arranging Home Equipment/Services Discharge Planning Family Intervention/Training Product Marketer/Case Management PATIENT REHAB POTENTIAL: Jeremiah CURRAN is able and expected to receive 3 hours of individualized therapy daily on at least 5 of berlin ry 7 days Jeremiah CURRAN's prognosis for significant practical improvement within a reasonable period of time appears Good Expected level of measurable improvement will be of a practical value to Jeremiah CURRAN's functional capaci ty or adaptations to impairments Has a viable Discharge Plan Medically appropriate; condition is sufficiently stable to participate in intensive rehab program DISCHARGE PLAN: - Estimated Length of Stay (days) 13. - Consensus on plan Discharge plan has been discussed with primary caregiver. Patient/Family is in agreement with the thalia n. Primary caregiver is in agreement with the plan. - Patient/Family Goals Return home independently. - Planned Living Setting Upon Discharge Home, to live alone. Transitional Living. Primary caregiver: Pt self. RECOMMENDED CARE LEVEL: IRF RECOMMENDATION DETAILS: Recommended Admission to Comprehensive Rehabilitation Program to Increase Functional [place] SCREENER'S COMPLETENESS CONFIRMATION: - Screening Confirmation The patient data collection on this preadmission screening form is finished PHYSICIANS REVIEW AND ADMISSION DETERMINATION Admit - Based on my review of the Pre-Admission Screening results, in my medical judgment and experie nce, I concur with the findings and recommend admission to [facility], as this patient requires an IRF level of care. SIGNATURE PANEL: [employer] - [electronically] signed by Real Jacobs on 01/27/2021 at 08:39 (CDT) [employer] - [electronically] signed by Masoud Hopson PT on 01/27/2021 at 08:42 (CDT) Physician Reviewer - [electronically] signed by Dr. Matheus Ibarra M.D. on 01/27/2021 at 09:28 (CDT )
[2021-01-27] MEDS: MIDODRINE HCL 5 MG TABLET PO SCH ×2 (13:02→18:55)
[2021-01-27] MEDS: ACETAMINOPHEN 500 MG TAB PO PRN (13:03)
--- NOTE | 2021-01-27 15:37 | RAD REPORT ---
EXAM DESCRIPTION: RAD - Knee Right 2 View - 01/27/2021 3:21 pm CLINICAL HISTORY: increase swelling, pain COMPARISON: No comparisons FINDINGS: No right knee fractures identified. No knee effusion. Small patellar enthesophyte but othe rwise no significant focal degenerative changes. IMPRESSION: No acute osseus abnormality involving the right knee.
--- NOTE | 2021-01-27 16:47 | R.HP ---
HISTORY AND PHYSICAL FACILITY: [facility] ENCOUNTER DATE AND TIME: 01/27/2021 16:41 (CDT) MR#: [id number] NAME SAMY CURRAN ADDRESS: [address] [place] [address] CITY: [facility] [id number] PHONE: DATE OF : 1955 AGE: 65 SSN# [id number] GENDER: Male MARITAL STATUS PRE-HOSPITAL LIVING SETTING 01 - Home (private home/apt. board/care, assisted living, chcf, transitional living) PRE-HOSPITAL LIVING WITH Alone ENCOUNTER PHYSICIAN: Dr. Matheus Ibarra M.D. REFERRING DOCTOR: khalif Sanders DATE OF ADMISSION: 01/27/2021 11:38 (CDT) REFERRING FACILITY [facility] HOME TYPE AND DETAILS: Type of home: single family house # of levels in the residence: 1 # of steps within the residence: 0 # of steps to enter the residence: RESIDENCE_ENTER_S0TAIRS_NUM ONSET DATE: 01/07/2021 PRIMARY DIAGNOSIS-RELATED SURGERIES: N/A HISTORY OF PRESENT ILLNESS (HPI): Pt. is a 65 yo Right-handed male. On 01/07/2021 he was admitted to [facility] with diagnosis SEVERE SEPSIS and debility. His impairment category is Medically Complex Conditions 17 - Infections (17.1). Pre-morbidly, Pt. was independent/mod-I in Safety Awareness, Social Cognition, Locomotion, Balance, a nd Transfers Control; and he had good Endurance, Communication, Sphincter Control, Self-Care, and Tra nsfers Control. Currently, he has deficits of Locomotion, Balance, Transfers Control, Sphincter Control, Endurance, a nd Safety Awareness. Pt. is now referred to [facility] for acute in-patient rehabilitation in order to maximize patient's functional independence in activities of daily living, strength, ROM, and mobi lity. Patient has realistic goal of being discharged at assistance level 7-Ind to reside at Home with Pt s elf. MEDICATION ALLERGIES: No Known Drug Allergies (NKDA) ENVIRONMENTAL ALLERGIES: - Substance Allergies None Known - Other Allergies None Known PAST MEDICAL HISTORY: HYPERTENSION SPLENIC INFRACTION LEFT SIDE ABDOMINAL PAIN HYPOTENSION SOCIAL HISTORY: - Home Living Alone REVIEW OF SYSTEMS: - Gen No Chills Fatigue No Fever - Eyes No Double Vision No itchiness - ENMT No Difficulty Swallowing - CVS No Chest Discomfort No Chest Pain Fatigue No Weight Gain - Resp No Cough No Shortness of Breath - GI Continent No Abdominal Pain No Constipation No Diarrhea - Continent No Kidney Pain No Painful Urination No Urinary Urgency - MSK No Joint Pain Muscle Cramps No Stiffness - Skin No Itching No Rash No Suspicious Lesions - Neuro Coordination Difficulty No Difficulty with Concentration No Memory Loss No Seizures Weakness - Psych No Anxiety No Depression No HIV Exposure No Persistent Infections No Seasonal Allergies - Endo No Cold/Heat Intolerance No Excessive Hunger No Excessive Thirst No Excessive Urination PHYSICAL EXAM - Gen Alert and awake Lying in bed No apparent distress Oriented to: person, time, and place - Skin No skin breakdown. No abnormalities - Eyes No abnormalities - ENMT No abnormalities - Neck No abnormalities - CVS RRR - Chest No abnormalities - Abd Soft - GI + bowel sounds Deferred - No abnormalities - Ext Right knee pain and mild swelling. - MSK 4+/5 weakness in both lower extremities. - Neuro 4/5 strength bilaterally lower extremities. - Psych No abnormalities VITAL SIGNS Temperature: 97.5 F SBP/DBP: 90/57 Pulse: 90 Resp: 16 NURSING: - Shower allowing shower ACTIVITIES OOB only with supervision QI SCORES: - Self-Care A. Eating 03-Partial/moderate assistance B. Oral hygiene 03-Partial/moderate assistance C. Toileting hygiene 03-Partial/moderate assistance E. Shower/bathe self 03-Partial/moderate assistance F. Upper body dressing 03-Partial/moderate assistance G. Lower body dressing 03-Partial/moderate assistance H. Putting on/taking off footwear 88-Not attempted due to medical condition or safety concerns - Mobility A. Roll left and right 03-Partial/moderate assistance B. Sit to lying 03-Partial/moderate assistance C. Lying to sitting on side of bed 03-Partial/moderate assistance D. Sit to stand 03-Partial/moderate assistance E. Chair/aok-gr-jixlh transfer 03-Partial/moderate assistance F. Toilet transfer 03-Partial/moderate assistance G. Car transfer 88-Not attempted due to medical condition or safety concerns I. Walk 10 feet 03-Partial/moderate assistance J. Walk 50 feet with two turns 88-Not attempted due to medical condition or safety concerns K. Walk 150 feet 88-Not attempted due to medical condition or safety concerns L. Walking 10 feet on uneven surfaces 88-Not attempted due to medical condition or safety concerns M. 1 step (curb) 88-Not attempted due to medical condition or safety concerns N. 4 steps 88-Not attempted due to medical condition or safety concerns O. 12 steps 88-Not attempted due to medical condition or safety concerns P. Picking up object 88-Not attempted due to medical condition or safety concerns R. Wheel 50 feet with two turns 88-Not attempted due to medical condition or safety concerns S. Wheel 150 feet 88-Not attempted due to medical condition or safety concerns - Bladder and Bowel Bladder continence Bowel continence - Endurance Fair - Balance Fair - Safety Awareness Fair CURRENT FUNC. DEFICITS: Self-Care, Mobility, Endurance, Balance, and Safety Awareness MEDICATIONS: - Other See attached MAR (Medication Administration Record) ASSESSMENT: Pt. is a 65 yo Right-handed male.On 01/07/2021 he was admitted to [facility] with diagno sis SEVERE SEPSIS and debility.His impairment category is Medically Complex Conditions 17 - Infectio ns (17.1).Pre-morbidly, Pt. was independent/mod-I in Safety Awareness, Social Cognition, Locomotion, Balance, and Transfers Control; and he had good Endurance, Communication, Sphincter Control, Self-Car e, and Transfers Control.Currently, he has deficits of Locomotion, Balance, Transfers Control, Sphinc ter Control, Endurance, and Safety Awareness.Pt. is now referred to [facility] for acute in-patient rehabilitation in order to maximize patient's functional independence in activi ties of daily living, strength, ROM, and mobility.- Rehab Goal Patient has realistic goal of being discharged at assistance level 7-Ind to reside at Home with Pt s elf. REHAB PLAN: - Physical Therapy Weakness - to improve, our physical therapists will perform initial evaluation of pt's status upon a dmission and devise an individualized program for Aquatic Therapy, Neuromuscular Reeducation, and Str engthening Poor balance - to improve, our physical therapists will perform initial evaluation of pt's status up on admission and devise an individualized program for Balance Training Inability to transfer - to improve, our physical therapists will perform initial evaluation of pt's status upon admission and devise an individualized program for Bed mobility Need in caregiver upon discharge - to improve, our physical therapists will perform initial evaluati on of pt's status upon admission and devise an individualized program for Caregiver Training Poor endurance - to improve, our physical therapists will perform initial evaluation of pt's status upon admission and devise an individualized program for Endurance Training Gait dysfunction - to improve, our physical therapists will perform initial evaluation of pt's statu s upon admission and devise an individualized program for Gait Training, and Wheel Chair mobility Need for home safety evaluation - to improve, our physical therapists will perform initial evaluatio n of pt's status upon admission and devise an individualized program for Home Evaluation New precaution - to improve, our physical therapists will perform initial evaluation of pt's status upon admission and devise an individualized program for Patient precaution education - Occupational Therapy Weakness - to improve, our occupation therapists will perform initial evaluation of pt's status upon admission and devise an individualized program for Aquatic Therapy, Balance, Endurance, UE ROM, and UE strengthening Need for child caregiver private home - to improve, our occupation therapists will perform initial evaluation of pt's status upon admission and devise an individualized program for Caregiver Training - Balance for Weakness - Bed mobility for ADL deficits MEDICAL PLAN: - Diet Type Start Regular - Diet - Liquid Texture Start Regular - Tube Feed Start N/A - Other See attached MAR (Medication Administration Record) - Diet - Solid Texture Regular - Shower shower DISCHARGE PLAN: - Estimated Length of Stay (days) 13. - Consensus on plan Discharge plan has been discussed with primary caregiver. Patient/Family is in agreement with the thalia n. Primary caregiver is in agreement with the plan. - Patient/Family Goals Return home independently. - Planned Living Setting Upon Discharge Home, to live alone. Transitional Living. Primary caregiver: Pt self. SIGNATURE PANEL: (CDT)
--- NOTE | 2021-01-27 16:48 | PAPE ---
POST ADMISSION PHYSICIAN EVALUATION PATIENT: [facility] MR# [id number] REFERRING DOCTOR khalif Sanders EVALUATION DATE AND TIME 01/27/2021 16:46 (CDT) NAME SAMY CURRAN DATE OF 1955 AGE 65 PHONE SSN# [id number] GENDER male EVALUATING PHYSICIAN Dr. Matheus Ibarra M.D. ADMISSION DIAGNOSIS: SEVERE SEPSIS and debility ONSET DATE 01/07/2021 POST-ADMISSION FUNCTIONAL/MEDICAL STATUS: - Bladder Same accident frequency: 7-Ind - No accidents in the past 7 days - Bowel Same accident frequency: 7-Ind - No accidents in the past 7 days - Walking Same score based on distance walked: 0(N/A) Same score based on distance walked: 1(<=50ft) - Wheelchair Same score based on distance traveled: 0(N/A) STATUS CHANGE EVALUATION: No change in Functional or Medical Status is identified compared with Pre-Admission screening. PATIENT NEEDS CLOSE MEDICAL SUPERVISION BY A REHABILITATION PHYSICIAN FOR: Coordination of Treatment Team PATIENT REQUIRES 24X7 REHAB NURSING FOR MEDICAL AND FUNCTIONAL MGT. OF THE FOLLOWING DEFICITS: Disease Management Medication Management Patient/Family Education Providing Safe Environment PATIENT REQUIRES INTENSIVE, COORDINATED INTERDISCIPLINARY APPROACH TO REHAB: Arranging Home Equipment/Services Discharge Planning Family Intervention/Training [employer] Teacher/Case Management LIST OF IDENTIFIED AND POTENTIAL PROBLEMS: Alteration in leisure activities Bladder, Incontinence Bowel, Incontinence Infection, Actual or Potential Mobility Impaired Pain, Alteration in Comfort Self Care Deficit Skin Integrity, Actual or Potential Urinary Tract Infection (UTI), Actual or Potential PATIENT COULD BE AT RISK FOR COMPLICATIONS FROM ADVERSE MEDICAL CONDITIONS DUE TO HIS/HER COMORBIDITI ES AND THE RIGORS OF THE INTENSIVE REHABILLITATION PROGRAM. METHODS OR INTERVENTIONS TO AVOID COMPLIC ATIONS INCLUDE: - Infection Clinical staff to assess and manage the signs and symptoms of infection including fever, redness, war mth, etc. - Urinary Tract Infection - Falls Patient will be evaluated for Fall Precautions and will be placed on Fall Precautions as indicated pe r protocol. - Skin Breakdown Nursing will assess skin daily using assessment tool and will place on Skin Breakdown Precautions as indicated per protocol. - Pain Clinical staff may employ non-medication methods such as massage, distraction, decrease stimulus, etc . as needed. Clinical staff will assess patient's pain level every shift per protocol to assess and e nsure pain management effectiveness. Medications will be given and the pain level re-assessed. PRELIMINARY PLAN OF CARE: - Physical Therapy Patient needs Physical Therapy for a daily minimum of 1.5 hours at least 5 out of 7 days, to improve: Mobility, Strengthening, Transfers, Stretching, ROM, Endurance, Ability to manage stairs, Gait, and Balance. - Speech Therapy Patient needs Speech Therapy for a daily minimum of 0.5 hours at least 5 out of 7 days, to improve: S wallowing, Cognition, Language Skills, and Compensatory Strategies. - Rehabilitation Nursing Patient requires 24x7 Rehabilitation Nursing for: Pain Issues, Identifying and preventing risk factor s, Monitoring and reporting current medical conditions, Assisting with ambulation and transfer, Frieda ting with all ADL-s, Teaching patients about disease process and medications, Family teaching, Provid ing safe environment, Bowel and Bladder Issues, Skin Integrity, and Medication Management. Patient needs [employer] Teacher and/or Case Management for: Discharge Planning, Arranging Home Equipmen t or Services, and Family Interventions. - Dietary and Nutrition Services Patient needs Dietary and Nutrition Services for: Adequate Nutrition, Nutritional Supplements, and Nu tritional Education. - Occupational Therapy Patient needs Occupational Therapy for a daily minimum of 1.5 hours at least 5 out of 7 days, to impr ove Activities of Daily Living, including: Eating, Grooming, Bathing, Dressing, Toileting, Toilet Tra nsfers, Community Reintegration, Higher functional activities, Adaptive Equipment, Splinting, Househo ld Tasks, and Other activities as determined. QI SCORES: - Self-Care A. Eating 03-Partial/moderate assistance B. Oral hygiene 03-Partial/moderate assistance C. Toileting hygiene 03-Partial/moderate assistance E. Shower/bathe self 03-Partial/moderate assistance F. Upper body dressing 03-Partial/moderate assistance G. Lower body dressing 03-Partial/moderate assistance H. Putting on/taking off footwear 88-Not attempted due to medical condition or safety concerns - Mobility A. Roll left and right 03-Partial/moderate assistance B. Sit to lying 03-Partial/moderate assistance C. Lying to sitting on side of bed 03-Partial/moderate assistance D. Sit to stand 03-Partial/moderate assistance E. Chair/mbd-mr-cezin transfer 03-Partial/moderate assistance F. Toilet transfer 03-Partial/moderate assistance G. Car transfer 88-Not attempted due to medical condition or safety concerns I. Walk 10 feet 03-Partial/moderate assistance J. Walk 50 feet with two turns 88-Not attempted due to medical condition or safety concerns K. Walk 150 feet 88-Not attempted due to medical condition or safety concerns L. Walking 10 feet on uneven surfaces 88-Not attempted due to medical condition or safety concerns M. 1 step (curb) 88-Not attempted due to medical condition or safety concerns N. 4 steps 88-Not attempted due to medical condition or safety concerns O. 12 steps 88-Not attempted due to medical condition or safety concerns P. Picking up object 88-Not attempted due to medical condition or safety concerns R. Wheel 50 feet with two turns 88-Not attempted due to medical condition or safety concerns S. Wheel 150 feet 88-Not attempted due to medical condition or safety concerns - Bladder and Bowel Bladder continence Bowel continence - Endurance Fair - Balance Fair - Safety Awareness Fair POTENTIAL FUNCTIONAL GOALS FOR PATIENT TO ACHIEVE BY DISCHARGE: - Safety Precaution Patient will remain free from falls or injury at time of discharge. - Bed Mobility Patient will perform bed mobility at 4-Mireya level of assistance. - Transfers Patient will complete transfers from bed to chair at 4-Mireya level of assistance. - Mobility Patient will ambulate 150 ft with 4-Mireya level of assistance with RW. PATIENT REHAB POTENTIAL Jeremiah CURRAN is able and expected to receive 3 hours of individualized therapy daily on at least 5 of 7 days Jeremiah IVEYs prognosis for significant practical improvement within a reasonable period of time appears Good Expected level of measurable improvement will be of a practical value to Jeremiah CURRAN's functional capaci ty or adaptations to impairments Has a viable Discharge Plan Medically appropriate; condition is sufficiently stable to participate in intensive rehab program DISCHARGE PLAN: - Estimated Length of Stay (days) 13. - Consensus on plan Discharge plan has been discussed with primary caregiver. Patient/Family is in agreement with the thalia n. Primary caregiver is in agreement with the plan. - Patient/Family Goals Return home independently. - Planned Living Setting Upon Discharge Home, to live alone. Transitional Living. Primary caregiver: Pt self. CONCLUSION ON REHABILITATION NECESSITY: I have evaluated patient's pre-admission functional status and, comparing it to the patient's post-ad mission functional status now, I conclude that the pre-admission assessment was accurate. Patient's c ondition on admission supports the medical necessity of admission to IR[facility]. It is safe to proceed with patient's therapy program. SIGNATURE PANEL: (CDT)
[2021-01-27] MEDS ORDERED: METOPROLOL TAR 25 MG TAB PO SCH (18:00)
[2021-01-27] MEDS: DOCUSATE NA/SENNA CONC 1 TAB PO PRN (18:54)
[2021-01-27] MEDS: AMOX/K CLAV 875 MG TAB PO SCH (18:55)
[2021-01-27] MEDS: TAMSULOSIN 0.4 MG SR CAP PO SCH (18:55)
[2021-01-27] MEDS: MELATONIN 3 MG TABLET PO PRN (18:55)
[2021-01-27 19:20] LABS: Urine Appearance CLEAR (Clear); Urine Bilirubin NEGATIVE (Negative); Urine Blood NEGATIVE (Negative); Urine Color YELLOW (Yellow); Urine Glucose NEGATIVE (Negative); Urine Protein NEGATIVE (Negative); Urine Specific Gravity <=1.005 (1.005-1.030); Urine Urobilinogen 0.2 mg/dL (0.2-1.0); Urine pH 6.5 (5.0-7.0)
[2021-01-27 21:01] LABS: Calcium Oxalate Crystals- Ur FEW (NONE SEEN); Urine Bacteria <20 /HPF (NONE SEEN); Urine RBC <5 /HPF (NONE SEEN); Urine Yeast FEW (NONE SEEN)
[2021-01-28] MEDS: METOPROLOL TAR 25 MG TAB PO SCH (05:06)
[2021-01-28] MEDS: MIDODRINE HCL 5 MG TABLET PO SCH ×3 (07:00→19:32)
[2021-01-28] MEDS: VITAMIN D 1000 UNIT TAB PO SCH (07:55)
[2021-01-28] MEDS: ASPIRIN EC 81 MG TAB PO SCH (07:55)
[2021-01-28] MEDS: FOLIC ACID 1 MG TABLET PO SCH (07:56)
[2021-01-28] MEDS: THIAMINE HCL 100 MG TABLET PO SCH (07:56)
[2021-01-28] MEDS: ACETAMINOPHEN 500 MG TAB PO PRN ×2 (07:56→19:45)
[2021-01-28] MEDS: AMOX/K CLAV 875 MG TAB PO SCH ×2 (07:56→19:32)
[2021-01-28] MEDS ORDERED: POLYETHYL GLY 3350 17 GM/DOSE PO PRN (09:06)
[2021-01-28] MEDS: SIMETHICONE 80 MG TAB PO PRN ×3 (09:20→17:18)
[2021-01-28] MEDS: LIDOCAINE 4% PATCH TOP SCH (09:27)
[2021-01-28 14:45] LABS: Absolute Lymphocytes (CBC) 2.3 K/uL (0.7-4.9); Basophils % 0.2 % (0-1.3); Hematocrit 29.2 % (39.6-49.0); Lymphocytes % 23.6 % (15.3-44.8); MPV 7.3 fL (7.6-11.3)
[2021-01-28 15:01] LABS: Albumin 2.9 g/dL (3.4-5.0); Magnesium 1.6 mg/dL (1.8-2.4); Potassium 3.5 mmol/L (3.5-5.1); Prealbumin 18.5 mg/dL (20-40)
--- NOTE | 2021-01-28 19:16 | R.PN ---
PROGRESS NOTES ENCOUNTER DATE AND TIME: 01/28/2021 19:06 (CDT) NAME SAMY CURRAN DATE OF : 1955 DATE OF ADMISSION: 01/27/2021 11:38 (CDT) SEVERE SEPSIS and debilityCHIEF COMPLAINT: Sepsis and debility SUBJECTIVE: Pt denied any depression. Pt denied any Shortness of Breath. CBC with differential show WBC 9.9, Hgb 10.0, Na 134, prealbumin 18.5. Ambulated a total of 46' with a rolling walker and contact guard assistance. Self-propelled wheelchai r 250' with standby assistance. VITAL SIGNS Temperature: 97.6 F SBP/DBP: 92/59 Pulse: 105 Resp: 16 MEDICATION ALLERGIES: No Known Drug Allergies (NKDA) ENVIRONMENTAL ALLERGIES: - Substance Allergies None Known - Other Allergies None Known NURSING: - Shower allowing shower ACTIVITIES OOB only with supervision THERAPIES: - Dietary and Nutrition Adequate Nutrition. Nutritional Education. Nutritional Supplements. - Occupational Therapy Cognitive Retraining. Visual Perceptual Training. - Speech Therapy Cognitive Training. Expressive Language Skills. Memory Strategies. Receptive Language Skills. Speech Intelligibility Training. PHYSICAL EXAM - Gen Alert and awake Lying in bed No apparent distress Oriented to: person, time, and place - Skin No skin breakdown. No abnormalities - Eyes No abnormalities - ENMT No abnormalities - Neck No abnormalities - CVS RRR - Chest No abnormalities - Abd Soft - GI + bowel sounds Deferred - No abnormalities - Ext Right knee pain and mild swelling. - MSK 4+/5 weakness in both lower extremities. - Neuro 4/5 strength bilaterally lower extremities. - Psych No abnormalities ASSESSMENT: Pt. is a 65 yo Right-handed male.On 01/07/2021 he was admitted to [facility] with diagno sis SEVERE SEPSIS and debility.His impairment category is Medically Complex Conditions 17 - Infectio ns (17.1).Pre-morbidly, Pt. was independent/mod-I in Safety Awareness, Social Cognition, Locomotion, Balance, and Transfers Control; and he had good Endurance, Communication, Sphincter Control, Self-Car e, and Transfers Control.Currently, he has deficits of Locomotion, Balance, Transfers Control, Sphinc ter Control, Endurance, and Safety Awareness.Pt. is now referred to [facility] for acute in-patient rehabilitation in order to maximize patient's functional independence in activi ties of daily living, strength, ROM, and mobility.- Rehab Goal Patient has realistic goal of being discharged at assistance level 7-Ind to reside at Home with Pt s elf. MDM/PLAN: - Physical Therapy Weakness - to improve, our physical therapists will perform initial evaluation of pt's status upon ad mission and devise an individualized program for Aquatic Therapy, Neuromuscular Reeducation, and Stre ngthening Poor balance - to improve, our physical therapists will perform initial evaluation of pt's status upo n admission and devise an individualized program for Balance Training Inability to transfer - to improve, our physical therapists will perform initial evaluation of pt's s tatus upon admission and devise an individualized program for Bed mobility Need in caregiver upon discharge - to improve, our physical therapists will perform initial evaluatio n of pt's status upon admission and devise an individualized program for Caregiver Training Poor endurance - to improve, our physical therapists will perform initial evaluation of pt's status u sammie admission and devise an individualized program for Endurance Training Gait dysfunction - to improve, our physical therapists will perform initial evaluation of pt's status upon admission and devise an individualized program for Gait Training, and Wheel Chair mobility Need for home safety evaluation - to improve, our physical therapists will perform initial evaluation of pt's status upon admission and devise an individualized program for Home Evaluation New precaution - to improve, our physical therapists will perform initial evaluation of pt's status u sammie admission and devise an individualized program for Patient precaution education - Occupational Therapy Weakness - to improve, our occupation therapists will perform initial evaluation of pt's status upon admission and devise an individualized program for Aquatic Therapy, Balance, Endurance, UE ROM, and U E strengthening Need for nursing care attendant - to improve, our occupation therapists will perform initial evaluation of pt's s tatus upon admission and devise an individualized program for Caregiver Training - Other See attached MAR (Medication Administration Record) - Diet Type Continue Regular - Diet - Liquid Texture Continue Regular - Tube Feed Continue N/A - Diet - Solid Texture Continue Regular - Shower allowing shower - Balance for Weakness - Bed mobility for ADL deficits FUNCTIONAL STATUS: UPDATED AT WEEKLY TEAM CONFERENCE - Bladder Same accident frequency: 7-Ind - No accidents in the past 7 days - Bowel Same accident frequency: 7-Ind - No accidents in the past 7 days - Walking Same score based on distance walked: 0(N/A) Same score based on distance walked: 1(<=50ft) - Wheelchair Same score based on distance traveled: 0(N/A) FUNCTIONAL STATUS: - Self-Care A. Eating Ind B. Grooming Tegan C. Bathing sup D. Dressing - Upper Mireya E. Dressing - Lower modA F. Toileting Mireya - Sphincter Control G. Bladder control sup H. Bowel control sup - Transfers Control I. Bed/Chair/Wheelchair modA J. Toilet modA K. Tub/Shower modA - Locomotion L. Walk/Wheelchair (B) modA M. Stairs ADNO - Communication N. Comprehension (B) Mireya O. Expression (B) Mireya - Social Cognition P. Social Interaction sup Q. Problem Solving Mireya R. Memory Mireya - Endurance Fair - Balance Poor - Safety Awareness Fair QI SCORES: - Self-Care A. Eating 03-Partial/moderate assistance B. Oral hygiene 03-Partial/moderate assistance C. Toileting hygiene 03-Partial/moderate assistance E. Shower/bathe self 03-Partial/moderate assistance F. Upper body dressing 03-Partial/moderate assistance G. Lower body dressing 03-Partial/moderate assistance H. Putting on/taking off footwear 88-Not attempted due to medical condition or safety concerns - Mobility A. Roll left and right 03-Partial/moderate assistance B. Sit to lying 03-Partial/moderate assistance C. Lying to sitting on side of bed 03-Partial/moderate assistance D. Sit to stand 03-Partial/moderate assistance E. Chair/nem-vy-swued transfer 03-Partial/moderate assistance F. Toilet transfer 03-Partial/moderate assistance G. Car transfer 88-Not attempted due to medical condition or safety concerns I. Walk 10 feet 03-Partial/moderate assistance J. Walk 50 feet with two turns 88-Not attempted due to medical condition or safety concerns K. Walk 150 feet 88-Not attempted due to medical condition or safety concerns L. Walking 10 feet on uneven surfaces 88-Not attempted due to medical condition or safety concerns M. 1 step (curb) 88-Not attempted due to medical condition or safety concerns N. 4 steps 88-Not attempted due to medical condition or safety concerns O. 12 steps 88-Not attempted due to medical condition or safety concerns P. Picking up object 88-Not attempted due to medical condition or safety concerns R. Wheel 50 feet with two turns 88-Not attempted due to medical condition or safety concerns S. Wheel 150 feet 88-Not attempted due to medical condition or safety concerns - Bladder and Bowel Bladder continence Bowel continence - Endurance Fair - Balance Fair - Safety Awareness Fair CURRENT [facility]. DEFICITS: Self-Care, Mobility, Endurance, Balance, and Safety Awareness SIGNATURE PANEL: (CDT)
[2021-01-28] MEDS: MELATONIN 3 MG TABLET PO PRN (19:32)
[2021-01-28] MEDS: MAGNESIUM OXIDE 400 MG TAB PO SCH (19:32)
[2021-01-28] MEDS: ENSURE HIGH PROTEIN 237 ML CAN PO SCH (19:32)
[2021-01-28] MEDS: TAMSULOSIN 0.4 MG SR CAP PO SCH (19:32)
[2021-01-28] MEDS: DOCUSATE NA/SENNA CONC 1 TAB PO PRN (19:45)
[2021-01-29] MEDS: METOPROLOL TAR 25 MG TAB PO SCH (05:03)
[2021-01-29] MEDS: SIMETHICONE 80 MG TAB PO PRN ×3 (06:40→17:25)
[2021-01-29] MEDS: ACETAMINOPHEN 500 MG TAB PO PRN ×3 (06:40→21:00)
[2021-01-29] MEDS: LIDOCAINE 4% PATCH TOP SCH (06:41)
[2021-01-29] MEDS: MAGNESIUM OXIDE 400 MG TAB PO SCH ×2 (07:54→19:19)
[2021-01-29] MEDS: ENSURE HIGH PROTEIN 237 ML CAN PO SCH ×2 (07:54→19:19)
[2021-01-29] MEDS: ASPIRIN EC 81 MG TAB PO SCH (07:54)
[2021-01-29] MEDS: VITAMIN D 1000 UNIT TAB PO SCH (07:54)
[2021-01-29] MEDS: FOLIC ACID 1 MG TABLET PO SCH (07:54)
[2021-01-29] MEDS: AMOX/K CLAV 875 MG TAB PO SCH ×2 (07:54→19:18)
[2021-01-29] MEDS: MIDODRINE HCL 5 MG TABLET PO SCH ×3 (07:55→19:18)
[2021-01-29] MEDS: THIAMINE HCL 100 MG TABLET PO SCH (07:55)
--- NOTE | 2021-01-29 10:43 | P.CNS ---
Date of Consult: 01/29/21 Reason for Consult: LEXA, Hypotension Requesting Physician: James Zhong Chief Complaint: Sepsis, debility History of Present Illness: 65AAM w/ PMHx of Htn, & splenic infarction who was admitted at [facility] on 01/07/21 w/ severe sepsis that was thought to be from ? splenic abscess, c/b LEXA. He received abx & also had percutaneous drain placed on splenic lesion. Sepsis resolved. Drain removed. LEXA improved. Transferred to rehab flr on 01/27/21 but febrile again. He also has remained hypotensive & still requiring max dose midodrine. SCr also increased from 0.8 to 1.1 today. Allergies No Known Allergies Allergy (Verified 01/27/21 13:08) Home Medications: Aspirin [Aspirin EC 81 MG] 81 mg PO DAILY #90 tablet. 10/31/20 Folic Acid 1 mg PO DAILY #90 tablet 10/31/20 Metoprolol Tartrate [Lopressor*] 12.5 mg PO BID #60 tab 10/31/20 Thiamine HCl 100 mg PO DAILY #90 tablet 10/31/20 Amox/Clavulanate [Augmentin 875-125 Tab] 1 each PO BID #10 tab 01/26/21 Cholecalciferol (Vitamin D3) [Vitamin D 1000 Iu Tab*] 2,000 unit PO DAILY #0 tab 01/26/21 Hydrocodone 5/APAP 325 [[place] 5/325*] 1 tab PO Q6H PRN #0 tab 01/26/21 Lidocaine 4% Patch [Lidoderm 5% Patch*] 1 patch TOP DAILY patch 01/26/21 Midodrine HCl [Proamatine*] 15 mg PO TID tab 01/26/21 - Past Medical/Surgical History Diabetic: No -: Alcohol abuse -: Splenic infarction -: Hypertension -: THC abuse -: right ankle sx Psychosocial/ Personal History: Unemployed, lives with a friend - Family History Mother Medical History: Cancer - Social History Smoking Status: Current every day smoker Alcohol use: Yes CD- Drugs: No Caffeine use: Yes Place of Residence: Home Review of Systems General: Fever, Weakness Eyes: Unremarkable ENT: Unremarkable Respiratory: Unremarkable Cardiovascular: Unremarkable Gastrointestinal: Other (Flatulent) Genitourinary: Unremarkable Musculoskeletal: Unremarkable Integumentary: Unremarkable Neurological: Weakness Lymphatics: Unremarkable Physical Examination Temp Pulse Resp BP Pulse Ox 98.8 F 105 H 18 100/64 94 01/29/21 08:11 01/29/21 08:11 01/29/21 08:11 01/29/21 08:11 01/29/21 08:11 General: In no apparent distress HEENT: Atraumatic, Normocephalic Neck: Supple, JVD not distended Respiratory: Diminished Cardiovascular: No rubs, No murmurs Gastrointestinal: No guarding Musculoskeletal: No clubbing Integumentary: No rashes Neurological: Normal tone Lymphatics: No axilla or inguinal lymphadenopathy Urinary: Other (No bladder distention) External genitalia: Deferred Rectal: Deferred Laboratory Data (last 24 hrs) 01/28/21 14:22: Sodium 134 L, Potassium 3.5, BUN 12, Creatinine 1.05, Glucose 111 H, Magnesium 1.6 L 01/28/21 14:22: WBC 9.90 D, Hgb 10.0 L, Hct 29.2 L, Plt Count 451 H Conclusions/Impression: # LEXA secondary to prerenal, poor perfusion, ATN, superimposed with toxic ATN, secondary to sepsis Baseline serum creatinine 1.0 as of 12/19/2020 Improved to 0.8, now inc to 1.1 Has mild proteinuria, random UPCR 1g F/u urinalysis, repeat BCx [place] po fluid intake Monitor renal panel # ? Severe sepsis, ? Splenic abscess/infected pseudocyst Received abx, sepsis resolved prior to transfer to rehab flr History of significant blunt trauma on left rib cage area due to fall in October 2020 Splenic mass may possibly be an infected splenic pseudocyst, which can occur uncommonly after splenic infarct, vs hematoma; status post percutaneous drain placement on 01/14, removed on 01/23 No history of hematologic disease, no history of pancreatitis TTE in October 2020 was negative for infective endocarditis BNP significantly elevated at 4000; troponin negative; chest x-ray unremarkable Ferritin elevated at 1300 but may just be acute phase reaction Chest on CT scan is unremarkable without evidence of pulmonary hypertension or interstitial lung disease +Serum protein gap, +mild urine protein gap, paraprotein workup showed slightly elevated kappa and lambda serum free light chains, as well as +RIANNA, see below Has recurrent fever on 01/29 - CXR showed bilat pleural effusions, ? atelectasis, ? 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 8 AM serum cortisol & ACTH wnl - adrenal insufficiency unlikely TSH only slightly elevated He has serum protein gap as well as mild urine protein gap; he has low level positivity of his serum free light chains (< 500) + high level albuminuria (> 5 mg/dL)--> DDx include AL amyloidosis & LCDD He has multiple electrolyte depletions including hypokalemia, hypomagnesemia, and hypocalcemia, as well as vitamin D deficiency which is suggestive of poor GI tract absorption, which is also concerning for amyloidosis or LCDD causing GI involvement RIANNA positive, negative HIV screen, serum B12 level within normal limits F/u HbA1c, SS-A, SS-B, RPR, anti-TTG Abs Abdominal fat pad biopsy done on 01/24, f/u amyloid stain result, via Congo red and Thioflavin T. Tissue sample will be sent out to [facility] the [facility]. If abdominal fat pad biopsy is negative, we will need to pursue other tissue sampling. I would recommend to do a bone marrow biopsy next. If bone marrow is also negative for amyloid and light chains, next option would include upper and lower GI endoscopy with biopsies for possible GI tract involvement w/ amyloid or LCDD, as well as a kidney biopsy. Would also consider a tissue sample from the splenic lesion. Continue midodrine maximum dose 15 mg by mouth 3 times a day Monitor orthostatic vitals. If he remains orthostatic, start daytime bilateral thigh-high graduated compression stockings, with at least 20-30 mmHg ankle pressure, to mitigate orthostasis. # HypoMg Cont MgOx po bid # Hypocalcemia Improved Serum intact PTH elevated at 268 25OHD level low at 22 Cont D3 2000 IU po daily Monitor, correct hypomagnesemia prn # Alkalosis Monitor # Hyponatremia Mild, monitor # Debility PT/OT
--- NOTE | 2021-01-29 16:38 | RAD REPORT ---
EXAM DESCRIPTION: RAD - Chest Single View - 01/29/2021 4:29 pm CLINICAL HISTORY: r/o sepsis COMPARISON: Chest Single View dated 01/07/2021; Chest Single View dated 10/28/2020; Abdomen Pelvis W Contrast dated 01/21/2021; Aspiration Guidance dated 01/14/2021 FINDINGS: Bilateral pleural effusions, small to moderate on the left side. Nodular airspace disease is present bilaterally The heart size is within normal limits.No acute osseous abnormality. No pneumo thorax. IMPRESSION: Basilar airspace disease including pleural effusions, left greater than right. This coul d reflect atelectasis and/or pneumonia.
[2021-01-29] MEDS ORDERED: Levofloxacin500mg IV 500 MG/100 ML BAG IV SCH (18:00)
--- NOTE | 2021-01-29 18:46 | R.PN ---
PROGRESS NOTES ENCOUNTER DATE AND TIME: 01/29/2021 18:37 (CDT) NAME SAMY CURRAN DATE OF : 1955 DATE OF ADMISSION: 01/27/2021 11:38 (CDT) SEVERE SEPSIS and debilityCHIEF COMPLAINT: Sepsis and debility SUBJECTIVE: Pt denied any depression. Pt denied any Shortness of Breath. CBC with differential show WBC 9.9, Hgb 10.0, Na 134, prealbumin 18.5. Ambulated a total of 46' with a rolling walker and contact guard assistance. Self-propelled wheelchai r 250' with standby assistance. Lactic acid is normal at 1.4, but procalcitonin is elevated to 1.58. Chest x-ray shows left greater t [place]ura right pleural effusion possible due to pneumonia. Start Levaquin 750 mg IV daily for 7 days. Thanks for nephrology help from Dr. Wynne. VITAL SIGNS Temperature: 102.3 F SBP/DBP: 100/64 Pulse: 102 Resp: 16 MEDICATION ALLERGIES: No Known Drug Allergies (NKDA) ENVIRONMENTAL ALLERGIES: - Substance Allergies None Known - Other Allergies None Known NURSING: - Shower allowing shower ACTIVITIES OOB only with supervision THERAPIES: - Dietary and Nutrition Adequate Nutrition. Nutritional Education. Nutritional Supplements. - Occupational Therapy Cognitive Retraining. Visual Perceptual Training. - Speech Therapy Cognitive Training. Expressive Language Skills. Memory Strategies. Receptive Language Skills. Speech Intelligibility Training. PHYSICAL EXAM - Gen Alert and awake Lying in bed No apparent distress Oriented to: person, time, and place - Skin No skin breakdown. No abnormalities - Eyes No abnormalities - ENMT No abnormalities - Neck No abnormalities - CVS RRR - Chest No abnormalities - Abd Soft - GI + bowel sounds Deferred - No abnormalities - Ext Right knee pain and mild swelling. - MSK 4+/5 weakness in both lower extremities. - Neuro 4/5 strength bilaterally lower extremities. - Psych No abnormalities ASSESSMENT: Pt. is a 65 yo Right-handed male.On 01/07/2021 he was admitted to [facility] with diagno sis SEVERE SEPSIS and debility.His impairment category is Medically Complex Conditions 17 - Infectio ns (17.1).Pre-morbidly, Pt. was independent/mod-I in Safety Awareness, Social Cognition, Locomotion, Balance, and Transfers Control; and he had good Endurance, Communication, Sphincter Control, Self-Car e, and Transfers Control.Currently, he has deficits of Locomotion, Balance, Transfers Control, Sphinc ter Control, Endurance, and Safety Awareness.Pt. is now referred to [facility] for acute in-patient rehabilitation in order to maximize patient's functional independence in activi ties of daily living, strength, ROM, and mobility.- Rehab Goal Patient has realistic goal of being discharged at assistance level 7-Ind to reside at Home with Pt s elf. MDM/PLAN: - Physical Therapy Weakness - to improve, our physical therapists will perform initial evaluation of pt's status upon a dmission and devise an individualized program for Aquatic Therapy, Neuromuscular Reeducation, and Str engthening Poor balance - to improve, our physical therapists will perform initial evaluation of pt's status up on admission and devise an individualized program for Balance Training Inability to transfer - to improve, our physical therapists will perform initial evaluation of pt's status upon admission and devise an individualized program for Bed mobility Need in caregiver upon discharge - to improve, our physical therapists will perform initial evaluati on of pt's status upon admission and devise an individualized program for Caregiver Training Poor endurance - to improve, our physical therapists will perform initial evaluation of pt's status upon admission and devise an individualized program for Endurance Training Gait dysfunction - to improve, our physical therapists will perform initial evaluation of pt's statu s upon admission and devise an individualized program for Gait Training, and Wheel Chair mobility Need for home safety evaluation - to improve, our physical therapists will perform initial evaluatio n of pt's status upon admission and devise an individualized program for Home Evaluation New precaution - to improve, our physical therapists will perform initial evaluation of pt's status upon admission and devise an individualized program for Patient precaution education - Occupational Therapy Weakness - to improve, our occupation therapists will perform initial evaluation of pt's status upon admission and devise an individualized program for Aquatic Therapy, Balance, Endurance, UE ROM, and UE strengthening Need for physician assistant primary care - to improve, our occupation therapists will perform initial evaluation of pt's status upon admission and devise an individualized program for Caregiver Training - Other See attached MAR (Medication Administration Record) - Diet Type Continue Regular - Diet - Liquid Texture Continue Regular - Tube Feed Continue N/A - Diet - Solid Texture Continue Regular - Shower allowing shower - Balance for Weakness - Bed mobility for ADL deficits FUNCTIONAL STATUS: UPDATED AT WEEKLY TEAM CONFERENCE - Bladder Same accident frequency: 7-Ind - No accidents in the past 7 days - Bowel Same accident frequency: 7-Ind - No accidents in the past 7 days - Walking Same score based on distance walked: 0(N/A) Same score based on distance walked: 1(<=50ft) - Wheelchair Same score based on distance traveled: 0(N/A) FUNCTIONAL STATUS: - Self-Care A. Eating Ind B. Grooming Tegan C. Bathing sup D. Dressing - Upper Mireay E. Dressing - Lower modA F. Toileting Mireya - Sphincter Control G. Bladder control sup H. Bowel control sup - Transfers Control I. Bed/Chair/Wheelchair modA J. Toilet modA K. Tub/Shower modA - Locomotion L. Walk/Wheelchair (B) modA M. Stairs ADNO - Communication N. Comprehension (B) Mireya O. Expression (B) Mireya - Social Cognition P. Social Interaction sup Q. Problem Solving Mireya R. Memory Mireya - Endurance Fair - Balance Poor - Safety Awareness Fair QI SCORES: - Self-Care A. Eating 03-Partial/moderate assistance B. Oral hygiene 03-Partial/moderate assistance C. Toileting hygiene 03-Partial/moderate assistance E. Shower/bathe self 03-Partial/moderate assistance F. Upper body dressing 03-Partial/moderate assistance G. Lower body dressing 03-Partial/moderate assistance H. Putting on/taking off footwear 88-Not attempted due to medical condition or safety concerns - Mobility A. Roll left and right 03-Partial/moderate assistance B. Sit to lying 03-Partial/moderate assistance C. Lying to sitting on side of bed 03-Partial/moderate assistance D. Sit to stand 03-Partial/moderate assistance E. Chair/igf-tm-qozuz transfer 03-Partial/moderate assistance F. Toilet transfer 03-Partial/moderate assistance G. Car transfer 88-Not attempted due to medical condition or safety concerns I. Walk 10 feet 03-Partial/moderate assistance J. Walk 50 feet with two turns 88-Not attempted due to medical condition or safety concerns K. Walk 150 feet 88-Not attempted due to medical condition or safety concerns L. Walking 10 feet on uneven surfaces 88-Not attempted due to medical condition or safety concerns M. 1 step (curb) 88-Not attempted due to medical condition or safety concerns N. 4 steps 88-Not attempted due to medical condition or safety concerns O. 12 steps 88-Not attempted due to medical condition or safety concerns P. Picking up object 88-Not attempted due to medical condition or safety concerns R. Wheel 50 feet with two turns 88-Not attempted due to medical condition or safety concerns S. Wheel 150 feet 88-Not attempted due to medical condition or safety concerns - Bladder and Bowel Bladder continence Bowel continence - Endurance Fair - Balance Fair - Safety Awareness Fair CURRENT [facility]. DEFICITS: Self-Care, Mobility, Endurance, Balance, and Safety Awareness SIGNATURE PANEL: (CDT)
[2021-01-29] MEDS: TAMSULOSIN 0.4 MG SR CAP PO SCH (19:18)
[2021-01-29] MEDS: MELATONIN 3 MG TABLET PO PRN (19:19)
[2021-01-29] MEDS: LEVOFLOXACIN 750MG/D5W 150 ML IV SCH (19:19)
[2021-01-30] MEDS: METOPROLOL TAR 25 MG TAB PO SCH (05:32)
[2021-01-30] MEDS: ACETAMINOPHEN 500 MG TAB PO PRN ×2 (05:38→05:42)
--- NOTE | 2021-01-30 07:09 | P.PN ---
Subjective Date of Service: 01/30/21 Chief Complaint: Sepsis, debility Subjective: Other (He complains of right low quadrant abd pain.) Physical Examination - Vital Signs Temperature: 101 F Blood Pressure: 110/60 Pulse: 104 Respirations: 18 Pulse Ox (%): 96 - Physical Exam General: In no apparent distress HEENT: Atraumatic, Normocephalic Neck: Supple, JVD not distended Respiratory: Normal air movement Cardiovascular: No rubs, No murmurs Gastrointestinal: Tenderness (On right lower quadrant) Musculoskeletal: No clubbing Urinary: Other (no bladder distention) External genitalia: Deferred Rectal: Deferred - Studies Microbiology Data (last 24 hrs): 01/29/21 16:25 Blood - Blood Anaerobic Blood Culture - Final Assessment And Plan - Plan # [place] secondary to prerenal, poor perfusion, ATN, superimposed with toxic ATN, secondary to sepsis Baseline serum creatinine 1.0 as of 12/19/2020 Improved previously to 0.8, now inc to 1.2 Has mild proteinuria, random UPCR 1g Urinalysis showed no hematuria or pyuria On abx IV fluid bolus prn for low BP [place] po fluid intake Monitor renal panel # Recurrent sepsis probably 2/2 pneumonia w/ bilateral parapneumonic effusion; recent severe sepsis thought to be 2/2 splenic abscess/infected pseudocyst History of significant blunt trauma on left rib cage area due to fall in October 2020 No history of hematologic disease, no history of pancreatitis TTE in October 2020 was negative for infective endocarditis Splenic mass may possibly be an infected splenic pseudocyst, which can occur uncommonly after splenic infarct, vs hematoma; status post percutaneous drain placement on 01/14, removed on 01/23 Fever recurred on 01/29; CXR showed atelectasis vs pna & bilat pleural effusion; no pyuria; on abx per ID service Recent chest on CT scan is unremarkable without evidence of pulmonary hypertension or interstitial lung disease If no prompt improvement, recheck another chest CT to assess for lung abscess vs loculated pleural effusion Incentive spirometry q2h when awake # Persistent hypotension, suspect autonomic neuropathy/failure from infiltrative dse, possible AL/primary Amyloidosis, 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), currently aggravated by recurrent sepsis TTE unremarkable No evidence of pulmonary hypertension on TTE or chest CT Recent CT with contrast on 01/07/2021 showed no evidence of hepatic outflow obstruction to explain his hypotension He has 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 but 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 is 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 8 AM serum cortisol & ACTH wnl - adrenal insufficiency unlikely TSH only slightly elevated RIANNA positive, SS-A positive Negative SS-B, RPR & HIV screen; serum B12 level within normal limits F/u anti-TTG Abs He has serum protein gap as well as mild urine protein gap; he has low level positivity of his serum free light chains (< 500) + high level albuminuria (> 5 mg/dL)--> DDx include AL amyloidosis & LCDD He has multiple electrolyte depletions including hypokalemia, hypomagnesemia, and hypocalcemia, as well as vitamin D deficiency which is suggestive of poor GI tract absorption, which is also concerning for amyloidosis or LCDD causing GI involvement Abdominal fat pad biopsy done on 01/24; f/u amyloid stain result via [place] red and Thioflavin T. Tissue sample will be sent out to [facility] at the [facility]. If abdominal fat pad biopsy is negative, we will need to pursue other tissue sampling. I would recommend to do a bone marrow biopsy next. If bone marrow is also negative for amyloid and light chains, next option would include upper and lower GI endoscopy with biopsies for possible GI tract involvement w/ amyloid or LCDD, as well as a kidney biopsy. Would also consider a tissue sample from the splenic lesion. Continue midodrine maximum dose 15 mg by mouth 3 times a day Monitor orthostatic vitals. If he remains orthostatic, start daytime bilateral thigh-high graduated compression stockings, with at least 20-30 mmHg ankle pres sure, to mitigate orthostasis. # HypoMg improving Cont MgOx po bid # Hyponatremia Mild, monitor # Hypocalcemia Improved Serum intact PTH elevated at 268 25OHD level low at 22 Cont D3 2000 IU po daily Monitor, correct hypomagnesemia prn # Debility PT/OT
[2021-01-30] MEDS: NA CHLORIDE 0.9% 1,000 ML IV SCH ×2 (07:30→22:56)
[2021-01-30 08:30] LABS: Basophils % 0.8 % (0-1.3); Hematocrit 24.9 % (39.6-49.0); Lymphocytes % 8.9 % (15.3-44.8); MPV 7.2 fL (7.6-11.3); RBC Red Blood Cell Count 3.01 M/uL (4.33-5.43)
[2021-01-30] MEDS: LIDOCAINE 4% PATCH TOP SCH (08:34)
[2021-01-30] MEDS: VITAMIN D 1000 UNIT TAB PO SCH (08:35)
[2021-01-30] MEDS: FOLIC ACID 1 MG TABLET PO SCH (08:35)
[2021-01-30] MEDS: MAGNESIUM OXIDE 400 MG TAB PO SCH ×2 (08:35→19:57)
[2021-01-30] MEDS: ASPIRIN EC 81 MG TAB PO SCH (08:36)
[2021-01-30] MEDS: MIDODRINE HCL 5 MG TABLET PO SCH ×3 (08:36→19:58)
[2021-01-30] MEDS: AMOX/K CLAV 875 MG TAB PO SCH ×2 (08:36→19:57)
[2021-01-30] MEDS: THIAMINE HCL 100 MG TABLET PO SCH (08:36)
[2021-01-30] MEDS: ENSURE HIGH PROTEIN 237 ML CAN PO SCH ×2 (08:37→19:57)
[2021-01-30 08:51] LABS: Urine Appearance CLEAR (Clear); Urine Bilirubin NEGATIVE (Negative); Urine Blood NEGATIVE (Negative); Urine Color YELLOW (Yellow); Urine Glucose NEGATIVE (Negative); Urine Protein 1+ (Negative); Urine Specific Gravity 1.015 (1.005-1.030); Urine Urobilinogen 0.2 mg/dL (0.2-1.0)
[2021-01-30 09:07] LABS: Urine Bacteria <20 /HPF (NONE SEEN); Urine RBC <5 /HPF (NONE SEEN)
[2021-01-30 09:28] LABS: Albumin 2.4 g/dL (3.4-5.0); Bilirubin Total 0.5 mg/dL (0.2-1.0); Magnesium 1.7 mg/dL (1.8-2.4); Phosphorus 3.6 mg/dL (2.5-4.9); Potassium 3.7 mmol/L (3.5-5.1); Protein, Total 8.8 g/dL (6.4-8.2)
--- NOTE | 2021-01-30 10:14 | P.RH.PN ---
Estimated Length of Stay: 13 Expected Discharge Date: 02/08/21 Discharge Disposition Plan: Home Family Support: Yes Retirement Goal: Mobility, Transfers, Self Care Vital Signs: Last Vital Signs Temp 99.6 F 01/30/21 09:30 Pulse 88 01/30/21 07:28 Resp 18 01/30/21 07:28 BP 86/57 L 01/30/21 07:28 Pulse Ox 97 01/30/21 07:28 Laboratory: Laboratory Last Values WBC 11.80 K/uL (4.3-10.9) H D 01/30/21 08:10 RBC 3.01 M/uL (4.33-5.43) L 01/30/21 08:10 Hgb 8.6 g/dL (13.6-17.9) L 01/30/21 08:10 Hct 24.9 % (39.6-49.0) L 01/30/21 08:10 MCV 82.7 fL (80-100) 01/30/21 08:10 MCH 28.5 pg (27.0-35.0) 01/30/21 08:10 MCHC 34.5 g/dL (32.0-36.0) 01/30/21 08:10 RDW 16.4 % (12.1-15.2) H 01/30/21 08:10 Plt Count 377 K/uL (152-406) 01/30/21 08:10 MPV 7.2 fL (7.6-11.3) L 01/30/21 08:10 Neutrophils % 81.1 % (41.7-73.7) H 01/30/21 08:10 Lymphocytes % 8.9 % (15.3-44.8) L 01/30/21 08:10 Monocytes % 7.9 % (3.3-12.3) 01/30/21 08:10 Eosinophils % 1.3 % (0-4.4) 01/30/21 08:10 Basophils % 0.8 % (0-1.3) 01/30/21 08:10 Absolute Neutrophils 9.5 K/uL (1.8-8.0) H 01/30/21 08:10 Absolute Lymphocytes 1.0 K/uL (0.7-4.9) 01/30/21 08:10 Absolute Monocytes 0.9 K/uL (0.1-1.3) 01/30/21 08:10 Absolute Eosinophils 0.2 K/uL (0-0.5) 01/30/21 08:10 Absolute Basophils 0.1 K/uL (0-0.5) 01/30/21 08:10 Sodium 134 mmol/L (136-145) L 01/30/21 08:10 Potassium 3.7 mmol/L (3.5-5.1) 01/30/21 08:10 Chloride 101 mmol/L (98-107) 01/30/21 08:10 Carbon Dioxide 26 mmol/L (21-32) 01/30/21 08:10 BUN 17 mg/dL (7-18) 01/30/21 08:10 Creatinine 1.18 mg/dL (0.55-1.3) 01/30/21 08:10 Estimated GFR 76 mL/min (=/>90) L 01/30/21 08:10 Glucose 99 mg/dL (74-106) 01/30/21 08:10 Lactic Acid 1.4 mmol/L (0.4-2.0) 01/29/21 17:39 Calcium 9.3 mg/dL (8.5-10.1) 01/30/21 08:10 Phosphorus 3.6 mg/dL (2.5-4.9) 01/30/21 08:10 Magnesium 1.7 mg/dL (1.8-2.4) L 01/30/21 08:10 Total Bilirubin 0.5 mg/dL (0.2-1.0) 01/30/21 08:10 AST 12 U/L (15-37) L 01/30/21 08:10 ALT 15 U/L (12-78) 01/30/21 08:10 Alkaline Phosphatase 73 U/L (45-117) 01/30/21 08:10 Lactate Dehydrogenase 205 U/L (87-241) 01/29/21 16:25 Serum Total Protein 8.8 g/dL (6.4-8.2) H 01/30/21 08:10 Albumin 2.4 g/dL (3.4-5.0) L 01/30/21 08:10 Globulin 6.4 g/dL (2.3-3.5) H 01/30/21 08:10 Albumin/Globulin Ratio 0.4 (1.1-1.8) L 01/30/21 08:10 Prealbumin 18.5 mg/dL (20-40) L 01/28/21 14:22 Lipase 42 U/L (73-393) L 01/30/21 08:10 Procalcitonin 1.58 ng/mL (<0.050) H 01/29/21 16:25 Urine Color Yellow (Yellow) 01/30/21 07:40 Urine Appearance Clear (Clear) 01/30/21 07:40 Urine pH 6.0 (5.0-7.0) 01/30/21 07:40 Ur Specific [place] 1.015 (1.005-1.030) 01/30/21 07:40 Glucose (UA)(Auto) Negative (Negative) 01/30/21 07:40 Urine Ketones Negative (Negative) 01/30/21 07:40 Urine Blood Negative (Negative) 01/30/21 07:40 Urine Nitrite Negative (Negative) 01/30/21 07:40 Urine Bilirubin Negative (Negative) 01/30/21 07:40 Urine Urobilinogen 0.2 mg/dL (0.2-1.0) 01/30/21 07:40 Ur Leukocyte Esterase Negative (Negative) 01/30/21 07:40 Urine RBC <5 /HPF (NONE SEEN) 01/30/21 07:40 Urine WBC <5 /HPF (<5) 01/30/21 07:40 Ur Squamous Epith Cells <5 /HPF (NONE SEEN) 01/30/21 07:40 Calcium Oxalate Crystal Few (NONE SEEN) 01/27/21 19:00 Urine Bacteria <20 /HPF (NONE SEEN) 01/30/21 07:40 Urine Yeast Few (NONE SEEN) 01/27/21 19:00 Urine Yeast (Budding) Present (NONE SEEN) H 01/27/21 19:00 Urine Culture Reflexed Not needed 01/30/21 07:40 Urine Total Protein 1+ (Negative) H 01/30/21 07:40 Weight: 145 lb Wound Present: No Closed Surgical Incision Present: Yes Negative Pressure Wound Therapy Present: No Physician Update: His temp is better today. His BP is improving with IV fluids. He is on Levaquin 750 daily for possible sepsis with elevated procalcitonin. He is doing bed mobility exercises due to low blood pressures. ID will help with the case. He will likely require wheelchair at home. Walking 6' with contact guard assistance. Summary: Patient's care plan and anesthesiologist physician goals have been reviewed and revised as necessary. Please see the Rehabilitation Signature page for all necessary signatures.
--- NOTE | 2021-01-30 12:24 | P.CNS ---
Date of Consult: 01/30/21 Chief Complaint: Sepsis, debility History of Present Illness: Patient is a 65-year-old male with a past medical history of hypertension and splenic infarct with abscess formation status post drain placement known to our services from previous stay on hospital for, patient recently admitted to rehab floor. We have been reconsulted as the patient has been city fever yesterday with a T-max of 102.8 and also has slight leukocytosis noted on most recent lab work with a WBC of 11.8. History patient had associated symptoms of chills fatigue syndrome normal [place]ic[place]. Patient states he is feeling slightly better today, denies nausea, vomiting, diarrhea. Blood in urine cultures pending, chest x-ray performed on 01/29 showed basilar airspace disease atelectasis versus pneumonia. Patient denies any respiratory symptoms. Patient empirically started on Levaquin and Augmentin, Augmentin has been discontinued. We will continue to monitor the patient closely. Allergies No Known Allergies Allergy (Verified 01/27/21 13:08) Home Medications: Aspirin [Aspirin EC 81 MG] 81 mg PO DAILY #90 tablet. 10/31/20 Folic Acid 1 mg PO DAILY #90 tablet 10/31/20 Metoprolol Tartrate [Lopressor*] 12.5 mg PO BID #60 tab 10/31/20 Thiamine HCl 100 mg PO DAILY #90 tablet 10/31/20 Amox/Clavulanate [Augmentin 875-125 Tab] 1 each PO BID #10 tab 01/26/21 Cholecalciferol (Vitamin D3) [Vitamin D 1000 Iu Tab*] 2,000 unit PO DAILY #0 tab 01/26/21 Hydrocodone 5/APAP 325 [[place] 5/325*] 1 tab PO Q6H PRN #0 tab 01/26/21 Lidocaine 4% Patch [Lidoderm 5% Patch*] 1 patch TOP DAILY patch 01/26/21 Midodrine HCl [Proamatine*] 15 mg PO TID tab 01/26/21 - Past Medical/Surgical History Diabetic: No -: Alcohol abuse -: Splenic infarction -: Hypertension -: THC abuse -: right ankle sx Psychosocial/ Personal History: Unemployed, lives with a friend - Family History Mother Medical History: Cancer - Social History Smoking Status: Current every day smoker Alcohol use: Yes CD- Drugs: No Caffeine use: Yes Place of Residence: Home Review of Systems 10-point ROS is otherwise unremarkable Physical Examination Temp Pulse Resp BP Pulse Ox 99.6 F 88 18 86/57 L 97 01/30/21 09:30 01/30/21 07:28 01/30/21 07:28 01/30/21 07:28 01/30/21 07:28 General: Alert, In no apparent distress, Oriented x3 HEENT: Atraumatic, Normocephalic Neck: Supple, 2+ carotid pulse no bruit Respiratory: Clear to auscultation bilaterally, Normal air movement Cardiovascular: No edema, Normal pulses, Regular rate/rhythm Capillary refill: <2 Seconds Gastrointestinal: Normal bowel sounds, Tenderness (to rihgt lower quadrent ) Musculoskeletal: No clubbing, No swelling, No contractures Integumentary: No rashes, No breakdown, No significant lesion External genitalia: Deferred Rectal: Deferred Laboratory Data (last 24 hrs) 01/30/21 08:10: Sodium 134 L, Potassium 3.7, BUN 17, Creatinine 1.18, Glucose 99, Phosphorus 3.6, Magnesium 1.7 L, Total Bilirubin 0.5, AST 12 L, ALT 15, Alkaline Phosphatase 73, Lipase 42 L 01/30/21 08:10: WBC 11.80 H D, Hgb 8.6 L, Hct 24.9 L, Plt Count 377 Conclusions/Impression: Antibiotics: Levaquin start: 01/29 stop: -- Assessment: Fever with leukocytosis Patient spiked high fever on 01/29 with a T-max of 102.8. Patient has since been afebrile. Blood cultures pending, urine culture pending. Chest x-ray showed bilateral lower airspace disease with bilateral pleural effusions concerning for atelectasis versus pneumonia. Patient started on respiratory fluoroquinolone would treat possible pneumonia. When course of 5-7 days. History of splenic infarct with abscess Splenic drainage catheter was placed on 01/14 and was removed on 01/31. Repeat CT abdomen without contrast due to kidney function has been ordered. Awaiting results of BiPAP biopsies relied mainly doses. Anemia Continue to closely monitor H&H. Protein caloric malnutrition: Moderate Low pre-albumin and albumin. Recommend supplemental Ensure protein drinks b.i.d. Medical management per primary team Plan of care discussed with Dr. Whipple Thank you for consultation
[2021-01-30] MEDS: HYDROCODONE/APAP 5/325 MG TAB PO PRN ×2 (12:38→20:08)
--- NOTE | 2021-01-30 16:26 | RAD REPORT ---
EXAM DESCRIPTION: CT - Abdomen Pelvis Wo Contrast - 01/30/2021 3:36 pm CLINICAL HISTORY: Abdominal pain COMPARISON: January 21, 2021 TECHNIQUE: Computed axial tomography of the abdomen and pelvis was obtained. IV was not requested. O ral contrast was given. Coronal reconstructions performed. All CT scans are performed using dose optimization technique as appropriate and may include automated exposure control or mA/KV adjustment according to patient size. FINDINGS: The evaluation of solid organs and vessels is limited secondary to the lack of contrast a dministration. Small loculated left pleural effusion with left basilar atelectasis. Small right pleural effusion. Left upper quadrant percutaneous drain has been removed. 2.8 x 1.4 centimeter low-density area within the spleen mildly decreased in size Liver, pancreas, adrenals and kidneys grossly normal No evidence of diverticulitis. Normal appendix. Small inguinal hernias IMPRESSION: 2.8 x 1.4 centimeter splenic abscess mildly decreased in size Left upper quadrant percutaneous drain has been removed Small loculated left and small right pleural effusions
[2021-01-30] MEDS: LEVOFLOXACIN 750MG/D5W 150 ML IV SCH (16:42)
[2021-01-30] MEDS: TAMSULOSIN 0.4 MG SR CAP PO SCH (19:57)
[2021-01-30] MEDS: DOCUSATE NA/SENNA CONC 1 TAB PO PRN (19:58)
[2021-01-30] MEDS: MELATONIN 3 MG TABLET PO PRN (19:59)
[2021-01-31] MEDS: ACETAMINOPHEN 500 MG TAB PO PRN (05:06)
[2021-01-31] MEDS: METOPROLOL TAR 25 MG TAB PO SCH (05:12)
[2021-01-31 06:51] LABS: Absolute Lymphocytes (CBC) 1.8 K/uL (0.7-4.9); Basophils % 0.5 % (0-1.3); Hematocrit 24.8 % (39.6-49.0); Lymphocytes % 14.6 % (15.3-44.8); MPV 7.6 fL (7.6-11.3)
[2021-01-31 07:04] LABS: Potassium 3.7 mmol/L (3.5-5.1)
[2021-01-31 07:08] LABS: Albumin 2.1 g/dL (3.4-5.0); Magnesium 1.6 mg/dL (1.8-2.4); Phosphorus 3.2 mg/dL (2.5-4.9)
[2021-01-31] MEDS: LIDOCAINE 4% PATCH TOP SCH (09:06)
[2021-01-31] MEDS: VITAMIN D 1000 UNIT TAB PO SCH (09:06)
[2021-01-31] MEDS: ASPIRIN EC 81 MG TAB PO SCH (09:07)
[2021-01-31] MEDS: THIAMINE HCL 100 MG TABLET PO SCH (09:07)
[2021-01-31] MEDS: MIDODRINE HCL 5 MG TABLET PO SCH ×3 (09:07→20:01)
[2021-01-31] MEDS: MAGNESIUM OXIDE 400 MG TAB PO SCH ×2 (09:07→20:02)
[2021-01-31] MEDS: AMOX/K CLAV 875 MG TAB PO SCH ×2 (09:07→20:00)
[2021-01-31] MEDS: FOLIC ACID 1 MG TABLET PO SCH (09:08)
[2021-01-31] MEDS: HYDROCODONE/APAP 5/325 MG TAB PO PRN (09:08)
[2021-01-31] MEDS: ENSURE HIGH PROTEIN 237 ML CAN PO SCH ×2 (09:09→20:02)
[2021-01-31] MEDS ORDERED: MAGNESIUM OXIDE 400 MG TAB PO ONE (11:00)
[2021-01-31] MEDS: FERROUS SULFATE 325 MG TAB PO SCH (11:52)
[2021-01-31] MEDS: FE SULF/FA/VIT B COMP & C TAB PO SCH (11:52)
[2021-01-31] MEDS: LEVOFLOXACIN 750MG/D5W 150 ML IV SCH (17:12)
[2021-01-31] MEDS: DOCUSATE NA/SENNA CONC 1 TAB PO PRN (20:00)
[2021-01-31] MEDS: MELATONIN 3 MG TABLET PO PRN (20:01)
[2021-01-31] MEDS: TAMSULOSIN 0.4 MG SR CAP PO SCH (20:01)
[2021-01-31] MEDS: JUVEN PACKET PO SCH (20:02)
[2021-02-01] MEDS: HYDROCODONE/APAP 5/325 MG TAB PO PRN (02:46)
[2021-02-01] MEDS: METOPROLOL TAR 25 MG TAB PO SCH ×3 (05:04→19:36)
[2021-02-01] MEDS: ENSURE HIGH PROTEIN 237 ML CAN PO SCH ×2 (08:00→19:16)
[2021-02-01] MEDS ORDERED: METOPROLOL TAR 25 MG TAB PO SCH (08:00)
[2021-02-01] MEDS: JUVEN PACKET PO SCH (08:00)
[2021-02-01] MEDS: AMOX/K CLAV 875 MG TAB PO SCH (08:52)
[2021-02-01] MEDS: LIDOCAINE 4% PATCH TOP SCH ×2 (08:52→13:18)
[2021-02-01] MEDS: ASPIRIN EC 81 MG TAB PO SCH (08:52)
[2021-02-01] MEDS: MIDODRINE HCL 5 MG TABLET PO SCH ×3 (08:52→19:35)
[2021-02-01] MEDS: FOLIC ACID 1 MG TABLET PO SCH (08:52)
[2021-02-01] MEDS: FE SULF/FA/VIT B COMP & C TAB PO SCH (08:52)
[2021-02-01] MEDS: VITAMIN D 1000 UNIT TAB PO SCH (08:52)
[2021-02-01] MEDS: THIAMINE HCL 100 MG TABLET PO SCH (08:52)
[2021-02-01] MEDS: FERROUS SULFATE 325 MG TAB PO SCH (08:52)
[2021-02-01] MEDS: MAGNESIUM OXIDE 400 MG TAB PO SCH ×2 (08:53→19:39)
[2021-02-01 10:15] LABS: Absolute Lymphocytes (CBC) 1.8 K/uL (0.7-4.9); Basophils % 0.7 % (0-1.3); Lymphocytes % 18.6 % (15.3-44.8); MPV 7.4 fL (7.6-11.3); RBC Red Blood Cell Count 3.42 M/uL (4.33-5.43)
[2021-02-01 10:22] LABS: BUN Blood Urea Nitrogen 12 mg/dL (7-18); Bicarbonate 27 mmol/L (21-32); Glucose Level 120 mg/dL (74-106); Potassium 3.8 mmol/L (3.5-5.1); Sodium Level 133 mmol/L (136-145)
--- NOTE | 2021-02-01 14:22 | FAST ---
[employer] FORM SHIFT START DATE/TIME: 02/01/2021 07:00 (CDT) SHIFT END DATE/TIME: 02/01/2021 19:00 (CDT) NAME SAMY CURRAN DATE OF : 1955 DATE OF ADMISSION: 01/27/2021 11:38 (CDT) PHONE: AGE: 65 SSN# [id number] GENDER: Male ENCOUNTER PHYSICIAN: Dr. Matheus Ibarra M.D. ADMISSION DIAGNOSIS: - Medically Complex Conditions 17 - Infections (17.1) SEVERE SEPSIS and debility. EATING: EATING - STEP 1: Does the patient complete the activity by him/herself with no assistance (physical, verbal/nonverbal cueing, setup/clean-up)? No. EATING - STEP 2: Does the patient need only setup/clean-up assistance from one helper? Yes. 1. [id number] ADMISSION PERFORMANCE: Setup or clean-up assistance CODE: 05 ORAL HYGIENE: ORAL HYGIENE - STEP 1: Does the patient complete the activity by him/herself with no assistance (physical, verbal/nonverbal cueing, setup/clean-up)? No. ORAL HYGIENE - STEP 2: Does the patient need only setup/clean-up assistance from one helper? Yes. 1. [id number] ADMISSION PERFORMANCE: Setup or clean-up assistance CODE: 05 TOILETING HYGIENE: TOILETING HYGIENE - STEP 1: Does the patient complete the activity by him/herself with no assistance (physical, verbal/nonverbal cueing, setup/clean-up)? No. TOILETING HYGIENE - STEP 2: Does the patient need only setup/clean-up assistance from one helper? No. TOILETING HYGIENE - STEP 3: Does the patient need only verbal/nonverbal cueing or touching/steadying/contact guard assistance fro m one helper? No. TOILETING HYGIENE - STEP 4: Does the patient need physical assistance - for example lifting or trunk support from one helper - wi th the helper providing less than half of the effort? Yes. 1. [id number] ADMISSION PERFORMANCE: Partial/moderate assistance CODE: 03 BATHING: Not assessed/no information CODE: - DRESSING - UPPER BODY: DRESSING - UPPER BODY - STEP 1: Does the patient complete the activity by him/herself with no assistance (physical, verbal/nonverbal cueing, setup/clean-up)? No. DRESSING - UPPER BODY - STEP 2: Does the patient need only setup/clean-up assistance from one helper? No. DRESSING - UPPER BODY - STEP 3: Does the patient need only verbal/nonverbal cueing or touching/steadying/contact guard assistance fro m one helper? Yes. 1. [id number] ADMISSION PERFORMANCE: Supervision or touching assistance CODE: 04 DRESSING - LOWER BODY: DRESSING - LOWER BODY - STEP 1: Does the patient complete the activity by him/herself with no assistance (physical, verbal/nonverbal cueing, setup/clean-up)? No. DRESSING - LOWER BODY - STEP 2: Does the patient need only setup/clean-up assistance from one helper? No. DRESSING - LOWER BODY - STEP 3: Does the patient need only verbal/nonverbal cueing or touching/steadying/contact guard assistance fro m one helper? No. DRESSING - LOWER BODY - STEP 4: Does the patient need physical assistance - for example lifting or trunk support from one helper - wi th the helper providing less than half of the effort? Yes. 1. [id number] ADMISSION PERFORMANCE: Partial/moderate assistance CODE: 03 PUTTING ON/TAKING OFF FOOTWEAR: FOOTWEAR - STEP 1: Does the patient complete the activity by him/herself with no assistance (physical, verbal/nonverbal cueing, setup/clean-up)? No. FOOTWEAR - STEP 2: Does the patient need only setup/clean-up assistance from one helper? No. FOOTWEAR - STEP 3: Does the patient need only verbal/nonverbal cueing or touching/steadying/contact guard assistance fro m one helper? Yes. 1. [id number] ADMISSION PERFORMANCE: Supervision or touching assistance CODE: 04 ROLL LEFT AND RIGHT: ROLL LEFT AND RIGHT - STEP 1: Does the patient complete the activity by him/herself with no assistance (physical, verbal/nonverbal cueing, setup/clean-up)? No. ROLL LEFT AND RIGHT - STEP 2: Does the patient need only setup/clean-up assistance from one helper? No. ROLL LEFT AND RIGHT - STEP 3: Does the patient need only verbal/nonverbal cueing or touching/steadying/contact guard assistance fro m one helper? Yes. 1. [id number] ADMISSION PERFORMANCE: Supervision or touching assistance CODE: 04 SIT TO LYING: SIT TO LYING - STEP 1: Does the patient complete the activity by him/herself with no assistance (physical, verbal/nonverbal cueing, setup/clean-up)? Yes. 1. [id number] ADMISSION PERFORMANCE: Independent CODE: 06 LYING TO SITTING: LYING TO SITTING ON SIDE OF BED - STEP 1: Does the patient complete the activity by him/herself with no assistance (physical, verbal/nonverbal cueing, setup/clean-up)? No. LYING TO SITTING ON SIDE OF BED - STEP 2: Does the patient need only setup/clean-up assistance from one helper? Yes. 1. [id number] ADMISSION PERFORMANCE: Setup or clean-up assistance CODE: 05 SIT TO STAND: SIT TO STAND - STEP 1: Does the patient complete the activity by him/herself with no assistance (physical, verbal/nonverbal cueing, setup/clean-up)? No. SIT TO STAND - STEP 2: Does the patient need only setup/clean-up assistance from one helper? Yes. 1. [id number] ADMISSION PERFORMANCE: Setup or clean-up assistance CODE: 05 TRANSFERS: BED, CHAIR: CHAIR/[id number] TRANSFER - STEP 1: Does the patient complete the activity by him/herself with no assistance (physical, verbal/nonverbal cueing, setup/clean-up)? No. CHAIR/[id number] TRANSFER - STEP 2: Does the patient need only setup/clean-up assistance from one helper? Yes. 1. [id number] ADMISSION PERFORMANCE: Setup or clean-up assistance CODE: 05 TRANSFER TOILET: TOILET TRANSFER - STEP 1: Does the patient complete the activity by him/herself with no assistance (physical, verbal/nonverbal cueing, setup/clean-up)? No. TOILET TRANSFER - STEP 2: Does the patient need only setup/clean-up assistance from one helper? Yes. 1. [id number] ADMISSION PERFORMANCE: Setup or clean-up assistance CODE: 05 TRANSFERS: CAR: Not assessed/no information CODE: - WALK 10 FEET: Not assessed/no information CODE: - 1 STEP (CURB): Not assessed/no information CODE: - PICKING UP OBJECT: Not assessed/no information CODE: - DOES THE PATIENT USE A WHEELCHAIR/SCOOTER? Q1. DOES THE PATIENT USE A WHEELCHAIR/SCOOTER?: Yes CODE: 1 WHEEL 50 FEET WITH TWO TURNS: WHEEL 50 FEET WITH TWO TURNS - STEP 1: Does the patient complete the activity by him/herself with no assistance (physical, verbal/nonverbal cueing, setup/clean-up)? No. WHEEL 50 FEET WITH TWO TURNS - STEP 2: Does the patient need only setup/clean-up assistance from one helper? Yes. 1. [id number] ADMISSION PERFORMANCE: Setup or clean-up assistance CODE: 05 INDICATE THE TYPE OF WHEELCHAIR/SCOOTER USED: RR1. INDICATE THE TYPE OF WHEELCHAIR/SCOOTER USED.: Manual CODE: 1 WHEEL 150 FEET: WHEEL 150 FEET - STEP 1: Does the patient complete the activity by him/herself with no assistance (physical, verbal/nonverbal cueing, setup/clean-up)? No. WHEEL 150 FEET - STEP 2: Does the patient need only setup/clean-up assistance from one helper? Yes. 1. [id number] ADMISSION PERFORMANCE: Setup or clean-up assistance CODE: 05 INDICATE THE TYPE OF WHEELCHAIR/SCOOTER USED: SS1. INDICATE THE TYPE OF WHEELCHAIR/SCOOTER USED.: Manual CODE: 1 BLADDER AND BOWEL: H350. BLADDER CONTINENCE (3-DAY ASSESSMENT PERIOD): Always continent (no documented incontinence) CODE: 0 H400. BOWEL CONTINENCE (3-DAY ASSESSMENT PERIOD): Always continent CODE: 0 SIGNATURE PANEL: The following modified sections: 1. [id number] Admission Performance, 1. [id number] Admission Performance, 1. [id number] Admission Performance, 1. [id number] Admission Performance, 1. [id number] Admission Performance, 1. [id number] Admission Performance, 1. [id number] Admission Performance, 1. [id number] Admission Performance , 1. [id number] Admission Performance, 1. [id number] Admission Performance, 1. [id number] Admission Performanc e, 1. [id number] Admission Performance, Q1. Does the patient use a wheelchair/scooter?, 1. [id number] Admis torres Performance, RR1. Indicate the type of wheelchair/scooter used., 1. [id number] Admission Performanc e, Code, SS1. Indicate the type of wheelchair/scooter used., H350. Bladder Continence (3-day assessme nt period), H400. Bowel Continence (3-day assessment period) were [electronically] signed by Kory ShafferNCandi on TueFeb 01 2021 14:22:22 GMT-0500 (Central Daylight Time)
--- NOTE | 2021-02-01 15:10 | PN ---
Date of Progress Note: 02/01/2021 Subjective: The patient was admitted with acute kidney injury secondary to prerenal, dehydration. T he patient developed orthostatic hypotension. The patient was transferred to rehab today. Apparentl y yesterday had sinus tachycardia because beta-nilo was held because of the marginal blood pressur e. Physical Examination: Vital Signs: Today; blood pressure 100/60, pulse has dropped to the 80 after receiving the metoprolo l. Chest: Clear to auscultation. Heart: S1, S2. Regular. Abdomen: Soft, nontender. Extremity: No edema. Neuro: Alert. No focality. Laboratory Data: H and H 9.12/31. Sodium 133, potassium 3.8, bicarb 27, BUN 12, creatinine 0.9, calc ium of 9. Assessment And Plan: 1.Acute kidney injury secondary to prerenal, recovered, resolved. 2.Hyponatremia, asymptomatic. We will continue to monitor. 3.Hypertension with low blood pressure. We will use only beta-nlio to maintain blood pressure. Advice to use wrapping a socks for orthostatic. 4.Deconditioning. Continue PT/OT. JORGE/PILY Voice ID: [id number] Report ID: [id number]
[2021-02-01] MEDS: LEVOFLOXACIN 750MG/D5W 150 ML IV SCH (17:04)
[2021-02-01] MEDS: TAMSULOSIN 0.4 MG SR CAP PO SCH (19:35)
[2021-02-01] MEDS: MELATONIN 3 MG TABLET PO PRN (19:45)
[2021-02-01] MEDS: DOCUSATE NA/SENNA CONC 1 TAB PO PRN (19:45)
--- NOTE | 2021-02-02 05:48 | P.CNS ---
Date of Consult: 02/01/21 Reason for Consult: Assistance with medical management Requesting Physician: Matheus Ibarra Chief Complaint: Sepsis, debility History of Present Illness: Patient is a 65-year-old gentleman who is well known to us who came into the hospital with a splenic abscess a few weeks ago. Since that time he has had that abscess drained. He also was workup for amyloidosis. Biopsy is pending. Appreciate Nephrology is assistance with patient's care. Patient clinically is doing well but he developed a fever a few days ago. He has been tachycardic today. Beta-nilo therapy was given and his heart rate is stabilize today. Cultures have been negative so far from the fever a few days ago. Repeat CT scan showed that the splenic abscess was still present although it was smaller. Patient clinically looks to be doing well and he is participating with physical therapy although he could be doing more. He will continue with therapy until the next week. Medically he is on oral antibiotics. At this time, will continue with current management and follow along with patient's care. Allergies No Known Allergies Allergy (Verified 01/27/21 13:08) Home Medications: Aspirin [Aspirin EC 81 MG] 81 mg PO DAILY #90 tablet. 10/31/20 Folic Acid 1 mg PO DAILY #90 tablet 10/31/20 Metoprolol Tartrate [Lopressor*] 12.5 mg PO BID #60 tab 10/31/20 Thiamine HCl 100 mg PO DAILY #90 tablet 10/31/20 Amox/Clavulanate [Augmentin 875-125 Tab] 1 each PO BID #10 tab 01/26/21 Cholecalciferol (Vitamin D3) [Vitamin D 1000 Iu Tab*] 2,000 unit PO DAILY #0 tab 01/26/21 Hydrocodone 5/APAP 325 [[place] 5/325*] 1 tab PO Q6H PRN #0 tab 01/26/21 Lidocaine 4% Patch [Lidoderm 5% Patch*] 1 patch TOP DAILY patch 01/26/21 Midodrine HCl [Proamatine*] 15 mg PO TID tab 01/26/21 - Past Medical/Surgical History Diabetic: No -: Alcohol abuse -: Splenic infarction -: Hypertension -: THC abuse -: right ankle sx Psychosocial/ Personal History: Unemployed, lives with a friend - Family History Mother Medical History: Cancer - Social History Smoking Status: Current every day smoker Alcohol use: Yes CD- Drugs: No Caffeine use: Yes Place of Residence: Home Review of Systems 10-point ROS is otherwise unremarkable Physical Examination Temp Pulse Resp BP Pulse Ox 98.2 F 93 H 18 102/64 98 02/01/21 19:40 02/01/21 19:40 02/01/21 19:40 02/01/21 19:40 02/01/21 19:40 General: Alert, In no apparent distress, Oriented x3 HEENT: Atraumatic, PERRLA, Mucous membr. moist/pink, EOMI, Sclerae nonicteric Neck: Supple, 2+ carotid pulse no bruit, No LAD, Without JVD or thyroid abnormality Respiratory: Clear to auscultation bilaterally, Normal air movement Cardiovascular: Regular rate/rhythm, Normal S1 S2, No murmurs Gastrointestinal: Normal bowel sounds, Soft and benign, Non-distended, Tenderness (Minimal left upper quadrant tenderness) Musculoskeletal: No clubbing, No swelling, Tenderness (Left ankle) Integumentary: No rashes Neurological: Normal gait, Normal speech, Normal tone, Sensation intact, Cranial nerves 3-12 intact, Normal affect Lymphatics: No axilla or inguinal lymphadenopathy Laboratory Data (last 24 hrs) 02/01/21 09:58: Sodium 133 L, Potassium 3.8, BUN 12, Creatinine 0.92, Glucose 120 H 02/01/21 09:58: WBC 9.80 D, Hgb 9.7 L, Hct 28.0 L, Plt Count 394 - Problems (1) Polyarthropathy Current Visit: Yes Status: Acute (2) Alcohol abuse Current Visit: No Status: Acute (3) History of cannabis abuse Current Visit: No Status: Acute (4) Hypertension Current Visit: No Status: Acute (5) Left upper quadrant abdominal tenderness Current Visit: No Status: Acute (6) Splenic lesion Current Visit: No Status: Acute Conclusions/ Impression: Plan: 1. Continue with antibiotic therapy 2. Continue with beta-nilo therapy 3. May need white blood cell tagged scan as patient has polyarthropathy in the setting of a questionable splenic abscess. 4. Biopsy for amyloidosis pending 5. Continue with physical therapy per recommendations rehab physician 6. GI and DVT prophylaxis Critical Care: No Time Spent Managing Pts care (In Minutes): 35
[2021-02-02] MEDS: LIDOCAINE 4% PATCH TOP SCH (07:47)
[2021-02-02] MEDS: VITAMIN D 1000 UNIT TAB PO SCH (07:47)
[2021-02-02] MEDS: MIDODRINE HCL 5 MG TABLET PO SCH ×3 (07:48→19:45)
[2021-02-02] MEDS: ASPIRIN EC 81 MG TAB PO SCH (07:48)
[2021-02-02] MEDS: FE SULF/FA/VIT B COMP & C TAB PO SCH (07:49)
[2021-02-02] MEDS: METOPROLOL TAR 25 MG TAB PO SCH ×2 (07:49→19:45)
[2021-02-02] MEDS: THIAMINE HCL 100 MG TABLET PO SCH (07:50)
[2021-02-02] MEDS: MAGNESIUM OXIDE 400 MG TAB PO SCH ×2 (07:51→19:46)
[2021-02-02] MEDS: FERROUS SULFATE 325 MG TAB PO SCH (07:51)
[2021-02-02] MEDS: FOLIC ACID 1 MG TABLET PO SCH (07:51)
[2021-02-02] MEDS: ENSURE HIGH PROTEIN 237 ML CAN PO SCH ×2 (07:52→19:47)
[2021-02-02] MEDS: ACETAMINOPHEN 500 MG TAB PO PRN (07:52)
--- NOTE | 2021-02-02 10:42 | P.PN ---
Subjective Date of Service: 02/02/21 Chief Complaint: Sepsis, debility Patient seen examined at bedside, doing well. States he is still having some right lower quadrant abdominal pain as well as left knee pain. Review of Systems 10-point ROS is otherwise unremarkable Physical Examination - Vital Signs Temperature: 99.4 F Blood Pressure: 106/80 Pulse: 84 Respirations: 18 Pulse Ox (%): 97 - Studies Laboratory Data (last 24 hrs) 02/02/21 08:16: Uric Acid 5.3 D Microbiology Data (last 24 hrs): 02/02/21 09:19 Stool Stool Occult Blood ([place]) - Final BOX SHOOK PATCHER 01/30/21 07:40 Clean Catch Urine [place] Count - Final No growth. 01/30/21 07:40 Clean Catch Urine - Final No growth. Assessment And Plan - Plan Physical Exam: General: Alert, In no apparent distress, Oriented x3 HEENT: Atraumatic, Normocephalic Neck: Supple, 2+ carotid pulse no bruit Respiratory: Clear to auscultation bilaterally, Normal air movement Cardiovascular: No edema, Normal pulses, Regular rate/rhythm Capillary refill: <2 Seconds Gastrointestinal: Normal bowel sounds, Tenderness (to right lower quadrent ) Musculoskeletal: No clubbing, No swelling, No contractures Integumentary: No rashes, No breakdown, No significant lesion External genitalia: Deferred Rectal: Deferred Conclusions/Impression: Antibiotics: Levaquin start: 01/29 stop: -- Assessment/Plan: Fever with leukocytosis Patient spiked high fever on 01/29 with a T-max of 102.8. Blood and urine culture show no growth to date, patient has been afebrile since 01/30. Chest x- ray showed bilateral lower airspace disease with bilateral pleural effusions concerning for atelectasis versus pneumonia. Patient started on respiratory fluoroquinolone would treat possible pneumonia. History of splenic infarct with abscess Splenic drainage catheter was placed on 01/14 and was removed on 01/31. Repeat CT abdomen showed small splenic abscess measuring 2.8 x 1.4 cm, decreased sense last scan. Continue Levaquin, metronidazole place to cover anaerobes. Continue for 3 weeks. Repeat imaging after antibiotics have been completed. Anemia Continue to closely monitor H&H. Protein caloric malnutrition: Moderate Low pre-albumin and albumin. Recommend supplemental Ensure protein drinks b.i.d. Medical management per primary team Plan of care discussed with Dr. Whipple Thank you for consultation
[2021-02-02] MEDS: metroNIDAZOLE 250 MG TABLET PO SCH ×3 (12:49→23:06)
[2021-02-02] MEDS: LEVOFLOXACIN 750MG/D5W 150 ML IV SCH (17:06)
[2021-02-02] MEDS: HYDROCODONE/APAP 5/325 MG TAB PO PRN (17:07)
--- NOTE | 2021-02-02 17:13 | R.PN ---
PROGRESS NOTES ENCOUNTER DATE AND TIME: 02/02/2021 17:01 (CDT) NAME SAMY CURRAN DATE OF : 1955 DATE OF ADMISSION: 01/27/2021 11:38 (CDT) SEVERE SEPSIS and debilityCHIEF COMPLAINT: Sepsis and debility SUBJECTIVE: Pt denied any depression. Pt denied any Shortness of Breath. CBC with differential show WBC 9.8, Hgb 9.7, Na 134, prealbumin 18.5. Ambulated a total of 130' with a rolling walker and contact guard assistance. Self-propelled wheelcha ir 750' with minimum assistance. Lactic acid is normal at 1.4, procalcitonin decreased to .59. Chest x-ray shows left greater than rig ht pleural effusion possible due to pneumonia. Start Levaquin 750 mg IV daily for 7 days. Thanks for nephrology help from Dr. Wynne. VITAL SIGNS Temperature: 99.4 F SBP/DBP: 106/80 Pulse: 84 Resp: 16 MEDICATION ALLERGIES: No Known Drug Allergies (NKDA) ENVIRONMENTAL ALLERGIES: - Substance Allergies None Known - Other Allergies None Known NURSING: - Shower allowing shower ACTIVITIES OOB only with supervision THERAPIES: - Dietary and Nutrition Adequate Nutrition. Nutritional Education. Nutritional Supplements. - Occupational Therapy Cognitive Retraining. Visual Perceptual Training. - Speech Therapy Cognitive Training. Expressive Language Skills. Memory Strategies. Receptive Language Skills. Speech Intelligibility Training. PHYSICAL EXAM - Gen Alert and awake Lying in bed No apparent distress Oriented to: person, time, and place - Skin No skin breakdown. No abnormalities - Eyes No abnormalities - ENMT No abnormalities - Neck No abnormalities - CVS RRR - Chest No abnormalities - Abd Soft - GI + bowel sounds Deferred - No abnormalities - Ext Right knee pain and mild swelling. - MSK 4+/5 weakness in both lower extremities. - Neuro 4/5 strength bilaterally lower extremities. - Psych No abnormalities ASSESSMENT: Pt. is a 65 yo Right-handed male.On 01/07/2021 he was admitted to [facility] with diagno sis SEVERE SEPSIS and debility.His impairment category is Medically Complex Conditions 17 - Infectio ns (17.1).Pre-morbidly, Pt. was independent/mod-I in Safety Awareness, Social Cognition, Locomotion, Balance, and Transfers Control; and he had good Endurance, Communication, Sphincter Control, Self-Car e, and Transfers Control.Currently, he has deficits of Locomotion, Balance, Transfers Control, Sphinc ter Control, Endurance, and Safety Awareness.Pt. is now referred to [facility] for acute in-patient rehabilitation in order to maximize patient's functional independence in activi ties of daily living, strength, ROM, and mobility.- Rehab Goal Patient has realistic goal of being discharged at assistance level 7-Ind to reside at Home with Pt s elf. MDM/PLAN: - Physical Therapy Weakness - to improve, our physical therapists will perform initial evaluation of pt's status upon a dmission and devise an individualized program for Aquatic Therapy, Neuromuscular Reeducation, and Str engthening Poor balance - to improve, our physical therapists will perform initial evaluation of pt's status up on admission and devise an individualized program for Balance Training Inability to transfer - to improve, our physical therapists will perform initial evaluation of pt's status upon admission and devise an individualized program for Bed mobility Need in caregiver upon discharge - to improve, our physical therapists will perform initial evaluati on of pt's status upon admission and devise an individualized program for Caregiver Training Poor endurance - to improve, our physical therapists will perform initial evaluation of pt's status upon admission and devise an individualized program for Endurance Training Gait dysfunction - to improve, our physical therapists will perform initial evaluation of pt's statu s upon admission and devise an individualized program for Gait Training, and Wheel Chair mobility Need for home safety evaluation - to improve, our physical therapists will perform initial evaluatio n of pt's status upon admission and devise an individualized program for Home Evaluation New precaution - to improve, our physical therapists will perform initial evaluation of pt's status upon admission and devise an individualized program for Patient precaution education - Occupational Therapy Weakness - to improve, our occupation therapists will perform initial evaluation of pt's status upon admission and devise an individualized program for Aquatic Therapy, Balance, Endurance, UE ROM, and UE strengthening Need for reservoir caretaker - to improve, our occupation therapists will perform initial evaluation of pt's status upon admission and devise an individualized program for Caregiver Training - Other See attached MAR (Medication Administration Record) - Diet Type Continue Regular - Diet - Liquid Texture Continue Regular - Tube Feed Continue N/A - Diet - Solid Texture Continue Regular - Shower allowing shower - Balance for Weakness - Bed mobility for ADL deficits FUNCTIONAL STATUS: UPDATED AT WEEKLY TEAM CONFERENCE - Bladder Same accident frequency: 7-Ind - No accidents in the past 7 days - Bowel Same accident frequency: 7-Ind - No accidents in the past 7 days - Walking Same score based on distance walked: 0(N/A) Same score based on distance walked: 1(<=50ft) - Wheelchair Same score based on distance traveled: 0(N/A) FUNCTIONAL STATUS: - Self-Care A. Eating Ind B. Grooming Tegan C. Bathing sup D. Dressing - Upper Mireya E. Dressing - Lower modA F. Toileting Mireya - Sphincter Control G. Bladder control sup H. Bowel control sup - Transfers Control I. Bed/Chair/Wheelchair modA J. Toilet modA K. Tub/Shower modA - Locomotion L. Walk/Wheelchair (B) modA M. Stairs ADNO - Communication N. Comprehension (B) Mireya O. Expression (B) Mireya - Social Cognition P. Social Interaction sup Q. Problem Solving Mireya R. Memory Mireya - Endurance Fair - Balance Poor - Safety Awareness Fair QI SCORES: - Self-Care A. Eating 03-Partial/moderate assistance B. Oral hygiene 03-Partial/moderate assistance C. Toileting hygiene 03-Partial/moderate assistance E. Shower/bathe self 03-Partial/moderate assistance F. Upper body dressing 03-Partial/moderate assistance G. Lower body dressing 03-Partial/moderate assistance H. Putting on/taking off footwear 88-Not attempted due to medical condition or safety concerns - Mobility A. Roll left and right 03-Partial/moderate assistance B. Sit to lying 03-Partial/moderate assistance C. Lying to sitting on side of bed 03-Partial/moderate assistance D. Sit to stand 03-Partial/moderate assistance E. Chair/uvt-cc-hiosx transfer 03-Partial/moderate assistance F. Toilet transfer 03-Partial/moderate assistance G. Car transfer 88-Not attempted due to medical condition or safety concerns I. Walk 10 feet 03-Partial/moderate assistance J. Walk 50 feet with two turns 88-Not attempted due to medical condition or safety concerns K. Walk 150 feet 88-Not attempted due to medical condition or safety concerns L. Walking 10 feet on uneven surfaces 88-Not attempted due to medical condition or safety concerns M. 1 step (curb) 88-Not attempted due to medical condition or safety concerns N. 4 steps 88-Not attempted due to medical condition or safety concerns O. 12 steps 88-Not attempted due to medical condition or safety concerns P. Picking up object 88-Not attempted due to medical condition or safety concerns R. Wheel 50 feet with two turns 88-Not attempted due to medical condition or safety concerns S. Wheel 150 feet 88-Not attempted due to medical condition or safety concerns - Bladder and Bowel Bladder continence Bowel continence - Endurance Fair - Balance Fair - Safety Awareness Fair CURRENT [facility]. DEFICITS: Self-Care, Mobility, Endurance, Balance, and Safety Awareness SIGNATURE PANEL: (CDT)
[2021-02-02] MEDS: TAMSULOSIN 0.4 MG SR CAP PO SCH (19:46)
[2021-02-02] MEDS: MELATONIN 3 MG TABLET PO PRN (19:46)
--- NOTE | 2021-02-03 01:15 | PN ---
Date of Progress Note: 02/02/2021 Chief Complaint: Acute kidney injury with prerenal azotemia, hyponatremia, asymptomatic of mild degree. History: Patient has history of hypertension, hypertensive heart and kidney disease. Patient developed severe acute kidney injury, which resolved in response to IV fluids. Patient did not require dialysis. Review of Systems: Denies fever, chills. Physical Examination: Lungs: Clear to auscultation bilaterally. Heart: S1, S2. Abdomen: Soft, nontender. Extremities: No edema. Impression And Plan: 1. Acute kidney injury, actually recovered and renal function is at baseline. Avoid nephrotoxic medication. 2. Hyponatremia, mild asymptomatic. Continue to monitor. 3. Hypertension. Patient had episode of orthostatic hypotension and medication were adjusted today. Blood pressure is stable. SCOTT/PILY Voice ID: [id number] Report ID: [id number] BERNADINE
[2021-02-03] MEDS: metroNIDAZOLE 250 MG TABLET PO SCH ×3 (05:17→17:10)
[2021-02-03 07:39] LABS: Absolute Lymphocytes (CBC) 1.7 K/uL (0.7-4.9); Basophils % 1.1 % (0-1.3); Hematocrit 25.1 % (39.6-49.0); Lymphocytes % 21.3 % (15.3-44.8); MPV 7.5 fL (7.6-11.3); RBC Red Blood Cell Count 3.06 M/uL (4.33-5.43)
[2021-02-03 07:49] LABS: ALT/SGPT 19 U/L (12-78); AST/SGOT 12 U/L (15-37); Albumin 2.2 g/dL (3.4-5.0); Alkaline Phosphatase 69 U/L (45-117); BUN Blood Urea Nitrogen 10 mg/dL (7-18); Bicarbonate 28 mmol/L (21-32); Bilirubin Total 0.3 mg/dL (0.2-1.0); Glucose Level 96 mg/dL (74-106); Potassium 3.7 mmol/L (3.5-5.1); Sodium Level 136 mmol/L (136-145)
[2021-02-03] MEDS: ENSURE HIGH PROTEIN 237 ML CAN PO SCH ×2 (08:00→17:10)
[2021-02-03] MEDS: LIDOCAINE 4% PATCH TOP SCH (08:39)
[2021-02-03] MEDS: FERROUS SULFATE 325 MG TAB PO SCH (08:40)
[2021-02-03] MEDS: THIAMINE HCL 100 MG TABLET PO SCH (08:40)
[2021-02-03] MEDS: VITAMIN D 1000 UNIT TAB PO SCH (08:40)
[2021-02-03] MEDS: ASPIRIN EC 81 MG TAB PO SCH (08:41)
[2021-02-03] MEDS: MAGNESIUM OXIDE 400 MG TAB PO SCH ×2 (08:41→18:53)
[2021-02-03] MEDS: FE SULF/FA/VIT B COMP & C TAB PO SCH (08:41)
[2021-02-03] MEDS: MIDODRINE HCL 5 MG TABLET PO SCH ×3 (08:41→18:53)
[2021-02-03] MEDS: METOPROLOL TAR 25 MG TAB PO SCH ×2 (08:41→19:56)
[2021-02-03] MEDS: FOLIC ACID 1 MG TABLET PO SCH (08:41)
[2021-02-03] MEDS: ACETAMINOPHEN 500 MG TAB PO PRN (08:44)
--- NOTE | 2021-02-03 11:13 | P.PN ---
Subjective Date of Service: 02/03/21 Chief Complaint: Sepsis, debility Patient seen examined at bedside, doing well. Denies nausea, vomiting. Reports continued abdominal tenderness peer WBC within normal range, patient afebrile. Continue with Levaquin and metronidazole. Review of Systems 10-point ROS is otherwise unremarkable Physical Examination - Vital Signs Temperature: 98.2 F Blood Pressure: 102/78 Pulse: 80 Respirations: 18 Pulse Ox (%): 94 - Studies Laboratory Data (last 24 hrs) 02/03/21 07:13: Sodium 136, Potassium 3.7, BUN 10, Creatinine 0.98, Glucose 96, Total Bilirubin 0.3, AST 12 L, ALT 19, Alkaline Phosphatase 69 02/03/21 07:13: WBC 8.00 D, Hgb 8.5 L, Hct 25.1 L, Plt Count 414 H Microbiology Data (last 24 hrs): 02/02/21 09:20 Stool Occult Blood - Final Assessment And Plan - Plan Physical Exam: General: Alert, In no apparent distress, Oriented x3 HEENT: Atraumatic, Normocephalic Neck: Supple, 2+ carotid pulse no bruit Respiratory: Clear to auscultation bilaterally, Normal air movement Cardiovascular: No edema, Normal pulses, Regular rate/rhythm Capillary refill: <2 Seconds Gastrointestinal: Normal bowel sounds, Tenderness (to right lower quadrent ) Musculoskeletal: No clubbing, No swelling, No contractures Integumentary: No rashes, No breakdown, No significant lesion External genitalia: Deferred Rectal: Deferred Conclusions/Impression: Antibiotics: Levaquin start: 01/29 stop: -- Metronidazole Start: 02/02 stop: -- Assessment/Plan: Fever with leukocytosis Patient spiked high fever on 01/29 with a T-max of 102.8. Blood and urine culture show no growth to date, patient has been afebrile since 01/30. Chest x- ray showed bilateral lower airspace disease with bilateral pleural effusions concerning for atelectasis versus pneumonia. Patient started on respiratory fluoroquinolone to treat possible pneumonia. History of splenic infarct with abscess Splenic drainage catheter was placed on 01/14 and was removed on 01/31. Repeat CT abdomen showed small splenic abscess measuring 2.8 x 1.4 cm, decreased sense last scan. Continue Levaquin, metronidazole place to cover anaerobes. Continue for 3 weeks. Repeat imaging after antibiotics have been completed. Anemia Continue to closely monitor H&H. Protein caloric malnutrition: Moderate Low pre-albumin and albumin. Recommend supplemental Ensure protein drinks b.i.d. Medical management per primary team Plan of care discussed with Dr. Whipple Thank you for consultation
[2021-02-03] MEDS: LEVOFLOXACIN 750MG/D5W 150 ML IV SCH (17:08)
[2021-02-03] MEDS: TAMSULOSIN 0.4 MG SR CAP PO SCH (18:53)
[2021-02-03] MEDS: MELATONIN 3 MG TABLET PO PRN (18:53)
[2021-02-04] MEDS: metroNIDAZOLE 250 MG TABLET PO SCH ×5 (05:07→23:16)
[2021-02-04] MEDS: ENSURE HIGH PROTEIN 237 ML CAN PO SCH ×2 (08:00→20:00)
[2021-02-04] MEDS: LIDOCAINE 4% PATCH TOP SCH (08:45)
[2021-02-04] MEDS: VITAMIN D 1000 UNIT TAB PO SCH (08:46)
[2021-02-04] MEDS: ACETAMINOPHEN 500 MG TAB PO PRN (08:46)
[2021-02-04] MEDS: MIDODRINE HCL 5 MG TABLET PO SCH ×3 (08:46→20:01)
[2021-02-04] MEDS: MAGNESIUM OXIDE 400 MG TAB PO SCH ×2 (08:47→20:00)
[2021-02-04] MEDS: FERROUS SULFATE 325 MG TAB PO SCH (08:47)
[2021-02-04] MEDS: FOLIC ACID 1 MG TABLET PO SCH (08:47)
[2021-02-04] MEDS: FE SULF/FA/VIT B COMP & C TAB PO SCH (08:47)
[2021-02-04] MEDS: METOPROLOL TAR 25 MG TAB PO SCH ×2 (08:47→20:00)
[2021-02-04] MEDS: ASPIRIN EC 81 MG TAB PO SCH (08:47)
[2021-02-04] MEDS: THIAMINE HCL 100 MG TABLET PO SCH (08:47)
--- NOTE | 2021-02-04 10:28 | P.PN ---
Subjective Date of Service: 02/04/21 Chief Complaint: Sepsis, debility Patient seen examined at bedside, no acute events are past 24 hr. Patient remains afebrile, no leukocytosis. Continue current antibiotic therapy. Patient tolerating antibiotics well. Review of Systems 10-point ROS is otherwise unremarkable Physical Examination - Vital Signs Temperature: 99.2 F Blood Pressure: 100/60 Pulse: 89 Respirations: 16 Pulse Ox (%): 95 - Studies Laboratory Last Values WBC 8.00 K/uL (4.3-10.9) D 02/03/21 07:13 RBC 3.06 M/uL (4.33-5.43) L 02/03/21 07:13 Hgb 8.5 g/dL (13.6-17.9) L 02/03/21 07:13 Hct 25.1 % (39.6-49.0) L 02/03/21 07:13 MCV 82.0 fL (80-100) 02/03/21 07:13 MCH 27.9 pg (27.0-35.0) 02/03/21 07:13 MCHC 34.0 g/dL (32.0-36.0) 02/03/21 07:13 RDW 16.8 % (12.1-15.2) H 02/03/21 07:13 Plt Count 414 K/uL (152-406) H 02/03/21 07:13 MPV 7.5 fL (7.6-11.3) L 02/03/21 07:13 Neutrophils % 58.4 % (41.7-73.7) 02/03/21 07:13 Lymphocytes % 21.3 % (15.3-44.8) 02/03/21 07:13 Monocytes % 10.8 % (3.3-12.3) 02/03/21 07:13 Eosinophils % 8.4 % (0-4.4) H 02/03/21 07:13 Basophils % 1.1 % (0-1.3) 02/03/21 07:13 Absolute Neutrophils 4.7 K/uL (1.8-8.0) 02/03/21 07:13 Absolute Lymphocytes 1.7 K/uL (0.7-4.9) 02/03/21 07:13 Absolute Monocytes 0.9 K/uL (0.1-1.3) 02/03/21 07:13 Absolute Eosinophils 0.7 K/uL (0-0.5) H 02/03/21 07:13 Absolute Basophils 0.1 K/uL (0-0.5) 02/03/21 07:13 ESR Westergren > 140 mm/HR (0-20) H 02/03/21 07:13 Sodium 136 mmol/L (136-145) 02/03/21 07:13 Potassium 3.7 mmol/L (3.5-5.1) 02/03/21 07:13 Chloride 103 mmol/L (98-107) 02/03/21 07:13 Carbon Dioxide 28 mmol/L (21-32) 02/03/21 07:13 BUN 10 mg/dL (7-18) 02/03/21 07:13 Creatinine 0.98 mg/dL (0.55-1.3) 02/03/21 07:13 Estimated GFR > 90 mL/min (=/>90) 02/03/21 07:13 Glucose 96 mg/dL (74-106) 02/03/21 07:13 Lactic Acid 1.4 mmol/L (0.4-2.0) 01/29/21 17:39 Uric Acid 5.3 mg/dL (3.5-7.2) D 02/02/21 08:16 Calcium 9.2 mg/dL (8.5-10.1) 02/03/21 07:13 Phosphorus 3.2 mg/dL (2.5-4.9) 01/31/21 06:22 Magnesium 1.6 mg/dL (1.8-2.4) L 01/31/21 06:22 Total Bilirubin 0.3 mg/dL (0.2-1.0) 02/03/21 07:13 AST 12 U/L (15-37) L 02/03/21 07:13 ALT 19 U/L (12-78) 02/03/21 07:13 Alkaline Phosphatase 69 U/L (45-117) 02/03/21 07:13 Lactate Dehydrogenase 205 U/L (87-241) 01/29/21 16:25 C-Reactive Protein 144.00 mg/L (<3.00) H 02/03/21 07:13 Serum Total Protein 8.0 g/dL (6.4-8.2) 02/03/21 07:13 Albumin 2.2 g/dL (3.4-5.0) L 02/03/21 07:13 Globulin 5.8 g/dL (2.3-3.5) H 02/03/21 07:13 Albumin/Globulin Ratio 0.4 (1.1-1.8) L 02/03/21 07:13 Prealbumin 18.5 mg/dL (20-40) L 01/28/21 14:22 Lipase 42 U/L (73-393) L 01/30/21 08:10 Procalcitonin 0.59 ng/mL (<0.050) H 02/02/21 08:16 Cortisol 17.49 ug/dL (SEE COMMENT) 02/03/21 07:13 Urine Color Yellow (Yellow) 01/30/21 07:40 Urine Appearance Clear (Clear) 01/30/21 07:40 Urine pH 6.0 (5.0-7.0) 01/30/21 07:40 Ur Specific [place] 1.015 (1.005-1.030) 01/30/21 07:40 Glucose (UA)(Auto) Negative (Negative) 01/30/21 07:40 Urine Ketones Negative (Negative) 01/30/21 07:40 Urine Blood Negative (Negative) 01/30/21 07:40 Urine Nitrite Negative (Negative) 01/30/21 07:40 Urine Bilirubin Negative (Negative) 01/30/21 07:40 Urine Urobilinogen 0.2 mg/dL (0.2-1.0) 01/30/21 07:40 Ur Leukocyte Esterase Negative (Negative) 01/30/21 07:40 Urine RBC <5 /HPF (NONE SEEN) 01/30/21 07:40 Urine WBC <5 /HPF (<5) 01/30/21 07:40 Ur Squamous Epith Cells <5 /HPF (NONE SEEN) 01/30/21 07:40 Calcium Oxalate Crystal Few (NONE SEEN) 01/27/21 19:00 Urine Bacteria <20 /HPF (NONE SEEN) 01/30/21 07:40 Urine Yeast Few (NONE SEEN) 01/27/21 19:00 Urine Yeast (Budding) Present (NONE SEEN) H 01/27/21 19:00 Urine Culture Reflexed Not needed 01/30/21 07:40 Urine Total Protein 1+ (Negative) H 01/30/21 07:40 SARS-CoV-2 Rap RNA(RT-PCR) Negative (NEGATIVE) 02/02/21 09:00 Microbiology Data (last 24 hrs): 01/29/21 16:08 Blood - Blood Aerobic Blood Culture - Final No growth in 5 days. 01/29/21 16:08 Blood - Blood Anaerobic Blood Culture - Final No growth in 5 days. 01/29/21 16:25 Blood - Blood Aerobic Blood Culture - Final No growth in 5 days. 01/29/21 16:25 Blood - Blood Anaerobic Blood Culture - Final Assessment And Plan - Plan Physical Exam: General: Alert, In no apparent distress, Oriented x3 HEENT: Atraumatic, Normocephalic Neck: Supple, 2+ carotid pulse no bruit Respiratory: Clear to auscultation bilaterally, Normal air movement Cardiovascular: No edema, Normal pulses, Regular rate/rhythm Capillary refill: <2 Seconds Gastrointestinal: Normal bowel sounds, Tenderness (to right lower quadrent ) Musculoskeletal: No clubbing, No swelling, No contractures Integumentary: No rashes, No breakdown, No significant lesion External genitalia: Deferred Rectal: Deferred Conclusions/Impression: Antibiotics: Levaquin start: 01/29 stop: 02/19 Metronidazole Start: 02/02 stop: 02/23 Assessment/Plan: Fever with leukocytosis Patient spiked high fever on 01/29 with a T-max of 102.8. Blood and urine culture show no growth to date, patient has been afebrile since 01/30. Chest x- ray showed bilateral lower airspace disease with bilateral pleural effusions concerning for atelectasis versus pneumonia. Patient started on respiratory fluoroquinolone to treat possible pneumonia. History of splenic infarct with abscess Splenic drainage catheter was placed on 01/14 and was removed on 01/31. Repeat CT abdomen showed small splenic abscess measuring 2.8 x 1.4 cm, decreased sense last scan. Continue Levaquin, metronidazole place to cover anaerobes. Continue for 3 weeks. Repeat imaging after antibiotics have been completed. Anemia Continue to closely monitor H&H. Protein caloric malnutrition: Moderate Low pre-albumin and albumin. Recommend supplemental Ensure protein drinks b.i.d. Medical management per primary team Plan of care discussed with Dr. Whipple Thank you for consultation
--- NOTE | 2021-02-04 14:10 | PN ---
Date of Progress Note: 02/04/2021 Subjective: The patient was admitted with acute kidney injury secondary to prerenal. Had orthostatic hypotension. The patient was transferred to the rehab for physical therapy. Physical Examination: Vital Signs: Blood pressure 100/60, pulse of 89. Chest: Clear to auscultation. Heart: S1, S2. Regular. Abdomen: Soft, nontender. Extremity: No edema. Dressing on both feet. Laboratory Data: H and H 8.5/25.1. Sodium 136, potassium 3.7, bicarb 28, BUN 10, creatinine 0.9. Current Medications: The patient on include midodrine 15 t.i.d., Levaquin, metronidazole 250 q.6, Flomax, metoprolol, Tylenol, dexamethasone. Assessment And Plan: 1. Acute kidney injury secondary to prerenal, recovered, resolved. 2. Hyponatremia, symptomatic, currently resolved. 3. Hypotension possible secondary to Flomax. We will consider discontinuing Flomax. We will discuss with Neurology. 4. Deconditioning. Continue PT/OT. Time spent examining the patient [id number] placing order discussing with the patient reviewing data discussing the case with all of our subspecialty including hospitalist 45 minutes SAMINA Voice ID: [id number] Report ID: [id number] BERNADINE
--- NOTE | 2021-02-04 15:26 | RAD REPORT ---
EXAM DESCRIPTION: RAD - Foot Left 2 View - 02/04/2021 3:03 pm CLINICAL HISTORY: Increased pain and swelling COMPARISON: None. FINDINGS: No fracture, dislocation or periosteal reaction. No acute or destructive bone process iden tified. Minimal degenerative change present at first MTP joint. No plantar spur is seen. No air or foreign body in the soft tissues. Soft tissue swelling is present in the mid and distal chacho t most notable at the dorsum of the foot at the MTP joint level. IMPRESSION: Soft tissue swelling with no air or foreign body. No acute bone or joint finding.
[2021-02-04] MEDS: LEVOFLOXACIN 750MG/D5W 150 ML IV SCH (17:05)
--- NOTE | 2021-02-04 18:07 | R.PN ---
PROGRESS NOTES ENCOUNTER DATE AND TIME: 02/03/2021 18:04 (CDT) NAME SAMY CURRAN DATE OF : 1955 DATE OF ADMISSION: 01/27/2021 11:38 (CDT) SEVERE SEPSIS and debilityCHIEF COMPLAINT: Sepsis and debility SUBJECTIVE: Pt denied any depression. Pt denied any Shortness of Breath. CBC with differential show WBC 8.0, Hgb 8.5, Na 134, prealbumin 18.5, ESR > 140, CRP 144.0, cortisol 17.49 Ambulated a total of 100' with a rolling walker and contact guard assistance. Lactic acid is normal at 1.4, procalcitonin decreased to .59. Chest x-ray shows left greater than rig ht pleural effusion possible due to pneumonia. Start Levaquin 750 mg IV daily for 7 days. Thanks for nephrology help from Dr. Wynne. VITAL SIGNS Temperature: 98.2 F SBP/DBP: 102/78 Pulse: 80 Resp: 16 MEDICATION ALLERGIES: No Known Drug Allergies (NKDA) ENVIRONMENTAL ALLERGIES: - Substance Allergies None Known - Other Allergies None Known NURSING: - Shower allowing shower ACTIVITIES OOB only with supervision THERAPIES: - Dietary and Nutrition Adequate Nutrition. Nutritional Education. Nutritional Supplements. - Occupational Therapy Cognitive Retraining. Visual Perceptual Training. - Speech Therapy Cognitive Training. Expressive Language Skills. Memory Strategies. Receptive Language Skills. Speech Intelligibility Training. PHYSICAL EXAM - Gen Alert and awake Lying in bed No apparent distress Oriented to: person, time, and place - Skin No skin breakdown. No abnormalities - Eyes No abnormalities - ENMT No abnormalities - Neck No abnormalities - CVS RRR - Chest No abnormalities - Abd Soft - GI + bowel sounds Deferred - No abnormalities - Ext Right knee pain and mild swelling. - MSK 4+/5 weakness in both lower extremities. - Neuro 4/5 strength bilaterally lower extremities. - Psych No abnormalities ASSESSMENT: Pt. is a 65 yo Right-handed male.On 01/07/2021 he was admitted to [facility] with diagno sis SEVERE SEPSIS and debility.His impairment category is Medically Complex Conditions 17 - Infectio ns (17.1).Pre-morbidly, Pt. was independent/mod-I in Safety Awareness, Social Cognition, Locomotion, Balance, and Transfers Control; and he had good Endurance, Communication, Sphincter Control, Self-Car e, and Transfers Control.Currently, he has deficits of Locomotion, Balance, Transfers Control, Sphinc ter Control, Endurance, and Safety Awareness.Pt. is now referred to [facility] for acute in-patient rehabilitation in order to maximize patient's functional independence in activi ties of daily living, strength, ROM, and mobility.- Rehab Goal Patient has realistic goal of being discharged at assistance level 7-Ind to reside at Home with Pt s elf. MDM/PLAN: - Physical Therapy Weakness - to improve, our physical therapists will perform initial evaluation of pt's status upon a dmission and devise an individualized program for Aquatic Therapy, Neuromuscular Reeducation, and Str engthening Poor balance - to improve, our physical therapists will perform initial evaluation of pt's status up on admission and devise an individualized program for Balance Training Inability to transfer - to improve, our physical therapists will perform initial evaluation of pt's status upon admission and devise an individualized program for Bed mobility Need in caregiver upon discharge - to improve, our physical therapists will perform initial evaluati on of pt's status upon admission and devise an individualized program for Caregiver Training Poor endurance - to improve, our physical therapists will perform initial evaluation of pt's status upon admission and devise an individualized program for Endurance Training Gait dysfunction - to improve, our physical therapists will perform initial evaluation of pt's statu s upon admission and devise an individualized program for Gait Training, and Wheel Chair mobility Need for home safety evaluation - to improve, our physical therapists will perform initial evaluatio n of pt's status upon admission and devise an individualized program for Home Evaluation New precaution - to improve, our physical therapists will perform initial evaluation of pt's status upon admission and devise an individualized program for Patient precaution education - Occupational Therapy Weakness - to improve, our occupation therapists will perform initial evaluation of pt's status upon admission and devise an individualized program for Aquatic Therapy, Balance, Endurance, UE ROM, and UE strengthening Need for care information associate - to improve, our occupation therapists will perform initial evaluation of pt's status upon admission and devise an individualized program for Caregiver Training - Other See attached MAR (Medication Administration Record) - Diet Type Continue Regular - Diet - Liquid Texture Continue Regular - Tube Feed Continue N/A - Diet - Solid Texture Continue Regular - Shower allowing shower - Balance for Weakness - Bed mobility for ADL deficits FUNCTIONAL STATUS: UPDATED AT WEEKLY TEAM CONFERENCE - Bladder Same accident frequency: 7-Ind - No accidents in the past 7 days - Bowel Same accident frequency: 7-Ind - No accidents in the past 7 days - Walking Same score based on distance walked: 0(N/A) Same score based on distance walked: 1(<=50ft) - Wheelchair Same score based on distance traveled: 0(N/A) FUNCTIONAL STATUS: - Self-Care A. Eating Ind B. Grooming Tegan C. Bathing sup D. Dressing - Upper Mireya E. Dressing - Lower modA F. Toileting Mireya - Sphincter Control G. Bladder control sup H. Bowel control sup - Transfers Control I. Bed/Chair/Wheelchair modA J. Toilet modA K. Tub/Shower modA - Locomotion L. Walk/Wheelchair (B) modA M. Stairs ADNO - Communication N. Comprehension (B) Mireya O. Expression (B) Mireya - Social Cognition P. Social Interaction sup Q. Problem Solving Mireya R. Memory Miryea - Endurance Fair - Balance Poor - Safety Awareness Fair QI SCORES: - Self-Care A. Eating 03-Partial/moderate assistance B. Oral hygiene 03-Partial/moderate assistance C. Toileting hygiene 03-Partial/moderate assistance E. Shower/bathe self 03-Partial/moderate assistance F. Upper body dressing 03-Partial/moderate assistance G. Lower body dressing 03-Partial/moderate assistance H. Putting on/taking off footwear 88-Not attempted due to medical condition or safety concerns - Mobility A. Roll left and right 03-Partial/moderate assistance B. Sit to lying 03-Partial/moderate assistance C. Lying to sitting on side of bed 03-Partial/moderate assistance D. Sit to stand 03-Partial/moderate assistance E. Chair/[id number] transfer 03-Partial/moderate assistance F. Toilet transfer 03-Partial/moderate assistance G. Car transfer 88-Not attempted due to medical condition or safety concerns I. Walk 10 feet 03-Partial/moderate assistance J. Walk 50 feet with two turns 88-Not attempted due to medical condition or safety concerns K. Walk 150 feet 88-Not attempted due to medical condition or safety concerns L. Walking 10 feet on uneven surfaces 88-Not attempted due to medical condition or safety concerns M. 1 step (curb) 88-Not attempted due to medical condition or safety concerns N. 4 steps 88-Not attempted due to medical condition or safety concerns O. 12 steps 88-Not attempted due to medical condition or safety concerns P. Picking up object 88-Not attempted due to medical condition or safety concerns R. Wheel 50 feet with two turns 88-Not attempted due to medical condition or safety concerns S. Wheel 150 feet 88-Not attempted due to medical condition or safety concerns - Bladder and Bowel Bladder continence Bowel continence - Endurance Fair - Balance Fair - Safety Awareness Fair CURRENT [facility]. DEFICITS: Self-Care, Mobility, Endurance, Balance, and Safety Awareness SIGNATURE PANEL: (CDT)
[2021-02-04] MEDS: TAMSULOSIN 0.4 MG SR CAP PO SCH (20:00)
[2021-02-04] MEDS: DOCUSATE NA/SENNA CONC 1 TAB PO PRN (20:00)
[2021-02-04] MEDS: MELATONIN 3 MG TABLET PO PRN (20:01)
[2021-02-05] MEDS: metroNIDAZOLE 250 MG TABLET PO SCH ×3 (05:22→16:55)
[2021-02-05 05:28] LABS: Absolute Lymphocytes (CBC) 2.1 K/uL (0.7-4.9); Basophils % 1.3 % (0-1.3); Hematocrit 23.4 % (39.6-49.0); Lymphocytes % 20.5 % (15.3-44.8); MPV 7.5 fL (7.6-11.3); RBC Red Blood Cell Count 2.84 M/uL (4.33-5.43)
[2021-02-05 05:50] LABS: Albumin 2.3 g/dL (3.4-5.0); BUN Blood Urea Nitrogen 12 mg/dL (7-18); Bicarbonate 27 mmol/L (21-32); Glucose Level 109 mg/dL (74-106); Potassium 3.7 mmol/L (3.5-5.1); Prealbumin 12.1 mg/dL (20-40); Sodium Level 138 mmol/L (136-145)
--- NOTE | 2021-02-05 06:15 | P.PN ---
Subjective Date of Service: 02/05/21 Chief Complaint: Sepsis, debility Physical Examination - Vital Signs Temperature: 98.8 F Blood Pressure: 119/72 Pulse: 90 Respirations: 16 Pulse Ox (%): 96 - Studies Laboratory Data (last 24 hrs) 02/05/21 04:31: Sodium 138, Potassium 3.7, BUN 12, Creatinine 0.91, Glucose 109 H, Magnesium 2.0 02/05/21 04:31: WBC 10.20 D, Hgb 8.0 L, Hct 23.4 L, Plt Count 447 H Assessment And Plan - Plan # [place] secondary to prerenal, poor perfusion, ATN, superimposed with toxic ATN, secondary to sepsis Baseline serum creatinine 1.0 as of 12/19/2020 Improved previously to 0.8, now inc to 1.2 Has mild proteinuria, random UPCR 1g Urinalysis showed no hematuria or pyuria On abx IV fluid bolus prn for low BP [place] po fluid intake Monitor renal panel # Recurrent sepsis probably 2/2 pneumonia w/ bilateral parapneumonic effusion; recent severe sepsis thought to be 2/2 splenic abscess/infected pseudocyst History of significant blunt trauma on left rib cage area due to fall in October 2020 No history of hematologic disease, no history of pancreatitis TTE in October 2020 was negative for infective endocarditis Splenic mass may possibly be an infected splenic pseudocyst, which can occur uncommonly after splenic infarct, vs hematoma; status post percutaneous drain placement on 01/14, removed on 01/23 Fever recurred on 01/29; CXR showed atelectasis vs pna & bilat pleural effusion; no pyuria; on abx per ID service Recent chest on CT scan is unremarkable without evidence of pulmonary hypertension or interstitial lung disease If no prompt improvement, recheck another chest CT to assess for lung abscess vs loculated pleural effusion Incentive spirometry q2h when awake # Persistent hypotension, suspect autonomic neuropathy/failure from infiltrative dse, possible AL/primary Amyloidosis, 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), currently aggravated by recurrent sepsis TTE unremarkable No evidence of pulmonary hypertension on TTE or chest CT Recent CT with contrast on 01/07/2021 showed no evidence of hepatic outflow obstruction to explain his hypotension He has 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 but this is unlikely to be the main cab driver of his persistent hypotension 8 AM serum cortisol & ACTH wnl - adrenal insufficiency unlikely TSH only slightly elevated RIANNA positive, SS-A positive Negative SS-B, RPR & HIV screen; serum B12 level within normal limits F/u anti-TTG Abs He has serum protein gap as well as mild urine protein gap; he has low level positivity of his serum free light chains (< 500) + high level albuminuria (> 5 mg/dL)--> DDx include AL amyloidosis & LCDD He has multiple electrolyte depletions including hypokalemia, hypomagnesemia, and hypocalcemia, as well as vitamin D deficiency which is suggestive of poor GI tract absorption, which is also concerning for amyloidosis or LCDD causing GI involvement Abdominal fat pad biopsy done on 01/24; f/u amyloid stain result via [place] red and Thioflavin T. Tissue sample will be sent out to [facility] at the [facility]. If abdominal fat pad biopsy is negative, we will need to pursue other tissue sampling. I would recommend to do a bone marrow biopsy next. If bone marrow is also negative for amyloid and light chains, next option would include upper and lower GI endoscopy with biopsies for possible GI tract involvement w/ amyloid or LCDD, as well as a kidney biopsy. Would also consider a tissue sample from the splenic lesion. Continue midodrine maximum dose 15 mg by mouth 3 times a day Monitor orthostatic vitals. If he remains orthostatic, start daytime bilateral thigh-high graduated compression stockings, with at least 20-30 mmHg ankle pressure, to mitigate orthostasis. # HypoMg improving Cont MgOx po bid # Hyponatremia Mild, monitor # Hypocalcemia Improved Serum intact PTH elevated at 268 25OHD level low at 22 Cont D3 2000 IU po daily Monitor, correct hypomagnesemia prn # Debility PT/OT
[2021-02-05] MEDS: ENSURE HIGH PROTEIN 237 ML CAN PO SCH ×2 (08:00→19:59)
[2021-02-05] MEDS: VITAMIN D 1000 UNIT TAB PO SCH (08:39)
[2021-02-05] MEDS: ASPIRIN EC 81 MG TAB PO SCH (08:40)
[2021-02-05] MEDS: FOLIC ACID 1 MG TABLET PO SCH (08:40)
[2021-02-05] MEDS: MIDODRINE HCL 5 MG TABLET PO SCH ×3 (08:40→20:00)
[2021-02-05] MEDS: THIAMINE HCL 100 MG TABLET PO SCH (08:40)
[2021-02-05] MEDS: FE SULF/FA/VIT B COMP & C TAB PO SCH (08:41)
[2021-02-05] MEDS: FERROUS SULFATE 325 MG TAB PO SCH (08:41)
[2021-02-05] MEDS: ACETAMINOPHEN 500 MG TAB PO PRN ×2 (08:41→14:16)
[2021-02-05] MEDS: METOPROLOL TAR 25 MG TAB PO SCH ×2 (08:42→20:01)
[2021-02-05] MEDS: LIDOCAINE 4% PATCH TOP SCH (08:47)
[2021-02-05] MEDS: MAGNESIUM OXIDE 400 MG TAB PO SCH ×2 (08:58→20:00)
--- NOTE | 2021-02-05 10:59 | P.PN ---
Subjective Date of Service: 02/05/21 Chief Complaint: Sepsis, debility Patient seen examined at bedside, no acute events are past 24 hr. Patient remains afebrile, no leukocytosis. Continue current antibiotic therapy. Patient tolerating antibiotics well. Review of Systems 10-point ROS is otherwise unremarkable Physical Examination - Vital Signs Temperature: 97.2 F Blood Pressure: 100/58 Pulse: 87 Respirations: 16 Pulse Ox (%): 97 - Studies Laboratory Data (last 24 hrs) 02/05/21 04:31: Sodium 138, Potassium 3.7, BUN 12, Creatinine 0.91, Glucose 109 H, Magnesium 2.0 02/05/21 04:31: WBC 10.20 D, Hgb 8.0 L, Hct 23.4 L, Plt Count 447 H Assessment And Plan - Plan Physical Exam: General: Alert, In no apparent distress, Oriented x3 HEENT: Atraumatic, Normocephalic Neck: Supple, 2+ carotid pulse no bruit Respiratory: Clear to auscultation bilaterally, Normal air movement Cardiovascular: No edema, Normal pulses, Regular rate/rhythm Capillary refill: <2 Seconds Gastrointestinal: Normal bowel sounds, Tenderness (to right lower quadrent ) Musculoskeletal: No clubbing, No swelling, No contractures Integumentary: No rashes, No breakdown, No significant lesion External genitalia: Deferred Rectal: Deferred Conclusions/Impression: Antibiotics: Levaquin start: 01/29 stop: 02/19 Metronidazole Start: 02/02 stop: 02/23 Assessment/Plan: Fever with leukocytosis Patient spiked high fever on 01/29 with a T-max of 102.8. Blood and urine culture show no growth to date, patient has been afebrile since 01/30. Chest x- ray showed bilateral lower airspace disease with bilateral pleural effusions concerning for atelectasis versus pneumonia. Patient started on respiratory fluoroquinolone to treat possible pneumonia. History of splenic infarct with abscess Splenic drainage catheter was placed on 01/14 and was removed on 01/31. Repeat CT abdomen showed small splenic abscess measuring 2.8 x 1.4 cm, decreased since last scan. Continue Levaquin, metronidazole added to cover anaerobes. Continue for 3 weeks. Repeat imaging after antibiotics have been completed. Anemia Continue to closely monitor H&H. Protein caloric malnutrition: Moderate Low pre-albumin and albumin. Recommend supplemental Ensure protein drinks b.i.d. Medical management per primary team Plan of care discussed with Dr. Whipple Thank you for consultation
--- NOTE | 2021-02-05 14:36 | FAST ---
[employer] FORM SHIFT START DATE/TIME: 02/05/2021 07:00 (CDT) SHIFT END DATE/TIME: 02/05/2021 19:00 (CDT) NAME SAMY CURRAN DATE OF : 1955 DATE OF ADMISSION: 01/27/2021 11:38 (CDT) PHONE: AGE: 65 SSN# [id number] GENDER: Male ENCOUNTER PHYSICIAN: Dr. Matheus Ibarra M.D. ADMISSION DIAGNOSIS: - Medically Complex Conditions 17 - Infections (17.1) SEVERE SEPSIS and debility. EATING: EATING - STEP 1: Does the patient complete the activity by him/herself with no assistance (physical, verbal/nonverbal cueing, setup/clean-up)? No. EATING - STEP 2: Does the patient need only setup/clean-up assistance from one helper? Yes. 1. [id number] ADMISSION PERFORMANCE: Setup or clean-up assistance CODE: 05 ORAL HYGIENE: ORAL HYGIENE - STEP 1: Does the patient complete the activity by him/herself with no assistance (physical, verbal/nonverbal cueing, setup/clean-up)? No. ORAL HYGIENE - STEP 2: Does the patient need only setup/clean-up assistance from one helper? Yes. 1. [id number] ADMISSION PERFORMANCE: Setup or clean-up assistance CODE: 05 TOILETING HYGIENE: TOILETING HYGIENE - STEP 1: Does the patient complete the activity by him/herself with no assistance (physical, verbal/nonverbal cueing, setup/clean-up)? No. TOILETING HYGIENE - STEP 2: Does the patient need only setup/clean-up assistance from one helper? No. TOILETING HYGIENE - STEP 3: Does the patient need only verbal/nonverbal cueing or touching/steadying/contact guard assistance fro m one helper? No. TOILETING HYGIENE - STEP 4: Does the patient need physical assistance - for example lifting or trunk support from one helper - wi th the helper providing less than half of the effort? Yes. 1. [id number] ADMISSION PERFORMANCE: Partial/moderate assistance CODE: 03 BATHING: Not assessed/no information CODE: - DRESSING - UPPER BODY: DRESSING - UPPER BODY - STEP 1: Does the patient complete the activity by him/herself with no assistance (physical, verbal/nonverbal cueing, setup/clean-up)? No. DRESSING - UPPER BODY - STEP 2: Does the patient need only setup/clean-up assistance from one helper? Yes. 1. [id number] ADMISSION PERFORMANCE: Setup or clean-up assistance CODE: 05 DRESSING - LOWER BODY: DRESSING - LOWER BODY - STEP 1: Does the patient complete the activity by him/herself with no assistance (physical, verbal/nonverbal cueing, setup/clean-up)? No. DRESSING - LOWER BODY - STEP 2: Does the patient need only setup/clean-up assistance from one helper? Yes. 1. [id number] ADMISSION PERFORMANCE: Setup or clean-up assistance CODE: 05 PUTTING ON/TAKING OFF FOOTWEAR: FOOTWEAR - STEP 1: Does the patient complete the activity by him/herself with no assistance (physical, verbal/nonverbal cueing, setup/clean-up)? No. FOOTWEAR - STEP 2: Does the patient need only setup/clean-up assistance from one helper? No. FOOTWEAR - STEP 3: Does the patient need only verbal/nonverbal cueing or touching/steadying/contact guard assistance fro m one helper? No. FOOTWEAR - STEP 4: Does the patient need physical assistance - for example lifting or trunk support from one helper - wi th the helper providing less than half of the effort? No. FOOTWEAR - STEP 5: Does the patient need physical assistance - for example lifting or trunk support from one helper - wi th the helper providing more than half of the effort? Yes. 1. [id number] ADMISSION PERFORMANCE: Substantial/maximal assistance CODE: 02 ROLL LEFT AND RIGHT: ROLL LEFT AND RIGHT - STEP 1: Does the patient complete the activity by him/herself with no assistance (physical, verbal/nonverbal cueing, setup/clean-up)? No. ROLL LEFT AND RIGHT - STEP 2: Does the patient need only setup/clean-up assistance from one helper? Yes. 1. [id number] ADMISSION PERFORMANCE: Setup or clean-up assistance CODE: 05 SIT TO LYING: SIT TO LYING - STEP 1: Does the patient complete the activity by him/herself with no assistance (physical, verbal/nonverbal cueing, setup/clean-up)? No. SIT TO LYING - STEP 2: Does the patient need only setup/clean-up assistance from one helper? Yes. 1. [id number] ADMISSION PERFORMANCE: Setup or clean-up assistance CODE: 05 LYING TO SITTING: LYING TO SITTING ON SIDE OF BED - STEP 1: Does the patient complete the activity by him/herself with no assistance (physical, verbal/nonverbal cueing, setup/clean-up)? No. LYING TO SITTING ON SIDE OF BED - STEP 2: Does the patient need only setup/clean-up assistance from one helper? Yes. 1. [id number] ADMISSION PERFORMANCE: Setup or clean-up assistance CODE: 05 SIT TO STAND: SIT TO STAND - STEP 1: Does the patient complete the activity by him/herself with no assistance (physical, verbal/nonverbal cueing, setup/clean-up)? No. SIT TO STAND - STEP 2: Does the patient need only setup/clean-up assistance from one helper? Yes. 1. [id number] ADMISSION PERFORMANCE: Setup or clean-up assistance CODE: 05 TRANSFERS: BED, CHAIR: CHAIR/[id number] TRANSFER - STEP 1: Does the patient complete the activity by him/herself with no assistance (physical, verbal/nonverbal cueing, setup/clean-up)? No. CHAIR/[id number] TRANSFER - STEP 2: Does the patient need only setup/clean-up assistance from one helper? Yes. 1. [id number] ADMISSION PERFORMANCE: Setup or clean-up assistance CODE: 05 TRANSFER TOILET: TOILET TRANSFER - STEP 1: Does the patient complete the activity by him/herself with no assistance (physical, verbal/nonverbal cueing, setup/clean-up)? No. TOILET TRANSFER - STEP 2: Does the patient need only setup/clean-up assistance from one helper? Yes. 1. [id number] ADMISSION PERFORMANCE: Setup or clean-up assistance CODE: 05 TRANSFERS: CAR: Not assessed/no information CODE: - WALK 10 FEET: Not assessed/no information CODE: - 1 STEP (CURB): Not assessed/no information CODE: - PICKING UP OBJECT: Not assessed/no information CODE: - DOES THE PATIENT USE A WHEELCHAIR/SCOOTER? Q1. DOES THE PATIENT USE A WHEELCHAIR/SCOOTER?: Yes CODE: 1 WHEEL 50 FEET WITH TWO TURNS: WHEEL 50 FEET WITH TWO TURNS - STEP 1: Does the patient complete the activity by him/herself with no assistance (physical, verbal/nonverbal cueing, setup/clean-up)? No. WHEEL 50 FEET WITH TWO TURNS - STEP 2: Does the patient need only setup/clean-up assistance from one helper? Yes. 1. [id number] ADMISSION PERFORMANCE: Setup or clean-up assistance CODE: 05 INDICATE THE TYPE OF WHEELCHAIR/SCOOTER USED: RR1. INDICATE THE TYPE OF WHEELCHAIR/SCOOTER USED.: Manual CODE: 1 WHEEL 150 FEET: WHEEL 150 FEET - STEP 1: Does the patient complete the activity by him/herself with no assistance (physical, verbal/nonverbal cueing, setup/clean-up)? No. WHEEL 150 FEET - STEP 2: Does the patient need only setup/clean-up assistance from one helper? Yes. 1. [id number] ADMISSION PERFORMANCE: Setup or clean-up assistance CODE: 05 INDICATE THE TYPE OF WHEELCHAIR/SCOOTER USED: SS1. INDICATE THE TYPE OF WHEELCHAIR/SCOOTER USED.: Manual CODE: 1 BLADDER AND BOWEL: H350. BLADDER CONTINENCE (3-DAY ASSESSMENT PERIOD): Always continent (no documented incontinence) CODE: 0 H400. BOWEL CONTINENCE (3-DAY ASSESSMENT PERIOD): Always continent CODE: 0 SIGNATURE PANEL: The following modified sections: 1. [id number] Admission Performance, 1. [id number] Admission Performance, 1. [id number] Admission Performance, 1. OT3183u Admission Performance, 1. RF8846b Admission Performance, 1. NS4320l Admission Performance, 1. [id number] Admission Performance, 1. [id number] Admission Performance , 1. WH6082D Admission Performance, 1. [id number] Admission Performance, 1. [id number] Admission Performanc e, 1. [id number] Admission Performance, 1. [id number] Admission Performance, Q1. Does the patient use a whe elchair/scooter?, 1. [id number] Admission Performance, RR1. Indicate the type of wheelchair/scooter used ., 1. GU4858B Admission Performance, Code, SS1. Indicate the type of wheelchair/scooter used., H350. Bladder Continence (3-day assessment period), H400. Bowel Continence (3-day assessment period), 1. GG 0130C Admission Performance, 1. ZK4160Y Admission Performance, 1. [id number] Admission Performance, 1. G Y9722A Admission Performance were [electronically] signed by Roseline Ocasio C.N.A. on TueFeb 05 2021 14:34:50 GMT-0500 (Central Daylight Time)
[2021-02-05] MEDS: levoFLOXacin 750 MG TAB PO SCH (16:55)
--- NOTE | 2021-02-05 17:47 | R.PN ---
PROGRESS NOTES ENCOUNTER DATE AND TIME: 02/05/2021 17:41 (CDT) NAME SAMY CURRAN DATE OF : 1955 DATE OF ADMISSION: 01/27/2021 11:38 (CDT) SEVERE SEPSIS and debilityCHIEF COMPLAINT: Sepsis and debility SUBJECTIVE: Pt denied any depression. Pt denied any Shortness of Breath. CBC with differential show WBC 10.2, Hgb 8.0, Na 138, prealbumin 12.1, ESR > 140, CRP 144.0, cortisol 17.49 Ambulated a total of 230' with a rolling walker and standby assistance. Lactic acid is normal at 1.4, procalcitonin decreased to .59. Chest x-ray shows left greater than rig ht pleural effusion possible due to pneumonia. Levaquin 750 mg IV daily for 7 days. Thanks for nephrology help from Dr. Wynne. Left foot x-ray shows no bony abnormality. Soft tissue swelling without air. VITAL SIGNS Temperature: 97.2 F SBP/DBP: 100/58 Pulse: 87 Resp: 16 MEDICATION ALLERGIES: No Known Drug Allergies (NKDA) ENVIRONMENTAL ALLERGIES: - Substance Allergies None Known - Other Allergies None Known NURSING: - Shower allowing shower ACTIVITIES OOB only with supervision THERAPIES: - Dietary and Nutrition Adequate Nutrition. Nutritional Education. Nutritional Supplements. - Occupational Therapy Cognitive Retraining. Visual Perceptual Training. - Speech Therapy Cognitive Training. Expressive Language Skills. Memory Strategies. Receptive Language Skills. Speech Intelligibility Training. PHYSICAL EXAM - Gen Alert and awake Lying in bed No apparent distress Oriented to: person, time, and place - Skin No skin breakdown. No abnormalities - Eyes No abnormalities - ENMT No abnormalities - Neck No abnormalities - CVS RRR - Chest No abnormalities - Abd Soft - GI + bowel sounds Deferred - No abnormalities - Ext Right knee pain and mild swelling. - MSK 4+/5 weakness in both lower extremities. - Neuro 4/5 strength bilaterally lower extremities. - Psych No abnormalities ASSESSMENT: Pt. is a 65 yo Right-handed male.On 01/07/2021 he was admitted to [facility] with diagno sis SEVERE SEPSIS and debility.His impairment category is Medically Complex Conditions 17 - Infectio ns (17.1).Pre-morbidly, Pt. was independent/mod-I in Safety Awareness, Social Cognition, Locomotion, Balance, and Transfers Control; and he had good Endurance, Communication, Sphincter Control, Self-Car e, and Transfers Control.Currently, he has deficits of Locomotion, Balance, Transfers Control, Sphinc ter Control, Endurance, and Safety Awareness.Pt. is now referred to [facility] for acute in-patient rehabilitation in order to maximize patient's functional independence in activi ties of daily living, strength, ROM, and mobility.- Rehab Goal Patient has realistic goal of being discharged at assistance level 7-Ind to reside at Home with Pt s elf. MDM/PLAN: - Physical Therapy Weakness - to improve, our physical therapists will perform initial evaluation of pt's status upon a dmission and devise an individualized program for Aquatic Therapy, Neuromuscular Reeducation, and Str engthening Poor balance - to improve, our physical therapists will perform initial evaluation of pt's status up on admission and devise an individualized program for Balance Training Inability to transfer - to improve, our physical therapists will perform initial evaluation of pt's status upon admission and devise an individualized program for Bed mobility Need in caregiver upon discharge - to improve, our physical therapists will perform initial evaluati on of pt's status upon admission and devise an individualized program for Caregiver Training Poor endurance - to improve, our physical therapists will perform initial evaluation of pt's status upon admission and devise an individualized program for Endurance Training Gait dysfunction - to improve, our physical therapists will perform initial evaluation of pt's statu s upon admission and devise an individualized program for Gait Training, and Wheel Chair mobility Need for home safety evaluation - to improve, our physical therapists will perform initial evaluatio n of pt's status upon admission and devise an individualized program for Home Evaluation New precaution - to improve, our physical therapists will perform initial evaluation of pt's status upon admission and devise an individualized program for Patient precaution education - Occupational Therapy Weakness - to improve, our occupation therapists will perform initial evaluation of pt's status upon admission and devise an individualized program for Aquatic Therapy, Balance, Endurance, UE ROM, and UE strengthening 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 - to improve, our occupation therapists will perform initial evaluation of pt's status upon admission and devise an individualized program for Caregiver Training - Other See attached MAR (Medication Administration Record) - Diet Type Continue Regular - Diet - Liquid Texture Continue Regular - Tube Feed Continue N/A - Diet - Solid Texture Continue Regular - Shower allowing shower - Balance for Weakness - Bed mobility for ADL deficits FUNCTIONAL STATUS: UPDATED AT WEEKLY TEAM CONFERENCE - Bladder Same accident frequency: 7-Ind - No accidents in the past 7 days - Bowel Same accident frequency: 7-Ind - No accidents in the past 7 days - Walking Same score based on distance walked: 0(N/A) Same score based on distance walked: 1(<=50ft) - Wheelchair Same score based on distance traveled: 0(N/A) FUNCTIONAL STATUS: - Self-Care A. Eating Ind B. Grooming Tegna C. Bathing sup D. Dressing - Upper Mireya E. Dressing - Lower modA F. Toileting Mireya - Sphincter Control G. Bladder control sup H. Bowel control sup - Transfers Control I. Bed/Chair/Wheelchair modA J. Toilet modA K. Tub/Shower modA - Locomotion L. Walk/Wheelchair (B) modA M. Stairs ADNO - Communication N. Comprehension (B) Mireya O. Expression (B) Mireya - Social Cognition P. Social Interaction sup Q. Problem Solving Mireya R. Memory Mireya - Endurance Fair - Balance Poor - Safety Awareness Fair QI SCORES: - Self-Care A. Eating 03-Partial/moderate assistance B. Oral hygiene 03-Partial/moderate assistance C. Toileting hygiene 03-Partial/moderate assistance E. Shower/bathe self 03-Partial/moderate assistance F. Upper body dressing 03-Partial/moderate assistance G. Lower body dressing 03-Partial/moderate assistance H. Putting on/taking off footwear 88-Not attempted due to medical condition or safety concerns - Mobility A. Roll left and right 03-Partial/moderate assistance B. Sit to lying 03-Partial/moderate assistance C. Lying to sitting on side of bed 03-Partial/moderate assistance D. Sit to stand 03-Partial/moderate assistance E. Chair/omp-ll-wtmsd transfer 03-Partial/moderate assistance F. Toilet transfer 03-Partial/moderate assistance G. Car transfer 88-Not attempted due to medical condition or safety concerns I. Walk 10 feet 03-Partial/moderate assistance J. Walk 50 feet with two turns 88-Not attempted due to medical condition or safety concerns K. Walk 150 feet 88-Not attempted due to medical condition or safety concerns L. Walking 10 feet on uneven surfaces 88-Not attempted due to medical condition or safety concerns M. 1 step (curb) 88-Not attempted due to medical condition or safety concerns N. 4 steps 88-Not attempted due to medical condition or safety concerns O. 12 steps 88-Not attempted due to medical condition or safety concerns P. Picking up object 88-Not attempted due to medical condition or safety concerns R. Wheel 50 feet with two turns 88-Not attempted due to medical condition or safety concerns S. Wheel 150 feet 88-Not attempted due to medical condition or safety concerns - Bladder and Bowel Bladder continence Bowel continence - Endurance Fair - Balance Fair - Safety Awareness Fair CURRENT [facility]. DEFICITS: Self-Care, Mobility, Endurance, Balance, and Safety Awareness SIGNATURE PANEL: (CDT)
[2021-02-05] MEDS: TAMSULOSIN 0.4 MG SR CAP PO SCH (20:00)
[2021-02-05] MEDS: MELATONIN 3 MG TABLET PO PRN (20:00)
[2021-02-05] MEDS: DOCUSATE NA/SENNA CONC 1 TAB PO PRN (20:01)
[2021-02-06] MEDS: metroNIDAZOLE 250 MG TABLET PO SCH ×4 (00:13→17:26)
--- NOTE | 2021-02-06 06:02 | P.PN ---
Subjective Date of Service: 02/06/21 Chief Complaint: Sepsis, debility Physical Examination - Vital Signs Temperature: 98.2 F Blood Pressure: 114/67 Pulse: 90 Respirations: 18 Pulse Ox (%): 98 Assessment And Plan - Plan # [place] secondary to prerenal, poor perfusion, ATN, superimposed with toxic ATN, secondary to sepsis Resolved back to baseline Baseline serum creatinine 1.0 as of 12/19/2020 Has mild proteinuria, random UPCR 1g Urinalysis showed no hematuria or pyuria On abx [place] po fluid intake Monitor renal panel # Recurrent sepsis probably 2/2 pneumonia w/ bilateral parapneumonic effusion; recent severe sepsis thought to be 2/2 splenic abscess/infected pseudocyst History of significant blunt trauma on left rib cage area due to fall in October 2020 No history of hematologic disease, no history of pancreatitis TTE in October 2020 was negative for infective endocarditis Splenic mass may possibly be an infected splenic pseudocyst, which can occur uncommonly after splenic infarct, vs hematoma; status post percutaneous drain placement on 01/14, removed on 01/23 Fever recurred on 01/29; CXR showed atelectasis vs pna & bilat pleural effusion; no pyuria; on abx per ID service cultures negative. Fever etiology potentially noninfectious, probably secondary to hematologic issues/? 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 8 AM serum cortisol & ACTH wnl - adrenal insufficiency unlikely TSH only slightly elevated RIANNA positive, SS-A positive Negative SS-B, RPR & HIV screen; serum B12 level within normal limits F/u anti-TTG Abs He has serum protein gap as well as mild urine protein gap; he has low level positivity of his serum free light chains (< 500) + high level albuminuria (> 5 mg/dL)--> DDx include AL amyloidosis & LCDD He has multiple electrolyte depletions including hypokalemia, hypomagnesemia, and hypocalcemia, as well as vitamin D deficiency which is suggestive of poor GI tract absorption, which is also concerning for amyloidosis or LCDD causing GI involvement Abdominal fat pad biopsy done on 01/24; [place] red negative; speciment sent to [facility] for Thioflavin T staining Case discussed w/ Heme Dr. Beckie Rodríguez on 02/05 - plan to pursue bone marrow biopsy. As patient is discharging from the hospital on 02/08, will plan to do bone marrow bx as outpt 24 hour urine collection started on 02/05 for urine SHARON & UPEP If bone marrow is also negative for amyloid and light chains, next option would include upper and lower GI endoscopy with biopsies for possible GI tract involvement w/ amyloid or LCDD, as well as a kidney biopsy. Would also consider a tissue sample from the splenic lesion. Continue midodrine maximum dose 15 mg by mouth 3 times a day Monitor orthostatic vitals. If he remains orthostatic, start daytime bilateral thigh-high graduated compression stockings, with at least 20-30 mmHg ankle pressure, to mitigate orthostasis. # Tachycardia Resolved Continue metoprolol # HypoMg Improved Cont MgOx po bid # Hyponatremia Mild, monitor # Hypocalcemia Improved Serum intact PTH elevated at 268 25OHD level low at 22 Cont D3 2000 IU po daily Monitor, correct hypomagnesemia prn # Debility PT/OT # Anemia Recheck iron panel Check serum folate # Dispo Dc in 2 days Refere to [facility] Rod[facility] for further Heme eval & out-pt bone marrow biopsy for ? AL amyloidosis vs LCDD F/u in renal clinic in 2-3 wks
[2021-02-06 06:25] LABS: Absolute Lymphocytes (CBC) 1.7 K/uL (0.7-4.9); Hematocrit 23.9 % (39.6-49.0); Lymphocytes % 17.6 % (15.3-44.8); RBC Red Blood Cell Count 2.89 M/uL (4.33-5.43)
[2021-02-06] MEDS: ENSURE HIGH PROTEIN 237 ML CAN PO SCH ×2 (08:00→19:42)
[2021-02-06 08:09] LABS: Anisocytosis 1+; Blood Morphology Comment NOTED (NOT SEEN); Hypochromasia 1+; Platelet Estimate ADEQ; Polychromasia SLIGHT; Target Cells FEW; White Blood Cell Scan OK (OK)
[2021-02-06] MEDS: LIDOCAINE 4% PATCH TOP SCH (08:19)
[2021-02-06] MEDS: ASPIRIN EC 81 MG TAB PO SCH (08:22)
[2021-02-06] MEDS: METOPROLOL TAR 25 MG TAB PO SCH ×2 (08:23→19:42)
[2021-02-06] MEDS: VITAMIN D 1000 UNIT TAB PO SCH (08:23)
[2021-02-06] MEDS: MAGNESIUM OXIDE 400 MG TAB PO SCH ×2 (08:23→19:43)
[2021-02-06] MEDS: FE SULF/FA/VIT B COMP & C TAB PO SCH (08:23)
[2021-02-06] MEDS: THIAMINE HCL 100 MG TABLET PO SCH (08:23)
[2021-02-06] MEDS: FERROUS SULFATE 325 MG TAB PO SCH (08:24)
[2021-02-06] MEDS: MIDODRINE HCL 5 MG TABLET PO SCH ×3 (08:24→20:06)
[2021-02-06] MEDS: FOLIC ACID 1 MG TABLET PO SCH (08:24)
--- NOTE | 2021-02-06 10:10 | P.RH.PN ---
Estimated Length of Stay: 13 Expected Discharge Date: 02/15/21 Discharge Disposition Plan: Home Family Support: Yes Intermediate Goal: Mobility, Transfers, Self Care Vital Signs: Last Vital Signs Temp 98.0 F 02/06/21 08:00 Pulse 67 02/06/21 08:23 Resp 14 02/06/21 08:00 BP 107/61 02/06/21 08:23 Pulse Ox 97 02/06/21 08:00 Laboratory: Laboratory Last Values WBC 9.90 K/uL (4.3-10.9) 02/06/21 06:05 RBC 2.89 M/uL (4.33-5.43) L 02/06/21 06:05 Hgb 8.1 g/dL (13.6-17.9) L 02/06/21 06:05 Hct 23.9 % (39.6-49.0) L 02/06/21 06:05 MCV 82.7 fL (80-100) 02/06/21 06:05 MCH 28.1 pg (27.0-35.0) 02/06/21 06:05 MCHC 34.0 g/dL (32.0-36.0) 02/06/21 06:05 RDW 16.9 % (12.1-15.2) H 02/06/21 06:05 Plt Count 508 K/uL (152-406) H 02/06/21 06:05 MPV 7.0 fL (7.6-11.3) L 02/06/21 06:05 Neutrophils % 61.2 % (41.7-73.7) 02/06/21 06:05 Lymphocytes % 17.6 % (15.3-44.8) 02/06/21 06:05 Monocytes % 10.0 % (3.3-12.3) 02/06/21 06:05 Eosinophils % 11.2 % (0-4.4) H 02/06/21 06:05 Basophils % 0.0 % (0-1.3) 02/06/21 06:05 Absolute Neutrophils 6.1 K/uL (1.8-8.0) 02/06/21 06:05 Absolute Lymphocytes 1.7 K/uL (0.7-4.9) 02/06/21 06:05 Absolute Monocytes 1.0 K/uL (0.1-1.3) 02/06/21 06:05 Absolute Eosinophils 1.1 K/uL (0-0.5) H 02/06/21 06:05 Absolute Basophils 0.0 K/uL (0-0.5) 02/06/21 06:05 Platelet Estimate Adeq 02/06/21 06:05 Polychromasia Slight 02/06/21 06:05 Hypochromasia 1+ 02/06/21 06:05 Anisocytosis 1+ 02/06/21 06:05 Microcytosis 1+ 02/06/21 06:05 Target Cells Few 02/06/21 06:05 Morphology Comment Noted (NOT SEEN) 02/06/21 06:05 ESR Westergren > 140 mm/HR (0-20) H 02/03/21 07:13 Sodium 138 mmol/L (136-145) 02/05/21 04:31 Potassium 3.7 mmol/L (3.5-5.1) 02/05/21 04:31 Chloride 105 mmol/L (98-107) 02/05/21 04:31 Carbon Dioxide 27 mmol/L (21-32) 02/05/21 04:31 BUN 12 mg/dL (7-18) 02/05/21 04:31 Creatinine 0.91 mg/dL (0.55-1.3) 02/05/21 04:31 Estimated GFR > 90 mL/min (=/>90) 02/05/21 04:31 Glucose 109 mg/dL (74-106) H 02/05/21 04:31 Lactic Acid 1.4 mmol/L (0.4-2.0) 01/29/21 17:39 Uric Acid 5.3 mg/dL (3.5-7.2) D 02/02/21 08:16 Calcium 9.0 mg/dL (8.5-10.1) 02/05/21 04:31 Phosphorus 3.2 mg/dL (2.5-4.9) 01/31/21 06:22 Magnesium 2.0 mg/dL (1.8-2.4) 02/05/21 04:31 Total Bilirubin 0.3 mg/dL (0.2-1.0) 02/03/21 07:13 AST 12 U/L (15-37) L 02/03/21 07:13 ALT 19 U/L (12-78) 02/03/21 07:13 Alkaline Phosphatase 69 U/L (45-117) 02/03/21 07:13 Lactate Dehydrogenase 205 U/L (87-241) 01/29/21 16:25 C-Reactive Protein 144.00 mg/L (<3.00) H 02/03/21 07:13 Serum Total Protein 8.0 g/dL (6.4-8.2) 02/03/21 07:13 Albumin 2.3 g/dL (3.4-5.0) L 02/05/21 04:31 Globulin 5.8 g/dL (2.3-3.5) H 02/03/21 07:13 Albumin/Globulin Ratio 0.4 (1.1-1.8) L 02/03/21 07:13 Prealbumin 12.1 mg/dL (20-40) L 02/05/21 04:31 Lipase 42 U/L (73-393) L 01/30/21 08:10 Procalcitonin 0.59 ng/mL (<0.050) H 02/02/21 08:16 Cortisol 17.49 ug/dL (SEE COMMENT) 02/03/21 07:13 Urine Color Yellow (Yellow) 01/30/21 07:40 Urine Appearance Clear (Clear) 01/30/21 07:40 Urine pH 6.0 (5.0-7.0) 01/30/21 07:40 Ur Specific Liberty 1.015 (1.005-1.030) 01/30/21 07:40 Glucose (UA)(Auto) Negative (Negative) 01/30/21 07:40 Urine Ketones Negative (Negative) 01/30/21 07:40 Urine Blood Negative (Negative) 01/30/21 07:40 Urine Nitrite Negative (Negative) 01/30/21 07:40 Urine Bilirubin Negative (Negative) 01/30/21 07:40 Urine Urobilinogen 0.2 mg/dL (0.2-1.0) 01/30/21 07:40 Ur Leukocyte Esterase Negative (Negative) 01/30/21 07:40 Urine RBC <5 /HPF (NONE SEEN) 01/30/21 07:40 Urine WBC <5 /HPF (<5) 01/30/21 07:40 Ur Squamous Epith Cells <5 /HPF (NONE SEEN) 01/30/21 07:40 Calcium Oxalate Crystal Few (NONE SEEN) 01/27/21 19:00 Urine Bacteria <20 /HPF (NONE SEEN) 01/30/21 07:40 Urine Yeast Few (NONE SEEN) 01/27/21 19:00 Urine Yeast (Budding) Present (NONE SEEN) H 01/27/21 19:00 Urine Culture Reflexed Not needed 01/30/21 07:40 Urine Total Protein 1+ (Negative) H 01/30/21 07:40 SARS-CoV-2 Rap RNA(RT-PCR) Negative (NEGATIVE) 02/02/21 09:00 Smear Scan Ok (OK) 02/06/21 06:05 Weight: 159 lb 9.6 oz Wound Present: No Closed Surgical Incision Present: Yes Negative Pressure Wound Therapy Present: No Physician Update: Hgb is 8.1. Will ask renal service for recs. Walking 100' with standby assistance. He will be discharged Tuesday. Summary: Patient's care plan and retirement goals have been reviewed and revised as necessary. Please see the Rehabilitation Signature page for all necessary signatures.
--- NOTE | 2021-02-06 11:27 | P.PN ---
Subjective Date of Service: 02/06/21 Chief Complaint: Sepsis, debility Patient seen examined at bedside, no acute events are past 24 hr. Review of Systems 10-point ROS is otherwise unremarkable Physical Examination - Vital Signs Temperature: 98.0 F Blood Pressure: 107/61 Pulse: 67 Respirations: 14 Pulse Ox (%): 97 - Studies Laboratory Data (last 24 hrs) 02/06/21 06:05: WBC 9.90, Hgb 8.1 L, Hct 23.9 L, Plt Count 508 H Assessment And Plan - Plan Physical Exam: General: Alert, In no apparent distress, Oriented x3 HEENT: Atraumatic, Normocephalic Neck: Supple, 2+ carotid pulse no bruit Respiratory: Clear to auscultation bilaterally, Normal air movement Cardiovascular: No edema, Normal pulses, Regular rate/rhythm Capillary refill: <2 Seconds Gastrointestinal: Normal bowel sounds, Tenderness (to right lower quadrent ) Musculoskeletal: No clubbing, No swelling, No contractures Integumentary: No rashes, No breakdown, No significant lesion External genitalia: Deferred Rectal: Deferred Conclusions/Impression: Antibiotics: Levaquin start: 01/29 stop: 02/19 Metronidazole Start: 02/02 stop: 02/23 Assessment/Plan: Fever with leukocytosis Patient spiked high fever on 01/29 with a T-max of 102.8. Blood and urine culture show no growth to date, patient has been afebrile since 01/30. Chest x- ray showed bilateral lower airspace disease with bilateral pleural effusions concerning for atelectasis versus pneumonia. Patient started on respiratory fluoroquinolone to treat possible pneumonia. History of splenic infarct with abscess Splenic drainage catheter was placed on 01/14 and was removed on 01/31. Repeat CT abdomen showed small splenic abscess measuring 2.8 x 1.4 cm, decreased since last scan. Continue Levaquin, metronidazole added to cover anaerobes. Continue for 3 weeks. Repeat imaging after antibiotics have been completed. Anemia Continue to closely monitor H&H. Protein caloric malnutrition: Moderate Low pre-albumin and albumin. Recommend supplemental Ensure protein drinks b.i.d. Medical management per primary team Plan of care discussed with Dr. Whipple Thank you for consultation
[2021-02-06] MEDS: GABAPENTIN 100 MG CAP PO SCH ×2 (12:13→19:43)
[2021-02-06] MEDS: levoFLOXacin 750 MG TAB PO SCH (17:26)
[2021-02-06] MEDS: LACTOBACILLUS/ACIDOPHILUS TAB PO SCH (19:42)
[2021-02-06] MEDS: TAMSULOSIN 0.4 MG SR CAP PO SCH (20:06)
[2021-02-07] MEDS ORDERED: metroNIDAZOLE 500 MG TABLET ONE (01:27)
[2021-02-07 05:32] VITALS: BMI 21.2
[2021-02-07] MEDS: metroNIDAZOLE 250 MG TABLET PO SCH ×4 (06:35→17:01)
[2021-02-07 07:00] LABS: Ferritin 793.4 ng/mL (26-388); Folic Acid, (Folate) > 20.0 ng/mL (3.1-17.5); Transferrin 142 mg/dL (200-360)
[2021-02-07] MEDS: LIDOCAINE 4% PATCH TOP SCH (07:10)
[2021-02-07] MEDS: ENSURE HIGH PROTEIN 237 ML CAN PO SCH ×2 (08:00→20:00)
[2021-02-07] MEDS: ACETAMINOPHEN 500 MG TAB PO PRN (08:12)
[2021-02-07] MEDS: FERROUS SULFATE 325 MG TAB PO SCH (08:13)
[2021-02-07] MEDS: THIAMINE HCL 100 MG TABLET PO SCH (08:13)
[2021-02-07] MEDS: MIDODRINE HCL 5 MG TABLET PO SCH ×3 (08:13→20:09)
[2021-02-07] MEDS: LACTOBACILLUS/ACIDOPHILUS TAB PO SCH ×2 (08:13→20:00)
[2021-02-07] MEDS: ASPIRIN EC 81 MG TAB PO SCH (08:13)
[2021-02-07] MEDS: VITAMIN D 1000 UNIT TAB PO SCH (08:15)
[2021-02-07] MEDS: GABAPENTIN 100 MG CAP PO SCH ×2 (08:15→20:09)
[2021-02-07] MEDS: FOLIC ACID 1 MG TABLET PO SCH (08:16)
[2021-02-07] MEDS: FE SULF/FA/VIT B COMP & C TAB PO SCH (08:16)
[2021-02-07] MEDS: MAGNESIUM OXIDE 400 MG TAB PO SCH ×2 (08:16→20:00)
[2021-02-07] MEDS: METOPROLOL TAR 25 MG TAB PO SCH ×2 (08:17→20:00)
[2021-02-07] MEDS: levoFLOXacin 750 MG TAB PO SCH (17:01)
--- NOTE | 2021-02-07 18:22 | PN ---
Date of Progress Note: 02/07/2021 Chief Complaint: Acute kidney injury secondary to acute tubular necrosis superimposed with renal hypoperfusion in the setting of severe sepsis. Renal function has improved to baseline. The patient has mild proteinuria, UPCR 1 g. Urinalysis did not show hematuria or pyuria. There is no active urinary sediment. The patient is tolerating p.o. intake. Renal function has been at baseline and acute kidney injury resolved. The patient has a history for trauma to the left ribcage when he sustained fall in October 2020. He had a TTE in October 2020, which was negative for infective endocarditis. The patient sepsis and hypotension, likely secondary to autonomic weakness and neuropathy. He will continue midodrine. Recently, CT scan with contrast on January 07, 2021, showed no evidence of hepatic outflow obstruction to explain hypotension. The patient has 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, but he does not have nephrotic syndrome. A.m. cortisol level was within normal and TSH was borderline elevated. HIV screen was within normal limits. Review of Systems: Denies PND or orthopnea. Physical Examination: Lungs: Clear to auscultation bilaterally. Heart: S1, S2. Abdomen: Soft and benign. Extremities: Slight edema. Impression And Plan: 1. Acute kidney injury, recovered. The patient has proteinuria. The patient may need a kidney biopsy proteinuria. His proteinuria is progressively worse. Currently, the patient cannot take ERIKA inhibitor due to hypotension. Continue midodrine for chronic hypotension. The patient may need an Endocrinology workup as well. 2. Monoclonal gammopathy of undetermined significance. The patient has autonomic neuropathy, possible due to infiltrative disease with primary amyloidosis. The patient may need a kidney biopsy to rule out amyloidosis. Abdominal fat tissue biopsy can be done to screen for amyloidosis outpatient. SCOTT/MODL Voice ID: [id number] Report ID: [id number] BERNADINE
[2021-02-07] MEDS: MELATONIN 3 MG TABLET PO PRN (20:09)
[2021-02-07] MEDS: TAMSULOSIN 0.4 MG SR CAP PO SCH (20:09)
[2021-02-08] MEDS: metroNIDAZOLE 250 MG TABLET PO SCH ×2 (05:04)
[2021-02-08] MEDS: LIDOCAINE 4% PATCH TOP SCH (06:54)
[2021-02-08 07:10] VITALS: BP 94/57; TEMP 97.7
[2021-02-08] MEDS: METOPROLOL TAR 25 MG TAB PO SCH (08:00)
[2021-02-08] MEDS: ENSURE HIGH PROTEIN 237 ML CAN PO SCH (08:00)
[2021-02-08] MEDS: FE SULF/FA/VIT B COMP & C TAB PO SCH (08:08)
[2021-02-08] MEDS: MAGNESIUM OXIDE 400 MG TAB PO SCH (08:08)
[2021-02-08] MEDS: MIDODRINE HCL 5 MG TABLET PO SCH (08:09)
[2021-02-08] MEDS: FOLIC ACID 1 MG TABLET PO SCH (08:09)
[2021-02-08] MEDS: GABAPENTIN 100 MG CAP PO SCH (08:09)
[2021-02-08] MEDS: ASPIRIN EC 81 MG TAB PO SCH (08:09)
[2021-02-08] MEDS: LACTOBACILLUS/ACIDOPHILUS TAB PO SCH (08:09)
[2021-02-08] MEDS: VITAMIN D 1000 UNIT TAB PO SCH (08:09)
[2021-02-08] MEDS: FERROUS SULFATE 325 MG TAB PO SCH (08:10)
[2021-02-08] MEDS: THIAMINE HCL 100 MG TABLET PO SCH (08:10)
[2021-02-11 21:38] LABS: Beta Globulin 24 HR Urine 25 %; Gamma Globulin, 24hr Urine 27 %; Interpretation: REPORT; Protein/Crea Ratio in g 228 mg/g creat (<=114); Protein/Crea Ratio in mg 0.228 (<=0.114); Urine Alpha-2-Globulins, 24 Hr 22 %; Urine PEP Abn Protein Band1 REPORT; Urine Total Volume 24 Hours 2900 mL
--- NOTE | 2021-02-27 14:42 | R.PN ---
PROGRESS NOTES ENCOUNTER DATE AND TIME: 02/04/2021 18:05 (CDT) NAME SAMY CURRAN DATE OF : 1955 DATE OF ADMISSION: 01/27/2021 11:38 (CDT) SEVERE SEPSIS and debilityCHIEF COMPLAINT: Sepsis and debility SUBJECTIVE: Pt denied any depression. Pt denied any Shortness of Breath. CBC with differential show WBC 8.0, Hgb 8.5, Na 134, prealbumin 18.5, ESR > 140, CRP 144.0, cortisol 17.49 Ambulated a total of 100' with a rolling walker and contact guard assistance. Lactic acid is normal at 1.4, procalcitonin decreased to .59. Chest x-ray shows left greater than rig ht pleural effusion possible due to pneumonia. Start Levaquin 750 mg IV daily for 7 days. Thanks for nephrology help from Dr. Wynne. VITAL SIGNS Temperature: 98.2 F SBP/DBP: 102/78 Pulse: 80 Resp: 16 MEDICATION ALLERGIES: No Known Drug Allergies (NKDA) ENVIRONMENTAL ALLERGIES: - Substance Allergies None Known - Other Allergies None Known NURSING: - Shower allowing shower ACTIVITIES OOB only with supervision THERAPIES: - Dietary and Nutrition Adequate Nutrition. Nutritional Education. Nutritional Supplements. - Occupational Therapy Cognitive Retraining. Visual Perceptual Training. - Speech Therapy Cognitive Training. Expressive Language Skills. Memory Strategies. Receptive Language Skills. Speech Intelligibility Training. PHYSICAL EXAM - Gen Alert and awake Lying in bed No apparent distress Oriented to: person, time, and place - Skin No skin breakdown. No abnormalities - Eyes No abnormalities - ENMT No abnormalities - Neck No abnormalities - CVS RRR - Chest No abnormalities - Abd Soft - GI + bowel sounds Deferred - No abnormalities - Ext Right knee pain and mild swelling. - MSK 4+/5 weakness in both lower extremities. - Neuro 4/5 strength bilaterally lower extremities. - Psych No abnormalities ASSESSMENT: Pt. is a 65 yo Right-handed male.On 01/07/2021 he was admitted to [facility] with diagno sis SEVERE SEPSIS and debility.His impairment category is Medically Complex Conditions 17 - Infectio ns (17.1).Pre-morbidly, Pt. was independent/mod-I in Safety Awareness, Social Cognition, Locomotion, Balance, and Transfers Control; and he had good Endurance, Communication, Sphincter Control, Self-Car e, and Transfers Control.Currently, he has deficits of Locomotion, Balance, Transfers Control, Sphinc ter Control, Endurance, and Safety Awareness.Pt. is now referred to [facility] for acute in-patient rehabilitation in order to maximize patient's functional independence in activi ties of daily living, strength, ROM, and mobility.- Rehab Goal Patient has realistic goal of being discharged at assistance level 7-Ind to reside at Home with Pt s elf. MDM/PLAN: - Physical Therapy Weakness - to improve, our physical therapists will perform initial evaluation of pt's status upon a dmission and devise an individualized program for Aquatic Therapy, Neuromuscular Reeducation, and Str engthening Poor balance - to improve, our physical therapists will perform initial evaluation of pt's status up on admission and devise an individualized program for Balance Training Inability to transfer - to improve, our physical therapists will perform initial evaluation of pt's status upon admission and devise an individualized program for Bed mobility Need in caregiver upon discharge - to improve, our physical therapists will perform initial evaluati on of pt's status upon admission and devise an individualized program for Caregiver Training Poor endurance - to improve, our physical therapists will perform initial evaluation of pt's status upon admission and devise an individualized program for Endurance Training Gait dysfunction - to improve, our physical therapists will perform initial evaluation of pt's statu s upon admission and devise an individualized program for Gait Training, and Wheel Chair mobility Need for home safety evaluation - to improve, our physical therapists will perform initial evaluatio n of pt's status upon admission and devise an individualized program for Home Evaluation New precaution - to improve, our physical therapists will perform initial evaluation of pt's status upon admission and devise an individualized program for Patient precaution education - Occupational Therapy Weakness - to improve, our occupation therapists will perform initial evaluation of pt's status upon admission and devise an individualized program for Aquatic Therapy, Balance, Endurance, UE ROM, and UE strengthening Need for critical care specialist - to improve, our occupation therapists will perform initial evaluation of pt's status upon admission and devise an individualized program for Caregiver Training - Other See attached MAR (Medication Administration Record) - Diet Type Continue Regular - Diet - Liquid Texture Continue Regular - Tube Feed Continue N/A - Diet - Solid Texture Continue Regular - Shower allowing shower - Balance for Weakness - Bed mobility for ADL deficits FUNCTIONAL STATUS: UPDATED AT WEEKLY TEAM CONFERENCE - Bladder Same accident frequency: 7-Ind - No accidents in the past 7 days - Bowel Same accident frequency: 7-Ind - No accidents in the past 7 days - Walking Same score based on distance walked: 0(N/A) Same score based on distance walked: 1(<=50ft) - Wheelchair Same score based on distance traveled: 0(N/A) FUNCTIONAL STATUS: - Self-Care A. Eating Ind B. Grooming Tegan C. Bathing sup D. Dressing - Upper Mireya E. Dressing - Lower modA F. Toileting Mireya - Sphincter Control G. Bladder control sup H. Bowel control sup - Transfers Control I. Bed/Chair/Wheelchair modA J. Toilet modA K. Tub/Shower modA - Locomotion L. Walk/Wheelchair (B) modA M. Stairs ADNO - Communication N. Comprehension (B) Mireya O. Expression (B) Mireya - Social Cognition P. Social Interaction sup Q. Problem Solving Mireya R. Memory Mireya - Endurance Fair - Balance Poor - Safety Awareness Fair QI SCORES: - Self-Care A. Eating 03-Partial/moderate assistance B. Oral hygiene 03-Partial/moderate assistance C. Toileting hygiene 03-Partial/moderate assistance E. Shower/bathe self 03-Partial/moderate assistance F. Upper body dressing 03-Partial/moderate assistance G. Lower body dressing 03-Partial/moderate assistance H. Putting on/taking off footwear 88-Not attempted due to medical condition or safety concerns - Mobility A. Roll left and right 03-Partial/moderate assistance B. Sit to lying 03-Partial/moderate assistance C. Lying to sitting on side of bed 03-Partial/moderate assistance D. Sit to stand 03-Partial/moderate assistance E. Chair/jqs-dx-[id number] transfer 03-Partial/moderate assistance F. Toilet transfer 03-Partial/moderate assistance G. Car transfer 88-Not attempted due to medical condition or safety concerns I. Walk 10 feet 03-Partial/moderate assistance J. Walk 50 feet with two turns 88-Not attempted due to medical condition or safety concerns K. Walk 150 feet 88-Not attempted due to medical condition or safety concerns L. Walking 10 feet on uneven surfaces 88-Not attempted due to medical condition or safety concerns M. 1 step (curb) 88-Not attempted due to medical condition or safety concerns N. 4 steps 88-Not attempted due to medical condition or safety concerns O. 12 steps 88-Not attempted due to medical condition or safety concerns P. Picking up object 88-Not attempted due to medical condition or safety concerns R. Wheel 50 feet with two turns 88-Not attempted due to medical condition or safety concerns S. Wheel 150 feet 88-Not attempted due to medical condition or safety concerns - Bladder and Bowel Bladder continence Bowel continence - Endurance Fair - Balance Fair - Safety Awareness Fair CURRENT [facility]. DEFICITS: Self-Care, Mobility, Endurance, Balance, and Safety Awareness SIGNATURE PANEL: (CDT)
--- NOTE | 2021-02-27 14:44 | R.DS ---
DISCHARGE SUMMARY FACILITY [facility] MR# [id number] NAME SAMY CURRAN ADDRESS [address] [place] [address] PHONE DATE OF 1955 AGE 65 SSN# [id number] GENDER Male MARITAL STATUS ENCOUNTER PHYSICIAN Dr. Matheus Ibarra M.D. REFERRING DOCTOR Nomi Sanders REFERRING FACILITY [facility] DISCHARGE DIAGNOSIS: - Medically Complex Conditions 17 - Infections (17.1) SEVERE SEPSIS and debility. DATE OF ADMISSION 01/27/2021 11:38 (CDT) MEDICATION ALLERGIES: No Known Drug Allergies (NKDA) ENVIRONMENTAL ALLERGIES: - Substance Allergies None Known - Other Allergies None Known DISCHARGE MEDICATIONS: Other- ContinueSee attached MAR (Medication Administration Record). NURSING: - Shower allowing shower ACTIVITIES OOB only with supervision THERAPIES: - Dietary and Nutrition Adequate Nutrition Nutritional Education Nutritional Supplements - Occupational Therapy Cognitive Retraining Visual Perceptual Training - Speech Therapy Cognitive Training Expressive Language Skills Memory Strategies Receptive Language Skills Speech Intelligibility Training HISTORY OF PRESENT ILLNESS: Pt. is a 65 yo Right-handed male.On 01/07/2021 he was admitted to [facility] with diagno sis SEVERE SEPSIS and debility.His impairment category is Medically Complex Conditions 17 - Infectio ns (17.1).Pre-morbidly, Pt. was independent/mod-I in Safety Awareness, Social Cognition, Locomotion, Balance, and Transfers Control; and he had good Endurance, Communication, Sphincter Control, Self-Car e, and Transfers Control.Currently, he has deficits of Locomotion, Balance, Transfers Control, Sphinc ter Control, Endurance, and Safety Awareness.Pt. is now referred to [facility] for acute in-patient rehabilitation in order to maximize patient's functional independence in activi ties of daily living, strength, ROM, and mobility.- Rehab Goal Patient has realistic goal of being discharged at assistance level 7-Ind to reside at Home with Pt s elf. HOSPITAL COURSE: DIET - LIQUID TEXTURE: On 01/27/2021 Pt was upgraded to Regular Diet - Liquid Texture. DIET - SOLID TEXTURE: On 01/27/2021 Pt was upgraded to Regular Diet - Solid Texture. DIET TYPE: On 01/27/2021 Pt was upgraded to Regular Diet Type. TUBE FEED: On 01/27/2021 Pt was changed to N/A Tube Feed. DISCHARGE PHYSICAL EXAM - Gen Alert and awake Lying in bed No apparent distress Oriented to: person, time, and place - Skin No skin breakdown. No abnormalities - Eyes No abnormalities - ENMT No abnormalities - Neck No abnormalities - CVS RRR - Chest No abnormalities - Abd Soft - GI + bowel sounds Deferred - No abnormalities - Ext Right knee pain and mild swelling. - MSK 4+/5 weakness in both lower extremities. - Neuro 4/5 strength bilaterally lower extremities. - Psych No abnormalities FUNCTIONAL STATUS: - Self-Care A. Eating 7-Ind B. Grooming 6-Tegan C. Bathing 5-sup D. Dressing - Upper 5-sup E. Dressing - Lower 5-sup F. Toileting 5-sup - Sphincter Control G. Bladder control 5-sup H. Bowel control 5-sup - Transfers Control I. Bed/Chair/Wheelchair 5-sup J. Toilet 5-sup K. Tub/Shower 5-sup - Locomotion L. Walk/Wheelchair (B) 5-sup M. Stairs 0-ADNO - Communication N. Comprehension (B) 5-sup O. Expression (B) 5-sup - Social Cognition P. Social Interaction 5-sup Q. Problem Solving 5-sup R. Memory 5-sup - Endurance Fair - Balance Fair - Safety Awareness Fair QI SCORES: - Self-Care A. Eating 03-Partial/moderate assistance B. Oral hygiene 03-Partial/moderate assistance C. Toileting hygiene 03-Partial/moderate assistance E. Shower/bathe self 03-Partial/moderate assistance F. Upper body dressing 03-Partial/moderate assistance G. Lower body dressing 03-Partial/moderate assistance H. Putting on/taking off footwear 88-Not attempted due to medical condition or safety concerns - Mobility A. Roll left and right 03-Partial/moderate assistance B. Sit to lying 03-Partial/moderate assistance C. Lying to sitting on side of bed 03-Partial/moderate assistance D. Sit to stand 03-Partial/moderate assistance E. Chair/xcv-yi-apsna transfer 03-Partial/moderate assistance F. Toilet transfer 03-Partial/moderate assistance G. Car transfer 88-Not attempted due to medical condition or safety concerns I. Walk 10 feet 03-Partial/moderate assistance J. Walk 50 feet with two turns 88-Not attempted due to medical condition or safety concerns K. Walk 150 feet 88-Not attempted due to medical condition or safety concerns L. Walking 10 feet on uneven surfaces 88-Not attempted due to medical condition or safety concerns M. 1 step (curb) 88-Not attempted due to medical condition or safety concerns N. 4 steps 88-Not attempted due to medical condition or safety concerns O. 12 steps 88-Not attempted due to medical condition or safety concerns P. Picking up object 88-Not attempted due to medical condition or safety concerns R. Wheel 50 feet with two turns 88-Not attempted due to medical condition or safety concerns S. Wheel 150 feet 88-Not attempted due to medical condition or safety concerns - Bladder and Bowel Bladder continence Bowel continence - Endurance Fair - Balance Fair - Safety Awareness Fair DISCHARGE INSTRUCTIONS: - N/A Aspirin 81 mg daily. DISCHARGE PLAN, FOLLOW UP CARE PROVISIONS: - Estimated Length of Stay (days) 13. - Consensus on plan Discharge plan has been discussed with primary caregiver. Patient/Family is in agreement with the thalia n. Primary caregiver is in agreement with the plan. - Patient/Family Goals Return home independently. - Planned Living Setting Upon Discharge Home, to live alone. Transitional Living. Primary caregiver: Pt self. SIGNATURE PANEL: (CDT)
== END 2021-02-08 09:45 | disposition home or self-care (01) | DRG 948 ==
LOC: 5TH 01-27 11:33
PROVIDERS: ADMIT Psychiatry & Neurology Neurology with Special Qualifications in Child Neurology; ATTEND Psychiatry & Neurology Neurology with Special Qualifications in Child Neurology
DX: R53.81 Other malaise (principal); E44.0 Moderate protein-calorie malnutrition; N17.9 Acute kidney failure, unspecified; E87.1 Hypo-osmolality and hyponatremia; E87.3 Alkalosis; R50.9 Fever, unspecified; D47.2 Monoclonal gammopathy; I95.9 Hypotension, unspecified; E83.42 Hypomagnesemia; E83.51 Hypocalcemia; D64.9 Anemia, unspecified; M13.0 Polyarthritis, unspecified; I10 Essential (primary) hypertension; F10.10 Alcohol abuse, uncomplicated; F12.10 Cannabis abuse, uncomplicated; F17.200 Nicotine dependence, unspecified, uncomplicated; Z68.21 Body mass index [BMI] 21.0-21.9, adult
CPT/HCPCS: 36415; 71045; 74176; 80048; 80053; 81001; 82040; 82274; 82533; 82728; 82746; 83540; 83605; 83615; 83690; 83735; 84100; 84134; 84145; 84166; 84466; 84550; 85025; 85652; 86140; 87040; 87086; 87088; 93005; 94010; 97110; 97112; 97116; 97161; 97530; 97542; J7030; U0003

== ENCOUNTER 2021-08-26 15:36 | Emergency (ER) | payer OTHER, SELFPAY ==
[2021-08-26] MEDS ORDERED: NA CHLORIDE 0.9% 1,000 ML ONE (16:14)
[2021-08-26 16:33] LABS: Absolute Lymphocytes (CBC) 2.3 K/uL (0.7-4.9); Hematocrit 34.1 % (39.6-49.0); Lymphocytes % 41.9 % (15.3-44.8); MPV 8.1 fL (7.6-11.3); RBC Red Blood Cell Count 3.91 M/uL (4.33-5.43)
[2021-08-26 16:50] LABS: Magnesium 1.9 mg/dL (1.8-2.4); Potassium 3.8 mmol/L (3.5-5.1); Troponin High Sensitivity 6.5 pg/mL (<58.9)
--- NOTE | 2021-08-26 17:13 | RAD REPORT ---
EXAM DESCRIPTION: RAD - Chest Single View - 08/26/2021 5:07 pm CLINICAL HISTORY: syncope COMPARISON: Portable 01/29/2021 TECHNIQUE: AP portable chest image was obtained 08/26/2021 5:07 pm . FINDINGS: Chronic interstitial opacification is present similar to prior imaging. The moderate left and small right base infiltrates and pleural fluid collections have cleared. No remnant mass, scarrin g or cavitation. No buddy mass or lymphadenopathy. Heart and vasculature are normal. No measurable ple ural effusion and no pneumothorax. No acute bony abnormality seen. No acute aortic findings suspected . IMPRESSION: No acute cardiopulmonary process.
--- NOTE | 2021-08-26 18:24 | EDPHYS ---
Physician Documentation [facility] Name: Cory Mcclure Jr Age: 66 yrs Sex: Male : 1955 Arrival Date: 08/26/2021 Time: 15:42 Bed 20 Private MD: ED Physician Javi Munoz HPI: 08/26 16:59 This 66 yrs old Black Male presents to ER via EMS with complaints of Syncope. jr8 16:59 The patient has experienced syncope, became unresponsive. Onset: The symptoms/episode jr8 began/occurred acutely, just prior to arrival, today. Duration: This was a single episode, that lasted 1 minute(s). Context: the episode(s) was witnessed, by family, occurred at home, occurred while the patient was sitting, Just prior to the episode the patient experienced hot flash feeling . Associated injury: The patient did not suffer any apparent associated injury. Associated signs and symptoms: The patient has no apparent associated signs or symptoms. Current symptoms: Currently, the patient is not experiencing any symptoms, the patient feels back to baseline, no decreased level of consciousness, no confusion, no dysphasia, no headache, no paralysis, no visual changes. The patient has not experienced similar symptoms in the past. The patient has not recently seen a physician. Patient stated that he was relaxing at home when he became acutely warm and then passed out. Witnessed by family. Says it lasted less than a minute. Back to baseline at this time. EMS was called and found that patient was hypotensive. Fluids were started prior to arrival. Patient now normotensive and feeling better while in the laying position. Denies any other symptoms at this time.. Historical: - Allergies: 16:31 No Known Allergies; lr4 - Home Meds: 16:31 Aspirin Oral [Active]; labetalol Oral [Active]; lr4 - PMHx: 15:44 Hypertensive disorder; ss - PSHx: 16:31 None; lr4 - Immunization history:: Adult Immunizations not up to date, Client reports having NOT received the Covid vaccine. - Social history:: Smoking status: Patient reports the use of cigarette tobacco products, smokes one-half pack cigarettes per day. ROS: 16:59 Eyes: Negative for injury, pain, redness, and discharge, ENT: Negative for injury, jr8 pain, and discharge, Neck: Negative for injury, pain, and swelling, Cardiovascular: Negative for chest pain, palpitations, and edema, Respiratory: Negative for shortness of breath, cough, wheezing, and pleuritic chest pain, Abdomen/GI: Negative for abdominal pain, nausea, vomiting, diarrhea, and constipation, Back: Negative for injury and pain, MS/Extremity: Negative for injury and deformity, Skin: Negative for injury, rash, and discoloration. 16:59 Neuro: Positive for syncope. Exam: 16:59 Constitutional: This is a well developed, well nourished patient who is awake, alert, jr8 and in no acute distress. Eyes: Pupils equal round and reactive to light, extra-ocular motions intact. Lids and lashes normal. Conjunctiva and sclera are non-icteric and not injected. Cornea within normal limits. Periorbital areas with no swelling, redness, or edema. ENT: Nares patent. No nasal discharge, no septal abnormalities noted. Tympanic membranes are normal and external auditory canals are clear. Oropharynx with no redness, swelling, or masses, exudates, or evidence of obstruction, uvula midline. Mucous membranes moist. Neck: Trachea midline, no thyromegaly or masses palpated, and no cervical lymphadenopathy. Supple, full range of motion without nuchal rigidity, or vertebral point tenderness. No Meningismus. Cardiovascular: Regular rate and rhythm with a normal S1 and S2. No gallops, murmurs, or rubs. Normal PMI, no JVD. No pulse deficits. Respiratory: Lungs have equal breath sounds bilaterally, clear to auscultation and percussion. No rales, rhonchi or wheezes noted. No increased work of breathing, no retractions or nasal flaring. Abdomen/GI: Soft, non-tender, with normal bowel sounds. No distension or tympany. No guarding or rebound. No evidence of tenderness throughout. Back: No spinal tenderness. No costovertebral tenderness. Full range of motion. Skin: Warm, dry with normal turgor. Normal color with no rashes, no lesions, and no evidence of cellulitis. MS/ Extremity: Pulses equal, no cyanosis. Neurovascular intact. Full, normal range of motion. Neuro: Awake and alert, GCS 15, oriented to person, place, time, and situation. Cranial nerves II-XII grossly intact. Motor strength 5/5 in all extremities. Sensory grossly intact. Vital Signs: 15:42 BP 88 / 63; Pulse 93; Resp 17; Temp 97.9(O); Pulse Ox 100% on R/A; Pain 0/10; ss 16:29 BP 101 / 69; Pulse 72; Resp 20; Temp 97.7; Pulse Ox 98% on R/A; Weight 88.45 kg (R); lr4 Height 6 ft. 3 in. (190.50 cm); Pain 0/10; 17:32 BP 122 / 80; Pulse 78; Resp 18; Pulse Ox 99% on R/A; lr4 17:46 BP 125 / 87; Pulse 78; Resp 18; Pulse Ox 100% on R/A; lr4 18:20 BP 132 / 94 Supine; Pulse 87; lr4 18:20 BP 144 / 98 Sitting; Pulse 85; lr4 18:20 BP 131 / 81 Standing; Pulse 88; lr4 16:29 Body Mass Index 24.37 (88.45 kg, 190.50 cm) lr4 MDM: 15:47 Patient medically screened. jr8 18:14 Data reviewed: vital signs, nurses notes, lab test result(s), EKG, radiologic studies, jr8 plain films. Data interpreted: Pulse oximetry: on room air is 100 %. Counseling: I had a detailed discussion with the patient and/or guardian regarding: the historical points, exam findings, and any diagnostic results supporting the discharge/admit diagnosis, lab results, radiology results, the need for outpatient follow up, a family practitioner, to return to the emergency department if symptoms worsen or persist or if there are any questions or concerns that arise at home. Response to treatment: the patient's symptoms have resolved after treatment, patient is well hydrated. ED course: Patient symptoms completely resolved. Orthostatics negative and patient feeling back to normal upon ambulation. Labs and EKG unremarkable. Most likely patient experienced vasovagal syncope. No other indication that he had some sort of cardiac arrhythmia or event. Recommend they follow-up with his primary care and if he were to acutely get worse to come back for further evaluation. Patient good with this at this time.. 08/26 15:54 Order name: Basic Metabolic Panel; Complete Time: 16:57 8 08/26 15:54 Order name: CBC with Diff; Complete Time: 16:57 jr8 08/26 15:54 Order name: Magnesium; Complete Time: 16:57 08/26 15:54 Order name: NT PRO-BNP; Complete Time: 16:57 08/26 15:54 Order name: Troponin HS; Complete Time: 16:57 08/26 15:54 Order name: XRAY Chest (1 view); Complete Time: 17:17 08/26 15:54 Order name: EKG; Complete Time: 15:55 08/26 15:54 Order name: Cardiac monitoring; Complete Time: 16:32 08/26 15:54 Order name: EKG - Nurse/Tech; Complete Time: 16:32 08/26 15:54 Order name: IV Saline Lock; Complete Time: 16:32 08/26 15:54 Order name: Labs collected and sent; Complete Time: 16:32 08/26 15:54 Order name: O2 Per Protocol; Complete Time: 16:32 08/26 15:54 Order name: O2 Sat Monitoring; Complete Time: 16:32 Administered Medications: 16:15 Drug: NS 0.9% 1000 ml Route: IV; Rate: 1 bolus; Site: left antecubital; lr4 18:21 Follow up: IV Status: Completed infusion; IV Intake: 1000ml lr4 Point of Care Testing: Blood Glucose: 16:28 Blood Glucose: 93 mg/dL; lr4 Ranges: Critical Glucose Levels:Adult <50 mg/dl or >400 mg/dl <40 mg/dl or >180 mg/dl Disposition: 18:47 Co-signature as Attending Physician, Javi Munoz MD. rn Disposition Summary: 08/26/21 18:23 Discharge Ordered Location: Home jr8 Problem: new jr8 Symptoms: have improved jr8 Condition: Stable jr8 Diagnosis - Vasovagal Syncope jr8 Followup: jr8 - With: Private Physician - When: 1 - 2 days - Reason: Recheck today's complaints, Continuance of care, Re-evaluation by your physician Discharge Instructions: - Discharge Summary Sheet jr8 - Syncope jr8 Forms: - Medication Reconciliation Form jr8 - Thank You Letter jr8 - Antibiotic Education jr8 - Prescription Opioid Use jr8 Signatures: Dispatcher [employer] EDJavi Gonzalez MD MD rn Smirch, Shelby, RN RN ss Roszak Matt, PA PA jr8 Nelly Padilla RN RN lr4 Corrections: (The following items were deleted from the chart) 16:31 16:31 Home Meds: Metoprolol Tartrate Oral; lr4 lr4
--- NOTE | 2021-08-26 18:24 | ER ---
Nurse's Notes [facility] Name: Cory Mcclure Jr Age: 66 yrs Sex: Male : 1955 Arrival Date: 08/26/2021 Time: 15:42 Bed 20 Private MD: Diagnosis: Vasovagal Syncope Presentation: 08/26 15:42 Chief complaint: EMS states: Syncopal episode that occurred while at home sitting down. EMS reports initial BP was 70/54. Upon arrival to ED BP is 88/63 after 250 mL NS bolus. BGL 93. Pt has no complaints. Denies CP and/or dizziness. A\T\O x4. Coronavirus screen: Client denies travel out of the [place] in the last 14 days. Ebola Screen: Patient denies exposure to infectious person. Patient denies travel to an Ebola-affected area in the 21 days before illness onset. Onset of symptoms was August 26, 2021. 15:42 Acuity: ANITA 2 ss 15:42 Method Of Arrival: EMS: [facility] 15:57 Care prior to arrival: IV initiated. 18 gauge in R AC and L AC. BGL 93. ss 16:27 Initial Sepsis Screen: Does the patient meet any 2 criteria? No. Patient's initial lr4 sepsis screen is negative. Does the patient have a suspected source of infection? No. Patient's initial sepsis screen is negative. Risk Assessment: Do you want to hurt yourself or someone else? Patient reports no desire to harm self or others. Triage Assessment: 16:27 General: Appears in no apparent distress. comfortable, Behavior is calm, cooperative. lr4 Pain: Denies pain. Neuro: No deficits noted. Neuro: Reports a syncopal episode Denies blurred vision dizziness, numbness headache. Cardiovascular: No deficits noted. Respiratory: No deficits noted. GI: No deficits noted. Historical: - Allergies: 16:31 No Known Allergies; lr4 - Home Meds: 16:31 Aspirin Oral [Active]; labetalol Oral [Active]; lr4 - PMHx: 15:44 Hypertensive disorder; ss - PSHx: 16:31 None; lr4 - Immunization history:: Adult Immunizations not up to date, Client reports having NOT received the Covid vaccine. - Social history:: Smoking status: Patient reports the use of cigarette tobacco products, smokes one-half pack cigarettes per day. Screenin:29 Abuse screen: Denies threats or abuse. Nutritional screening: No deficits noted. lr4 Tuberculosis screening: No symptoms or risk factors identified. Fall Risk None identified. Assessment: 16:30 Neuro: Level of Consciousness is awake, alert, obeys commands, Oriented to person, lr4 place, time, situation, Hide Splitter are equal bilaterally Moves all extremities. Gait is Speech is normal, Facial symmetry appears normal, Pupils are PERRLA. 16:30 Cardiovascular: Rhythm is sinus rhythm with 1st degree heart block. lr4 Vital Signs: 15:42 BP 88 / 63; Pulse 93; Resp 17; Temp 97.9(O); Pulse Ox 100% on R/A; Pain 0/10; ss 16:29 BP 101 / 69; Pulse 72; Resp 20; Temp 97.7; Pulse Ox 98% on R/A; Weight 88.45 kg (R); lr4 Height 6 ft. 3 in. (190.50 cm); Pain 0/10; 17:32 BP 122 / 80; Pulse 78; Resp 18; Pulse Ox 99% on R/A; lr4 17:46 BP 125 / 87; Pulse 78; Resp 18; Pulse Ox 100% on R/A; lr4 18:20 BP 132 / 94 Supine; Pulse 87; lr4 18:20 BP 144 / 98 Sitting; Pulse 85; lr4 18:20 BP 131 / 81 Standing; Pulse 88; lr4 16:29 Body Mass Index 24.37 (88.45 kg, 190.50 cm) lr4 ED Course: 15:42 Patient arrived in ED. ss 15:44 Triage completed. ss 15:47 aMtt Magana PA is PHCP. jr8 15:47 Javi Munoz MD is Attending Physician. jr8 15:57 Arm band placed on right wrist. ss 16:08 Nelly Padilla RN is Primary Nurse. lr4 16:30 No provider procedures requiring assistance completed. Maintain EMS IV. Dressing lr4 intact. Gauge \T\ site: 18 g kings ACs. Flushed right left. 16:31 Patient has correct armband on for positive identification. Call light in reach. Side lr4 rails up X 1. Adult w/ patient. manager monitoring on. Pulse ox on. NIBP on. Door closed. Noise minimized. Warm blanket given. 16:36 XRAY Chest (1 view) Sent. lr4 17:09 XRAY Chest (1 view) In Process Unspecified. EDMS 18:45 IV discontinued, intact, bleeding controlled, No redness/swelling at site. Pressure lr4 dressing applied. Administered Medications: 16:15 Drug: NS 0.9% 1000 ml Route: IV; Rate: 1 bolus; Site: left antecubital; lr4 18:21 Follow up: IV Status: Completed infusion; IV Intake: 1000ml lr4 Point of Care Testing: Blood Glucose: 16:28 Blood Glucose: 93 mg/dL; lr4 Ranges: Intake: 18:21 IV: 1000ml; Total: 1000ml. lr4 Outcome: 16:31 Condition: stable lr4 18:23 Discharge ordered by . nazario 18:45 Discharged to home ambulatory. lr4 18:45 Discharge instructions given to patient. 18:45 Patient left the ED. lr4 Signatures: Dispatcher [employer] EDMS Brittany Mancuso, RN RN ss Matt Magana PA PA jrNelly Hernandez RN RN lr4 Corrections: (The following items were deleted from the chart) 15:52 15:42 BP 88 / 63; Pulse 93bpm; Resp 71bpm; Pulse Ox 100% RA; Temp 97.9F Oral; Pain ss 0/10; ss 16:31 16:31 Home Meds: Metoprolol Tartrate Oral; lr4 lr4
[2021-08-26 19:38] VITALS: TEMP 97.7
[2021-08-26 19:41] VITALS: O2SAT 100
[2021-08-26 19:43] VITALS: BP 131/81
--- NOTE | 2021-08-27 07:44 | EKG ---
Test Date: 2021-08-26 Test Time: 16:02:[address] Attendant: REDD MEASUREMENT RESULTS: Intervals: Rate: 67 [place]: 216 QRSD: 90 QT: 410 QTc: 433 [place]: P: 81 [place]: 216 QRS: 32 T: 74 INTERPRETIVE STATEMENTS: Sinus rhythm with 1st degree AV block Otherwise normal ECG Compared to ECG 02/01/2021 08:17:47 First degree AV block now present Sinus tachycardia no longer present ST (T wave) deviation no longer present Electronically Signed On 08-27-21 07:41:29 CDT by Mariusz Gunter
== END 2021-08-26 18:45 | disposition home or self-care (01) ==
LOC: ER 15:36
DX: R55 Syncope and collapse (principal); I10 Essential (primary) hypertension; F17.210 Nicotine dependence, cigarettes, uncomplicated; Z79.82 Long term (current) use of aspirin
CPT/HCPCS: 96361; 93005; 85025; 80048; 36415; 83735; 84484; 83880; 71045; 96360; 99284; J7030

== ENCOUNTER 2022-03-02 21:32 | Emergency (ER) | payer OTHER ==
--- NOTE | 2022-03-02 22:36 | RAD REPORT ---
EXAM DESCRIPTION: Rob Single View03/02/2022 10:21 pm CLINICAL HISTORY: Chest pain COMPARISON: none FINDINGS: The lungs appear clear of acute infiltrate. The heart is normal size IMPRESSION: No acute abnormalities displayed
[2022-03-02 22:45] LABS: Absolute Lymphocytes (CBC) 1.4 K/uL (0.7-4.9); Hematocrit 38.7 % (39.6-49.0); Lymphocytes % 16.8 % (15.3-44.8); MCV 88.7 fL (80-100); MPV 7.5 fL (7.6-11.3); RBC Red Blood Cell Count 4.36 M/uL (4.33-5.43)
[2022-03-02 23:00] LABS: Magnesium 2.2 mg/dL (1.8-2.4); Potassium 4.3 mmol/L (3.5-5.1); Troponin High Sensitivity 18.6 pg/mL (<58.9)
[2022-03-02 23:03] LABS: Protime INR 1.01
--- NOTE | 2022-03-02 23:16 | ER ---
Nurse's Notes [facility] Name: Cory Mcclure Jr Age: 67 yrs Sex: Male : 1955 Arrival Date: 03/02/2022 Time: 21:35 Bed 4 Private MD: Diagnosis: Chest pain, unspecified Presentation: 03/02 21:40 Chief complaint: EMS states: "67 YO male complaining of Chest pain starting 1.5 hours vc1 ago rated 10/10. When we arrived he stated it was a 7/10. Pt claims he ate a large meal 30min to an hour before the pain started. Pain started with discomfort in upper abdomen but then moved to Chest. No dizziness, nausea, vomiting, or shortness of breath.". Coronavirus screen: Vaccine status: Patient reports being unvaccinated. At this time, the client does not indicate any symptoms associated with coronavirus-19. Ebola Screen: No symptoms or risks identified at this time. Initial Sepsis Screen: Does the patient meet any 2 criteria? HR > 90 bpm. No. Patient's initial sepsis screen is negative. Does the patient have a suspected source of infection? No. Patient's initial sepsis screen is negative. Risk Assessment: Do you want to hurt yourself or someone else? Patient reports no desire to harm self or others. Onset of symptoms was March 02, 2022 at 20:00. 21:40 Method Of Arrival: EMS: [facility] vc1 21:40 Acuity: ANITA 3 vc1 21:49 Care prior to arrival: Medication(s) given: ASA, 81 mg, x 4. Care prior to arrival: IV vc1 initiated. 20 GA, in the right hand, Glucose check: 123. Triage Assessment: 21:47 General: Appears in no apparent distress. comfortable, Behavior is calm, cooperative, vc1 appropriate for age. Pain: Complains of pain in mid-sternal area Pain does not radiate. Pain currently is 5 out of 10 on a pain scale. at worst was 10 out of 10 on a pain scale. Quality of pain is described as "Can't describe". EENT: No deficits noted. Neuro: Level of Consciousness is awake, alert, obeys commands, Oriented to person, place, time, situation, Appropriate for age. Cardiovascular: Reports chest pain, Chest pain is described as severe, Pain is 10 out of 10 on a pain scale. Respiratory: Airway is patent Respiratory effort is even, unlabored, Respiratory pattern is regular, symmetrical. GI: Reports upper abdominal pain, prior to chest pain. : No deficits noted. No signs and/or symptoms were reported regarding the genitourinary system. Derm: No deficits noted. No signs and/or symptoms reported regarding the dermatologic system. Musculoskeletal: No deficits noted. No signs and/or symptoms reported regarding the musculoskeletal system. Historical: - Allergies: 21:46 No Known Allergies; vc1 - Home Meds: 21:46 Metoprolol Tartrate Oral [Active]; vc1 - PMHx: 21:46 Hypertensive disorder; vc1 - PSHx: 21:46 Cardiac Stents; vc1 - Immunization history:: Adult Immunizations up to date, Client reports having NOT received the Covid vaccine. - Social history:: Smoking status: Patient reports the use of cigarette tobacco products, "A few cigarettes a day". Screenin:50 Abuse screen: Denies threats or abuse. Nutritional screening: No deficits noted. vc1 Tuberculosis screening: No symptoms or risk factors identified. Fall Risk None identified. Assessment: 22:00 Reassessment: See triage assessment. vc1 23:17 Reassessment: Patient and/or family updated on plan of care and expected duration. Pain vc1 level reassessed. Patient is alert, oriented x 3, equal unlabored respirations, skin warm/dry/pink. Patient states feeling better. Patient states symptoms have improved. 03/03 01:07 Reassessment: Patient and/or family updated on plan of care and expected duration. Pain vc1 level reassessed. Patient is alert, oriented x 3, equal unlabored respirations, skin warm/dry/pink. Patient denies pain at this time. Patient states feeling better. Patient states symptoms have improved. 01:43 Reassessment: Patient and/or family updated on plan of care and expected duration. Pain vc1 level reassessed. Patient is alert, oriented x 3, equal unlabored respirations, skin warm/dry/pink. Patient denies pain at this time. Vital Signs: 03/02 21:40 BP 129 / 85; Pulse 100; Resp 17; Temp 99.0(O); Pulse Ox 99% on R/A; Weight 83.91 kg; vc1 Height 6 ft. 3 in. (190.50 cm); Pain 5/10; 22:00 BP 118 / 83; Pulse 89; Resp 22; Pulse Ox 98% on R/A; vc1 23:00 BP 95 / 74; Pulse 95; Resp 19; Pulse Ox 98% on R/A; vc1 03/03 00:00 BP 103 / 77; Pulse 94; Resp 19; Pulse Ox 99% on R/A; vc1 01:00 BP 116 / 78; Pulse 90; Resp 20; Pulse Ox 97% ; vc1 01:43 BP 116 / 78; Pulse 107; Resp 22; Pulse Ox 98% ; vc1 03/02 21:40 Body Mass Index 23.12 (83.91 kg, 190.50 cm) vc1 ED Course: 03/02 21:35 Patient arrived in ED. mw2 21:39 Lopez Eden MD is Attending Physician. sp3 21:46 Triage completed. vc1 21:50 Arm band placed on right wrist. vc1 21:50 Patient has correct armband on for positive identification. Bed in low position. Call vc1 light in reach. Side rails up X2. Client placed on continuous cardiac and pulse oximetry monitoring. NIBP monitoring applied. 22:16 Doris Barclay, RN is Primary Nurse. vc1 22:23 XRAY Chest (1 view) In Process Unspecified. EDNV 23:16 Lebron Lopez MD is Hospitalizing Provider. sp3 23:23 Rich (friend) [phone]. 2 03/03 01:06 Troponin High Sensitivity: Obtain at 0100 on 03/03 Sent. vc1 02:00 No provider procedures requiring assistance completed. IV discontinued, intact, vc1 bleeding controlled, No redness/swelling at site. Pressure dressing applied. Administered Medications: No medications were administered Medication: 03/02 21:51 VIS not applicable for this client. vc1 Outcome: 23:16 Decision to Hospitalize by Provider. sp3 03/03 01:37 Discharge ordered by . sp3 02:00 Condition: good vc1 02:00 Instructed on discharge instructions, follow up and referral plans. 02:00 Discharged to home ambulatory, with friend. vc1 02:01 Patient left the ED. vc1 Signatures: Dispatcher [employer] EDNV Ralph Palacios mw2 Lopez Eden MD MD sp3 Deny, Doris, RN RN vc1
--- NOTE | 2022-03-02 23:17 | EDPHYS ---
Physician Documentation [facility] Name: Cory Mcclure Jr Age: 67 yrs Sex: Male : 1955 Arrival Date: 03/02/2022 Time: 21:35 Bed 4 Private MD: ED Physician Lopez Eden HPI: 03/02 21:47 This 67 yrs old Black Male presents to ER via EMS with complaints of Chest pain. sp3 21:47 67-year-old male with history of hypertension, coronary artery disease status post 2 sp3 stents last month per patient, presents to the ED for chest pain after dinner she has now almost fully subsided. Patient presents via EMS. He denies shortness of breath, back pain, lower abdominal pain. He does have epigastric pain which is where the pain started and progressively descended superiorly into the substernal region. There is no pain in the left arm or left jaw. Review of systems otherwise negative. Patient received aspirin p.o. by EMS during transport. No other medication including nitroglycerin was administered.. Historical: - Allergies: 21:46 No Known Allergies; vc1 - Home Meds: 21:46 Metoprolol Tartrate Oral [Active]; vc1 - PMHx: 21:46 Hypertensive disorder; vc1 - PSHx: 21:46 Cardiac Stents; vc1 - Immunization history:: Adult Immunizations up to date, Client reports having NOT received the Covid vaccine. - Social history:: Smoking status: Patient reports the use of cigarette tobacco products, "A few cigarettes a day". ROS: 21:50 Constitutional: Negative for fever, chills, and weight loss, Eyes: Negative for injury, sp3 pain, redness, and discharge, ENT: Negative for injury, pain, and discharge, Neck: Negative for injury, pain, and swelling, Respiratory: Negative for shortness of breath, cough, wheezing, and pleuritic chest pain, Abdomen/GI: Negative for abdominal pain, nausea, vomiting, diarrhea, and constipation, Back: Negative for injury and pain, MS/Extremity: Negative for injury and deformity, Skin: Negative for injury, rash, and discoloration, Neuro: Negative for headache, weakness, numbness, tingling, and seizure, Psych: Negative for depression, anxiety, suicide ideation, homicidal ideation, and hallucinations, Allergy/Immunology: Negative for hives, rash, and allergies, Endocrine: Negative for neck swelling, polydipsia, polyuria, polyphagia, and marked weight changes. 21:50 All other systems are negative. Exam: 21:50 Constitutional: This is a well developed, well nourished patient who is awake, alert, sp3 and in no acute distress. Head/Face: Normocephalic, atraumatic. Eyes: Pupils equal round and reactive to light, extra-ocular motions intact. Lids and lashes normal. Conjunctiva and sclera are non-icteric and not injected. Cornea within normal limits. Periorbital areas with no swelling, redness, or edema. ENT: Nares patent. No nasal discharge, no septal abnormalities noted. External auditory canals are clear. Oropharynx with no redness, swelling, or masses, exudates, or evidence of obstruction, uvula midline. Mucous membranes moist. Neck: Trachea midline, no thyromegaly or masses palpated, and no cervical lymphadenopathy. Supple, full range of motion without nuchal rigidity, or vertebral point tenderness. No Meningismus. Chest/axilla: Normal chest wall appearance and motion. Nontender with no deformity. No lesions are appreciated. Cardiovascular: Regular rate and rhythm with a normal S1 and S2. No gallops, murmurs, or rubs. Normal PMI, no JVD. No pulse deficits. Respiratory: Lungs have equal breath sounds bilaterally, clear to auscultation and percussion. No rales, rhonchi or wheezes noted. No increased work of breathing, no retractions or nasal flaring. Abdomen/GI: Soft, non-tender, with normal bowel sounds. No distension or tympany. No guarding or rebound. No evidence of tenderness throughout. Back: No spinal tenderness. No costovertebral tenderness. Full range of motion. Skin: Warm, dry with normal turgor. Normal color with no rashes, no lesions, and no evidence of cellulitis. MS/ Extremity: Pulses equal, no cyanosis. Neurovascular intact. Full, normal range of motion. Neuro: Awake and alert, GCS 15, oriented to person, place, time, and situation. Cranial nerves II-XII grossly intact. Motor strength 5/5 in all extremities. Sensory grossly intact. Cerebellar exam normal. Normal gait. Psych: Awake, alert, with orientation to person, place and time. Behavior, mood, and affect are within normal limits. 22:02 ECG was reviewed by the Attending Physician. EKG demonstrates normal sinus rhythm at 87 sp3 bpm with normal intervals, normal QRS, normal axis, nonspecific ST/T changes without evidence of acute ischemia or STEMI. Vital Signs: 21:40 BP 129 / 85; Pulse 100; Resp 17; Temp 99.0(O); Pulse Ox 99% on R/A; Weight 83.91 kg; vc1 Height 6 ft. 3 in. (190.50 cm); Pain 5/10; 22:00 BP 118 / 83; Pulse 89; Resp 22; Pulse Ox 98% on R/A; vc1 23:00 BP 95 / 74; Pulse 95; Resp 19; Pulse Ox 98% on R/A; vc1 03/03 00:00 BP 103 / 77; Pulse 94; Resp 19; Pulse Ox 99% on R/A; vc1 01:00 BP 116 / 78; Pulse 90; Resp 20; Pulse Ox 97% ; vc1 01:43 BP 116 / 78; Pulse 107; Resp 22; Pulse Ox 98% ; vc1 03/02 21:40 Body Mass Index 23.12 (83.91 kg, 190.50 cm) vc1 MDM: 03/02 21:45 Patient medically screened. sp3 21:50 Data reviewed: vital signs, nurses notes. ED course: 67-year-old male with chest pain. sp3 Differential diagnosis includes gastritis, coronary artery disease, gastric reflux, angina, epigastric pain. Very low suspicion for vascular disease of the aorta including dissection and aneurysm, pancreatitis, biliary disease, or other critical findings. Work-up will include EKG, chest x-ray, laboratory values. Low suspicion for cardiac reocclusion or STEMI. Disposition will be based on work-up and patient course. Possible second troponin and discharge versus admission for serial cardiac markers and cardiology consult. Heart score is in the 3-4 range.. 23:53 ED course: After further clarification, pt did NOT have recent cardiac stenting and he sp3 was referring to splenic stenting several years ago. Pt has no pain currently and his HEART score now drops to 2. Will obtain second HS troponin at 3 hours and if negative, will d/c home to cards follow-up. . 03/02 21:45 Order name: Basic Metabolic Panel; Complete Time: 23:14 3 03/02 21:45 Order name: CBC with Diff; Complete Time: 23:14 3 03/02 21:45 Order name: Magnesium; Complete Time: 23:14 3 03/02 21:45 Order name: NT PRO-BNP; Complete Time: 23:14 3 03/02 21:45 Order name: PT-INR; Complete Time: 23:14 3 03/02 21:45 Order name: Troponin HS; Complete Time: 23:14 3 03/02 21:45 Order name: XRAY Chest (1 view); Complete Time: 23:14 3 03/02 21:45 Order name: Cardiac monitoring; Complete Time: 21:51 [facility] 03/02 21:45 Order name: EKG - Nurse/Tech; Complete Time: 22:02 [facility] 03/02 21:45 Order name: IV Saline Lock; Complete Time: 22:16 [facility] 03/02 21:45 Order name: Labs collected and sent; Complete Time: 22:50 [facility] 03/02 21:45 Order name: O2 Per Protocol; Complete Time: 21:51 3 03/02 23:52 Order name: Troponin High Sensitivity: Obtain at 0100 on 03/03 la 03/02 21:45 Order name: O2 Sat Monitoring; Complete Time: 21:51 sp3 Administered Medications: No medications were administered Disposition Summary: 03/03/22 01:37 Discharge Ordered Location: Home(03/03/22 01:37) sp3 Condition: Stable(03/03/22 01:37) sp3 Diagnosis - Chest pain, unspecified(03/03/22 01:37) sp3 Followup: sp3 - With: Private Physician - When: Upon discharge from the Emergency Department - Reason: Continuance of care Discharge Instructions: - Discharge Summary Sheet sp3 - Nonspecific Chest Pain, Adult sp3 Forms: - Medication Reconciliation Form sp3 - Thank You Letter sp3 - Antibiotic Education sp3 - Prescription Opioid Use sp3 Signatures: Dispatcher [employer] EDMS Emperatriz Agarwal RN RN Lopez Morales MD MD sp3 Doris Barclay RN RN vc1 Corrections: (The following items were deleted from the chart) 23:20 23:16 Telemetry/MedSurg (observation) sp3 galileo 23:20 23:16 sp3 mw 23:55 23:16 Observation sp3 sp3 23:55 23:16 JessicaLebron sp3 sp3 23:55 23:16 Stable sp3 sp3 23:55 23:16 an acute exacerbation sp3 sp3 23:55 23:16 are unchanged sp3 sp3 23:55 23:16 Standard sp3 sp3 23:55 23:16 Chest pain, unspecified sp3 sp3 23:55 23:[address] [facility] ER HOLD mw sp3 23:55 23:20 ERHOLD- mw sp3
--- NOTE | 2022-03-03 13:05 | EKG ---
Test Date: 2022-03-02 Test Time: 21:56:48 Manager Learning: RAJNI MEASUREMENT RESULTS: Intervals: Rate: 87 PA: 182 QRSD: 78 QT: 370 QTc: 445 [place]: P: 81 PA: 182 QRS: 24 T: 72 INTERPRETIVE STATEMENTS: Normal sinus rhythm Normal ECG Compared to ECG 08/26/2021 16:02:32 First degree AV block no longer present Electronically Signed On 03-03-22 13:04:33 CDT by Jose L Leiva
[2022-03-05 03:33] VITALS: TEMP 99
[2022-03-05 03:37] VITALS: BP 116/78
[2022-03-05 03:38] VITALS: O2SAT 98
== END 2022-03-03 02:01 | disposition home or self-care (01) ==
LOC: ER 21:32
DX: R07.9 Chest pain, unspecified (principal); I10 Essential (primary) hypertension; F17.210 Nicotine dependence, cigarettes, uncomplicated; Z95.818 Presence of other cardiac implants and grafts
CPT/HCPCS: 36415; 71045; 80048; 83735; 83880; 84484; 85025; 85610; 93005; 99284

== ENCOUNTER 2022-10-14 15:41 | Emergency (ER) | payer OTHER ==
[2022-10-14] MEDS ORDERED: ACETAMINOPHEN 325 MG TABLET ONE (16:33)
[2022-10-14] MEDS ORDERED: TRAMADOL HCL 50 MG TAB ONE (16:34)
--- NOTE | 2022-10-14 17:33 | RAD REPORT ---
EXAM DESCRIPTION: US - Lower Extremity Artery Uni Ltd - 10/14/2022 4:49 pm CLINICAL HISTORY: Leg pain COMPARISON: None FINDINGS: The common femoral, superficial femoral and popliteal arteries demonstrate triphasic wavef orms The posterior tibial and dorsalis pedis arteries demonstrate biphasic waveforms. IMPRESSION: No flow limiting arterial stenosis identified in the left lower extremity.
--- NOTE | 2022-10-14 17:33 | RAD REPORT ---
EXAM DESCRIPTION: US - Extremity Venous Uni Ltd - 10/14/2022 4:49 pm CLINICAL HISTORY: Pain COMPARISON: None. TECHNIQUE: Real-time sonographic evaluation of the left lower extremity deep venous system was perfo rmed. FINDINGS: Normal compressibility, flow augmentation, phasic flow and spontaneous flow is identified in the left lower extremity deep venous system. No intraluminal filling defects seen. IMPRESSION: No DVT in the left lower extremity.
--- NOTE | 2022-10-14 18:28 | RAD REPORT ---
EXAM DESCRIPTION: RAD - Tib Fib Left - 10/14/2022 5:58 pm CLINICAL HISTORY: PAIN COMPARISON: No comparisons FINDINGS/IMPRESSION: Healed remote posttraumatic deformity of the mid and distal tibial diaphysis an d fibula. No radiographic evidence of osteomyelitis. No acute fracture.
--- NOTE | 2022-10-14 18:34 | ER ---
Nurse's Notes [facility] Name: Cory Mcclure Jr Age: 67 yrs Sex: Male : 1955 Arrival Date: 10/14/2022 Time: 15:41 Bed 8 Private MD: Diagnosis: Pain in left lower leg;Local infection of the skin and subcutaneous tissue, unspecified-left side of face;Other hemorrhoids Presentation: 10/14 15:51 Chief complaint: Patient states: left leg swelling X 2 days, also has a spot on his iw face that is swollen, maybe from and insect bite, and also has hemorrhoids. Coronavirus screen: At this time, the client does not indicate any symptoms associated with coronavirus-19. Ebola Screen: Patient negative for fever greater than or equal to 101.5 degrees Fahrenheit, and additional compatible Ebola Virus Disease symptoms Patient denies exposure to infectious person. Patient denies travel to an Ebola-affected area in the 21 days before illness onset. No symptoms or risks identified at this time. Initial Sepsis Screen: Does the patient meet any 2 criteria? No. Patient's initial sepsis screen is negative. Does the patient have a suspected source of infection? No. Patient's initial sepsis screen is negative. Risk Assessment: Do you want to hurt yourself or someone else? Patient reports no desire to harm self or others. Onset of symptoms was October 12, 2022. 15:51 Method Of Arrival: Wheelchair iw 15:51 Acuity: ANITA 3 iw Historical: - Allergies: 15:52 No Known Allergies; iw - Home Meds: 15:52 None [Active]; iw - PMHx: 15:52 Hypertensive disorder; iw - PSHx: 15:52 cardiac stents; iw - Immunization history:: Adult Immunizations up to date. - Social history:: Smoking status: . Screenin:31 [facility] ED Fall Risk Assessment (Adult) History of falling in the last 3 months, db including since admission No falls in past 3 months (0 pts) Confusion or Disorientation No (0 pts) Intoxicated or Sedated No (0 pts) Impaired Gait No (0 pts) Mobility Assist Device Used No (0 pt) Altered Elimination No (0 pt) Score/Fall Risk Level 0 - 2 = Low Risk Oriented to surroundings, Maintained a safe environment. Abuse screen: Denies threats or abuse. Denies injuries from another. Nutritional screening: No deficits noted. Tuberculosis screening: No symptoms or risk factors identified. Assessment: 16:30 Reassessment: Patient appears in no apparent distress at this time. Patient and/or db family updated on plan of care and expected duration. Pain level reassessed. Patient is alert, oriented x 3, equal unlabored respirations, skin warm/dry/pink. left leg pain. 16:30 Reassessment: patient denies recent injury. General: Appears in no apparent distress. db comfortable, Behavior is calm, cooperative. Pain: Complains of pain in left leg. Neuro: Level of Consciousness is awake, alert, obeys commands, Oriented to person, place, time, situation. Respiratory: Airway is patent Respiratory effort is even, unlabored, Respiratory pattern is regular, symmetrical. Vital Signs: 15:51 BP 121 / 76; Pulse 95; Resp 16; Temp 98.8; Pulse Ox 98% on R/A; Weight 83.91 kg; Height iw 6 ft. 3 in. ; Pain 10/10; 18:44 BP 133 / 75; Pulse 83; Resp 16; Pulse Ox 98% ; bp 15:51 Body Mass Index 23.12 (83.91 kg, 190.5 cm) iw 15:51 Pain Scale: Adult iw ED Course: 15:43 Patient arrived in ED. rg4 15:44 Rich Guajardo PA is PHCP. cp 15:44 Gordy Oliveira MD is Attending Physician. cp 15:44 Manolo Roberts PA is PHCP. jmm 15:52 Triage completed. iw 15:53 Arm band placed on. iw 16:20 Susanne Gray, RN is Primary Nurse. db 16:51 US Extremity Venous Unilateral Ltd In Process Unspecified. EDMS 16:51 US LE Artery Uni Ltd In Process Unspecified. EDMS 18:00 XRAY Tib Fib LEFT In Process Unspecified. EDMS 18:45 Patient has correct armband on for positive identification. Bed in low position. Call bp light in reach. Side rails up X2. 18:45 No provider procedures requiring assistance completed. Patient did not have IV access bp during this emergency room visit. Administered Medications: 16:30 Drug: traMADol PO 50 mg Route: PO; db 16:30 Drug: Acetaminophen PO 650 mg Route: PO; db Outcome: 18:33 Discharge ordered by . cp 18:45 Discharged to home ambulatory. bp 18:45 Condition: stable 18:45 Discharge instructions given to patient, Instructed on discharge instructions, follow up and referral plans. medication usage, Demonstrated understanding of instructions, follow-up care, medications, Prescriptions given X 3. 19:07 Patient left the ED. bp Signatures: Dispatcher [employer] EDMS Manolo Roberts PA PA jmm Williams, Irene, RN RN iw Page, Corey, PA PA cp Garcia, Rubi rg4 Shadi Holland RN RN bp Benton, Danielle, RN RN db Corrections: (The following items were deleted from the chart) 16:31 16:30 Reassessment: Patient appears in no apparent distress at this time. Patient db and/or family updated on plan of care and expected duration. Pain level reassessed. Patient is alert, oriented x 3, equal unlabored respirations, skin warm/dry/pink. db
--- NOTE | 2022-10-14 18:34 | EDPHYS ---
Physician Documentation [facility] Name: Cory Mcclure Jr Age: 67 yrs Sex: Male : 1955 Arrival Date: 10/14/2022 Time: 15:41 Bed 8 Private MD: ED Physician Gordy Oliveira HPI: 10/14 16:20 This 67 yrs old Black Male presents to ER via Wheelchair with complaints of Leg cp Swelling. 16:20 The patient presents with pain, that is acute, swelling, tenderness. The complaints cp affect the left lower leg. 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 denies recent injury. 16:20 Onset: The symptoms/episode began/occurred 2 day(s) ago. Associated signs and symptoms: cp Pertinent negatives fever, numbness, warmth, shortness of breath. Patient also c/o swelling to left side of face and hemorrhoids. Historical: - Allergies: 15:52 No Known Allergies; iw - Home Meds: 15:52 None [Active]; iw - PMHx: 15:52 Hypertensive disorder; iw - PSHx: 15:52 cardiac stents; iw - Immunization history:: Adult Immunizations up to date. - Social history:: Smoking status: . ROS: 16:30 Constitutional: Negative for body aches, chills, fever, poor PO intake. cp 16:30 Eyes: Negative for injury, pain, redness, and discharge. cp 16:30 ENT: Negative for drainage from ear(s), ear pain, sore throat, difficulty swallowing, difficulty handling secretions. 16:30 Cardiovascular: Negative for chest pain, palpitations. 16:30 Respiratory: Negative for cough, shortness of breath, wheezing. 16:30 Abdomen/GI: Positive for hemorrhoids, Negative for abdominal pain, nausea, vomiting, and diarrhea, black/tarry stool, rectal bleeding. 16:30 Back: Negative for pain at rest, pain with movement. 16:30 : Negative for urinary symptoms, testicular pain 16:30 MS/extremity: Positive for pain, swelling, tenderness, of the left lower leg, Negative for paresthesias. 16:30 Skin: Positive for swelling, of the left side of face. 16:30 All other systems are negative. Exam: 16:33 Constitutional: The patient appears in no acute distress, alert, awake, cp non-diaphoretic, non-toxic, well developed, well nourished. 16:33 Head/face: Noted is swelling, that is mild, of the left cheek. cp 16:33 Eyes: Periorbital structures: appear normal, Pupils: equal, round, and reactive to light and accomodation, Extraocular movements: intact throughout, Conjunctiva: normal, no exudate, no injection, Sclera: no appreciated abnormality, Lids and lashes: appear normal, bilaterally. 16:33 ENT: External ear(s): are unremarkable, Nose: is normal, Mouth: Lips: moist, Oral mucosa: pink and intact, moist, Posterior pharynx: is normal, airway is patent, no erythema, no exudate. 16:33 Neck: ROM/movement: is normal, is supple, without pain, no range of motions limitations. 16:33 Chest/axilla: Inspection: normal. 16:33 Cardiovascular: Rate: normal, Rhythm: regular, JVD: is not appreciated. 16:33 Respiratory: the patient does not display signs of respiratory distress, Respirations: normal, no use of accessory muscles, no retractions, labored breathing, is not present, Breath sounds: are clear throughout, no decreased breath sounds, no stridor, no wheezing. 16:33 Abdomen/GI: Inspection: abdomen appears normal, Palpation: abdomen is soft and non-tender, in all quadrants. 16:33 Back: pain, is absent, ROM is normal. 16:33 Musculoskeletal/extremity: Extremities: grossly normal except: noted in the left lower leg: pain, swelling, tenderness, There is no evidence of erythema, ROM: full active range of motion, in the left knee and left ankle, with no pain, Pulses: noted to be 2+ in the left dorsalis pedis artery. Vital Signs: 15:51 BP 121 / 76; Pulse 95; Resp 16; Temp 98.8; Pulse Ox 98% on R/A; Weight 83.91 kg; Height iw 6 ft. 3 in. ; Pain 10/10; 18:44 BP 133 / 75; Pulse 83; Resp 16; Pulse Ox 98% ; bp 15:51 Body Mass Index 23.12 (83.91 kg, 190.5 cm) iw 15:51 Pain Scale: Adult iw MDM: 15:54 Patient medically screened. cp 17:00 Differential diagnosis: DVT, cellulitis, peripheral artery disease. cp 18:32 Data reviewed: vital signs, nurses notes, radiologic studies, plain films, ultrasound. cp 18:32 I considered the following discharge prescriptions or medication management in the cp emergency department Medications were administered in the Emergency Department. See MAR. Test considered but Not performed: Labs: CBC, BMP. Care significantly affected by the following chronic conditions: Hypertension. Counseling: I had a detailed discussion with the patient and/or guardian regarding: the historical points, exam findings, and any diagnostic results supporting the discharge/admit diagnosis, radiology results, to return to the emergency department if symptoms worsen or persist or if there are any questions or concerns that arise at home. Response to treatment: the patient's symptoms have markedly improved after treatment, and as a result, I will discharge patient. 10/14 16:11 Order name: Extremity Venous Unilateral Ltd; Complete Time: 17:43 cp 10/14 17:43 Interpretation: Report reviewed. 10/14 16:11 Order name: US LE Artery Uni Ltd; Complete Time: 17:43 cp 10/14 17:43 Interpretation: Report reviewed. 10/14 17:44 Order name: XRAY Tib Fib LEFT; Complete Time: 18:29 10/14 18:29 Interpretation: Report reviewed. cp Administered Medications: 16:30 Drug: traMADol PO 50 mg Route: PO; db 16:30 Drug: Acetaminophen PO 650 mg Route: PO; db Disposition: 10/15 09:01 Co-signature as Attending Physician, Gordy Oliveira MD I reviewed the patient's care rt provided by the Advanced Practice Provider and agree with the diagnosis and treatment plan. Disposition Summary: 10/14/22 18:33 Discharge Ordered Location: Home cp Problem: new cp Symptoms: have improved cp Condition: Stable cp Diagnosis - Pain in left lower leg cp - Local infection of the skin and subcutaneous tissue, unspecified - left side of facecp - Other hemorrhoids cp Followup: cp - With: Private Physician - When: 2 - 3 days - Reason: Recheck today's complaints Discharge Instructions: - Discharge Summary Sheet cp - Cellulitis, Adult cp - High-Fiber Eating Plan cp - Hemorrhoids cp - Musculoskeletal Pain cp Forms: - Medication Reconciliation Form cp - Thank You Letter cp - Antibiotic Education cp - Prescription Opioid Use cp Prescriptions: - Cephalexin 500 mg Oral Capsule - take 1 capsule by ORAL route every 8 hours for 10 days; 30 capsule; Refills: 0, cp Product Selection Permitted - Mobic 7.5 mg Oral Tablet - take 1 tablet by ORAL route once daily take with food; 20 tablet; Refills: 0, cp Product Selection Permitted - Anusol-HC 25 mg Rectal Suppository - insert 1 suppository by RECTAL route every 12 hours As needed; 20 suppository; cp Refills: 0, Product Selection Permitted Signatures: Dispatcher [employer] EDMilka Galeas RN RN iw Rich Guajardo PA PA cp Peltier, Brian, RN RN Susanne Collier RN RN db Gordy Oliveira MD MD rt
[2022-10-14 19:11] VITALS: TEMP 98.8; O2SAT 98
[2022-10-14 19:12] VITALS: BP 133/75
== END 2022-10-14 19:07 | disposition home or self-care (01) ==
LOC: ER 15:41
DX: M79.662 Pain in left lower leg (principal); L08.9 Local infection of the skin and subcutaneous tissue, unspecified; K64.8 Other hemorrhoids; I10 Essential (primary) hypertension; Z95.818 Presence of other cardiac implants and grafts
CPT/HCPCS: 93926; 93971; 99283

== ENCOUNTER 2023-01-31 10:30 | Inpatient (IN) | payer OTHER ==
[2023-01-31 11:57] LABS: Absolute Lymphocytes (CBC) 0.8 K/uL (0.7-4.9); Hematocrit 36.3 % (39.6-49.0); Lymphocytes % 6.6 % (15.3-44.8); MCV 95.4 fL (80-100); MPV 9.1 fL (7.6-11.3); Platelets 198 thou/uL (152-406)
[2023-01-31 12:11] LABS: SARS-CoV-2 Antigen Rapid Res Negative (Negative)
[2023-01-31 12:13] LABS: Albumin 2.9 g/dL (3.4-5.0); Bilirubin Total 0.6 mg/dL (0.2-1.0); Protein, Total 10.2 g/dL (6.4-8.2)
[2023-01-31 12:32] LABS: Platelet Estimate ADEQ; Toxic Granulation NOTED
[2023-01-31 12:33] LABS: Blood Morphology Comment NOT SEEN (NOT SEEN); Dohle Bodies NOTED
[2023-01-31] MEDS ORDERED: ONDANSETRON 4 MG/2 ML VIAL ONE (12:35)
[2023-01-31] MEDS ORDERED: NA CHLORIDE 0.9% 1,000 ML ONE ×2 (12:35→14:16)
--- NOTE | 2023-01-31 12:43 | RAD REPORT ---
EXAM DESCRIPTION: CT - Abdomen Pelvis Wo Contrast - 01/31/2023 12:26 pm CLINICAL HISTORY: ABD PAIN COMPARISON: Abdomen Pelvis Wo Contrast dated 01/30/2021; Abdomen Pelvis W Contrast dated 1; CT ANGIO ABD/PELVIS W CONTRAST dated 10/30/2020; Abdomen Pelvis W Contrast dated 10/28/2020 TECHNIQUE: Thin cut axial CT imaging of the abdomen and pelvis was performed without IV contrast. Mu ltiplanar reformats were generated and reviewed. All CT scans are performed using dose optimization technique as appropriate and may include automated exposure control or mA/KV adjustment according to patient size. FINDINGS: No suspicious findings in the lung bases, apart from bibasilar atelectatic changes. The liver, spleen, and pancreas show no suspicious findings. Gallbladder and biliary tree are also wi thout suspicious finding. Bilateral renal enlargement and perinephric and upper periureteric fat stranding. Findings appear to be new since prior exam. No focal suspicious findings within limits of noncontrast technique. No evid ence of radiopaque calculi or hydroureteronephrosis. No dilated bowel loops or bowel wall thickening. No free air, free fluid or inflammatory stranding. N o hernia, mass or bulky lymphadenopathy. The urinary bladder is without significant finding. Prostato megaly. No suspicious bony findings. IMPRESSION: Kidneys are enlarged bilaterally with bilateral perinephric and upper periureteric fat s tranding. No appreciable fluid collections. No evidence of radiopaque calculi or hydronephrosis. The findings raise concern for bilateral pyelonephritis in the appropriate clinical setting. Recently pas sed calculi are another etiology to be considered, although there are no appreciable bladder calculi. No other acute intra-abdominal process.
--- NOTE | 2023-01-31 14:05 | EDPHYS ---
Physician Documentation [facility] Name: Cory Mcclure Jr Age: 67 yrs Sex: Male : 1955 Arrival Date: 01/31/2023 Time: 10:30 Bed 4 Private MD: ED Physician Javi Munoz HPI: 01/31 14:02 This 67 yrs old Black Male presents to ER via Wheelchair with complaints of Abdominal rn Pain, Decreased Appetite, Nausea/Vomiting. 14:02 The patient presents to the emergency department with nausea, vomiting, abdominal pain. rn 14:02 Onset: The symptoms/episode began/occurred 2 day(s) ago. Possible causes: unknown. rn Associated signs and symptoms: Pertinent positives: abdominal pain, diarrhea, fever, nausea, vomiting, Pertinent negatives: GI bleeding. Severity of symptoms: At their worst the symptoms were moderate in the emergency department the symptoms are unchanged. The patient has not experienced similar symptoms in the past. The patient has not recently seen a physician. Historical: - Allergies: 11:03 No Known Allergies; mb9 - PMHx: 11:03 Hypertensive disorder; mb9 - PSHx: 11:03 cardiac stents; mb9 - Immunization history:: Adult Immunizations up to date. - Social history:: Smoking status: Patient reports the use of cigarette tobacco products, smokes one pack cigarettes per day. - Family history:: not pertinent. - Hospitalizations: : No recent hospitalization is reported. 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 Exam: 14:02 Constitutional: This is a well developed, well nourished patient who is awake, alert, rn appears uncomfortable Head/Face: Normocephalic, atraumatic. ENT: dry MM Cardiovascular: Regular rate and rhythm. No pulse deficits. Respiratory: No increased work of breathing, no retractions or nasal flaring. Abdomen/GI: soft, + mid abd tenderness, no rebound Skin: Warm, dry MS/ Extremity: Pulses equal, no cyanosis. Neuro: Awake and alert, GCS 15 Vital Signs: 10:59 BP 95 / 64; Pulse 74; Resp 18; Temp 97.2; Pulse Ox 98% ; Weight 74.84 kg; Height 6 ft. mb9 3 in. ; Pain 9/10; 14:30 BP 146 / 103; Pulse 58; Resp 18; Pulse Ox 98% on R/A; ph 15:30 BP 121 / 86; Pulse 58; Resp 18; Pulse Ox 97% on R/A; ph 16:30 BP 118 / 72; Pulse 68; Resp 18; Pulse Ox 95% on R/A; ph 17:29 BP 114 / 67; Pulse 61; Resp 18; Temp 98; Pulse Ox 99% on R/A; ph 10:59 Body Mass Index 20.62 (74.84 kg, 190.5 cm) mb9 10:59 Pain Scale: Adult mb9 MDM: 11:01 Patient medically screened. rn 14:02 Differential diagnosis: Nonspecific abd pain, gastritis, cholecystitis, pancreatitis, rn appendicitis, diverticulitis, viral gastroenteritis, gastroenteritis, UTI, pyelonephritis. Data reviewed: vital signs, nurses notes, lab test result(s), radiologic studies, CT scan, and as a result, I will admit patient. Consideration of Admission/Observation Patient was admitted/placed on observation. Escalation of care including admission/observation considered. Management of patient was discussed with the following: Hospitalist: . Counseling: I had a detailed discussion with the patient and/or guardian regarding the historical points, exam findings, and any diagnostic results supporting the discharge/admit diagnosis, lab results, radiology results, the need for further work-up and treatment in the hospital. Response to treatment: the patient's symptoms have mildly improved after treatment, and as a result, I will admit patient. 01/31 11:06 Order name: CBC with Diff; Complete Time: 13:51 rn 01/31 11:06 Order name: CMP; Complete Time: 12:15 rn 01/31 11:06 Order name: Lipase; Complete Time: 12:15 rn 01/31 11:06 Order name: SARS RAPID; Complete Time: 12:15 rn 01/31 11:06 Order name: Flu; Complete Time: 13:51 rn 01/31 12:33 Order name: Manual Differential; Complete Time: 13:51 EDMS 01/31 13:51 Order name: Blood Culture Adult (2) rn 01/31 13:51 Order name: Lactate w/ 2H reflex if indic.; Complete Time: 19:15 rn 01/31 16:32 Order name: Magnesium; Complete Time: 19:15 EDMS 01/31 16:32 Order name: Phosphorus; Complete Time: 19:15 EDMS 01/31 16:32 Order name: Urinalysis w/ reflexes EDMS 01/31 16:32 Order name: Basic Metabolic Panel EDMS 01/31 16:32 Order name: Basic Metabolic Panel EDMS 01/31 16:32 Order name: CBC with Automated Diff EDMS 01/31 16:32 Order name: CBC with Automated Diff EDMS 01/31 16:32 Order name: Lipid Profile EDMS 01/31 16:32 Order name: Lipid Profile EDMS 01/31 12:17 Order name: Abdomen ; Complete Time: 13:51 EDMS 01/31 16:32 Order name: Renal EDMS 01/31 11:06 Order name: IV Saline Lock; Complete Time: 12:20 rn 01/31 11:06 Order name: Labs collected and sent; Complete Time: 12:00 rn Administered Medications: 12:32 Drug: NS 0.9% IV 1000 ml Route: IV; Rate: 1 bolus; Site: left hand; cm10 12:32 Drug: Ondansetron IVP 4 mg Route: IVP; Site: left hand; cm10 17:25 Drug: NS 0.9% IV 1000 ml Route: IV; Rate: 1000 ml; Site: left upper arm; ph 19:23 Follow up: IV Status: Infusion continued upon admission ph 17:25 Drug: Rocephin IV 1 grams Route: IV; Rate: calculated rate; Site: left upper arm; ph 18:00 Follow up: Response: No adverse reaction; IV Status: Completed infusion ph Disposition Summary: 01/31/23 14:05 Hospitalization Ordered Hospitalization Status: Inpatient Admission rn Provider: Everett Coronel rn Location: Telemetry/[facility] (Inpatient) rn Condition: Stable rn Problem: new rn Symptoms: have improved rn Bed/Room Type: Standard rn Room Assignment: 220(01/31/23 16:38) marielos Diagnosis - Pyelonephritis acute rn - Acute kidney failure, unspecified rn Forms: - Medication Reconciliation Form rn - SBAR form rn - Leadership Thank You Letter rn Signatures: Dispatcher [employer] EDNV Javi Munoz MD MD rn Attema, Juan Carlos, BOSS DYER-C BOSS DYER-Cla1 Airam Devi, RN RN Roland Gay, RN RN casey1 Krupa Orr, RN RN mb9 Jennifer Maurice RN RN cm10 Corrections: (The following items were deleted from the chart) 12:17 11:07 Abdomen Pelvis W Con+CT.RAD.BRZ ordered. [facility] EDNV 16:38 14:05 rn marielos
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
[2023-01-31] MEDS ORDERED: CEFTRIAXONE 1000 MG/VIAL ONE (14:16)
[2023-01-31] MEDS ORDERED: ACETAMINOPHEN 325 MG TABLET PO PRN (16:22)
--- NOTE | 2023-01-31 16:35 | P.HP ---
Certification for Inpatient Patient admitted to: Inpatient With expected LOS: >2 Midnights Patient will require the following post-hospital care: None Practitioner: I am a practitioner with admitting privileges, knowledge of patient current condition, hospital course, and medical plan of care. Services: Services provided to patient in accordance with Admission requirements found in Title 42 Section 412.3 of the Code of Federal Regulations Patient History Date of Service: 01/31/23 Reason for admission: Nausea, vomiting and abdominal pain History of Present Illness: Patient is a 67-year-old male with a past medical history significant for hypertension who presents with complaint of nausea, vomiting and abdominal pain located in the lower quadrants that has been ongoing for the past 2 days. Patient rated pain as 8/10 in severity and described pain as aching in quality. Patient also reports diarrhea but denies any episode today. Patient reported associated signs and symptoms of poor appetite, headache, fever and chills. Patient denies any other signs or symptoms. Symptoms are aggravated or relieved by nothing. Patient decided to present to the hospital due to worsening symptoms. Allergies No Known Allergies Allergy (Verified 01/27/21 13:08) Home Medications: Aspirin [Aspirin EC 81 MG] 81 mg PO DAILY #90 tablet. 10/31/20 Lidocaine 4% Patch [Lidoderm 5% Patch*] 1 patch TOP DAILY patch 01/26/21 Cholecalciferol (Vitamin D3) [Vitamin D 1000 Iu Tab*] 2,000 unit PO DAILY tab 02/08/21 Ferrous Sulfate [Ferrous Sulfate*] 325 mg PO DAILY #30 tab 02/08/21 Gabapentin [Neurontin*] 100 mg PO BID #60 cap 02/08/21 Iron/FA/Vit B-Com W/C [Hemocyte Plus*] 1 tab PO DAILY WITH BREAKFAST #30 tab 02/08/21 Lidocaine 4% Patch [Lidoderm 5% Patch*] 2 patch TOP DAILY patch 02/08/21 Metoprolol Tartrate [Lopressor*] 6.25 mg PO BID #60 tab 02/08/21 Midodrine HCl [Proamatine*] 15 mg PO TID #90 tab 02/08/21 Simethicone [Mylicon*] 80 mg PO Q4H PRN #20 tab 02/08/21 Tamsulosin [Flomax*] 0.4 mg PO BEDTIME #30 cap 09/05/21 Thiamine HCl [Vitamin B-1*] 100 mg PO DAILY #30 tablet 02/08/21 metroNIDAZOLE [Flagyl*] 250 mg PO Q6HR #8 tablet 02/08/21 - Past Medical/Surgical History Diabetic: No -: Alcohol abuse -: Splenic infarction -: Hypertension -: THC abuse -: right ankle sx Psychosocial/ Personal History: Unemployed, lives with a friend - Family History Mother -: Cancer - Social History Smoking Status: Current every day smoker Counseled patient to stop smoking for: less than 10 minutes Smoking therapy provided: Yes Patient receptive to therapy: Yes Alcohol use: Yes CD- Drugs: No Caffeine use: Yes Place of Residence: Home Review of Systems General: Fever, Chills, Other (Poor appetite ) Eyes: Unremarkable ENT: Unremarkable Respiratory: Unremarkable Cardiovascular: Unremarkable Gastrointestinal: Nausea, Vomiting, Abdominal Pain, Diarrhea Genitourinary: Unremarkable Musculoskeletal: Unremarkable Integumentary: Unremarkable Neurological: Other (Headache ) Lymphatics: Unremarkable Physical Examination - Physical Exam General: Alert, In no apparent distress, Oriented x3, Cooperative HEENT: Atraumatic, PERRLA, Mucous membr. moist/pink, EOMI, Sclerae nonicteric Neck: Supple, 2+ carotid pulse no bruit, No LAD, Without JVD or thyroid abnormality Respiratory: Clear to auscultation bilaterally, Normal air movement Cardiovascular: No edema, Regular rate/rhythm, Normal S1 S2 Capillary refill: <2 Seconds Gastrointestinal: Normal bowel sounds, Non-distended, Tenderness Musculoskeletal: No clubbing, No swelling, No tenderness Integumentary: No rashes, No significant lesion Neurological: Normal speech, Normal tone, Normal affect Lymphatics: No axilla or inguinal lymphadenopathy - Studies Laboratory Data (last 24 hrs) 01/31/23 01/31/23 11:50 11:50 WBC 12.10 H Hgb 12.2 L Hct 36.3 L Plt Count 198 Sodium 130 L Potassium 4.0 BUN 49 H Creatinine 4.98 H Glucose 181 H Total Bilirubin 0.6 AST 253 H ALT 88 H Alkaline Phosphatase 70 Lipase 23 Microbiology Data (last 24 hrs): 01/31/23 11:50 Nasopharnyx Influenza Type A Antigen Screen - Final 01/31/23 11:50 Nasopharnyx Influenza Type B Antigen Screen - Final Assessment and Plan - Plan -- LEXA. Likely prerenal. Secondary to fluid losses from vomiting and diarrhea. Continue IV hydration. Nephrology consulted. Will await further recommendations. --Nausea and vomiting. Antiemetics on board. Continue IV hydration. --Diarrhea. No episodes reported today. Continue supportive care. --Pyelonephritis. CT abdomen indicates " kidneys enlarged bilaterally with bilateral perinephric and upper periureteric fat stranding" raising concern for bilateral pyelonephritis. Patient started on antibiotics. Continue supportive care. -- UTI POA. Continue antibiotics. Urine cultures pending. --Leukocytosis. Likely secondary to UTI. Blood cultures pending. Continue antibiotics. We will continue to monitor WBC levels. --Anemia of chronic disease. H&H stable. We will continue to monitor hemoglobin and transfuse if less than 7.0. -- Transaminitis. Patient has a history of alcohol abuse. Patient reports occasional use of alcohol. Alcohol withdrawal protocol. We will continue to monitor LFTs. --Nicotine dependence. Patient counseled on tobacco cessation and placed on a nicotine patch. --DVT prophylaxis with heparin subQ Discharge Plan: Home Plan to discharge in: Greater than 2 days - Advance Directives Does patient have a Living Will: No Does patient have a Durable POA for Healthcare: No - Code Status/Comfort Care Code Status Assessed: Yes Physician Review: Patient Assessed, Agree with Above Assessment and Plan Critical Care: No
[2023-01-31] MEDS ORDERED: NA CHLORIDE 0.9% 50 ML ONE (17:34)
[2023-01-31 18:06] LABS: Magnesium 1.6 mg/dL (1.6-2.4); Phosphorus 2.3 mg/dL (2.5-4.9)
[2023-01-31] MEDS ORDERED: MAGNESIUM SULFATE 1 gm IVPB 1 GM/100 ML BAG IV ONE (18:47)
[2023-01-31] MEDS ORDERED: ACETAMINOPHEN 500 MG TAB PO ONE (19:16)
[2023-01-31] MEDS ORDERED: NA CHLORIDE 0.9% 1,000 ML IV ONE ×2 (19:16→20:37)
[2023-01-31] MEDS ORDERED: ACETAMINOPHEN 325 MG TABLET PO ONE (19:26)
[2023-01-31] MEDS: CEFTRIAXONE 1,000 MG in NA CHLORIDE 0.9% 50 ML IVPB SCH (20:00)
[2023-01-31] MEDS: POTASS/SODIUM PHOSPHATE 1 PKT POWD.PACK PO SCH ×3 (20:26→23:38)
[2023-01-31] MEDS: NA CHLORIDE 0.9% 1,000 ML IV SCH ×2 (20:27→21:55)
[2023-01-31 20:28] LABS: Uric Acid 9.9 mg/dL (3.5-7.2)
[2023-01-31] MEDS ORDERED: NA CHLORIDE 0.9% 500 ML IV ONE (20:38)
[2023-01-31] MEDS ORDERED: ADENOSINE 6 MG/ 2ML VIAL IV ONE ×2 (20:58→21:16)
[2023-01-31 21:07] LABS: Specific Gravity 1.019 (1.005-1.030); Urine Bacteria 20-50 /HPF (<20); Urine Bilirubin NEGATIVE (Negative); Urine Blood 3+ (OVER) (Negative); Urine Clarity Extremely Turbid (Clear); Urine Color Light-Orange (Yellow); Urine Crystals Unidentified Few /HPF (None Seen); Urine Glucose NEGATIVE (Negative); Urine Mucus Slight /HPF (None Seen); Urine Protein 3+ (Negative); Urine RBC >50 /HPF (None Seen); Urine Urobilinogen Normal (Normal); Urine WBC Clump Many /HPF (None Seen)
[2023-01-31] MEDS ORDERED: AMIODARONE IN DEXTROSE,ISO-OSM 360 MG/200 ML BAG IV ONE (21:24)
[2023-01-31] MEDS ORDERED: AMIODARONE HCL 150 MG in D5W 100 ML IV STA (21:26)
[2023-01-31] MEDS ORDERED: AMIODARONE HCL 150 MG/3 ML INJ IV ONE (21:31)
[2023-01-31] MEDS: AMIODARONE HCL 900 MG in Dextrose 5%-Water 482 ML IV SCH (21:31)
[2023-01-31] MEDS ORDERED: NA CHLORIDE 0.9% 100 ML ONE (21:32)
[2023-01-31 21:43] LABS: Magnesium 1.5 mg/dL (1.6-2.4); Thyroid Stimulating Hormone 2.09 uIU/mL (0.358-3.740)
--- NOTE | 2023-01-31 22:06 | P.PN ---
Date of Service: 01/31/23 Was called by nursing staff notified that patient was febrile and tachycardic with heart rate in the 160s to 170s. Temperature was 102 at the time, he was given IV fluids, p.o. Tylenol and his temperature improved but he was still tachycardic with similar right. Discussed case with cardiology after reviewing EKG recommends giving adenosine to determine underlying rhythm. 6 mg IV adenosine administered revealing atrial flutter. Blood pressure soft, patient mentating well denies chest pain though, will start IV amiodarone and moved to the ICU. Also added CPK level which came back markedly elevated, nephrology consult already in place, continue IV fluids.
[2023-01-31] MEDS ORDERED: HEPARIN/D5W 25,000 UNIT/500 ML BAG IV SCH (23:45)
[2023-02-01 00:35] LABS: Protime INR 1.17
[2023-02-01] MEDS ORDERED: AMIODARONE HCL 150 MG/3 ML INJ IV ONE (03:07)
[2023-02-01] MEDS ORDERED: AMIODARONE IN DEXTROSE,ISO-OSM 360 MG/200 ML BAG IV ONE (03:18)
[2023-02-01] MEDS: AMIODARONE HCL 900 MG in Dextrose 5%-Water 482 ML IV SCH (03:29)
[2023-02-01] MEDS: HYDROCODONE/APAP 5/325 MG TAB PO PRN ×2 (03:32→13:39)
[2023-02-01] MEDS: NA CHLORIDE 0.9% 1,000 ML IV SCH (05:19)
[2023-02-01 05:28] LABS: Absolute Lymphocytes (CBC) 1.3 K/uL (0.7-4.9); Hematocrit 26.6 % (39.6-49.0); Lymphocytes % 14.8 % (15.3-44.8); MCV 93.1 fL (80-100); Platelets 121 thou/uL (152-406); RBC Red Blood Cell Count 2.86 M/uL (4.33-5.43)
[2023-02-01 06:30] LABS: Albumin 1.9 g/dL (3.4-5.0); Bilirubin Total 0.5 mg/dL (0.2-1.0); Potassium 3.9 mEq/L (3.5-5.1); Protein, Total 7.2 g/dL (6.4-8.2)
--- NOTE | 2023-02-01 06:47 | P.PN ---
Date of Service: 02/01/23 Subjective: tachycardic with heart rate in the 160s to 170s and went into aflutter overnight; started on IV amio transferred to ICU yesterday Feeling a little better today this morning; more tachypneic since overnight HR slowly improving, in 120-130s currently 102.2 fever last night ROS: 10 point ROS as noted above, otherwise negative Physical Exam: GEN: Alert, oriented, tachypneic HEENT: Normal conjunctiva, sclera anicteric CV: Irregularly Irregular rate and rhythm, no edema Pulm: mild labored respirations on 2L NC, b/l crackles at bases, tachypneic, increased work of breathing ABD: Soft, diffuse mild-mod tenderness, nondistended Integumentary: No rashes Neuro: Normal speech, normal affect vitals reviewed Problem List: sepsis with Gram negative bacteremia secondary to Acute Pyelonephritis acute hypoxic respiratory distress secondary to volume overload Tachycardia, A-flutter; new onset rhabdomyolysis LEXA anuria Anemia Transaminitis Nicotine dependence sepsis with Gram negative bacteremia secondary to Acute Pyelonephritis CT abdomen (01/31): kidneys enlarged bilaterally with bilateral perinephric and upper periureteric fat stranding. concern for bilateral pyelonephritis urine cx: Pending blood cx: +GNR ID consulted Continue Rocephin (01/31-) Febrile 102.2 (01/31) +leukocytosis improving acute hypoxic respiratory distress secondary to volume overload volume overload from treatment for rhabdo/sepsis/ELXA acid base disorder likely contributing as well check ABG trial bipap this afternoon if needed; may need intubation Tachycardia A- flutter ; new onset patient febrile and tachycardic with heart rate in the 160s to 170s overnight transferred to ICU denies chest pain Cardiology consulted cont IV amiodarone cont heparin drip while NPO / if possible procedure digoxin x1 02/01 trend trop BP improved once HR improved <110 bpm this afternoon Anemia 02/01 hgb down (12.2 -> 9.3) hgb baseline seems to be around 9 nursing staff initially reported possible melena, however stool at bedside greenish in color, not melena, no bright red blood Monitor H&H. Transfuse if hgb < 7 GI consulted rhabdomyolysis LEXA anuria felt to be likely prerenal secondary to fluid losses from n/v IVF with no improvement Nephrology consulted temporary dialysis catheter placed by Dr. Maurice today dialysis cut short due to blood pressure getting low / not tolerated well PRN Antiemetics unclear etiology of elevated CPK, workup in progress; trend levels Transaminitis. Patient has a history of alcohol abuse. Patient reports occasional use of alcohol. Alcohol withdrawal protocol. continue to monitor LFTs. Nicotine dependence. Patient counseled on tobacco cessation and placed on a nicotine patch. VTE: Heparin drip Code: Full Dispo: Continue ICU level of care discussed possible intubation with patient, he was ok with plan. He asked to hold off on updating family members at this time if no improvement and requires intubation, will initiate transfer to tertiary care center; as no pecan gatherer at this facility for this week
--- NOTE | 2023-02-01 07:38 | RAD REPORT ---
EXAM DESCRIPTION: US - Renal Ultrasound-Complete - 01/31/2023 11:40 pm CLINICAL HISTORY: Acute renal failure COMPARISON: None FINDINGS: The right kidney measures 13 cm with a mildly increased echotexture. The left kidney measures 13 cm with a mildly increased echotexture. Hydronephrosis is not seen. Ram catheter is present within a collapsed bladder IMPRESSION: Enlarged kidneys with mildly increased renal echotexture consistent with parenchymal dis ease
[2023-02-01] MEDS ORDERED: DIGOXIN 0.25 MG/ML AMP IV ONE (08:00)
[2023-02-01] MEDS: CEFTRIAXONE 1,000 MG in NA CHLORIDE 0.9% 50 ML IVPB SCH (08:05)
[2023-02-01] MEDS: ONDANSETRON 4 MG/2 ML VIAL IV PRN ×2 (08:14→14:38)
[2023-02-01] MEDS ORDERED: FUROSEMIDE 40 MG/4 ML VIAL IV ONE (08:21)
--- NOTE | 2023-02-01 08:24 | P.CNS ---
Date of Consult: 02/01/23 Reason for Consult: pyelonephritis, gram negative bacteremia Chief Complaint: Nausea, vomiting and abdominal pain History of Present Illness: Patient is a 67-year-old male with a past medical history of hypertension who presented to the emergency department with complaints of nausea, vomiting and lower abdominal pain. He also reported fever, chills and decreased appetite. Urinalysis suggestive of UTI. Renal ultrasound on 01/31 impression " enlarged kidneys with mildly increased renal echotexture consistent with parenchymal disease." Blood and urine cultures obtained in ED. Patient was started on Rocephin IV and infectious disease was consulted. Allergies No Known Allergies Allergy (Verified 01/27/21 13:08) Home medications list reviewed: Yes Home Medications: Aspirin [Aspirin EC 81 MG] 81 mg PO DAILY #90 tablet. 10/31/20 Lidocaine 4% Patch [Lidoderm 5% Patch*] 1 patch TOP DAILY patch 01/26/21 Cholecalciferol (Vitamin D3) [Vitamin D 1000 Iu Tab*] 2,000 unit PO DAILY tab 02/08/21 Ferrous Sulfate [Ferrous Sulfate*] 325 mg PO DAILY #30 tab 02/08/21 Gabapentin [Neurontin*] 100 mg PO BID #60 cap 02/08/21 Iron/FA/Vit B-Com W/C [Hemocyte Plus*] 1 tab PO DAILY WITH BREAKFAST #30 tab 02/08/21 Lidocaine 4% Patch [Lidoderm 5% Patch*] 2 patch TOP DAILY patch 02/08/21 Metoprolol Tartrate [Lopressor*] 6.25 mg PO BID #60 tab 02/08/21 Midodrine HCl [Proamatine*] 15 mg PO TID #90 tab 02/08/21 Simethicone [Mylicon*] 80 mg PO Q4H PRN #20 tab 02/08/21 Tamsulosin [Flomax*] 0.4 mg PO BEDTIME #30 cap 02/08/21 Thiamine HCl [Vitamin B-1*] 100 mg PO DAILY #30 tablet 02/08/21 metroNIDAZOLE [Flagyl*] 250 mg PO Q6HR #8 tablet 02/08/21 - Past Medical/Surgical History Diabetic: No -: Alcohol abuse -: Splenic infarction -: Hypertension -: THC abuse -: right ankle sx -: Compound Fx LLE -: Heart Stents Psychosocial/ Personal History: Unemployed, lives with a friend - Family History Mother Medical History: Cancer - Social History Smoking Status: Current every day smoker Alcohol use: Yes CD- Drugs: No Caffeine use: Yes Place of Residence: Home Review of Systems 10-point ROS is otherwise unremarkable General: Weakness Respiratory: Shortness of Breath Gastrointestinal: Nausea Genitourinary: Dysuria Physical Examination Temp Pulse Resp BP Pulse Ox 97.0 F 135 H 23 H 94/69 96 02/01/23 04:00 02/01/23 06:00 02/01/23 06:00 02/01/23 06:00 02/01/23 06:00 General: Alert, Oriented x3, Mild distress HEENT: Atraumatic, Normocephalic Neck: Supple, JVD not distended Respiratory: Expiratory wheezes, Inspiratory wheezes, Other (tachpneic. On 4L nasal cannula. ) Cardiovascular: No edema, Irregular heart rate/rhythm Gastrointestinal: Normal bowel sounds, Soft and benign Musculoskeletal: No clubbing Integumentary: No rashes Neurological: Normal speech Urinary: Ram catheter Laboratory Data -Reviewed Microbiology Data - Reviewed Imagings Data: -Reviewed Conclusions/Impression: Problem List Severe Sepsis Gram-Negative Bacteremia Pyelonephritis Acute Kidney Injury Rhabdomyolysis Anemia Hyperlipidemia Severe sepsis Gram-negative bacteremia secondary to pyelonephritis - Blood cultures 01/31: gram negative rods - urine culture 01/31: Pending - CT abdomen pelvis wo contrast 01/31: "Kidneys are enlarged bilaterally with bilateral perinephric and upper periureteric fat stranding. No appreciable fluid collections. No evidence of radiopaque calculi or hydronephrosis. The findings raise concern for bilateral pyelonephritis in the appropriate clinical setting. Recently passed calculi are another etiology to be considered, although there are no appreciable bladder calculi." - On Rocephin (started 01/31) - Leukocytosis improved (WBC 12.1 -> 8.9) - 24 hour Tmax = 102.2 F creatine kinase 73861 BUN 55, Cr 5.04 Recommendations - Bacteremia/Pyelonephritis: Continue antibiotic therapy for 14 days - Currently on Rocephin IV, continue for now. - Will follow up with final urine and blood culture reports and adjust antibiotics as appropriate - WBC and fever trends. PRN tylenol. - LEXA: Nephrology on case. Pending hemodialysis catheter placement. - SVT, Atrial flutter: Cardiology consulted overnight Case discussed with Sudhir Ash
[2023-02-01] MEDS ORDERED: NICOTINE 21 MG/PAT TD SCH (09:00)
[2023-02-01] MEDS ORDERED: THIAMINE 200 MG/2 ML INJ IVP SCH (09:00)
[2023-02-01] MEDS ORDERED: D5W 1,000 ML with NA BICARB 8.4% 150 MEQ IV SCH ×2 (09:00)
[2023-02-01] MEDS ORDERED: MIDODRINE HCL 5 MG TABLET PO SCH (09:00)
[2023-02-01] MEDS ORDERED: SODIUM CHLORIDE 0.9% 10ML INJ IV PRN (09:50)
[2023-02-01] MEDS ORDERED: PANTOPRAZOLE 40 MG INJ IVP SCH (09:50)
[2023-02-01] MEDS ORDERED: LIDOCAINE 1% 20 ML MDV ONE (10:40)
[2023-02-01] MEDS ORDERED: HEPARIN 500 UNIT/5 ML SYR IV ONE (10:44)
[2023-02-01 10:52] LABS: UR PROTEIN 690.3 mg/dL (<11.9); Urine Protein/Creatinine Ratio 5.75 ratio (<0.15)
--- NOTE | 2023-02-01 11:04 | P.BOP ---
Preoperative diagnosis: LEXA Postoperative diagnosis: same Primary procedure: Emergent (stat) hemodialysis catheter placement right femoral Estimated blood loss: <1cc Specimen: none Findings: asa above Anesthesia: Local Complications: None Implants: mahukar HD cath Transferred to: Recovery Room Condition: Good
--- NOTE | 2023-02-01 11:40 | RAD REPORT ---
EXAM DESCRIPTION: Rob Single View02/01/2023 10:24 am CLINICAL HISTORY: Shortness of breath COMPARISON: 2021 FINDINGS: Mild bilateral pulmonary opacities. Heart is probably borderline enlarged IMPRESSION: Mild bilateral pulmonary opacities probably interstitial pulmonary edema
--- NOTE | 2023-02-01 11:40 | CON ---
Date of Consultation: 02/01/2023 Stat Consult and Stat Procedure History Of Present Illness: Mr. Mcclure is a 67-year-old patient, in the ICU right now. I was called stat to do a consult and also stat hemodialysis catheter by Dr. Beach, Renal Service due to findin gs of sepsis, tachycardia, rhabdomyolysis, acute kidney injury in need of immediate hemodialysis, com pletely anuric. Apparently, the patient came here initially yesterday last night with nausea, abdomi nal pain for 2 days. When he was admitted to the hospital, he was found to have acute kidney injury with diarrhea, pyelonephritis, UTI, sepsis, anemia. Today, he is getting worse with increased heart rate and when the Renal doctor saw this patient this morning, they wanted to give dialysis immediatel y, so they ordered stat hemodialysis catheter placement. No abdominal pain today, but person has a F oley on it. So, he has some burning sensation in his genitalia. Although, he is breathing right now , he feels warm and febrile. Heart rate is in the 140s. Review of Systems: Ten points otherwise unremarkable. See HPI. Allergies: NONE. Medications: At home include Lopressor, , aspirin, thiamine, Flagyl. Past Medical History: Includes splenic infarction, hypertension, and alcohol abuse. Past Surgical History: Surgeries include ankle surgery. Social History: He smokes every day. He was advised the importance of smoking cessation and he uses alcohol occasionally as per the patient. Physical Examination: General: The patient is awake, alert. HEENT: Pupils are equal, reactive. Anicteric. Neck: Supple. Chest: Clear. Heart: S1, S2. Abdomen: Soft and depressible. No guarding or rebound. No peritoneal signs. Extremities: Good capillary refill. Laboratory Data: Blood work shows WBC count of 12, hemoglobin of 12, platelets of 198. INR is 1.17. Sodium is 132, creatinine is 5.04, BUN is 55. Assessment: A 67-year-old patient, needs an emergent hemodialysis catheter, so they called me stat f or the ICU. I explained to the patient the benefits, alternatives, and risks of temporary hemodialys is catheter in the form of Mahurkar catheter, which include, but not limited to infection, bleeding, damage to adjacent structures, anesthesia complication, hematomas, PE, damage to adjacent structures, WI, and even . They also understand this may not relieve any symptoms. He might need more rafiq n one surgical intervention. He also understands that this is a temporary catheter. If they are goi ng to continue with dialysis in the next few days, we might have to take him to surgery to do a more semi-elective hemodialysis catheter placement, cuffed catheter and then in the future if that is andra g to be also temporary in the future if he continues to need a more permanent access. He understood and signed a consent. The heparin was previously stopped. Procedure: Placement of emergent hemodialysis catheter. After time-out was called, the right femora l area was prepped and draped in a sterile fashion. Local anesthesia was applied followed by inserti on of an 18-gauge needle in the right femoral vein at the first attempt. A guidewire was passed thro [facility]. Then, after that, serial dilators were placed through the guidewire. Then, after that, a Mahur teo hemodialysis catheter was placed in that area and the hemodialysis wire was removed. The cathete r has excellent backflow and inflow. It was heparinized and flushed and then secured in place with 3 -0 nylon. The patient tolerated the procedure well. No bleeding at this moment. Good peripheral pulses. The patient tolerated the procedure well. The patient will stay in the ICU. Renal and primary doctors notified. JOSE/PILY Voice ID: [id number] Report ID: [id number]
[2023-02-01 12:05] LABS: Hematocrit 31.1 % (39.6-49.0); MPV 9.6 fL (7.6-11.3); Platelets 136 thou/uL (152-406); RBC Red Blood Cell Count 3.31 M/uL (4.33-5.43)
[2023-02-01 12:44] LABS: Protime INR 1.17
[2023-02-01 12:55] LABS: Albumin 1.8 g/dL (3.4-5.0); Bilirubin Total 0.4 mg/dL (0.2-1.0); Potassium 4.1 mEq/L (3.5-5.1); Protein, Total 7.3 g/dL (6.4-8.2)
[2023-02-01] MEDS ORDERED: NACHLORIDE 0.45% 1,000 ML with NA BICARB 8.4% 100 MEQ IV SCH ×4 (14:00→16:00)
[2023-02-01 14:03] LABS: Hepatitis B Surface Ab - Quant < 3.10 mIU/mL (<8.0); Hepatitis B surface AG Interp. Nonreactive (Nonreactive)
--- NOTE | 2023-02-01 14:31 | CON ---
Date of Consultation: 02/01/2023 Reason For Consultation: Elevated BUN and creatinine, rhabdomyolysis, acidosis. History Of Present Illness: This is a pleasant 67-year-old gentleman with significant past medical h istory of hypertension, vitamin D deficiency, the patient was in his regular state of health. The pa penelope came with nausea and vomiting with abdominal pain for the last few days, watery diarrhea. Upon arrival to the hospital, the patient found to be hypotensive with tachycardic and found to have rhab domyolysis with elevation in BUN and creatinine. The patient was started over the night on bicarb dr ip with fluid resuscitation. The patient received 4 L, blood pressure still marginal. The patient f ound to have elevation in CK up to 10,000 with creatinine 5.3. The patient started being oliguric. The patient only had urine output of 150 in the last 24 hours. For that reason, we have been consult ed. The patient denied taking any nonsteroidal. No IV contrast. According to him, he is taking 1 b lood pressure medication, which is metoprolol. No ERIKA inhibitor. No diuresis. Past Medical History: Includes hypertension. Allergies: NO KNOWN DRUGS ALLERGY. Home Medications: Include aspirin, lidocaine, cholecalciferol, ferrous sulfate, gabapentin, oral iro n, metoprolol, midodrine, simethicone, Flomax, and thiamine with metronidazole. Past Surgical History: Includes splenic infarction, right ankle surgery. Family History: Positive for cancer. Social History: Active smoker, occasional alcohol. Denied drugs abuse. Review of Systems: Head and Neck: No red eye. No ear pain. GI: Has abdominal pain. Has diarrhea. Has nausea, vomiting. : No polyuria. No dysuria. No hematuria. 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 Respiratory: Has shortness of breath. Cardiovascular: No chest pain. Endocrine: No polydipsia. Skin: No rash. Neuro: Has weakness. Musculoskeletal: Generalized fatigue. Physical Examination: Vital Signs: When I saw the patient; blood pressure 161/96, pulse 95, afebrile. Chest: Wheezing bilateral, faint rales on the left base. Heart: S1, S2. Tachycardic. Abdomen: Soft. Mild tenderness. No guarding or rebound. Extremities: No edema. Neurologic: Alert. No focality. Laboratory Data: Sodium 131, potassium 4.1, bicarb 17, BUN 58, creatinine 5.3, GFR of 11, calcium 7. 4. CK 10,263, albumin 1.8. Corrected calcium is 9. Cortisol 43. TSH 2.09. WBC 11.3, hemoglobin 1 0.5. Urinalysis; specific gravity 1.019, WBC more than 50, RBC more than 50, bacteria of 50, +3 prot ein. P/C ratio is 5.7. Chest x-ray showing congestion bilaterally with marginal cardiomegaly. CT a bdomen, no hydronephrosis. Current Medications: The patient on include hydrocodone, Tylenol, bicarb drip, midodrine, pantoprazo le, and thiamine. Assessment And Plan: 1.Acute kidney injury secondary to prerenal, superimposed with rhabdomyolysis, oliguric, over volume with acidosis, no hyperkalemia. Given the current kidney function and the oliguric with the presenc e of rhabdomyolysis, I had long discussion with the patient the need to initiate renal replacement th erapy. The patient on agreement. I am going to go ahead and start the patient on dialysis. We will consult Surgery for temporary hemodialysis catheter. We will dialyze the patient on alkaline bath t o establish more alkalization to help with recovery. I am going to discontinue bicarb drip upon init iating the dialysis and we will start the patient on regular hydration and we will follow up the julian ent. 2.Given the presence of the nephrotic range proteinuria with normal size kidney, I am going to send for full serology for the patient and we will follow up. 3.With the presence of nephrotic range of proteinuria and anemia, I am going to go ahead and send fo r serum protein electrophoresis and we will follow up the patient. 4.Hypertension, currently blood pressure well controlled. I do not see the need for midodrine. I a m going to discontinue midodrine. 5.Tachycardia. The patient was started on amiodarone. We will follow up with Cardiology. 6.Rhabdomyolysis. Start the patient on IV hydration. Given the acute kidney injury and oliguric, I am going to dialyze the patient on alkaline bath and we will adjust the bicarb drip and we will foll ow up. 7.Hyponatremia, depletional. We will continue hydration. Will be corrected with dialysis. We will send for cortisol and TSH. 8.Acidosis, going to be corrected with dialysis. We will adjust bicarb drip. 9.Rhabdomyolysis, unknown etiology. As above, continue hydration. We will dialyze the patient give n the acute kidney injury. 10.Anemia. Send for workup. We will send for serum protein electrophoresis. 11.Respiratory distress secondary possible to over volume. We will go ahead and start hydration and we will dialyze the patient. 12.Tachycardia, elevation in CK. I am going to go ahead and add troponin to evaluate. Given the ta chycardia, if the patient had any myocarditis, we will follow up with Cardiology. Continue current t reatment. Time spent examining the patient [id number], reviewing data, lab and radiology, placing order, disc ussing the case with the patient, discussing the case with the wireless team member including hospitalist and nursing staff more than 75 minutes. SAMINA Voice ID: [id number] Report ID: [id number]
[2023-02-01] MEDS ORDERED: AMIODARONE HCL 900 MG in Dextrose 5%-Water 482 ML IV SCH (15:00)
[2023-02-01] MEDS ORDERED: ALBUMIN HUMAN 25% 50 ML IV ONE (15:23)
[2023-02-01 15:48] VITALS: O2SAT 95
[2023-02-01] MEDS ORDERED: NOREPINEPHRINE BITARTRATE/D5W 4 MG/250 ML BAG IV ONE (15:54)
[2023-02-01 16:17] VITALS: TEMP 97
[2023-02-01] MEDS ORDERED: HYDROMORPHONE HCL 0.5 MG/0.5 ML INJ IV PRN (16:38)
[2023-02-01] MEDS ORDERED: NOREPINEPHRINE BITARTRATE/D5W 4 MG/250 ML BAG IV SCH (16:45)
[2023-02-01] MEDS ORDERED: propofoL 1,000 MG/100 ML VIAL IV ONE (17:52)
[2023-02-01] MEDS ORDERED: RSI MEDICATION KIT IV ONE (17:53)
[2023-02-01] MEDS ORDERED: FENTANYL CITR 100 MCG/2 ML IV PRN (17:54)
[2023-02-01] MEDS ORDERED: LORazepam 2 MG/ML VIAL IV PRN (17:54)
[2023-02-01] MEDS ORDERED: HALOPERIDOL LACT 5 MG/ML INJ IV PRN (17:54)
[2023-02-01] MEDS ORDERED: MIDAZOLAM HCL 2 MG/2 ML INJ IV PRN (17:54)
[2023-02-01] MEDS ORDERED: propofoL 1,000 MG/100 ML VIAL IV SCH (18:00)
[2023-02-01 18:13] VITALS: BMI 19.8
[2023-02-01 18:42] VITALS: BP 131/97
[2023-02-01] MEDS ORDERED: SUCCINYLCHOLINE 20 MG/ML (10 ML) IV ONE (18:49)
[2023-02-01] MEDS ORDERED: ETOMIDATE 20 MG/10 ML VIAL IV ONE (18:51)
--- NOTE | 2023-02-01 19:02 | CON ---
Date of Consultation: 02/01/2023 Reason For Consultation: Atrial fibrillation with rapid ventricular response. History Of Present Illness: This is a 67-year-old male, who was admitted originally on the to [facility] due to severe dehydration, acute renal failure. He had nausea, vomiting, and abdominal pain. Den ies having any chest pain. During the hospital stay, he went into atrial fibrillation with rapid carla tricular response. Amiodarone was started and despite that, he continued to run high heart rate and I gave 1 dose of digoxin. Heart rate now is in the 90s. I saw him by bedside. He denies having any chest pain. Past Medical History: Significant for alcoholism, hypertension. Medications: Refer to reconciliation sheet for detailed list. Allergies: NO KNOWN DRUG ALLERGIES. Family History: No premature coronary artery disease or cancer. Social History: He drinks alcohol on a regular basis and smokes marijuana. Does not use any other d rugs. Review of Systems: All systems reviewed and they were negative except what mentioned in HPI. Physical Examination: Vital Signs: Reviewed. Head and Neck: Pupils are equal, reactive to light. Intact eye movements. No JVD. No cervical lym phadenopathy. Neck is supple. Thyroid is not enlarged. Lungs: Decreased breathing sounds with rhonchi bilaterally. No accessory muscle use or muscle retra ction. Heart: Irregularly irregular. No extra sounds. Abdomen: Soft, nontender. Bowel sounds positive. No organomegaly. No masses or hernia. No rigidi ty or rebound. Extremities: No edema, clubbing, or cyanosis. Intact pulses. Skin: No rash. Neurologic: Alert, awake, oriented x3. No acute focal deficits appreciated. Investigations: BUN 58, creatinine 5.3. Troponin 466 and his CK level is 10,263. Assessment And Recommendations: 1.Atrial fibrillation, now rate is controlled. Switch amiodarone to 200 mg by mouth twice a day and if blood pressure allows, introduce metoprolol 25 mg twice a day. Needs stroke prevention with low- dose Eliquis 2.5 mg twice a day. 2.Elevated troponin, but CK level is extremely high, likely this is rhabdomyolysis causing the acute renal failure. He has no chest pain. Once his kidney function recovers, we will re-evaluate. He w ill need a stress test, which will be done once his condition is more stable. 3.Acute renal failure, not getting better and temporary dialysis is being initiated. SR/MODL Voice ID: [id number] Report ID: [id number]
[2023-02-01 19:13] LABS: Arterial Blood Carboxyhemoglob 0.4 % (0-1.5); Blood Gas Oxyhemoglobin 97.3 % (94-97); Blood O2 Saturation 99.2 % (92-98.5)
--- NOTE | 2023-02-01 19:19 | P.PN ---
Date of Service: 02/01/23 ESTEFANIA ALDRIDGE called overhead at 1826, responded to ICU room 7 primary nurse reports patient became hypotensive and bradycardic followed by suffering cardiac arrest. Chest compressions were immediately initiated, I arrived to room and began ACLS protocol. ED physician and attending hospitalist also arrived at bedside. ACLS protocol was followed with addition of administration of bicarb, calcium chloride, magnesium, IV amiodarone, Levophed. Patient had 2 episodes of V. tach throughout code and was defibrillated at that time followed by continuation of chest compressions. Despite our efforts his arrest persisted with episodes of PEA and asystole finally with persistent asystole. Family notified by attending physician.
[2023-02-01] MEDS ORDERED: CEFTRIAXONE 1,000 MG in NA CHLORIDE 0.9% 50 ML IVPB SCH (21:00)
--- NOTE | 2023-02-01 21:38 | P.DS ---
Admission Date: 01/31/23 Discharge Date: 02/02/23 Disposition: Discharge Condition: Reason for Admission: Nausea, vomiting and abdominal pain Consultations: General Surgery - Dr. Maurice Cardiology - Dr. Leiva Infectious Disease - Dr. Whipple Nephrology - GI - Dr. Hayward Brief History of Present Illness: 67yo M, PMH: hypertension Patient presents with complaint of nausea, vomiting and abdominal pain located in the lower quadrants that has been ongoing for the past 2 days. Patient rated pain as 8/10 in severity and described pain as aching in quality. Patient also reports diarrhea but denies any episode today. Patient reported associated signs and symptoms of poor appetite, headache, fever and chills. Patient denies any other signs or symptoms. Symptoms are aggravated or relieved by nothing. Patient decided to present to the hospital due to worsening symptoms. Hospital Course: Problem List: sepsis with Gram negative bacteremia secondary to Acute Pyelonephritis acute hypoxic respiratory distress secondary to volume overload Tachycardia, A-flutter; new onset rhabdomyolysis LEXA anuria Anemia Transaminitis Nicotine dependence Patient admitted and found to have severe sepsis secondary to GNR bacteremia, secondary to acute bilateral pyelonephritis. Bloodwork notable for GNR bacteremia, anemia, rhabdomyolysis, LEXA, metabolic acidosis with respiratory alkalosis. He was started on IV fluids, antibiotics, and shortly after admission noted to be tachycardic to 170s. Cardiology was consulted, recommended adenosine, which revealed aflutter. Patient was transferred to ICU and started on IV amiodarone and heparin drip. He had eventual improvement of his heart rate and blood pressure. Nephrology was consulted for LEXA, acidosis, anuria, rhabdo. Patient had no improvement with IV fluids and remained anuric with profound proteinuria. General surgery was consulted for temporary dialysis catheter placement on 02/01 and patient underwent dialysis in the mid-afternoon of 02/01. He was only able to tolerate <1/2 of intended dialysis time due to hypotension. He was going to be placed on levophed but BP remained with MAP >65 once HD was discontinued. Unclear etiology of rhabdo, but suspect secondary to severe sepsis. Despite escalating medical management and trial of dialysis, he continued to decline. He was noted to be tachypneic and have increased work of breathing that began overnight and into 02/01. CXR noted bilateral opacities concerning for pulm edema/congestion. Despite medication to assist in correction of acidosis and fluid management, he continued without improvement. Transfer to tertiary care center was initiated in the afternoon of 02/01 due to worsening clinical picture and lack of allergy and immunology specialist at our facility. Patient was accepted for transfer pending bed availability and stabilization. In the late afternoon on 02/01 patient was placed on BIPAP and I discussed with the patient that he may need to be intubated given his ongoing tachypnea, his reported feeling of getting tired, acid/base status, and overall clinical picture. He was in agreement with intubation if needed. He requested we not contact his family until afterwards. Anesthesiology was consulted and patient underwent successful intubation at 1754. His vital signs were improved and stable for a short period until ~30 minutes post-intubation. Patient suddenly became hypotensive and heart rate slowed, leading to code blue being called at 1826. ACLS protocol was initiated and ROSC was unable to be obtained despite multiple rounds of CPR/Epi and defibrillation for episodes of PEA/asystole/vfib. Time of : 18:50 Vital Signs/Physical Exam: Temp Pulse Resp BP Pulse Ox 97 F 110 H 18 131/97 H 99 02/01/23 16:00 02/01/23 18:00 02/01/23 18:00 02/01/23 18:00 02/01/23 17:00 Laboratory Data at Discharge: WBC 11.30 thou/uL (4.3-10.9) H 02/01/23 11:22 Hgb 10.5 g/dL (13.6-17.9) L D 02/01/23 11:22 Hct 31.1 % (39.6-49.0) L 02/01/23 11:22 Plt Count 136 thou/uL (152-406) L 02/01/23 11:22 PT 12.9 SECONDS (9.5-12.5) H 02/01/23 12:10 PT Cancelled 02/01/23 12:10 INR 1.17 02/01/23 12:10 INR Cancelled 02/01/23 12:10 APTT 42.4 SECONDS (24.3-36.9) H 02/01/23 17:14 Sodium 131 mEq/L (136-145) L 02/01/23 11:22 Potassium 4.1 mEq/L (3.5-5.1) 02/01/23 11:22 BUN 58 mg/dL (7-18) H 02/01/23 11:22 Creatinine 5.30 mg/dL (0.70-1.30) H 02/01/23 11:22 Glucose 142 mg/dL (74-106) H 02/01/23 11:22 Uric Acid 9.9 mg/dL (3.5-7.2) H 01/31/23 19:38 Phosphorus 2.3 mg/dL (2.5-4.9) L 01/31/23 17:20 Magnesium Cancelled 01/31/23 21:00 Total Bilirubin 0.4 mg/dL (0.2-1.0) 02/01/23 11:22 AST 249 U/L (15-37) H 02/01/23 11:22 ALT 101 U/L (16-61) H 02/01/23 11:22 Alkaline Phosphatase 92 U/L (45-117) D 02/01/23 11:22 Triglycerides 359 mg/dL (<150) H 02/01/23 05:12 Cholesterol 114 mg/dL (<200) 02/01/23 05:12 HDL Cholesterol 13 mg/dL (40-60) L 02/01/23 05:12 Cholesterol/HDL Ratio 8.77 02/01/23 05:12 Lipase 23 U/L (13-75) 01/31/23 11:50 Home Medications: Aspirin [Aspirin EC 81 MG] 81 mg PO DAILY #90 tablet. 10/31/20 Lidocaine 4% Patch [Lidoderm 5% Patch*] 1 patch TOP DAILY patch 01/26/21 Cholecalciferol (Vitamin D3) [Vitamin D 1000 Iu Tab*] 2,000 unit PO DAILY tab 02/08/21 Ferrous Sulfate [Ferrous Sulfate*] 325 mg PO DAILY #30 tab 02/08/21 Gabapentin [Neurontin*] 100 mg PO BID #60 cap 02/08/21 Iron/FA/Vit B-Com W/C [Hemocyte Plus*] 1 tab PO DAILY WITH BREAKFAST #30 tab 02/08/21 Lidocaine 4% Patch [Lidoderm 5% Patch*] 2 patch TOP DAILY patch 02/08/21 Metoprolol Tartrate [Lopressor*] 6.25 mg PO BID #60 tab 09/05/21 Midodrine HCl [Proamatine*] 15 mg PO TID #90 tab 02/08/21 Simethicone [Mylicon*] 80 mg PO Q4H PRN #20 tab 02/08/21 Tamsulosin [Flomax*] 0.4 mg PO BEDTIME #30 cap 02/08/21 Thiamine HCl [Vitamin B-1*] 100 mg PO DAILY #30 tablet 02/08/21 metroNIDAZOLE [Flagyl*] 250 mg PO Q6HR #8 tablet 02/08/21 Followup: NONE,NONE [Primary Care Provider] - Time spent managing pt's care (in minutes): 45
[2023-02-02] MEDS ORDERED: MAGNESIUM SULF 1GM/2ML VIAL IV ONE (00:45)
[2023-02-02] MEDS ORDERED: D50W 25 GM/50 ML SYRINGE IV ONE (00:45)
[2023-02-02] MEDS ORDERED: EPINEPHrine 1 MG/10 ML SYR IV ONE (00:45)
[2023-02-02] MEDS ORDERED: Calcium Chloride 10% INJ SYR IV ONE (00:45)
[2023-02-02] MEDS ORDERED: AMIODARONE HCL 150 MG/3 ML INJ IV ONE (00:45)
[2023-02-02] MEDS ORDERED: ATROPINE SULF 1 MG/10 ML SYR IV ONE (00:45)
--- NOTE | 2023-02-02 07:30 | ECHO ---
HEIGHT: 6 ft 3 in WEIGHT: 158 lb 12.8 oz DATE OF STUDY: 02/01/[address]: Juan Carlos Soto NP 2-DIMENSIONAL: YES M.MODE: YES DOPPLER: YES COLOR FLOW: YES TDS: PORTABLE: YES DEFINITY: BUBBLE STUDY: DIAGNOSIS: ARRHYTHMIA CARDIAC HISTORY: CATHERIZATION: NO SURGERY: NO PROSTHETIC VALVE: NO PACEMAKER: NO MEASUREMENTS (cm) DIASTOLIC (NORMALS) SYSTOLIC (NORMALS) IVSd 0.9 (0.6-1.2) LA Diam 2.6 (1.9-4.0) LVEF 61% LVIDd 4.0 (3.5-5.7) LVIDs 2.7 (2.0-3.5) %FS 32% LVPWd 1.0 (0.6-1.2) Ao Diam 2.5 (2.0-3.7) 2 DIMENSIONAL ASSESSMENT: RIGHT ATRIUM: NORMAL LEFT ATRIUM: NORMAL RIGHT VENTRICLE: NORMAL LEFT VENTRICLE: NORMAL TRICUSPID VALVE: MILD TRICUSPID REGURGITATION MITRAL VALVE: MILD MITRAL REGURGITATION PULMONIC VALVE: NORMAL AORTIC VALVE: NORMAL PERICARDIAL EFFUSION: NONE AORTIC ROOT: NORMAL LEFT VENTRICULAR WALL MOTION: NORMAL DOPPLER/COLOR FLOW: SEE BELOW COMMENTS: 1. NORMAL LEFT VENTRICULAR EJECTION FRACTION 55-60% WITH NORMAL WALL MOTION 2. GRADE I DIASTOLIC DYSFUNCTION 3. MILD TRICUSPID REGURGITATION 4. MILD MITRAL REGURGITATION 5. MILDLY DILATED RIGHT VENTRICLE WITH NORMAL FUNCTION 6. MODERATE PULMONARY HYPERTENSION WITH RIGHT VENTRICULAR SYSTOLIC PRESSURE OF 45-50 mmHg TECHNOLOGIST: ZAC MILLER
--- NOTE | 2023-02-02 13:06 | EKG ---
Test Date: 2023-01-31 Test Time: 19:12:46 Medical Supply Technician: KV MEASUREMENT RESULTS: Intervals: Rate: 173 VT: QRSD: 102 QT: 264 QTc: 447 [place]: P: 264 VT: QRS: -58 T: 44 INTERPRETIVE STATEMENTS: Atrial flutter with 2:1 AV conduction Left axis deviation Inferior infarct, age undetermined Abnormal ECG Compared to ECG 03/02/2022 21:56:48 Left-axis deviation now present Myocardial infarct finding now present Sinus rhythm no longer present Electronically Signed On 02-02-23 13:04:53 CDT by Jose L Leiva
== END 2023-02-02 00:46 | disposition expired | DRG 872 ==
LOC: ER 10:30 → ERHOLD 16:18 → 2ND 17:56 → 3RD-ICU 22:35
PROVIDERS: ADMIT Internal Medicine; ATTEND Hospitalist
PROC: 5A1935Z Respiratory Ventilation, Less than 24 Consecutive Hours (ICD-10-PCS; principal; 2023-02-01)
PROC: 0BH17EZ Insertion of Endotracheal Airway into Trachea, Via Natural or Artificial Opening (ICD-10-PCS; 2023-02-01)
PROC: 5A1D70Z Performance of Urinary Filtration, Intermittent, Less than 6 Hours Per Day (ICD-10-PCS; 2023-02-01)
DX: A41.51 Sepsis due to Escherichia coli [E. coli] (principal); N10 Acute pyelonephritis; N17.9 Acute kidney failure, unspecified; I48.92 Unspecified atrial flutter; M62.82 Rhabdomyolysis; E87.1 Hypo-osmolality and hyponatremia; I47.20 Ventricular tachycardia, unspecified; E87.4 Mixed disorder of acid-base balance; R65.20 Severe sepsis without septic shock; E87.70 Fluid overload, unspecified; I10 Essential (primary) hypertension; I48.91 Unspecified atrial fibrillation; E86.0 Dehydration; D63.8 Anemia in other chronic diseases classified elsewhere; F17.210 Nicotine dependence, cigarettes, uncomplicated; R74.01 Elevation of levels of liver transaminase levels; R09.02 Hypoxemia; R34 Anuria and oliguria; R06.03 Acute respiratory distress; Z56.0 Unemployment, unspecified; Z95.5 Presence of coronary angioplasty implant and graft; Z71.6 Tobacco abuse counseling; Z79.82 Long term (current) use of aspirin; Z79.899 Other long term (current) drug therapy
CPT/HCPCS: 36415; 36600; 71045; 74176; 76770; 80048; 80053; 80061; 81001; 82533; 82550; 82570; 82805; 83605; 83690; 83735; 84100; 84132; 84156; 84300; 84443; 84484; 84550; 85025; 85027; 85610; 85730; 86706; 87040; 87077; 87086; 87088; 87186; 87205; 87340; 87804; 87811; 90935; 92950; 93005; 93306; 94002; 94660; 96361; 96365; 96375; 99285; J0153; J0171; J0282; J0461; J0696; J1160; J1170; J1642; J1644; J1940; J2001; J2250; J2405; J2704; J3411; J3475; J7030; J7060; P9047